=== PATIENT | female | born 1980 | race Caucasian/White ===

== ENCOUNTER → 2019-12-04 09:44 | Outpatient (CLI) | payer MEDICAID, SELFPAY ==
--- NOTE | 2019-12-04 09:50 | VDUE_ITS ---
Reason For Study: ESRD Right Arm Left Arm Cephalic V is dilated and noncompressible at Cephalic V is dilated and noncompressible at the antecubital space with no flow. the antecubital space with no flow. Right Cephalic Vein at the shoulder Left Cephalic Vein at the shoulder measures .07 x .07 cm. measures .08 x .08 cm. Right Cephalic Vein mid bicep measures .11 Left Cephalic Vein at mid bicep measures .2 x .13 cm. x .2 cm. Right Cephalic Vein above antecub Left Cephalic Vein above antecub measures .13 measures .11 x 11 cm. x .19 cm. Right Basilic Vein mid bicep measures .09 Left Cephalic Vein below antecub measures .13 x .12 cm. x .14 cm. Right Basilic Vein above antecub measures .1 Left Cephalic Vein in the forearm x .12 cm. measures .09 x .09 cm. Right Basilic Vein below antecub measures .08 Left Cephalic Vein at the wrist measures .1 x .09 cm. x .11 cm. Right Basilic Vein in the forearm Left basilic vein is compressible. measures .06 x .07 cm. Basilic vein at bicep measures .32 x .36 cm. Basilic V is dilated and noncompressible in Basilic vein above antecub measures .1 x .1 the upper arm with no flow. cm. Basilic at the wrist is too small to assess. Basilic vein below antecub measures .08 x .08 cm. Brachial artery .45 x .44 cm. Basilic vein in the forearm measures .09 Brachial arttery 55.5 cm/s. x .08 cm. Radial artery .18 x .21 cm. Basilic vein at the wrist measures .07 x .08 Radial artery 90.8 cm/s. cm. Brachial artery .35 x .42 cm. Brachial arttery 90.8 cm/s. Radial artery .12 x .13 cm. Radial artery 72.5 cm/s. Prelim called to Dr. Wise's office. Interpretation Summary Superficial thrombophlebitis right cephalic vein at the antecubital space. Diminutive right upper arm cephalic vein Superficial thrombophlebitis right upper arm basilic vein Normal diameter and flow right brachial artery Small right radial artery Superficial thrombophlebitis left cephalic vein at the antecubital space with diminutive cephalic vein of the upper arm and forearm. Diminutive left forearm basilic vein and small in the upper arm Adequate diameter and flow left brachial artery Small left radial artery Ordering Physician: Sahara Farrell Performed By: Guille Gordon RVT ?
== END ==
PROVIDERS: PCP Family Medicine; Referring Provider Student in an Organized Health Care Education/Training Program; Visit Provider Student in an Organized Health Care Education/Training Program
DX: N18.6 End stage renal disease (principal)
CPT/HCPCS: 93970

== ENCOUNTER 2020-01-11 09:23 | Emergency (ER) | payer MEDICAID, SELFPAY ==
[2020-01-11 09:25] VITALS: BP 142/79; PULSE 82; RESP 18; TEMP 37.1; O2SAT 98; BMI 24.1
[2020-01-11 09:32] VITALS: BP 150/77; PULSE 85; PULSE 86; RESP 18; TEMP 37.1; O2SAT 96; O2SAT 98
--- NOTE | 2020-01-11 09:33 | ED.VISSUMM ---
- ER Visit Summary Date of Service: 01/11/20 Chief Complaint: Seizure History of Present Illness: The patient is a 39 F who presents after having a seizure. She states that she was having her regular dialysis session today when she had a seizure. She remembers having headache and then staff asking her questions. She has had a history of this in the past. Her seizures happen either during or after dialysis. She is on Keppra and has been medication compliant. She states that she recently was intubated and found to have posterior reversible encephalopathy syndrome after 1 of her seizure episodes. Currently she states she is having a mild headache but denies any other symptoms. Physical Examination: Vital signs reviewed. HEENT exam unremarkable. Heart is regular rate and rhythm without murmurs. Lungs are clear to auscultation. There is a temporary Vas-Cath in the right upper chest. Abdomen is soft and nontender. Extremities reveal no edema. She does have a left arm fistula which is currently maturing. Incisions are clean dry and intact. Skin exam normal. Neurologic exam normal. Test Results: Hemoglobin is 8.5 which is baseline. Creatinine 3.95 secondary to her end-stage renal disease Emergency Department Course and Treatment: She was given Tylenol for her headache. Upon reevaluation she is feeling symptomatically improved. Her laboratory studies are unremarkable or at baseline. I do not feel she requires any further work-up. She will continue her Keppra at home. She will call her doctor for follow-up Treatment Plan: [] Disposition: Discharge Impression: Seizure This note was generated with [employer] dictation software. It may contain incorrect words, spelling, and punctuation that were not noted in review of the chart prior to signing ED Disposition - Plan for ED Patient: Disposition: Home or Assisted Living Instructions: ED Seizure Recurrent Adult Referrals: Jairon Wise [Primary Care Provider] -
[2020-01-11 09:53] LABS: Absolute Lymphocyte Count 1.35 X10^3/uL (0.83-4.51); Absolute Neutrophil Count 3.9 X10^3/uL (2.0-7.7); Basophil# 0.05 X10^3/uL; Basophil% 0.9 % (0-1); Eosinophil# 0.12 X10^3/uL; Hematocrit 27.3 % (37-47); Hemoglobin 8.5 g/dL (12.0-15.0); Lymphocyte # 1.35 X10^3/ul (4.0); Mean Corp Hgb Conc 31.1 g/dL (32-36); Mean Corpuscular Hgb 29.3 pg (27.0-32.0); Mean Corpuscular Volume 94.1 fL (81-99); Mean Platelet Vol. 10.2 fl (6.2-12.0); Monocyte# 0.39 X10^3/uL; Monocyte% 6.6 % (0-10); NRBC Flagged by Analyzer 0.3 % (0-5); Neutrophil # 3.94 X10^3/uL (2.7-7.7); Neutrophil % 67.2 % (47-70); Platelet Count 234 K/mm3 (150-450); RBC Distribution Width SD 53.9 fl (35.1-43.9); White Blood Count 5.9 K/mm3 (4.4-11.0)
[2020-01-11] MEDS: Acetaminophen 500 MG Tablet 1000 MG PO (09:55)
[2020-01-11 10:05] LABS: Anion Gap 6 (5-15); BUN 16 mg/dL (7-18); BUN/Creat Ratio 4.1 RATIO (10-20); Calcium,Total 9.2 mg/dL (8.5-10.1); Chloride 103 mmol/L (98-107); Creatinine, Serum 3.95 mg/dL (0.55-1.02); EST Glomerular Filtration Rate 13 mL/min (>60); Est Glom Filt Rate - Afr Amer 16 mL/min (>60); Estimated Creatinine Clearance 16.18 ml/min; Glucose 74 mg/dL (74-106); Potassium 4.4 mmol/L (3.5-5.1); Sodium Level 141 mmol/L (136-145)
[2020-01-11 10:46] VITALS: BP 145/80; BP 146/78; PULSE 89; PULSE 90; RESP 18; TEMP 37.2; O2SAT 98
== END 2020-01-11 10:50 | disposition home or self-care (01) ==
LOC: ED 10:23
PROVIDERS: Emergency Provider Emergency Medicine; PCP Family Medicine
DX: G40.909 Epilepsy, unspecified, not intractable, without status epilepticus (principal); N18.6 End stage renal disease; Z99.2 Dependence on renal dialysis; Z79.899 Other long term (current) drug therapy
CPT/HCPCS: 80048; 85025; 99285

== ENCOUNTER 2020-01-17 07:51 | Day surgery (SDC) | payer MEDICAID, SELFPAY ==
--- NOTE | 2020-01-16 15:41 | PCM.HP.BLA ---
History and Physical Date of Admission: 01/17/20 HPI: The patient is a 39 year old female presenting for pre-operative visit. She is scheduled for?hysteroscopy D&C w/ Mirena IUD insertion, for?hysteroscopy D&C w/ Jordyn ablation and Mirena insertion?. ??Procedure discussed along with risks, benefits and complications. ?Other alternatives discussed for management. Consent form signed??Yes.? PAST MEDICAL HISTORY PAST MEDICAL HISTORY Diagnosis Date ? TIMOTHY (acute kidney injury) (HCC) ? ? Anemia, unspecified ? ? ESRD (end stage renal disease) (HCC) ? ? Hypertension ? ? Leiomyoma of uterus, unspecified ? ? Lumbago 2003 ? 2/2 trauma s/p L3-4 microdiscectomy in January 2006 ? Methicillin susceptible Staphylococcus aureus in conditions classified elsewhere and of unspecified site ? ? completed treatment with po antibiotics and bactroban to the nose (no MRSA abscesses since then) ? Ostium secundum type atrial septal defect ? ? per pt ? PRES (posterior reversible encephalopathy syndrome) ? ? Retention of urine, unspecified ? ? Urinary tract infection, site not specified ? ? ? PAST SURGICAL HISTORY PAST SURGICAL HISTORY Procedure Laterality Date ? ANESTH, SECTION ? 2001 ? LYSIS ADNEXAL ADHESIONS ? 2002 ? ? CURRENT MEDICATIONS Current Outpatient Medications Medication Sig Dispense Refill ? losartan (COZAAR) 25 mg tablet Take 25 mg by mouth once daily. ? ? ? amLODIPine (NORVASC) 10 mg tablet Take 10 mg by mouth once daily. ? ? ? labetalol (TRANDATE) 300 mg tablet Take 2 tablets by mouth twice daily. 120 tablet 0 ? levETIRAcetam (KEPPRA) 500 mg/5 mL (5 mL) CUP 10 mL by ORAL/FEEDING TUBE route once daily. (Patient taking differently: by ORAL/FEEDING TUBE route once daily. ) 300 mL 0 ? levETIRAcetam (KEPPRA) 500 mg/5 mL (5 mL) CUP 5 mL by ORAL/FEEDING TUBE route every Tuesday, Tuesday, and Tuesday. 60 mL 0 ? pantoprazole (PROTONIX) 40 mg/20 mL oral liquid 20 mL by ORAL/FEEDING TUBE route DAILY (6 AM). ? ? ? heparin 1,000 unit/mL soln 3.2 mL by INTRALUMINAL route as needed (fill volume of dialysis catheter post treatment). ? ? ? atorvastatin (LIPITOR) 10 mg tablet Take 10 mg by mouth daily at bedtime. ? ? ? cyanocobalamin (VITAMIN B-12) 500 mcg tab tab(s) Take 2 tablets by mouth once daily. ? ? ? megestrol (MEGACE) 40 mg tablet Take 40 mg by mouth twice daily. ? ? ? polyethylene glycol 3350 (MIRALAX, GLYCOLAX) 17 gram packet Take 17 g by mouth once daily as needed (constipation). ? ? ? amLODIPine (NORVASC) 10 mg tablet Take 1 tablet by mouth once daily. 30 tablet 0 ? lacosamide (VIMPAT) 200 mg 1 tablet by ORAL/FEEDING TUBE route twice daily for 30 days. (Patient not taking: Reported on 12/05/2019) 60 tablet 0 ? hydrALAZINE (APRESOLINE) 25 mg tablet Take 2 tablets by mouth every 8 hours. (Patient taking differently: Take 100 mg by mouth three times daily. ) 180 tablet 0 ? Albuterol Sulfate 0.63 mg/3 mL nebulizer solution Use 1 Ampule via nebulizer every 2 hours as needed (decreased breath sounds). ? ? ? oxyCODONE-acetaminophen (PERCOCET) 5-325 mg tablet Take 1 tablet by mouth every 4 hours as needed for Pain. ? ? ? No current facility-administered medications for this visit.? ? ALLERGIES:?Bioxin [Clarithromycin]; Cipro [Ciprofloxacin]; Keflex [Cephalexin]; Penicillins ? PERSONAL HISTORY:? SOCIAL HISTORY Social History ? Tobacco Use ? Smoking status: Former Smoker ? ? Packs/day: 1.00 ? ? Years: 3.00 ? ? Pack years: 3.00 ? ? Types: Cigarettes ? ? Last attempt to quit: 01/03/2016 ? ? Years since quittin.0 ? Smokeless tobacco: Never Used Substance Use Topics ? Alcohol use: Yes ? ? Comment: Rarely ? Drug use: No ? FAMILY HISTORY:? FAMILY HISTORY FAMILY HISTORY Problem Relation Age of Onset ? other (ALS) Father ?dx 11/2007 ? other (uterine fibroid) Mother ? ? other (hysterectomy) Mother ? ? other (HTN) Mother ? ? other (ovarian cancer) Maternal Grandmother ? ? REVIEW OF SYMPTOMS: GENERAL: denies fevers or chills ENDOCRINOLOGY: has not been on steroids Cardiology : denies palpitations or chest pain Respiratory: denies SOB or cough Hematology: denies history of prolonged bleeding or easy bruising or VTE Allergy: Denies history of personal or family history of allergy to anesthesia ? ? PHYSICAL EXAMINATION: ? VITALS:?Blood pressure 110/68, weight 130 lb 14.4 oz (59.4 kg), last menstrual period 08/24/2019. ? GENERAL:??The patient is well nourished, well hydrated in no acute distress. ?, The patient is oriented to time, place, and person. NECK:?Supple. No lynphadenopathy, normal thyroid, no thyromegaly. LUNGS:?Clear to auscultation bilaterally. no wheezes, rhonchi or rales HEART:?Regular rate and rhythm, Normal heart sounds and No murmurs or gallops GENITALIA:?Normal external genitalia, Urethral meatus normal, Bladder nontender, normal vagina and normal vaginal tone, normal cervix, normal uterus, size and consistency, normal adnexa without masses or tenderness and perineum WNL WET PREP:?Not indicated ? IMPRESSION:?Menorrhagia, chronic blood loss anemia superimposed on anemia of chronic disease due to renal failure ? PLAN:???The risks/benefits/alternatives and personal involved for the planned?PAP/hysteroscopy D&C w/ Jordyn ablation and Mirena insertion?were reviewed with the patient. Her questions were answered to her satisfaction and she desires to proceed. ?Consent was signed. ?I reviewed with her postop instructions and expectations. ? ? I have reviewed and updated past medical and surgical history, medications and allergies? Essential Procedure Criteria Procedure Essential: Yes Criteria Note: severe anemia requiring ongoing blood transfusions Risk to Patient if Procedure Delayed: Presence of severe symptoms causing an inability to perform ADL's
[2020-01-17] VITALS (9 sets, daily range): BP systolic 134–155; BP diastolic 80–94; PULSE 58–76; RESP 15–16; TEMP 36.5–37.4; O2SAT 87–100; BMI 22.9
[2020-01-17 08:38] LABS: Hematocrit 32.2 % (37-47); Hemoglobin 9.5 g/dL (12.0-15.0); Mean Corp Hgb Conc 29.5 g/dL (32-36); Mean Corpuscular Hgb 29.4 pg (27.0-32.0); Mean Corpuscular Volume 99.7 fL (81-99); Mean Platelet Vol. 10.5 fl (6.2-12.0); Platelet Count 194 K/mm3 (150-450); RBC Distribution Width CV 15.3 % (11.6-14.6); RBC Distribution Width SD 56.3 fl (35.1-43.9); Red Blood Count 3.23 M/mm3 (4.2-5.4); White Blood Count 6.7 K/mm3 (4.4-11.0)
[2020-01-17 08:39] LABS: Internal QC Validated? YES +Cl - CLEAR BKGD; Pregnancy, Serum, hCG Quali. NEGATIVE Negative
[2020-01-17] MEDS: Acetaminophen 500 MG Tablet 1000 MG PO (08:43)
[2020-01-17] MEDS: 0.9% Normal Saline 1,000 ML 30 ML IV (08:44)
--- NOTE | 2020-01-17 09:30 | EMB_PTH ---
PATIENT: BABAR ACUÑA [place] [facility] [place][id number] AGE/SX: 39/F ROOM: RE01/17/[address]: Dr. Belinda Mcmullen MD : 1980 BED: DIS: 01/17/2020 SPEC #: [id number] RECD: 01/17/20 12:01 STATUS: KP TOY #: [id number] AMEENA: 01/17/20 09:[address]: Belinda Mcmullen DEPT: SURGICAL PATHOLOGY RECD BY: Bree Peoples ENTERED: 01/21/20 08:34 SP TYPE: ENDOM BX/C JAMAAL DR: Dr. Jairon Wise DO Tissues: Endometrium, NOS Procedures: Surgery Specimen Level IV HEADER OPERATION: Hysteroscopy, D & C Jordyn/Mirena IUD insertion PRE-OP DIAGNOSIS: Abnormal uterine bleeding; chronic blood loss anemia TISSUE SUBMITTED: Endometrial curettings MICROSCOPIC DIAGNOSIS Endometrial curettings: Weakly proliferative endometrium. Fragments of benign ectocervical epithelium. YASMANY:sierra 01/21/20 MICROSCOPIC DESCRIPTION Slides are reviewed. GROSS DESCRIPTION Received in fixative is one container labeled with the patient's name and designated endometrial curettings. The specimen consists of multiple fragments of hemorrhagic soft tissue that in aggregate measure 2.5 x 2 x 0.2 cm. The specimen is totally submitted in one cassette. / YASMANY:sierra 01/18/20 TC:5 CPT: 10375
--- NOTE | 2020-01-17 09:43 | PCM.DC.D&C ---
Discharge Diet: No Restrictions Discharge Activity: Return to Normal Activity, May Shower, May Not Shower, May Take a Tub Bath - in 2 weeks. May shower in (days): 1 May resume sexual activity in: 2 weeks, - Call your doctor if your incision/area has: Continuous Slow Oozing, Sudden Increased Bleeding, Foul Smelling Discharge Call your doctor if you observe: Fever of 101 or Higher, Inability to have a bowel movement, Using more than one pad per hour - for 2 hrs in a row Allergies/Adverse Reactions: Allergies ciprofloxacin [From Cipro] Allergy (Verified 01/17/20 08:04) Rash clarithromycin [From Biaxin] Allergy (Verified 01/17/20 08:04) Rash Penicillins Allergy (Verified 01/17/20 08:04) Hives cephalexin [From Keflex] Adverse Reaction (Verified 01/17/20 08:04) Diarrhea Medications to take at Discharge Amlodipine [Norvasc] 5 mg PO DAILY 01/16/20 Atorvastatin Calcium [Lipitor] 10 mg PO QHS 01/16/20 Cyanocobalamin (Vitamin B-12) [Vitamin B-12] 500 mcg PO DAILY 01/16/20 Labetalol HCl 300 mg PO BID 01/16/20 Levetiracetam [Keppra] 1,000 mg PO DAILY 01/16/20 Levetiracetam [Keppra] 500 mg PO MOWEFR 01/16/20 Pantoprazole Sodium [Protonix] 40 mg PO DAILY 01/16/20 Orders to be completed after discharge: Type & Screen Time Frame: 01/17/20, Facility: [facility], Location: Laboratory Primary Care Physician: Jairon Wise DO [Primary Care Provider] - Test Results: Test results from this visit will be discussed in further detail at your follow-up appointment, if applicable. Please Follow Up With: Belinda Mcmullen MD - [phone] When: virtual visit in 4-8 weeks or as needed
--- NOTE | 2020-01-17 10:14 | PCM.OPRPT ---
Report of Operation Date of Procedure: 01/17/20 Pre-Operative Diagnosis: menorrhagia, Chronic blood loss anemia Post-Operative Diagnosis: same Surgery/Procedure Performed:: hysteroscopy D&C with Jordyn ablation, Mirena IUD insertion and Pap smear Description of Surgical Findings:: normal cervix, vagina and endometrial cavity personal vehicle advisor: None Type of Anesthesia:: MAC/Supplemental/Local Anesthesiologist: Karthik Sunshine Special Medications: none Specimen's removed: endometrial curettings Drains: none Estimated Blood Loss (mL): 20 Fluids Replaced: 150 cc normal saline Description of Procedure: The patient was taken to the OR where she was placed in a dorsal lithotomy position. A speculum was placed in the vagina and the Pap smear was collected in the usual fashion. The patient was then prepped and draped. The weighted speculum was placed in the vagina and the anterior lip of the cervix was grasped with a single-tooth tenaculum. A paracervical block was administered with 1% lidocaine with 1-100,000 epinephrine solution. The cervix was dilated serially with Hegar dilators. The 5mm hysteroscope was placed into the uterine cavity and the above findings were noted. Bilateral tubal ostia were identified. The uterus sounded to 8cm and the cervical length was 4 cm. The endometrial cavity length was 4cm. The hysteroscope was removed. A gentle sharp curettage was done of the uterine cavity. The specimen was handed off and sent to pathology. The Jordyn device was set to 4cm. The instrument was then seated into the endometrial cavity and the indicator was in the green. The cervical seal balloon was inflated and the uterine integrity test was passed. The ablation procedure was initiated and completed without interruption. During the ablation procedure gentle traction was held on the tenaculum and the Jordyn device was held up against the uterine fundus. When the ablation procedure was completed the Jordyn was removed. The Mirena IUD was then inserted in the usual sterile fashion and the strings cut to 2 cm. The tenaculum was removed and the tenaculum site was noted to be hemostatic. All sponge and needle counts were correct. A vaginal sweep was performed by me. The patient was awakened and taken to the recovery room in stable condition. Hysteroscopic ins: 100cc normal saline Hysteroscopic outs:60cc Findings: Endometrial cavity: Normal, no fibroids or polyps noted Cervix: Normal Vagina: Normal Grafts/Implants Used: Mirena IUD LOt [id number], exp. 02/03/2022 - Complications none - Admit VTE Documentation VTE Present on Admission: No VTE Mechan Device Prophylaxis: SCD's VTE Pharm Prophylaxis ordered?: No Reason prophylaxis not ordered:: Procedure Not Indicated
[2020-01-17] MEDS: HYDROcodone Bitartrate/Apap 5/325 Tablet PO (11:32)
[2020-01-19 12:04] LABS: HPV APTIMA, High Risk Negative (Negative)
== END 2020-01-17 11:46 | disposition home or self-care (01) ==
LOC: SDC 07:52 → AC 07:52
PROVIDERS: PCP Family Medicine; Referring Provider Obstetrics & Gynecology; Visit Provider Obstetrics & Gynecology
PROC: 0U5B8ZZ Destruction of Endometrium, Via Natural or Artificial Opening Endoscopic (ICD-10-PCS; CPT 58558; principal; 2020-01-17 09:15)
DX: N92.0 Excessive and frequent menstruation with regular cycle (principal); D50.0 Iron deficiency anemia secondary to blood loss (chronic); D25.9 Leiomyoma of uterus, unspecified; Z11.59 Encounter for screening for other viral diseases; I12.0 Hypertensive chronic kidney disease with stage 5 chronic kidney disease or end stage renal disease; N18.6 End stage renal disease; Z99.2 Dependence on renal dialysis; Q21.1 Atrial septal defect; G40.909 Epilepsy, unspecified, not intractable, without status epilepticus; E78.00 Pure hypercholesterolemia, unspecified; I67.83 Posterior reversible encephalopathy syndrome; Z87.440 Personal history of urinary (tract) infections; Z79.899 Other long term (current) drug therapy; Z87.891 Personal history of nicotine dependence
CPT/HCPCS: 00940; 58300; 58563; 36415; 84703; 85027; 86850; 86900; 86901; 87624; 87635; 88175; 88305; G2023; J7030; J7120; G0145; J2405; U0002

== ENCOUNTER 2020-02-29 06:58 | Emergency (ER) | payer MEDICAID, SELFPAY ==
[2020-01-17 08:10] VITALS: BMI 22.9
[2020-02-29 06:59] VITALS: BP 148/90; PULSE 83; RESP 17; TEMP 36.4; O2SAT 93; BMI 19.8
--- NOTE | 2020-02-29 07:04 | ED.RN ---
NO OLD EKGS
[2020-02-29 07:08] VITALS: BMI 19.8
--- NOTE | 2020-02-29 07:13 | RAD_ITS ---
STUDY: X-RAY CHEST REASON FOR EXAM: Female, 39 years old. Dizziness, chest pain -- slurred speech today TECHNIQUE: Frontal view COMPARISON: None. FINDINGS: The lungs are expanded. Mild right basilar interstitial prominence. Normal size heart. Normal mediastinum and daphney. Normal visualized pulmonary arteries. Normal visualized aortic arch and descending thoracic aorta. Normal visualized thoracic spine. Normal visualized ribs, clavicles, and shoulders. There is no demonstrated abnormality of the visualized soft tissue structures of the upper abdomen. RAD/Chest 1 View (Portable) IMPRESSION: Mild right basilar interstitial prominence. Electronically Signed: Juan Guerrero DO at 8:20 EDT Tel [phone], Service support ,
--- NOTE | 2020-02-29 07:13 | CT_ITS ---
STUDY: CT BRAIN WITHOUT CONTRAST REASON FOR EXAM: Female, 39 years old. DIZZINESS, slurred speech, on dialysis RADIATION DOSAGE (If Supplied By Facility): CTDIvol = ( 44.99 ) mGy, DLP = ( 745.49 ) mGycm TECHNIQUE: Transaxial CT imaging of the brain was performed without administration of intravenous contrast material. Individualized dose optimization techniques were used for this CT. COMPARISON: No relevant priors. FINDINGS: Normal soft tissue structures. Normal calvarium. Normal size ventricles and extra-axial spaces for the patient''s age. Normal white matter tracts of the cerebral hemispheres. Normal basal ganglia and thalami. Normal brainstem. Normal cerebellum. There is no intracranial hemorrhage. There are no findings of an acute ischemic infarction. There is mucosal retention cyst in the left maxillary sinus. CT/Brain/Head without Contrast IMPRESSION: Negative unenhanced CT scan of the brain. Electronically Signed: Peter Morales, at 8:02 EDT Tel , Service support ,
--- NOTE | 2020-02-29 07:14 | EKG12_ITS ---
Test Reason : DIZZY Blood Pressure : / mmHG Vent. Rate : 083 BPM Atrial Rate : 083 BPM P-R Int : 212 ms QRS Dur : 084 ms QT Int : 426 ms P-R-T Axes : 061 -04 046 degrees QTc Int : 500 ms Sinus rhythm with 1st degree A-V block Prolonged QT Abnormal ECG Confirmed by RICO RODRIGUEZ, JEROME ([id number]), legal editor JENNIFER KELLEY ([id number]) on 03/04/2020 11:09:57 AM Referred By: MARIANA Confirmed By:JEROME GÓMEZ MD
[2020-02-29 07:29] LABS: Absolute Lymphocyte Count 1.76 X10^3/uL (0.83-4.51); Absolute Neutrophil Count 3.9 X10^3/uL (2.0-7.7); Basophil# 0.06 X10^3/uL; Eosinophils% 3.2 % (0-5); Hematocrit 29.3 % (37-47); Hemoglobin 8.8 g/dL (12.0-15.0); Lymphocyte # 1.76 X10^3/ul (4.0); Lymphocyte % 27.9 % (19-41); Mean Corpuscular Hgb 28.6 pg (27.0-32.0); Mean Corpuscular Volume 95.1 fL (81-99); Mean Platelet Vol. 11.5 fl (6.2-12.0); Monocyte% 6.3 % (0-10); NRBC Flagged by Analyzer 0 % (0-5); Neutrophil # 3.87 X10^3/uL (2.7-7.7); Neutrophil % 61.3 % (47-70); POSITIVE COUNT YES; Platelet Count 132 K/mm3 (150-450); RBC Distribution Width CV 17.3 % (11.6-14.6); RBC Distribution Width SD 57.5 fl (35.1-43.9); Red Blood Count 3.08 M/mm3 (4.2-5.4); White Blood Count 6.3 K/mm3 (4.4-11.0)
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
[2020-02-29 07:38] LABS: Differential Indicated SCAN CRITERIA MET
[2020-02-29 07:41] LABS: International Normalized Ratio 1.1; Partial Thromboplast Time 27.8 Seconds (24.1-36.2); Prothrombin Time (Protime)PT. 13.6 SECONDS (11.7-14.9)
[2020-02-29 07:45] LABS: Anion Gap 9 (5-15); BUN 30 mg/dL (7-18); BUN/Creat Ratio 4.7 RATIO (10-20); Calcium,Total 9.2 mg/dL (8.5-10.1); Chloride 109 mmol/L (98-107); Creatinine, Serum 6.33 mg/dL (0.55-1.02); EST Glomerular Filtration Rate 8 mL/min (>60); Est Glom Filt Rate - Afr Amer 9 mL/min (>60); Estimated Creatinine Clearance 11.26 ml/min; Glucose 81 mg/dL (74-106); Potassium 4.4 mmol/L (3.5-5.1); Sodium Level 142 mmol/L (136-145)
[2020-02-29 08:04] LABS: Platelet Estimate SLT DEC (ADEQ)
[2020-02-29 08:11] VITALS: BP 135/77; BP 150/89; BP 152/82; PULSE 81; PULSE 82; PULSE 85; RESP 16; O2SAT 96
--- NOTE | 2020-02-29 08:34 | CT_ITS ---
STUDY: CT CHEST WITHOUT CONTRAST REASON FOR EXAM: Female, 39 years old. MILD RIGHT BASILAR INTERSTITIAL PROMINENCE RADIATION DOSAGE (If Supplied By Facility): CTDIvol = ( 6.94 ) mGy, DLP = ( 263.42 ) mGycm TECHNIQUE: Transaxial imaging was performed without the administration of intravenous contrast material. Individualized dose optimization techniques were used for this CT. COMPARISON: Chest x-ray earlier today FINDINGS: Diffuse groundglass opacities throughout the lungs suggestive of pulmonary edema. Moderate bilateral pleural effusions larger on the right than the left. Normal heart and pericardium. Precarinal lymphadenopathy measuring 1.8 x 2.2 cm which is likely reactive. Normal hilar regions. Normal unenhanced pulmonary arteries. Normal aorta arch and descending thoracic aorta. Normal osseous structures. There is no demonstrated abnormality of the visualized upper abdomen. CT/Chest without Contrast IMPRESSION: Suspect volume overload with pulmonary edema and moderate bilateral pleural effusions. Electronically Signed: Lavell Hector MD at 9:50 EDT Tel , Service support ,
[2020-02-29 09:14] VITALS: BP 157/88; PULSE 86; RESP 22; O2SAT 96
[2020-02-29 10:31] VITALS: BP 158/96; PULSE 88; RESP 19; O2SAT 93
[2020-02-29 11:06] VITALS: BP 158/88; PULSE 88; RESP 21; O2SAT 90
== END 2020-02-29 11:20 | disposition home or self-care (01) ==
PROVIDERS: Emergency Provider Emergency Medicine; PCP Family Medicine
DX: N18.6 End stage renal disease (principal); E87.70 Fluid overload, unspecified; G40.909 Epilepsy, unspecified, not intractable, without status epilepticus; Z99.2 Dependence on renal dialysis; Z79.899 Other long term (current) drug therapy; Z87.891 Personal history of nicotine dependence
CPT/HCPCS: 70450; 71045; 71250; 80048; 84484; 85025; 85610; 85730; 93005; 99285; A4216

== ENCOUNTER 2020-04-07 09:26 | Emergency (ER) | payer MEDICAID, SELFPAY ==
[2020-04-07 09:27] VITALS: BP 177/87; PULSE 81; RESP 20; TEMP 36.5; O2SAT 97; BMI 22.1
--- NOTE | 2020-04-07 09:40 | ED.VIS.GEN ---
History of Present Illness Chief Complaint: Seizure Informant: Patient Narrative: Patient is a 39-year-old female with a past medical history of Goodpasture syndrome who presents to the emergency department for apt-fsyjbth-nspt activity. She states that during dialysis she gets a sensation of headache, shakiness where she feels like she is going to have a seizure. Typically this will last for 1 hour prior to the seizure starting. He has had this happen many times since September when she started her dialysis. She has been on it Tuesday, Tuesday, Tuesday. She is currently on Keppra and has been compliant with her medications. She denies having any seizure-like activity today. Last time she received Ativan and Benadryl and this resolved her symptoms prior to having a seizure start. She denies any recent illnesses including any cough, cold, congestion. No fevers or chills. She currently rates her headache as a 7 out of 10. This is similar to her previous headaches. Did not come on acutely. She went 2 hours out of the 3-1/2-hour dialysis session. She has been otherwise compliant with every other session. She denies any chest pain, shortness of breath. No abdominal pain. She does feel nauseous but no episodes of vomiting. Past Medical History - Allergies and Home Meds Allergies/Adverse Reactions: Allergies ciprofloxacin [From Cipro] Allergy (Verified 02/29/20 07:05) Rash clarithromycin [From Biaxin] Allergy (Verified 02/29/20 07:05) Rash Penicillins Allergy (Verified 02/29/20 07:05) Hives cephalexin [From Keflex] Adverse Reaction (Verified 02/29/20 07:05) Diarrhea Primary Care Physician: Jairon Wise DO [Primary Care Provider] - 2 Days Past Medical History: - - Goodpasture syndrome, ESRD, hypertension Smoking Status: Former smoker Review of Systems All systems negative except as indicated General: Denies: Chills, Fever, Sweats Eyes: Denies: Visual changes - bilaterally, Diplopia ENT: Denies: Rhinorrhea, Sore throat Cardiovascular: Denies: Chest pain, Palpitations Respiratory: Denies: Dyspnea, Cough, Dyspnea on exertion Gastrointestinal: Reports: Nausea. Denies: Abdominal pain, Vomiting, Diarrhea Musculoskeletal: Denies: Back pain, Extremity Pain Skin: Denies: Rash, Wounds Neurological: Reports: Headache, Weakness - Generalized. Denies: Numbness Physical Exam Vital Signs/Narrative: Vital Signs Temp Pulse Resp BP Pulse Ox 04/07/20 09:27 97.7 F L 81 20 H 177/87 H 97 Inital Vital Signs reviewed: Yes General: Well nourished, No Acute Distress Head: Normocephalic, Atraumatic Eyes: Perrl, EOMI ENT: Moist mucous membranes Neck: Supple, Nontender Cardiovascular: Regular rate, Regular rhythm Respiratory: No distress, CTA bilaterally Abdomen: Soft, Nontender, Nondistended Extremities: Nontender, No edema Skin: Normal color, No rash Neurological: Alert, Oriented x3, Cranial nerves II-XII grossly intact, Normal Strength, Normal Sensation Psychological: Normal affect, Normal Mood Diagnostic/Tx/Re-eval - Medical Decision Making Patient presents to the emerge department from dialysis for feeling like she could potentially have a seizure. She has had this happen many times before in the past. She typically has an hour of this sensation prior to seizing. She states that she is supposed to go 6 months without a seizure for possible kidney transplant. Lab work did not reveal a significant acute abnormality. She does have anemia but this is at her baseline. Potassium is very mildly low. After treatment patient feeling much better. She no longer feels like she could potentially have a seizure. She is still having a mild headache. She does feel this is manageable and does feel comfortable going home at this time. She states that her dialysis told her not to come back until her next appointment on Tuesday. She is to follow-up with her PCP and keep her scheduled dialysis appointments. Warning signs and symptoms for which to return to the emerge department reviewed with her. She understands and is agreeable with this plan. Will discharge home in stable condition. ED Disposition - Plan for ED Patient: Disposition: Home or Assisted Living Diagnosis: Aura, Headache Instructions: Understanding Headache Pain, ED Seizure Recurrent Adult Referrals: Jairon Wise DO [Primary Care Provider] - 2 Days
[2020-04-07] MEDS: DiphenhydrAMINE 50 MG/ML Syringe 25 MG IV (10:06)
[2020-04-07] MEDS: LORazepam 2 MG/ML Syringe 1 MG IV (10:06)
[2020-04-07] MEDS: Acetaminophen 325 MG Tablet 650 MG PO (10:12)
[2020-04-07 10:38] LABS: ALB/GLOB Ratio 0.9 RATIO (0.9-2.4); AST(SGOT) 27 U/L (15-37); Alanine Aminotransfer ALT/SGPT 15 U/L (13-56); Albumin, Serum 2.8 g/dL (3.2-5.0); Alkaline Phosphatase 52 U/L (45-117); Anion Gap 7 (5-15); BUN 19 mg/dL (7-18); BUN/Creat Ratio 4.7 RATIO (10-20); Calcium,Total 8.6 mg/dL (8.5-10.1); Chloride 101 mmol/L (98-107); Creatinine, Serum 4.02 mg/dL (0.55-1.02); EST Glomerular Filtration Rate 13 mL/min (>60); Est Glom Filt Rate - Afr Amer 16 mL/min (>60); Globulin 3.2 g/dL (2.2-4.2); Glucose 75 mg/dL (74-106); Magnesium 2.1 mg/dL (1.6-2.6); Potassium 3.3 mmol/L (3.5-5.1); Sodium Level 137 mmol/L (136-145)
--- NOTE | 2020-04-07 10:54 | ED.RN ---
called lab to have pt blood drawn.
[2020-04-07 11:07] LABS: Absolute Lymphocyte Count 1.74 X10^3/uL (0.83-4.51); Absolute Neutrophil Count 3.6 X10^3/uL (2.0-7.7); Basophil# 0.06 X10^3/uL; Eosinophils% 3.3 % (0-5); Hemoglobin 8.8 g/dL (12.0-15.0); Lymphocyte # 1.74 X10^3/ul (4.0); Mean Corp Hgb Conc 32.6 g/dL (32-36); Mean Corpuscular Hgb 30.1 pg (27.0-32.0); Mean Corpuscular Volume 92.5 fL (81-99); Mean Platelet Vol. 8.9 fl (6.2-12.0); Monocyte# 0.44 X10^3/uL; Monocyte% 7.3 % (0-10); NRBC Flagged by Analyzer 0 % (0-5); Neutrophil # 3.55 X10^3/uL (2.7-7.7); Neutrophil % 59.1 % (47-70); Platelet Count 212 K/mm3 (150-450); RBC Distribution Width CV 16.5 % (11.6-14.6); RBC Distribution Width SD 55.6 fl (35.1-43.9); Red Blood Count 2.92 M/mm3 (4.2-5.4)
[2020-04-07 12:04] VITALS: BP 199/100; PULSE 75; RESP 12; O2SAT 92
== END 2020-04-07 12:06 | disposition home or self-care (01) ==
PROVIDERS: Emergency Provider Emergency Medicine; PCP Family Medicine
DX: R51 Headache (principal); R11.0 Nausea; R53.1 Weakness; D64.9 Anemia, unspecified; I12.0 Hypertensive chronic kidney disease with stage 5 chronic kidney disease or end stage renal disease; N18.6 End stage renal disease; Z99.2 Dependence on renal dialysis; M31.0 Hypersensitivity angiitis; Z79.82 Long term (current) use of aspirin; Z79.899 Other long term (current) drug therapy; Z87.891 Personal history of nicotine dependence
CPT/HCPCS: 36415; 80053; 83735; 85025; 96374; 96375; 99284; J7030; A4216

== ENCOUNTER 2020-05-05 11:09 | Inpatient (IN) | payer MEDICAID, SELFPAY ==
[2020-05-05] VITALS (17 sets, daily range): BP systolic 157–195; BP diastolic 87–111; PULSE 63–93; RESP 14–22; TEMP 36.1–37.1; O2SAT 94–99; BMI 20.7; BMI 19.5; BMI 19.7
--- NOTE | 2020-05-05 11:17 | EKG12_ITS ---
Test Reason : CP Blood Pressure : / mmHG Vent. Rate : 083 BPM Atrial Rate : 083 BPM P-R Int : 170 ms QRS Dur : 084 ms QT Int : 434 ms P-R-T Axes : 041 005 057 degrees QTc Int : 509 ms Normal sinus rhythm Prolonged QT Abnormal ECG Confirmed by RICO RODRIGUEZ, JEROME ([id number]), associate entertainment editor JENNIFER KELLEY ([id number]) on 05/08/2020 11:18:29 AM Referred By: DALIA Confirmed By:JEROME GÓMEZ MD
--- NOTE | 2020-05-05 11:18 | ED.VISSUMM ---
- ER Visit Summary Date of Service: 05/05/20 Chief Complaint: Chest pain History of Present Illness: The patient is a 39 F presenting with chest pressure. It started while she was at dialysis approximately 1 hour ago. She complains of midsternal chest pressure. She has associated shortness of breath. She denies nausea or vomiting. She has a migraine headache as well. She states she typically gets migraine headaches when she has dialysis. This is not unusual for her. She denies fever. She completed dialysis prior to arrival. Physical Examination: Vitals are stable. Patient is afebrile. Alert no acute distress. HEENT exam is unremarkable. Neck is supple. Lungs are clear and equal bilaterally. Heart is regular rate and rhythm. Abdomen is soft nontender nondistended. Extremities are unremarkable. Skin is warm and dry. No focal neurologic deficit. Remainder of exam is unremarkable. Emergency Department Course and Treatment: EKG is sinus rhythm rate of 83 with no acute ischemic changes. Patient was given aspirin, morphine, Zofran. EKG is sinus rate of 83 with no acute ischemic changes. CBC shows hemoglobin 6.4. BUN 28, creatinine 2.95. Troponin is negative. Chest x-ray shows no acute process. Stool is guaiac positive. She was typed and crossed for packed red blood cells. Discussed with the hospitalist for admission. Disposition: Admission Impression: Chest pain, anemia This note was generated with [employer] dictation software. It may contain incorrect words, spelling, and punctuation that were not noted in review of the chart prior to signing ED Disposition - Plan for ED Patient: Disposition: Acute Care [facility]
[2020-05-05] MEDS: Ondansetron 4 MG/2 ML Vial IV (11:25)
[2020-05-05] MEDS: Morphine 4 MG/ML Syringe IV (11:25)
[2020-05-05] MEDS: Aspirin 81 MG TAB.CHEW 324 MG PO (11:25)
[2020-05-05 11:39] LABS: Absolute Lymphocyte Count 1.62 X10^3/uL (0.83-4.51); Absolute Neutrophil Count 3.4 X10^3/uL (2.0-7.7); Basophil# 0.04 X10^3/uL; Basophil% 0.7 % (0-1); Eosinophil# 0.22 X10^3/uL; Eosinophils% 3.9 % (0-5); Hematocrit 19.8 % (37-47); Hemoglobin 6.4 g/dL (12.0-15.0); Lymphocyte # 1.62 X10^3/ul (4.0); Lymphocyte % 29.1 % (19-41); Mean Corp Hgb Conc 32.3 g/dL (32-36); Mean Corpuscular Hgb 31.1 pg (27.0-32.0); Mean Corpuscular Volume 96.1 fL (81-99); Mean Platelet Vol. 10.2 fl (6.2-12.0); Monocyte# 0.25 X10^3/uL; Monocyte% 4.5 % (0-10); NRBC Flagged by Analyzer 0 % (0-5); Neutrophil # 3.42 X10^3/uL (2.7-7.7); Neutrophil % 61.4 % (47-70); Platelet Count 196 K/mm3 (150-450); RBC Distribution Width CV 14.3 % (11.6-14.6); RBC Distribution Width SD 50.4 fl (35.1-43.9); Red Blood Count 2.06 M/mm3 (4.2-5.4); White Blood Count 5.6 K/mm3 (4.4-11.0)
--- NOTE | 2020-05-05 11:40 | RAD_ITS ---
STUDY: X-RAY CHEST REASON FOR EXAM: Female, 39 years old. sternal chest pressure during dialysis about an hour ago TECHNIQUE: Single AP portable view of the chest. COMPARISON: 02/29/2020 FINDINGS: The lungs are clear and expanded. There is no demonstrated pleural abnormality. Normal size heart. Normal mediastinum and daphney. Normal visualized pulmonary arteries. Normal visualized aortic arch and descending thoracic aorta. Normal visualized thoracic spine. Normal visualized ribs, clavicles, and shoulders. There is no demonstrated abnormality of the visualized soft tissue structures of the upper abdomen. RAD/Chest 1 View (Portable) IMPRESSION: Normal x-ray examination of the chest. Electronically Signed: Lavell Hector MD at 12:00 EDT Tel , Service support ,
[2020-05-05 11:49] LABS: Anion Gap 7 (5-15); BUN 28 mg/dL (7-18); BUN/Creat Ratio 9.5 RATIO (10-20); Calcium,Total 8.9 mg/dL (8.5-10.1); Chloride 102 mmol/L (98-107); Creatinine, Serum 2.95 mg/dL (0.55-1.02); EST Glomerular Filtration Rate 19 mL/min (>60); Est Glom Filt Rate - Afr Amer 23 mL/min (>60); Estimated Creatinine Clearance 21.67 ml/min; Glucose 69 mg/dL (74-106); Potassium 3.6 mmol/L (3.5-5.1); Sodium Level 140 mmol/L (136-145)
--- NOTE | 2020-05-05 12:13 | HP.PCM_ITS ---
Problem List (1) Severe anemia Status: Acute (2) Chest pain Status: Acute Qualifiers: Chest pain type: unspecified Qualified Code(s): R07.9 - Chest pain, unspecified (3) ESRD (end stage renal disease) on dialysis Status: Chronic (4) Goodpasture syndrome Status: Chronic (5) PFO (patent foramen ovale) Status: Chronic (6) DJD (degenerative joint disease) Status: Chronic Qualifiers: Osteoarthritis location: unspecified site Osteoarthritis type: unspecified Qualified Code(s): M19.90 - Unspecified osteoarthritis, unspecified site (7) Spinal stenosis Status: Chronic Qualifiers: Spinal region: unspecified Qualified Code(s): M48.00 - Spinal stenosis, site unspecified History of Present Illness Date of Admission: 05/05/20 Chief Complaint: Headache, chest pain, dizziness, blurred vision - on day of admission The patient is a 39 year old F with medical history of ESRD on hemodialysis in September 2019, Goodpasture's syndrome status post plasmapheresis a couple of weeks ago, on chronic steroid, hypertension who comes in with dizziness, palpitations, blurred vision, chest discomfort while on dialysis today. Patient has been feeling unwell since yesterday. She went for dialysis, was she was on dialysis and about finished, she started having severe substernal chest tightness through the blackness and seeing spots. Denied passing out. Patient denied having melena stools or diarrhea or nausea or vomiting. Recently had endometrial ablation with IUD placement. Her LMP - 3 months ago. She does not make any urine. Vitals show temperature of 98.6F, heart rate 93, blood pressure 171/87, respi ratory 22, SPO2 98% on room air. BC count of 5.6, hemoglobin 6.4, dropped from previous hemoglobin of 8.8, platelet count 196, BMP was unremarkable except for BUN of 28, creatinine 2.95. Admitting chest x-ray was unremarkable. EKG shows normal sinus rhythm with no acute ST changes. Prolonged QTC of 506. Past Medical History Past Medical History (Chronic Problems): Chronic Problems ESRD (end stage renal disease) on dialysis (Chronic) Goodpasture syndrome (Chronic) PFO (patent foramen ovale) (Chronic) DJD (degenerative joint disease) (Chronic) Spinal stenosis (Chronic) Allergies ciprofloxacin [From Cipro] Allergy (Verified 05/05/20 11:13) Rash clarithromycin [From Biaxin] Allergy (Verified 05/05/20 11:13) Rash Penicillins Allergy (Verified 05/05/20 11:13) Hives cephalexin [From Keflex] Adverse Reaction (Verified 05/05/20 11:13) Diarrhea Home Medications: Ambulatory Orders Medication Instructions Recorded Atorvastatin Calcium [Lipitor] 10 mg PO QHS 01/16/20 Labetalol HCl 600 mg PO BID 01/16/20 Pantoprazole Sodium [Protonix] 40 mg PO DAILY 01/16/20 Clonidine HCl 0.3 mg PO TID 04/07/20 Levetiracetam [Levetiracetam ER] 500 mg PO BID 04/07/20 Nifedipine [Nifedipine ER] 60 mg PO BID 04/07/20 Nitroglycerin 0.4 mg SL PRN PRN 04/07/20 hydrALAZINE [Apresoline] 100 mg PO BID 04/07/20 Albuterol Sulfate [Albuterol 2 puff IH Q4H PRN PRN 05/05/20 Sulfate HFA] Amlodipine Besylate [Norvasc] 10 mg PO DAILY 05/05/20 Aspirin E.C. [Ecotrin] 81 mg PO DAILY 05/05/20 Losartan Potassium [Cozaar] 50 mg PO BID 05/05/20 Zonisamide [Zonegran] 50 mg PO DAILY 05/05/20 Surgical History: - - s/p back surgery, s/p c/s and tubal ligation, s/p endometrial ablation with tray Psychiatric History: Anxiety [employer]OL [employer]ER History: dysfunctional uterine bld, endometriosis Lives: With Family Smoking Status: Former smoker Tobacco Use: Non-smoker Alcohol: None Drugs: None - *Family History Paternal History Items: - - of GI bleed Maternal History Items: Hypertension Review of Systems Constitutional: Reports: Malaise, Weakness, Fatigue. Denies: Anorexia, Chills, Fever, Weight Change Eyes: Reports: Vision Change. Denies: Pain, Redness HEENT: Denies: Head Aches, Sinus Congestion, Sinus Drainage Cardiovascular: Reports: Chest Pain, Chest Pressure, Chest Tightness, Light Headedness. Denies: Orthopnea, Palpitations, Paroxysmal Noc. Dyspnea Respiratory: Denies: Cough, Shortness of breath at rest, Sputum production Gastrointestinal: Denies: Abdominal Pain, Nausea, Vomiting Genitourinary: Denies: Dysuria Musculoskeletal: Denies: Joint Pain, Joint stiffness, Joint swelling, Joint Tenderness Skin: Denies: Rash, Wounds Neurological: Reports: Headaches. Denies: Focal weakness, Numbness, Tingling Psychiatric: Denies: Anxiety, Depression, Homicidal Ideations, Suicidal Ideations Hematologic/ Lymphatic: Denies: Easy Bruising, Easy Bleeding VTE Information - Inpt Only VTE Present on Admission: No VTE Pharm Prophylaxis ordered?: Yes Patient Problems: Active and Suspected Problems Severe anemia (Acute) Chest pain (Acute) - Physical Exam Vitals/I&O's: Vital Signs Temp Pulse Resp BP Pulse Ox 98.6 F 93 22 H 171/87 H 98 05/05/20 11:10 05/05/20 11:10 05/05/20 11:10 05/05/20 11:10 05/05/20 11:10 Oxygen Delivery Method Room Air Weight: 54.7 kg Body Mass Index (BMI) 20.7 Finger Stick Blood Glucose 77 General: Alert, Oriented x3, Cooperative, No apparent distress, - - Appears pale, chronically unwell HEENT: Atraumatic, PERRLA, EOMI, Normocephalic Oral: Moist Mucosa Neck: Supple Lungs: Clear to auscultation, Normal air movement Cardiovascular: Regular rate, Regular Rhythm, Normal S1, Normal S2, No murmurs Abdomen: Bowel Sounds Present, Soft, Non Tender, Non-Distended, No Hepato- splenomegaly Extremities: No edema Skin: No rashes Musculoskeletal: No Tenderness to Palpation of Joints or Extremities Lymphatic: No Cervical, Supraclavicular, or Inguinal Adenopathy Neurological: Cranial nerves II-XII grossly intact, Neuro grossly intact Psych/Mental Status: Normal Affect, Appropriate Laboratory Results 05/05/20 11:25: WBC 5.6, RBC 2.06 L, Hgb 6.4 L, Hct 19.8 L, MCV 96.1, MCH 31.1, MCHC 32.3, RDW Std Deviation 50.4 H, RDW Coeff of Aleida 14.3, Plt Count 196, MPV 10.2, Immature Gran % (Auto) 0.400, Neut % (Auto) 61.4, Lymph % (Auto) 29.1, [place] % (Auto) 4.5, Eos % (Auto) 3.9, Baso % (Auto) 0.7, Absolute Neuts (auto) 3.4, Absolute Lymphs (auto) 1.62, Nucleated RBC % 0 05/05/20 11:25: Sodium 140, Potassium 3.6, Chloride 102, Carbon Dioxide 31.0, Anion Gap 7, BUN 28 H, Creatinine 2.95 H, Estim Creat Clear Calc 21.67, Est GFR (MDRD) Af Amer 23 L, Est GFR (MDRD) Non-Af 19 L, BUN/Creatinine Ratio 9.5 L, Glucose 69 L, Calcium 8.9, Troponin I < 0.015 Assessment/Plan All Active Problems Severe anemia (Acute) Chest pain (Acute) 1. Chest pain, related to #2, resolved at admission EKG shows no acute ST-T changes We will continue to monitor 2. Severe anemia likely secondary to acute GI bleed Admitting hemoglobin is 6.4, will transfuse 2 units of packed RBCs Continue to monitor serial H&H 3. Acute GI bleed, unclear source, stable FOBT is positive, will continue on IV PPI and sucralfate General surgery 4. ESRD on hemodialysis - Nephrology consult 5. Goodpasture's syndrome, status post recent plasmapheresis, Continue on prednisone 40 mg daily 6. DVT PPx- SCDs Inpatient E&M: [id number] Init Hosp L3
[2020-05-05 13:29] LABS: Iron 117 ug/dL (50-170); Iron Binding Capacity,Total 194 ug/dL (250-450); PERCENT IRON SATURATION 60.3 % (15.0-55.0)
--- NOTE | 2020-05-05 14:14 | NT.THERAPY_ITS ---
Nutrition Therapy Report - History Nutrition Services has been consulted to:: Manage nutrient details of diet order Current diet / nutrition support order:: Cardiac/heart healthy diet - Anthropometric Measurements Height:: 5 ft 4 in Weight:: 52.1 kg Body Mass Index (BMI):: 19.7 - Relevant Labs Relevant Labs:: RBC 2.06 M/mm3 (4.2-5.4) L 05/05/20 11:25 Hgb 6.4 g/dL (12.0-15.0) L 05/05/20 11:25 Hct 19.8 % (37-47) L 05/05/20 11:25 RDW Std Deviation 50.4 fl (35.1-43.9) H 05/05/20 11:25 BUN 28 mg/dL (7-18) H 05/05/20 11:25 Creatinine 2.95 mg/dL (0.55-1.02) H 05/05/20 11:25 Est GFR (MDRD) Af Amer 23 mL/min (>60) L 05/05/20 11:25 Est GFR (MDRD) Non-Af 19 mL/min (>60) L 05/05/20 11:25 BUN/Creatinine Ratio 9.5 RATIO (10-20) L 05/05/20 11:25 Glucose 69 mg/dL (74-106) L 05/05/20 11:25 TIBC 194 ug/dL (250-450) L 05/05/20 11:25 Iron Saturation 60.3 % (15.0-55.0) H 05/05/20 11:25 - Assessment Food / Nutrition-Related History:: Pt reports UBW~140-150 lbs about 3-6 months ago; per EMR wt 140 lbs about 15-16 weeks ago; calculated~18% wt loss which is significant for malnutrition along with mild to moderate physical signs of muscle/fat wasting in the face, neck, arms & legs. Pt denies appetite/intake c hanges and typically eats~1-2 meals per day plus 1 Boost daily which was recommended by doctor due to recent wt loss--pt accepting of strawberry ensure while here. Pt borders underweight with BMI 19.6 in addition to recent significant wt loss. - Nutrition Diagnosis Problem / Etiology / Signs & Symptoms (PES):: Severe Pro/rio malnutrition of chronic disease related to increased nutrient needs, decline in appetite and unintentional wt loss as evidenced by 18% wt loss x past 3-4 months, inadequate oral intake and moderate muscle/fat depletion in face, neck, arms and legs +NFPA. Evidence of Malnutrition Exists:: Yes Severe PCM:: Chronic Illness - Nutrition Intervention Nutrition Prescription:: Estimated nutrition needs for repletion~60-65 gm protein and ~7323-7450 kcal/day. - Food / Nutrient Delivery Interventions Summary of nutrition intervention:: Will provide oral nutrition supplementation as toelrated; will start with 120 ml strawberry ensure enlive & vanilla magic cup BID with lunch and dinner as tolerated. Will increase oral nutrition supplements as pt agreeable. May need to consider TF support if PO is inadequate to meet increased nutrition needs for repletion. Nutrition support ordered as / adjusted to:: No TF/TPN at this time. Nutrition education provided?: Yes - MNT Monitoring Further MNT monitoring and evaluation required?: Yes MNT Follow-up in:: 3-5 days
[2020-05-05 15:46] LABS: AST(SGOT) 32 U/L (15-37); Alanine Aminotransfer ALT/SGPT 40 U/L (13-56); Albumin, Serum 3.3 g/dL (3.2-5.0); Alkaline Phosphatase 38 U/L (45-117); Bilirubin, Direct 0.18 mg/dL (0.00-0.30); Globulin 2.2 g/dL (2.2-4.2); Protein, Total 5.5 g/dL (6.4-8.2)
--- NOTE | 2020-05-05 16:09 | PCM.CONS.R ---
Consultation - Renal 05/05/20 PCP/ Referring MD: Requesting physician: [] Primary care physician: Dr. Jairon Wise DO Reason for Consultation:: ESRD - History of Present Illness History of Present Illness: The patient is a 39 year old F ESRD on HD MWF schedule. went to dialysis today and developed dizziness weakness and chest tightness. found to have severe anemia in ER. being transfused PRBC right now. finished most of HD treatment today. breathing is ok - Allergies Allergies: Allergies ciprofloxacin [From Cipro] Allergy (Verified 05/05/20 11:13) Rash clarithromycin [From Biaxin] Allergy (Verified 05/05/20 11:13) Rash Penicillins Allergy (Verified 05/05/20 11:13) Hives cephalexin [From Keflex] Adverse Reaction (Verified 05/05/20 11:13) Diarrhea - Current Medications Current Medications: Current Medications Acetaminophen (Tylenol) 650 mg PO Q6H PRN PRN PRN Reason: Pain Score 1-10/Temp > 100.7 F Amlodipine Besylate (Norvasc) 10 mg PO DAILY [facility] Atorvastatin Calcium (Lipitor) 10 mg PO QHS [facility] Clonidine (Catapres) 0.3 mg PO TID [facility] Hydralazine HCl (Apresoline) 100 mg PO BID [facility] Pantoprazole Sodium 40 mg/ (Sodium Chloride) 110 mls @ 330 mls/hr IV Q12 [facility] Last Admin: 05/05/20 14:51 Dose: 330 mls/hr Documented by: Labetalol HCl (Trandate) 600 mg PO BID [facility] Losartan Potassium (Cozaar) 50 mg PO BID [facility] Nifedipine (Procardia Xl) 60 mg PO BID [facility] Nitroglycerin (Nitrostat) 0.4 mg SUBLINGUAL Q5M PRN PRN Reason: CARDIAC/CHEST PAIN Non-Formulary Medication (Levetiracetam [Levetiracetam Er]) 500 mg PO BID [facility] Prednisone () 40 mg PO DAILY@0800 [facility] Sodium Chloride () 10 - 40 ml IV UD PRN PRN Reason: SALINE FLUSH Sucralfate (Carafate) 1 gm PO 1HR_ACHS [facility] Zonisamide (Zonegran) 50 mg PO DAILY [facility] - Past Medical History Past Medical History (Chronic Problems): Chronic Problems ESRD (end stage renal disease) on dialysis (Chronic) Goodpasture syndrome (Chronic) PFO (patent foramen ovale) (Chronic) DJD (degenerative joint disease) (Chronic) Spinal stenosis (Chronic) - Past Surgical History Surgical History: - - s/p back surgery, s/p c/s and tubal ligation, s/p endometrial ablation with tray - Social History Smoking Status: Former smoker Alcohol: None Drugs: None - Family History Paternal History Items: - - of GI bleed Maternal History Items: Hypertension Review of Systems Constitutional: Denies: Chills, Fever, Weight Change HEENT: Denies: Head Aches, Sinus Congestion, Sinus Drainage Cardiovascular: Denies: Chest Pain, Palpitations Respiratory: Denies: Cough, Shortness of breath at rest, Sputum production Gastrointestinal: Denies: Abdominal Pain, Nausea, Vomiting Genitourinary: Denies: Dysuria Musculoskeletal: Denies: Joint Pain, Joint Tenderness Skin: Denies: Rash, Wounds Neurological: Denies: Numbness, Tingling, Focal weakness Psychiatric: Denies: Anxiety, Depression, Homicidal Ideations, Suicidal Ideations Hematologic/ Lymphatic: Denies: Easy Bruising, Easy Bleeding Patient Problems: Active and Suspected Problems Severe anemia (Acute) Chest pain (Acute) - Physical Exam Vitals/I&O's: Vital Signs Temp Pulse Resp BP Pulse Ox 97.0 F L 68 14 177/91 H 94 05/05/20 16:04 05/05/20 16:04 05/05/20 16:04 05/05/20 16:04 05/05/20 16:04 Oxygen Delivery Method Room Air Weight: 52.1 kg Body Mass Index (BMI) 19.7 Finger Stick Blood Glucose 77 Intake and Output for Last 24 Hours 05/03/20 05/04/20 05/05/20 23:59 23:59 23:59 Intake Total 0 / 0 Balance 0 / 0 General: Alert, Oriented x3, Cooperative HEENT: Atraumatic, PERRLA, EOMI, Normocephalic Neck: Supple, No JVD, Negative Carotid Bruits Lungs: Clear to auscultation, Normal air movement Cardiovascular: Regular rate, No murmurs Abdomen: Bowel Sounds Present, Soft, Non Tender Extremities: No edema, Capillary Refill Less than 3 Seconds Skin: No rashes, No breakdown Musculoskeletal: No Tenderness to Palpation of Joints or Extremities Neurological: Cranial nerves II-XII grossly intact Psych/Mental Status: Normal Affect, Appropriate Microbiology Past 72 Hours 05/05/20 11:58 Stool Stool Occult Blood (UQETA) - Final Occult Blood Positive Laboratory Results 05/05/20 11:25: WBC 5.6, RBC 2.06 L, Hgb 6.4 L, Hct 19.8 L, MCV 96.1, MCH 31.1, MCHC 32.3, RDW Std Deviation 50.4 H, RDW Coeff of Aleida 14.3, Plt Count 196, MPV 10.2, Immature Gran % (Auto) 0.400, Neut % (Auto) 61.4, Lymph % (Auto) 29.1, [place] % (Auto) 4.5, Eos % (Auto) 3.9, Baso % (Auto) 0.7, Absolute Neuts (auto) 3.4, Absolute Lymphs (auto) 1.62, Nucleated RBC % 0 05/05/20 11:25: Sodium 140, Potassium 3.6, Chloride 102, Carbon Dioxide 31.0, Anion Gap 7, BUN 28 H, Creatinine 2.95 H, Estim Creat Clear Calc 21.67, Est GFR (MDRD) Af Amer 23 L, Est GFR (MDRD) Non-Af 19 L, BUN/Creatinine Ratio 9.5 L, Glucose 69 L, Calcium 8.9, Troponin I < 0.015 05/05/20 11:25: Iron 117, TIBC 194 L, Iron Saturation 60.3 H 05/05/20 11:25: Total Bilirubin 0.60, Direct Bilirubin 0.18, AST 32, ALT 40, Alkaline Phosphatase 38 L, Total Protein 5.5 L, Albumin 3.3, Globulin 2.2 05/05/20 12:35: Blood Type A NEGATIVE, Antibody Screen NEGATIVE, Crossmatch See Detail Current Medications Acetaminophen (Tylenol) 650 mg PO Q6H PRN PRN PRN Reason: Pain Score 1-10/Temp > 100.7 F Amlodipine Besylate (Norvasc) 10 mg PO DAILY [facility] Atorvastatin Calcium (Lipitor) 10 mg PO QHS [facility] Clonidine (Catapres) 0.3 mg PO TID [facility] Hydralazine HCl (Apresoline) 100 mg PO BID [facility] Pantoprazole Sodium 40 mg/ (Sodium Chloride) 110 mls @ 330 mls/hr IV Q12 [facility] Last Admin: 05/05/20 14:51 Dose: 330 mls/hr Documented by: Labetalol HCl (Trandate) 600 mg PO BID [facility] Losartan Potassium (Cozaar) 50 mg PO BID [facility] Nifedipine (Procardia Xl) 60 mg PO BID [facility] Nitroglycerin (Nitrostat) 0.4 mg SUBLINGUAL Q5M PRN PRN Reason: CARDIAC/CHEST PAIN Non-Formulary Medication (Levetiracetam [Levetiracetam Er]) 500 mg PO BID [facility] Prednisone () 40 mg PO DAILY@0800 [facility] Sodium Chloride () 10 - 40 ml IV UD PRN PRN Reason: SALINE FLUSH Sucralfate (Carafate) 1 gm PO 1HR_ACHS [facility] Zonisamide (Zonegran) 50 mg PO DAILY [facility] Assessment/Plan All Active Problems Severe anemia (Acute) Chest pain (Acute) ESRD, HD MWF schedile. finished most of the treatment except last 15 min anemia. apparently had similar issue 6 months ago from severe menorrhagia. does not have any bleeding right now. will call dialysis unit for records HTN. ran out of nifedipine. resume here thank you
[2020-05-05] MEDS: predniSONE 20 MG Tablet 40 MG PO (17:02)
[2020-05-05] MEDS: Sucralfate 1 GM Tablet PO ×2 (17:02→22:47)
--- NOTE | 2020-05-05 17:16 | PCM.CONS.GEN ---
Problem List (1) Severe anemia Status: Acute Reason for Consult Date of Consultation: 05/05/20 History of Present Illness: The patient is a 39 year old F who I have been asked to see by a written copy of my surgical consult recommendations will present the charting. Is a 39-year-old female. She was admitted to the [facility] earlier today and I was asked to see her late this afternoon. She is already been seen actually by nephrology. Patient has significant multiple medical comorbidities. She has been hospitalized here previously and has had apparently several hospitalizations at [facility] in [place]. She states that most recently just 3 weeks ago she was hospitalized in [facility] with Goodpasture's disease aggravating her pulmonary findings. She claims she required plasmapheresis and is being referred to hematology oncology for chemotherapy which has not yet been initiated.On dialysis today she was not on dialysis today she was not sure whether she was having seizures or lightheadedness or dizziness. She was sent to the [facility] emergency room and her hemoglobin is noted to be 6.4. Her normal is around 8.5. She has not noticed any bright red blood per rectum or melena. She claims however that in March 2020 she had a stroke. At that point she was placed on aspirin therapy by neurology. She claims that she is on chronic pantoprazole therapy. She notes that she has had a weight loss from 160 pounds 212 pounds over the last 3 months. She states that she has not been told as to a potential etiology. She complains that postprandially that she gets abdominal bloating. She states that she was tentatively to be scheduled to have a contrast upper GI study in the future. She denies any previous history of peptic ulcer disease. She states that her father just from a GI bleed. She has not previously had a colonoscopy. She has not noticed bright red blood per rectum or melena. She does have previous problems with constipation. On her presentation earlier her white count was 5.6 with hemoglobin 6.4 hematocrit 19.8 and platelet count of 196,000. BUN is 28 and creatinine is 2.95. She is on chronic hemodialysis She is receiving 2 units of blood transfusion. Because of menorrhagia and suspected and suspected significant blood loss at that time January [address] Belinda Mcmullen she underwent a uterine ablative procedure. The patient states that she has not had a menstrual period since that time. Stool was needed noted to be Hemoccult positive. Past Medical History Past Medical History (Chronic Problems): Chronic Problems ESRD (end stage renal disease) on dialysis (Chronic) Goodpasture syndrome (Chronic) PFO (patent foramen ovale) (Chronic) DJD (degenerative joint disease) (Chronic) Spinal stenosis (Chronic) Allergies ciprofloxacin [From Cipro] Allergy (Verified 05/05/20 11:13) Rash clarithromycin [From Biaxin] Allergy (Verified 05/05/20 11:13) Rash Penicillins Allergy (Verified 05/05/20 11:13) Hives cephalexin [From Keflex] Adverse Reaction (Verified 05/05/20 11:13) Diarrhea Home Medications: Ambulatory Orders Medication Instructions Recorded Atorvastatin Calcium [Lipitor] 10 mg PO QHS 01/16/20 Labetalol HCl 600 mg PO BID 01/16/20 Pantoprazole Sodium [Protonix] 40 mg PO DAILY 01/16/20 Clonidine HCl 0.3 mg PO TID 04/07/20 Levetiracetam [Levetiracetam ER] 500 mg PO TID 04/07/20 Nifedipine [Nifedipine ER] 60 mg PO BID 04/07/20 Nitroglycerin 0.4 mg SL PRN PRN 04/07/20 hydrALAZINE [Apresoline] 100 mg PO TID 04/07/20 Albuterol Sulfate [Albuterol 2 puff IH Q4H PRN PRN 05/05/20 Sulfate HFA] Amlodipine Besylate [Norvasc] 10 mg PO DAILY 05/05/20 Aspirin E.C. [Ecotrin] 81 mg PO DAILY 05/05/20 B Complex W-C No.20/Folic Acid 1 mg PO DAILY 05/05/20 [Renal Caps Softgel] Lidocaine/Prilocaine 1 ea TP 05/05/20 [Lidocaine-Prilocaine Cream] Losartan Potassium [Cozaar] 50 mg PO BID 05/05/20 Zonisamide [Zonegran] 50 mg PO DAILY 05/05/20 busPIRone [Buspar] 5 mg PO BID 05/05/20 Surgical History: - - s/p back surgery, s/p c/s and tubal ligation, s/p endometrial ablation with tray Psychiatric History: Anxiety ANALYSIS REPORTING DEVELOPER History: dysfunctional uterine bld, endometriosis Lives: With Family Smoking Status: Former smoker Tobacco Use: Non-smoker Alcohol: None Drugs: None - *Family History Paternal History Items: - - of GI bleed Maternal History Items: Hypertension Review of Systems Constitutional: Denies: Chills, Fever Eyes: Reports: Double vision HEENT: Denies: Difficulty Swallowing Cardiovascular: Denies: Chest Pain Respiratory: Reports: Hemoptysis, Shortness of Breath Gastrointestinal: Reports: Abdominal Pain, Constipation. Denies: Hematochezia, Melena Skin: Denies: Jaundice Endocrine: Reports: Change in Body Habitus Patient Problems: Active and Suspected Problems Severe anemia (Acute) Chest pain (Acute) - Physical Exam Vitals/I&O's: Vital Signs Temp Pulse Resp BP Pulse Ox 97.3 F L 70 14 185/94 H 96 05/05/20 16:19 05/05/20 16:19 05/05/20 16:19 05/05/20 16:19 05/05/20 16:19 Oxygen Delivery Method Room Air Weight: 114 lb 13.773 oz Body Mass Index (BMI) 19.7 Finger Stick Blood Glucose 77 Intake and Output for Last 24 Hours 05/03/20 05/04/20 05/05/20 23:59 23:59 23:59 Intake Total 110 / 110 Balance 110 / 110 General: Alert, Oriented x3, Cooperative, - - Very cachectic chronically ill appearing HEENT: Atraumatic, - Oral: Dry Mucosa - Suggestion of oral bleeding, - - Poor oral hygiene, Neck: Negative Carotid Bruits Lungs: Clear to auscultation, Normal air movement Cardiovascular: Regular rate, Regular Rhythm Abdomen: Bowel Sounds Present, Soft, Non Tender, Non-Distended, - Extremities: No Calf Tenderness Musculoskeletal: - - Diffuse muscle wasting noted Neurological: - - Normal cognition Psych/Mental Status: Normal Affect Microbiology Past 72 Hours 05/05/20 11:58 Stool Stool Occult Blood (QUETA) - Final Occult Blood Positive Laboratory Results 05/05/20 11:25: WBC 5.6, RBC 2.06 L, Hgb 6.4 L, Hct 19.8 L, MCV 96.1, MCH 31.1, MCHC 32.3, RDW Std Deviation 50.4 H, RDW Coeff of Aleida 14.3, Plt Count 196, MPV 10.2, Immature Gran % (Auto) 0.400, Neut % (Auto) 61.4, Lymph % (Auto) 29.1, [place] % (Auto) 4.5, Eos % (Auto) 3.9, Baso % (Auto) 0.7, Absolute Neuts (auto) 3.4, Absolute Lymphs (auto) 1.62, Nucleated RBC % 0 05/05/20 11:25: Sodium 140, Potassium 3.6, Chloride 102, Carbon Dioxide 31.0, Anion Gap 7, BUN 28 H, Creatinine 2.95 H, Estim Creat Clear Calc 21.67, Est GFR (MDRD) Af Amer 23 L, Est GFR (MDRD) Non-Af 19 L, BUN/Creatinine Ratio 9.5 L, Glucose 69 L, Calcium 8.9, Troponin I < 0.015 05/05/20 11:25: Iron 117, TIBC 194 L, Iron Saturation 60.3 H 05/05/20 11:25: Total Bilirubin 0.60, Direct Bilirubin 0.18, AST 32, ALT 40, Alkaline Phosphatase 38 L, Total Protein 5.5 L, Albumin 3.3, Globulin 2.2 05/05/20 12:35: Blood Type A NEGATIVE, Antibody Screen NEGATIVE, Crossmatch See Detail Current Medications Acetaminophen (Tylenol) 650 mg PO Q6H PRN PRN PRN Reason: Pain Score 1-10/Temp > 100.7 F Amlodipine Besylate (Norvasc) 10 mg PO DAILY [facility] Atorvastatin Calcium (Lipitor) 10 mg PO QHS [facility] Clonidine (Catapres) 0.3 mg PO TID [facility] Hydralazine HCl (Apresoline) 100 mg PO BID [facility] Pantoprazole Sodium 40 mg/ (Sodium Chloride) 110 mls @ 330 mls/hr IV Q12 [facility] Last Infusion: 05/05/20 17:11 Dose: Infused Documented by: Labetalol HCl (Trandate) 600 mg PO BID [facility] Losartan Potassium (Cozaar) 50 mg PO BID [facility] Nifedipine (Procardia Xl) 60 mg PO BID [facility] Nitroglycerin (Nitrostat) 0.4 mg SUBLINGUAL Q5M PRN PRN Reason: CARDIAC/CHEST PAIN Non-Formulary Medication (Levetiracetam [Levetiracetam Er]) 500 mg PO BID [facility] Prednisone () 40 mg PO DAILY@0800 [facility] Last Admin: 05/05/20 17:02 Dose: 40 mg Documented by: Sodium Chloride () 10 - 40 ml IV UD PRN PRN Reason: SALINE FLUSH Sucralfate (Carafate) 1 gm PO 1HR_ACHS [facility] Last Admin: 05/05/20 17:02 Dose: 1 gm Documented by: Zonisamide (Zonegran) 50 mg PO DAILY [facility] Assessment/Plan All Active Problems Severe anemia (Acute) Chest pain (Acute) 39-year-old female with evidence of significant weight loss and cachexia. She appears to be significantly chronically ill. Does not appear that she is having an acute GI blood loss. Findings would be more consistent with a chronic event. She is having postprandial abdominal pain and bloating undetermined etiology. She has had a remote upper endoscopy 10 years ago. She is never had a colonoscopy. She has had acute exacerbation of her Goodpasture disease. She is to be referred to hematology oncology for chemotherapy. Because of the lateness of the hour I am not recommending trying to mijares her through a bowel prep. I recommend to her a esophagogastroduodenoscopy with possible biopsy or control of hemorrhage. The Hemoccult positive stool may simply be coming from her oral dentition or she may have actual blood loss related to the aspirin therapy that she was initiated on in March for her stroke. She states that she had COVID-19 testing 3 weeks ago when she was at [place] and at that point it was negative. Pending the results of the upper endoscopy can then consider whether she would be a candidate to actually tolerate a bowel prep. She appears to be significantly chronically ill. It is not clear to me that she would tolerate surgical intervention if something was found endoscopically. It is also of note that a colonoscopy would not come at 0 risk. We will hold that decision for potential future colonoscopy. The patient has had an opportunity to ask and have questions answered. She is currently receiving blood transfusion. I appreciate the opportunity of assisting with her surgical care Omero Carr M.D., F.A.C.S.
[2020-05-05] MEDS: proCHLORPERazine 10 MG/2 ML Vial 5 MG IV (18:29)
[2020-05-05] MEDS: 0.9% Saline Lock 10 ML Syringe IV ×2 (18:30→18:42)
[2020-05-05] MEDS: hydrALAZINE 20 MG/ML Vial 10 MG IV (18:42)
[2020-05-05] MEDS: Losartan Potassium 50 MG Tablet PO (22:47)
[2020-05-05] MEDS: hydrALAZINE 50 MG Tablet 100 MG PO (22:47)
[2020-05-05] MEDS: cloNIDine HCl 0.2 MG Tablet 0.3 MG PO (22:47)
[2020-05-05] MEDS: levETIRAcetam 500 MG Tablet PO (22:48)
[2020-05-05] MEDS: Labetalol 200 MG Tablet 600 MG PO (22:48)
[2020-05-05] MEDS: Atorvastatin Calcium 10 MG Tablet PO (22:48)
[2020-05-05] MEDS: NIFEdipine 60 MG Tablet PO (22:48)
[2020-05-05] MEDS: Zonisamide 50 MG Capsule PO (23:50)
[2020-05-06] VITALS (19 sets, daily range): BP systolic 93–178; BP diastolic 48–92; PULSE 70–90; RESP 14–20; TEMP 36.4–37.1; O2SAT 94–99; BMI 19.7
[2020-05-06 04:20] LABS: Absolute Lymphocyte Count 0.57 X10^3/uL (0.83-4.51); Absolute Neutrophil Count 4.6 X10^3/uL (2.0-7.7); Basophil# 0.01 X10^3/uL; Basophil% 0.2 % (0-1); Hematocrit 26.2 % (37-47); Hemoglobin 8.7 g/dL (12.0-15.0); Lymphocyte # 0.57 X10^3/ul (4.0); Lymphocyte % 10.5 % (19-41); Mean Corp Hgb Conc 33.2 g/dL (32-36); Mean Corpuscular Hgb 31.1 pg (27.0-32.0); Mean Corpuscular Volume 93.6 fL (81-99); Mean Platelet Vol. 10.1 fl (6.2-12.0); Monocyte# 0.25 X10^3/uL; Monocyte% 4.6 % (0-10); NRBC Flagged by Analyzer 0 % (0-5); Neutrophil % 84.3 % (47-70); POSITIVE DIFFERENTIAL YES; Platelet Count 192 K/mm3 (150-450); RBC Distribution Width CV 15.7 % (11.6-14.6); RBC Distribution Width SD 53.8 fl (35.1-43.9); White Blood Count 5.5 K/mm3 (4.4-11.0)
[2020-05-06 04:27] LABS: Differential Indicated SCAN CRITERIA MET
[2020-05-06 04:33] LABS: Partial Thromboplast Time 26.6 Seconds (24.1-36.2)
[2020-05-06 04:40] LABS: ALB/GLOB Ratio 1.4 RATIO (0.9-2.4); AST(SGOT) 21 U/L (15-37); Alanine Aminotransfer ALT/SGPT 33 U/L (13-56); Albumin, Serum 3.2 g/dL (3.2-5.0); Alkaline Phosphatase 39 U/L (45-117); Anion Gap 9 (5-15); BUN 53 mg/dL (7-18); BUN/Creat Ratio 11.8 RATIO (10-20); Calcium,Total 8.5 mg/dL (8.5-10.1); Chloride 98 mmol/L (98-107); Creatinine, Serum 4.51 mg/dL (0.55-1.02); EST Glomerular Filtration Rate 11 mL/min (>60); Est Glom Filt Rate - Afr Amer 14 mL/min (>60); Globulin 2.3 g/dL (2.2-4.2); Glucose 108 mg/dL (74-106); International Normalized Ratio 1.1; Potassium 5.7 mmol/L (3.5-5.1); Protein, Total 5.5 g/dL (6.4-8.2); Prothrombin Time (Protime)PT. 13.5 SECONDS (11.7-14.9); Sodium Level 136 mmol/L (136-145)
[2020-05-06] MEDS: hydrALAZINE 20 MG/ML Vial 10 MG IV (04:51)
[2020-05-06] MEDS: 0.9% Saline Lock 10 ML Syringe IV ×3 (04:52→11:02)
--- NOTE | 2020-05-06 05:16 | EKG12_ITS ---
Test Reason : AM EKG Blood Pressure : / mmHG Vent. Rate : 086 BPM Atrial Rate : 086 BPM P-R Int : 178 ms QRS Dur : 084 ms QT Int : 394 ms P-R-T Axes : -08 001 056 degrees QTc Int : 471 ms Normal sinus rhythm Normal ECG When compared with ECG of 05-MAY-2020 11:13, MANUAL COMPARISON REQUIRED, DATA IS UNCONFIRMED Confirmed by ABBIE RODRIGUEZ, MAYKEL ([id number]), sound editor JENNIFER KELLEY ([id number]) on 05/08/2020 11:01:31 AM Referred By: DR CULVER Confirmed By:MAYKEL LEIVA MD
[2020-05-06 05:22] LABS: Differential Comment SCANNED
--- NOTE | 2020-05-06 05:31 | PCM.PN.BLA ---
Progress Note Patient with potassium of 5.7. Creatinine has increased from 2.95 to 4.51. Patient is sinus rhythm on the monitor. At presentation hemoglobin was 6.4 but after 2 units hemoglobin has increased to 8.7. EGD scheduled in a.m.. Patient is n.p.o. at this time. Blood glucose is 108 on BMP. Discussed with nephrology. Will give patient calcium gluconate; insulin and dextrose. Will give dextrose 25 g and then will start patient on a 10% dextrose infusion of 40 mLs per hour for total of 250 mL's. Discussed with nurse to give dextrose 25 g before insulin. Okay for patient to go to EGD. Repeat BMP at noon. STROKE Vital Signs/Narrative: Vital Signs Temp Pulse Resp BP Pulse Ox 05/06/20 04:51 72 178/92 H 05/06/20 04:42 98.7 F 72 16 178/92 H 99 05/06/20 03:00 70 05/06/20 01:48 98.8 F 78 18 169/91 H 96
[2020-05-06] MEDS: Dextrose 50%-Water 25 GM/50 ML DISP.SYRIN IV (05:43)
[2020-05-06] MEDS: Insulin Lispro 10 UNIT in Syringe 0 ML 6 UNIT IV (05:53)
[2020-05-06 06:01] LABS: Potassium 5.3 mmol/L (3.5-5.1)
[2020-05-06] MEDS: Dextrose 10%-Water 250 ML 40 ML IV (06:08)
--- NOTE | 2020-05-06 06:19 | PCM.PN.BLA ---
Progress Note Potassium is 5.3. We will proceed with esophagogastroduodenoscopy with possible biopsy or polypectomy or control of hemorrhage as indicated. STROKE Vital Signs/Narrative: Vital Signs Temp Pulse Resp BP Pulse Ox 05/06/20 04:51 72 178/92 H 05/06/20 04:42 98.7 F 72 16 178/92 H 99 05/06/20 03:00 70
[2020-05-06 06:25] LABS: Bedside Glucose 201 mg/dL (70-110)
--- NOTE | 2020-05-06 06:35 | IMM_PTH ---
PATIENT: BABAR ACUÑA LOC: [facility] U#:[id number] AGE/SX: 39/F ROOM: [facility] RE05/05/[address]: Dr. Naomie Choi MD : 1980 BED: 1 DIS: 05/08/2020 SPEC #: [id number] RECD: 05/06/20 09:25 STATUS: KP REQ #: [id number] AMEENA: 05/06/20 06:[address]: Omero Carr DEPT: IMMUNOHISTOCHEMISTRY RECD BY: Bree Peoples ENTERED: 05/06/20 09:26 SP TYPE: IMMUNO OTHR DR: MD Dr. Jairon Spaulding DO Dr. Jayaprakas Dasari, MD Tissues: B - Stomach, NOS Procedures: H Pylori (initial) PHYSICIAN & INSTITUTION [place] [id number] SPECIMEN INFORMATION: Tissue Source: B - Antrum biopsy Clinical Info: Severe anemia Specimen Number: [id number] CPT code: 37282 METHODOLOGY: Deparaffinized sections of prefer/formalin-fixed tissue or PAP/DQ stained slides are incubated with monoclonal/polyclonal antibodies/oligonucleotide probes. Localization is made via biotin free immunoperoxidase method. Appropriate controls are performed and reacted as expected. Results on target cell population are indicated in the following table: RESULTS: ANTIBODY / CLONE RESULT Block B H Pylori (polyclonal) negative These tests were developed and their performance characteristics determined by [facility]. They may not have been cleared or approved by the U.[place]. Food and Drug Administration. The FDA has determined that such clearance or approval is not necessary. INTERPRETATION: B. Antrum biopsy: Negative for Helicobacter pylori organisms. AM:sierra 05/07/20
--- NOTE | 2020-05-06 06:35 | EGD_PTH ---
PATIENT: BABAR ACUÑA LOC: [facility] U#:[id number] AGE/SX: 39/F ROOM: [facility] RE05/05/[address]: Dr. Naomie Choi MD : 1980 BED: 1 DIS: 05/08/2020 SPEC #: [id number] RECD: 05/06/20 07:29 STATUS: KP TOY #: [id number] AMEENA: 05/06/20 06:[address]: Omero Carr DEPT: SURGICAL PATHOLOGY RECD BY: Liam Courtney ENTERED: 05/06/20 09:17 SP TYPE: EGD BIOPSY OT DR: MD Dr. Jairon Spaulding DO Dr. Jayaprakas Dasari, MD Tissues: A - Duodenum, NOS B - Gastric mucous membrane C - Esophageal mucous membrane D - Esophageal mucous membrane Procedures: Surgery Specimen Level IV HEADER OPERATION: EGD ([facility]) PRE-OP DIAGNOSIS: Severe anemia TISSUE SUBMITTED: A - Duodenum biopsy, B - Antrum biopsy for histo and H. pylori, C - Distal esophagus biopsy, D - Mid esophagus biopsy MICROSCOPIC DIAGNOSIS A. Duodenum, biopsy: No pathologic change. B. Gastric antrum, biopsy: Minimal chronic inflammation. See comment. C. Distal esophagus, biopsy: Fragment of benign squamous mucosa. No evidence of inflammation. D. Mid esophagus, biopsy: Fragment of benign squamous mucosa. No evidence of inflammation. AM:sierra 05/07/20 COMMENT B. The results of immunohistochemistry for Helicobacter pylori will be reported separately ([id number]). MICROSCOPIC DESCRIPTION Slides are reviewed. GROSS DESCRIPTION A - Received in fixative is one container labeled with the patient's name and designated duodenum biopsy. The specimen consists of one irregular fragment of light hinton soft tissue that measures 0.6 x 0.3 x 0.1 cm. The specimen is totally submitted in one cassette. B - Received in fixative is one container labeled with the patient's name and designated antrum biopsy. The specimen consists of one irregular fragment of light hinton soft tissue that measures 0.6 x 0.2 x 0.1 cm. The specimen is totally submitted in one cassette. C - Received in fixative is one container labeled with the patient's name and designated distal esophagus biopsy. The specimen consists of one irregular fragment of light hinton soft tissue that measures 0.4 x 0.4 x 0.1 cm. The specimen is totally submitted in one cassette. D - Received in fixative is one container labeled with the patient's name and designated mid esophagus biopsy. The specimen consists of one irregular fragment of light hinton soft tissue that measures 0.4 x 0.3 x 0.1 cm. The specimen is totally submitted in one cassette. / SJ:rg 05/06/20 TC:3 CPT: 94123 x4
--- NOTE | 2020-05-06 06:45 | OP.EGD_ITS ---
Patient Name: Sharla Lewis Procedure Date: 05/06/2020 6:10 AM Date of : 1980 Age: 39 Procedure: Upper GI endoscopy Indications: Iron deficiency anemia secondary to chronic blood loss Providers: Omero Carr MD Medicines: See the Anesthesia note for documentation of the administered medications Complications: No immediate complications. Procedure: Pre-Anesthesia Assessment: - Prior to the procedure, a History and Physical was performed, and patient medications and allergies were reviewed. The patient's tolerance of previous anesthesia was also reviewed. The risks and benefits of the procedure and the sedation options and risks were discussed with the patient. All questions were answered, and informed consent was obtained. Prior Anticoagulants: The patient has taken aspirin, last dose was day of procedure. ASA Grade Assessment: III - A patient with severe systemic disease. After reviewing the risks and benefits, the patient was deemed in satisfactory condition to undergo the procedure. After obtaining informed consent, the endoscope was passed under direct vision. Throughout the procedure, the patient's blood pressure, pulse, and oxygen saturations were monitored continuously. The Endoscope was introduced through the mouth, and advanced to the second part of duodenum. The upper GI endoscopy was accomplished without difficulty. The patient tolerated the procedure well. Scope In: 6:29:13 AM Scope Out: 6:35:46 AM Total Procedure Duration Time 0 hours 6 minutes 33 seconds Findings: Roof of mouth erythematous 8mm lesion. A medium-sized hiatal hernia was present. The distal esophagus was normal. Biopsies were taken with a cold forceps for histology. The mid esophagus was normal. Biopsies were taken with a cold forceps for histology. Diffuse minimal inflammation characterized by erythema was found in the gastric antrum. Biopsies were taken with a cold forceps for histology. The examined duodenum was normal. Biopsies were taken with a cold forceps for histology. Impression: - Roof of mouth erythematous 8mm lesion. Appears vascular, not bleeding currently. Not biopsies - Medium-sized hiatal hernia. - Normal distal esophagus. Biopsied. - Normal mid esophagus. Biopsied. - Gastritis. Bile staining noted. Biopsied. - Normal examined duodenum. Biopsied. No findings of significant blood loss. Consider future colonoscopy Recommendation: - Discharge patient to home. - Resume previous diet. - Continue present medications. - Telephone my office for pathology results in 1 week. Procedure Code(s): --- Professional --- 79187, Esophagogastroduodenoscopy, flexible, transoral; with biopsy, single or multiple Diagnosis Code(s): --- Professional --- K44.9, Diaphragmatic hernia without obstruction or gangrene K29.70, Gastritis, unspecified, without bleeding D50.0, Iron deficiency anemia secondary to blood loss (chronic) CPT copyright 2017 [employer]. All rights reserved. The codes documented in this report are preliminary and upon turning lathe tender review may be revised to meet current compliance requirements. Omero Carr MD 05/06/2020 6:45:36 AM This report has been signed electronically. Number of Addenda: 0 Note Initiated On: 05/06/2020 6:10 AM
--- NOTE | 2020-05-06 06:45 | PCM.PN.BLA ---
Progress Note Pt had no stools last night No evidence for UGI source of blood loss Can consider cscope tomorrow or as outpt pending primary care treatment plans [place] STROKE Vital Signs/Narrative: Vital Signs Temp Pulse Resp BP Pulse Ox 05/06/20 04:51 72 178/92 H 05/06/20 04:42 98.7 F 72 16 178/92 H 99 05/06/20 03:00 70
--- NOTE | 2020-05-06 06:46 | OP.CCLET_ITS ---
05/06/2020 Jairon Wise Re : Upper GI endoscopy procedure for Sharla Lewis Dear Frandy This procedure was performed on Wednesday, May 06, 2020. My impressions and recommendations are as follows: Impressions : - Roof of mouth erythematous 8mm lesion. Appears vascular, not bleeding currently. Not biopsies - Medium-sized hiatal hernia. - Normal distal esophagus. Biopsied. - Normal mid esophagus. Biopsied. - Gastritis. Bile staining noted. Biopsied. - Normal examined duodenum. Biopsied. No findings of significant blood loss. Consider future colonoscopy Recommendations : - Discharge patient to home. - Resume previous diet. - Continue present medications. - Telephone my office for pathology results in 1 week. My findings are described in the full procedure note, which is enclosed. If I can be of further assistance, please feel free to contact me at Doctor phone number(s): Work: . Sincerely, Omero Carr MD 05/06/2020 6:45:36 AM This report has been signed electronically.
--- NOTE | 2020-05-06 10:17 | CASEMGMT ---
According to the [facility] website, the following are in-network tertiary facilities: [facility], [facility], [facility], [facility], [facility], [facility], [place], [facility], and . Luisana PRO CM
[2020-05-06] MEDS: Labetalol 200 MG Tablet 600 MG PO ×2 (10:49→22:16)
[2020-05-06] MEDS: amLODIPine 10 MG Tablet PO (10:50)
[2020-05-06] MEDS: levETIRAcetam 500 MG Tablet PO ×2 (10:50→22:15)
[2020-05-06] MEDS: predniSONE 20 MG Tablet 40 MG PO (10:50)
[2020-05-06] MEDS: hydrALAZINE 50 MG Tablet 100 MG PO ×2 (10:51→22:14)
[2020-05-06] MEDS: Losartan Potassium 50 MG Tablet PO ×2 (10:51→22:15)
[2020-05-06] MEDS: NIFEdipine 60 MG Tablet PO ×2 (10:51→22:16)
[2020-05-06] MEDS: Sucralfate 1 GM Tablet PO ×3 (10:56→22:14)
--- NOTE | 2020-05-06 11:28 | PCM.PN.HOSP ---
Patient Problems: Active and Suspected Problems Severe anemia (Acute) Chest pain (Acute) Reason for Visit: Follow-up on anemia/chest pain Subjective: Patient seen and examined. She feels improved. Transfused 2 units of pRBCs. Denies chest pain, dizziness, palpitations. She had EGD done this morning which was negative for acute GI bleed. Colonoscopy is planned for tomorrow morning. Objective: Physical exam: General: Alert, Oriented x3, Cooperative, No apparent distress, - - Appears pale, chronically unwell HEENT: Atraumatic, PERRLA, EOMI, Normocephalic Oral: Moist Mucosa Neck: Supple Lungs: Clear to auscultation, Normal air movement Cardiovascular: Regular rate, Regular Rhythm, Normal S1, Normal S2, No murmurs Abdomen: Bowel Sounds Present, Soft, Non Tender, Non-Distended, No Hepato-splenomegaly Extremities: No edema Skin: No rashes Musculoskeletal: No Tenderness to Palpation of Joints or Extremities Lymphatic: No Cervical, Supraclavicular, or Inguinal Adenopathy Neurological: Cranial nerves II-XII grossly intact, Neuro grossly intact Psych/Mental Status: Normal Affect, Appropriate Vitals/I&O's: Vital Signs Temp Pulse Resp BP Pulse Ox 98.3 F 72 16 126/81 H 94 05/06/20 10:47 05/06/20 10:51 05/06/20 10:47 05/06/20 10:47 05/06/20 10:47 Oxygen Delivery Method Room Air Weight: 52.2 kg Body Mass Index (BMI) 19.7 Finger Stick Blood Glucose 77 Intake and Output for Last 24 Hours 05/04/20 05/05/20 05/06/20 23:59 23:59 23:59 Intake Total 750 / 870 420 / 420 Output Total 0 / 0 Balance 750 / 870 420 / 420 Microbiology Past 72 Hours 05/05/20 11:58 Stool Stool Occult Blood (QUETA) - Final Occult Blood Positive Laboratory Results 05/05/20 11:25: WBC 5.6, RBC 2.06 L, Hgb 6.4 L, Hct 19.8 L, MCV 96.1, MCH 31.1, MCHC 32.3, RDW Std Deviation 50.4 H, RDW Coeff of Aleida 14.3, Plt Count 196, MPV 10.2, Immature Gran % (Auto) 0.400, Neut % (Auto) 61.4, Lymph % (Auto) 29.1, Florence % (Auto) 4.5, Eos % (Auto) 3.9, Baso % (Auto) 0.7, Absolute Neuts (auto) 3.4, Absolute Lymphs (auto) 1.62, Nucleated RBC % 0 05/05/20 11:25: Sodium 140, Potassium 3.6, Chloride 102, Carbon Dioxide 31.0, Anion Gap 7, BUN 28 H, Creatinine 2.95 H, Estim Creat Clear Calc 21.67, Est GFR (MDRD) Af Amer 23 L, Est GFR (MDRD) Non-Af 19 L, BUN/Creatinine Ratio 9.5 L, Glucose 69 L, Calcium 8.9, Troponin I < 0.015 05/05/20 11:25: Iron 117, TIBC 194 L, Iron Saturation 60.3 H 05/05/20 11:25: Total Bilirubin 0.60, Direct Bilirubin 0.18, AST 32, ALT 40, Alkaline Phosphatase 38 L, Total Protein 5.5 L, Albumin 3.3, Globulin 2.2 05/05/20 12:35: Blood Type A NEGATIVE, Antibody Screen NEGATIVE, Crossmatch See Detail 05/06/20 04:00: WBC 5.5, RBC 2.80 L, Hgb 8.7 L, Hct 26.2 L, MCV 93.6, MCH 31.1, MCHC 33.2, RDW Std Deviation 53.8 H, RDW Coeff of Aleida 15.7 H, Plt Count 192, MPV 10.1, Immature Gran % (Auto) 0.400, Neut % (Auto) 84.3 H, Lymph % (Auto) 10.5 L, Florence % (Auto) 4.6, Eos % (Auto) 0.0, Baso % (Auto) 0.2, Absolute Neuts (auto) 4.6, Absolute Lymphs (auto) 0.57 L, Nucleated RBC % 0, Differential Comment SCANNED 05/06/20 04:00: Sodium 136, Potassium 5.7 H, Chloride 98, Carbon Dioxide 29.0, Anion Gap 9, BUN 53 H, Creatinine 4.51 H, Estim Creat Clear Calc 13.50, Est GFR (MDRD) Af Amer 14 L, Est GFR (MDRD) Non-Af 11 L, BUN/Creatinine Ratio 11.8, Glucose 108 H, Calcium 8.5, Total Bilirubin 0.70, AST 21, ALT 33, Alkaline Phosphatase 39 L, Troponin I < 0.015, Total Protein 5.5 L, Albumin 3.2, Globulin 2.3, Albumin/Globulin Ratio 1.4 05/06/20 04:00: PT 13.5, INR 1.1, APTT 26.6 05/06/20 05:46: Potassium 5.3 H 05/06/20 05:56: POC Glucose 201 H Current Medications Acetaminophen (Tylenol) 650 mg PO Q6H PRN PRN PRN Reason: Pain Score 1-10/Temp > 100.7 F Amlodipine Besylate (Norvasc) 10 mg PO DAILY [facility] Last Admin: 05/06/20 10:50 Dose: 10 mg Documented by: Atorvastatin Calcium (Lipitor) 10 mg PO QHS [facility] Last Admin: 05/05/20 22:48 Dose: 10 mg Documented by: Clonidine (Catapres) 0.3 mg PO TID [facility] Last Admin: 05/06/20 03:20 Dose: Not Given Documented by: Hydralazine HCl (Apresoline) 100 mg PO BID [facility] Last Admin: 05/06/20 10:51 Dose: 100 mg Documented by: Hydralazine HCl (Apresoline Iv) 10 mg IV Q6H PRN PRN PRN Reason: systolic BP >160 Last Admin: 05/06/20 04:51 Dose: 10 mg Documented by: Pantoprazole Sodium 40 mg/ (Sodium Chloride) 110 mls @ 330 mls/hr IV Q12 [facility] Last Admin: 05/06/20 11:01 Dose: 330 mls/hr Documented by: Calcium Gluconate 1 gm/ N/A 10 mls @ 0 mls/hr IV X1 [facility] Last Admin: 05/06/20 05:59 Dose: 10 mls/hr Documented by: Labetalol HCl (Trandate) 600 mg PO BID [facility] Last Admin: 05/06/20 10:49 Dose: 600 mg Documented by: Levetiracetam (Keppra Tablet) 500 mg PO SuTuThSa@2200 [facility] Levetiracetam (Keppra Tablet) 500 mg PO SuTuThSa@1000 [facility] Last Admin: 05/06/20 10:50 Dose: 500 mg Documented by: Levetiracetam (Keppra Tablet) 500 mg PO MoWeFr@2200 [facility] Last Admin: 05/05/20 22:48 Dose: 500 mg Documented by: Levetiracetam (Keppra Tablet) 500 mg PO MoWeFr@0600 [facility] Levetiracetam (Keppra Tablet) 500 mg PO MoWeFr@1400 [facility] Losartan Potassium (Cozaar) 50 mg PO BID [facility] Last Admin: 05/06/20 10:51 Dose: 50 mg Documented by: Nifedipine (Procardia Xl) 60 mg PO BID [facility] Last Admin: 05/06/20 10:51 Dose: 60 mg Documented by: Nitroglycerin (Nitrostat) 0.4 mg SUBLINGUAL Q5M PRN PRN Reason: CARDIAC/CHEST PAIN Prednisone () 40 mg PO DAILY@0800 [facility] Last Admin: 05/06/20 10:50 Dose: 40 mg Documented by: Prochlorperazine Edisylate (Compazine Iv) 5 mg IV Q6H PRN PRN PRN Reason: NAUSEA/VOMITING Last Admin: 05/05/20 18:29 Dose: 5 mg Documented by: Sodium Chloride () 10 - 40 ml IV UD PRN PRN Reason: SALINE FLUSH Last Admin: 05/06/20 11:02 Dose: 10 ml Documented by: Sodium Chloride/Electrolytes (Nulytely) 4,000 ml PO X1 [facility] Stop: 05/06/20 13:01 Sucralfate (Carafate) 1 gm PO 1HR_ACHS [facility] Last Admin: 05/06/20 10:56 Dose: 1 gm Documented by: Zonisamide (Zonegran) 50 mg PO QHS [facility] Last Admin: 05/05/20 23:50 Dose: 50 mg Documented by: STROKE Vital Signs/Narrative: Vital Signs Temp Pulse Resp BP Pulse Ox 05/06/20 10:51 72 05/06/20 10:47 98.3 F 72 16 126/81 H 94 05/06/20 07:45 97.6 F L 83 16 115/58 L 98 Medical Necessity - Tobacco Use Smoking Status: Former smoker Tobacco Use: Non-smoker Assessment/Plan All Active Problems Severe anemia (Acute) Chest pain (Acute) 1. Chest pain, related to #2, resolved EKG shows no acute ST-T changes We will continue to monitor 2. Severe anemia, unclear etiology, likely in the setting of low reserves from recent hemoptysis/endometrial bleeding EGD this morning was negative for acute source of bleeding Hemoglobin is improved, now 8.7 from 6.4 Status post 2 units of packed RBCs Colonoscopy planned in a.m. 3. Acute GI bleed, unclear source, stable FOBT is positive; EGD is negative, colonoscopy planned in a.m. Will continue on IV PPI and sucralfate General surgery 4. Hyperkalemia, status post treatment calcium gluconate and D50 and insulin drip Repeat Potassium is 4.6 from 5.3. 5. ESRD on hemodialysis - -- Nephrology consult 5. Goodpasture's syndrome, status post recent plasmapheresis, Status post recent recurrent hemoptysis and bronchoscopy 2 months ago Continue on prednisone 40 mg daily, [facility] 6. DVT PPx- SCDs Inpatient E&M: 31573 Subs Hosp L2
--- NOTE | 2020-05-06 13:06 | CASEMGMT ---
MORTEZA SANTANA assessment: Face to Face with patient for initial transition planning/care coordination assessment. MORTEZA SANTANA introduced self and role at [facility], pt voices understanding and consents to assessment at this time. Pt is sitting up in bed in no distress at this time. Pt is A/Ox4 at this time and answers all questions appropriately at this time. Care providers, pharmacy, and demographics verified/updated at this time. Presentation: Sternal chest pressure during dialysis starting about an hour and half ago. Pt states hx of seizures and states sometimes the chest pressure is a warning of upcoming seizure Admitting dx: Chest pain, anemia PCP: Frandy Specialists: Yousuf nephrosalba; Neurocare; [facility] hematology Preferred Pharmacy: [facility] Insurance: [employer] Prescription Benefit: [employer] Living Will/HPOA: Pt states does not have LW/HPOA but would like to complete at this time. Geoff SW aware, voices understanding. LNOK: Myriam Arias, mother Living Arrangements: Pt states lives with mother on main level of 2 story duplex with 4 steps into home and states no concerns at home at this time. Pt states is independent with ADL's. Transportation: Pt states mother drives and states no transportation concerns at this time. DME/HHC: Pt states has a cane and walker but does not use. Pt states no need for any further DME at this time. Pt states is current with [facility] and per [facility], they need a new order for SN, PT d/t being close to her recert date. New order for SN/PT placed at this time. H&P, facesheet and order faxed to [facility] at this time. Pt states has been to SNF's in [place] and [place] in the past. Pt states no concerns with going home at time of discharge. Pt is currently unemployed but states is trying to get on disability d/t Goodpastures syndrome and HD. Pt states does not smoke cigarettes or drink ETOH. Pt states no further concerns/needs at this time. CM to follow for any further discharge planning/needs. Advised pt to ask for CM if any further questions/concerns/needs arise, voices understanding. Pt Goal: Home Plan: [place] MORTEZA SANTANA
[2020-05-06 13:45] LABS: Anion Gap 9 (5-15); BUN 57 mg/dL (7-18); BUN/Creat Ratio 10.9 RATIO (10-20); Calcium,Total 8.8 mg/dL (8.5-10.1); Chloride 99 mmol/L (98-107); Creatinine, Serum 5.22 mg/dL (0.55-1.02); EST Glomerular Filtration Rate 10 mL/min (>60); Est Glom Filt Rate - Afr Amer 12 mL/min (>60); Estimated Creatinine Clearance 11.69 ml/min; Glucose 109 mg/dL (74-106); Potassium 4.6 mmol/L (3.5-5.1); Sodium Level 136 mmol/L (136-145)
--- NOTE | 2020-05-06 13:46 | PN.RENAL_ITS ---
Patient Problems: Active and Suspected Problems Severe anemia (Acute) Chest pain (Acute) Subjective: no new complaints - Physical Exam Vitals/I&O's: Vital Signs Temp Pulse Resp BP Pulse Ox 98.3 F 72 16 126/81 H 94 05/06/20 10:47 05/06/20 10:51 05/06/20 10:47 05/06/20 10:47 05/06/20 10:47 Oxygen Delivery Method Room Air Weight: 52.2 kg Body Mass Index (BMI) 19.7 Finger Stick Blood Glucose 77 Intake and Output for Last 24 Hours 05/04/20 05/05/20 05/06/20 23:59 23:59 23:59 Intake Total 750 / 870 770 / 770 Output Total 0 / 0 Balance 750 / 870 770 / 770 General: Alert, Oriented x3, Cooperative HEENT: Atraumatic, PERRLA, EOMI, Normocephalic Neck: Supple, No JVD, Negative Carotid Bruits Lungs: Clear to auscultation, Normal air movement Cardiovascular: Regular rate, No murmurs Abdomen: Bowel Sounds Present, Soft, Non Tender Extremities: No edema, Capillary Refill Less than 3 Seconds Skin: No rashes, No breakdown Musculoskeletal: No Tenderness to Palpation of Joints or Extremities Neurological: Cranial nerves II-XII grossly intact Psych/Mental Status: Normal Affect, Appropriate Microbiology Past 72 Hours 05/05/20 11:58 Stool Stool Occult Blood (QUETA) - Final Occult Blood Positive Laboratory Results 05/05/20 11:25: Total Bilirubin 0.60, Direct Bilirubin 0.18, AST 32, ALT 40, Alkaline Phosphatase 38 L, Total Protein 5.5 L, Albumin 3.3, Globulin 2.2 05/05/20 12:35: Blood Type A NEGATIVE, Antibody Screen NEGATIVE, Crossmatch See Detail 05/06/20 04:00: WBC 5.5, RBC 2.80 L, Hgb 8.7 L, Hct 26.2 L, MCV 93.6, MCH 31.1, MCHC 33.2, RDW Std Deviation 53.8 H, RDW Coeff of Aleida 15.7 H, Plt Count 192, MPV 10.1, Immature Gran % (Auto) 0.400, Neut % (Auto) 84.3 H, Lymph % (Auto) 10.5 L, Clark % (Auto) 4.6, Eos % (Auto) 0.0, Baso % (Auto) 0.2, Absolute Neuts (auto) 4.6, Absolute Lymphs (auto) 0.57 L, Nucleated RBC % 0, Differential Comment SCANNED 05/06/20 04:00: Sodium 136, Potassium 5.7 H, Chloride 98, Carbon Dioxide 29.0, Anion Gap 9, BUN 53 H, Creatinine 4.51 H, Estim Creat Clear Calc 13.50, Est GFR (MDRD) Af Amer 14 L, Est GFR (MDRD) Non-Af 11 L, BUN/Creatinine Ratio 11.8, Glucose 108 H, Calcium 8.5, Total Bilirubin 0.70, AST 21, ALT 33, Alkaline Phosphatase 39 L, Troponin I < 0.015, Total Protein 5.5 L, Albumin 3.2, Globulin 2.3, Albumin/Globulin Ratio 1.4 05/06/20 04:00: PT 13.5, INR 1.1, APTT 26.6 05/06/20 05:46: Potassium 5.3 H 05/06/20 05:56: POC Glucose 201 H 05/06/20 13:01: Sodium 136, Potassium 4.6, Chloride 99, Carbon Dioxide 28.0, Anion Gap 9, BUN 57 H, Creatinine 5.22 H, Estim Creat Clear Calc 11.69, Est GFR (MDRD) Af Amer 12 L, Est GFR (MDRD) Non-Af 10 L, BUN/Creatinine Ratio 10.9, Glucose 109 H, Calcium 8.8 Current Medications Acetaminophen (Tylenol) 650 mg PO Q6H PRN PRN PRN Reason: Pain Score 1-10/Temp > 100.7 F Amlodipine Besylate (Norvasc) 10 mg PO DAILY [facility] Last Admin: 05/06/20 10:50 Dose: 10 mg Documented by: Atorvastatin Calcium (Lipitor) 10 mg PO QHS [facility] Last Admin: 05/05/20 22:48 Dose: 10 mg Documented by: Clonidine (Catapres) 0.3 mg PO TID [facility] Last Admin: 05/06/20 03:20 Dose: Not Given Documented by: Hydralazine HCl (Apresoline) 100 mg PO BID [facility] Last Admin: 05/06/20 10:51 Dose: 100 mg Documented by: Hydralazine HCl (Apresoline Iv) 10 mg IV Q6H PRN PRN PRN Reason: systolic BP >160 Last Admin: 05/06/20 04:51 Dose: 10 mg Documented by: Pantoprazole Sodium 40 mg/ (Sodium Chloride) 110 mls @ 330 mls/hr IV Q12 [facility] Last Infusion: 05/06/20 11:50 Dose: Infused Documented by: Calcium Gluconate 1 gm/ N/A 10 mls @ 0 mls/hr IV X1 [facility] Last Admin: 05/06/20 05:59 Dose: 10 mls/hr Documented by: Labetalol HCl (Trandate) 600 mg PO BID [facility] Last Admin: 05/06/20 10:49 Dose: 600 mg Documented by: Levetiracetam (Keppra Tablet) 500 mg PO SuTuThSa@2200 [facility] Levetiracetam (Keppra Tablet) 500 mg PO SuTuThSa@1000 [facility] Last Admin: 05/06/20 10:50 Dose: 500 mg Documented by: Levetiracetam (Keppra Tablet) 500 mg PO MoWeFr@2200 [facility] Last Admin: 05/05/20 22:48 Dose: 500 mg Documented by: Levetiracetam (Keppra Tablet) 500 mg PO MoWeFr@0600 [facility] Levetiracetam (Keppra Tablet) 500 mg PO MoWeFr@1400 [facility] Losartan Potassium (Cozaar) 50 mg PO BID [facility] Last Admin: 05/06/20 10:51 Dose: 50 mg Documented by: Nifedipine (Procardia Xl) 60 mg PO BID [facility] Last Admin: 05/06/20 10:51 Dose: 60 mg Documented by: Nitroglycerin (Nitrostat) 0.4 mg SUBLINGUAL Q5M PRN PRN Reason: CARDIAC/CHEST PAIN Prednisone () 40 mg PO DAILY@0800 [facility] Last Admin: 05/06/20 10:50 Dose: 40 mg Documented by: Prochlorperazine Edisylate (Compazine Iv) 5 mg IV Q6H PRN PRN PRN Reason: NAUSEA/VOMITING Last Admin: 05/05/20 18:29 Dose: 5 mg Documented by: Sodium Chloride () 10 - 40 ml IV UD PRN PRN Reason: SALINE FLUSH Last Admin: 05/06/20 11:02 Dose: 10 ml Documented by: Sucralfate (Carafate) 1 gm PO 1HR_ACHS [facility] Last Admin: 05/06/20 10:56 Dose: 1 gm Documented by: Zonisamide (Zonegran) 50 mg PO QHS [facility] Last Admin: 05/05/20 23:50 Dose: 50 mg Documented by: Medical Necessity - Tobacco Use Smoking Status: Former smoker Tobacco Use: Non-smoker Assessment/Plan All Active Problems Severe anemia (Acute) Chest pain (Acute) ESRD, HD MWF schedile. finished most of the treatment except last 15 min. hd tomorrow. anemia. Spoke to her primary counter intelligence. She was diagnosed with Goodpasture's last year and has been on dialysis for about 6 months or so. Has been having multiple issues such as hypertension, seizures, hemoptysis, nosebleeds. Didn't require blood transfusions in the past due to hemoptysis. Apparently had a bronchoscopy which did not show any active inflammation. However due to sym ptoms she was started on prednisone with plans to get outpatient rituximab. She has not received the rituximab yet. yoselyn Choi
[2020-05-06] MEDS: Electrolyte Solution/Peg's 4000 ML PO (14:08)
[2020-05-06] MEDS: cloNIDine HCl 0.2 MG Tablet 0.3 MG PO ×2 (14:09→22:14)
[2020-05-06 16:40] LABS: Internal QC Validated? YES +Cl - CLEAR BKGD; Pregnancy, Serum, hCG Quali. NEGATIVE Negative
[2020-05-06] MEDS: LORazepam 1 MG Tablet PO (20:00)
[2020-05-06] MEDS: Atorvastatin Calcium 10 MG Tablet PO (22:15)
[2020-05-06] MEDS: Zonisamide 50 MG Capsule PO (22:17)
[2020-05-07] VITALS (18 sets, daily range): BP systolic 122–178; BP diastolic 61–92; PULSE 68–88; RESP 16–20; TEMP 36.1–37.2; O2SAT 94–99; BMI 21.7
[2020-05-07 04:38] LABS: Absolute Lymphocyte Count 1.95 X10^3/uL (0.83-4.51); Absolute Neutrophil Count 3.7 X10^3/uL (2.0-7.7); Basophil# 0.01 X10^3/uL; Basophil% 0.2 % (0-1); Eosinophil# 0.06 X10^3/uL; Hematocrit 22.6 % (37-47); Hemoglobin 7.4 g/dL (12.0-15.0); Lymphocyte # 1.95 X10^3/ul (4.0); Lymphocyte % 31.6 % (19-41); Mean Corp Hgb Conc 32.7 g/dL (32-36); Mean Corpuscular Hgb 31.1 pg (27.0-32.0); Monocyte# 0.43 X10^3/uL; NRBC Flagged by Analyzer 0 % (0-5); Neutrophil # 3.72 X10^3/uL (2.7-7.7); Platelet Count 148 K/mm3 (150-450); RBC Distribution Width CV 15.4 % (11.6-14.6); RBC Distribution Width SD 53.3 fl (35.1-43.9); Red Blood Count 2.38 M/mm3 (4.2-5.4); White Blood Count 6.2 K/mm3 (4.4-11.0)
[2020-05-07 04:54] LABS: Anion Gap 12 (5-15); BUN 61 mg/dL (7-18); BUN/Creat Ratio 10.8 RATIO (10-20); Calcium,Total 8.7 mg/dL (8.5-10.1); Chloride 96 mmol/L (98-107); Creatinine, Serum 5.66 mg/dL (0.55-1.02); EST Glomerular Filtration Rate 9 mL/min (>60); Est Glom Filt Rate - Afr Amer 11 mL/min (>60); Estimated Creatinine Clearance 10.78 ml/min; Glucose 86 mg/dL (74-106); Potassium 4.2 mmol/L (3.5-5.1); Sodium Level 136 mmol/L (136-145)
[2020-05-07] MEDS: cloNIDine HCl 0.2 MG Tablet 0.3 MG PO ×3 (05:10→22:02)
[2020-05-07] MEDS: levETIRAcetam 500 MG Tablet PO ×3 (05:10→22:03)
--- NOTE | 2020-05-07 06:02 | NURSING ---
After nearly 2.5L of normal saline enemas, pt is passing clear/yellow liquid per rectum. Pt transported at this time to have colonoscopy.
--- NOTE | 2020-05-07 06:59 | OP.CCLET_ITS ---
05/07/2020 Jairon Wise Re : Colonoscopy procedure for Sharla Lewis Dear Frandy This procedure was performed on Thursday, May 07, 2020. My impressions and recommendations are as follows: Impressions : - Preparation of the colon was poor. - Preparation of the colon was inadequate. - Hemorrhoids found on perianal exam. - Redundant colon. - Stool in the entire examined colon. - No specimens collected. Recommendations : - Discharge patient to home. - Resume previous diet. - Continue present medications. - Repeat colonoscopy at appointment to be scheduled for screening purposes. I recommend patient contact my office once she is being adequately treated for her Goodpasture's dz and is deemed stabel to undergo an appropriate bowel prep. Unable to visualize for polyps No gross masses and no obvious site of hemorrhage - Telephone my office to schedule appointment after studies are complete. My findings are described in the full procedure note, which is enclosed. If I can be of further assistance, please feel free to contact me at Doctor phone number(s): Work: . Sincerely, Omero Carr MD 05/07/2020 6:58:50 AM This report has been signed electronically.
--- NOTE | 2020-05-07 06:59 | OP.COLON_ITS ---
Patient Name: Sharla Lewis Procedure Date: 05/07/2020 5:48 AM Date of : 1980 Age: 39 Procedure: Colonoscopy Indications: Iron deficiency anemia secondary to chronic blood loss Providers: Omero Carr MD Medicines: See the Anesthesia note for documentation of the administered medications Patient Profile: Last Colonoscopy: none. The patient's first colonoscopy is today. Complications: No immediate complications. Procedure: Pre-Anesthesia Assessment: - Prior to the procedure, a History and Physical was performed, and patient medications and allergies were reviewed. The patient's tolerance of previous anesthesia was also reviewed. The risks and benefits of the procedure and the sedation options and risks were discussed with the patient. All questions were answered, and informed consent was obtained. Prior Anticoagulants: The patient has taken no previous anticoagulant or antiplatelet agents. ASA Grade Assessment: III - A patient with severe systemic disease. After reviewing the risks and benefits, the patient was deemed in satisfactory condition to undergo the procedure. After I obtained informed consent, the scope was passed under direct vision. Throughout the procedure, the patient's blood pressure, pulse, and oxygen saturations were monitored continuously. The pediatric colonoscope was introduced through the anus and advanced to the cecum, identified by appendiceal orifice and ileocecal valve. The colonoscopy was performed with moderate difficulty due to inadequate bowel prep. The patient tolerated the procedure well. The quality of the bowel preparation was poor and inadequate. The ileocecal valve was photographed. Scope In: 6:22:50 AM Scope Withdrawal Time 0 hours 9 minutes 40 seconds Scope Out: 6:48:50 AM Total Procedure Duration Time 0 hours 26 minutes 0 seconds Findings: Hemorrhoids were found on perianal exam. The colon (entire examined portion) was moderately redundant. Advancing the scope required changing the patient to a supine position and using manual pressure. A large amount of liquid stool was found in the entire colon, precluding visualization. Impression: - Preparation of the colon was poor. - Preparation of the colon was inadequate. - Hemorrhoids found on perianal exam. - Redundant colon. - Stool in the entire examined colon. - No specimens collected. Recommendation: - Discharge patient to home. - Resume previous diet. - Continue present medications. - Repeat colonoscopy at appointment to be scheduled for screening purposes. I recommend patient contact my office once she is being adequately treated for her Goodpasture's dz and is deemed stabel to undergo an appropriate bowel prep. Unable to visualize for polyps No gross masses and no obvious site of hemorrhage - Telephone my office to schedule appointment after studies are complete. Procedure Code(s): --- Professional --- 84877, Colonoscopy, flexible; diagnostic, including collection of specimen(s) by brushing or washing, when performed (separate procedure) Diagnosis Code(s): --- Professional --- K64.9, Unspecified hemorrhoids D50.0, Iron deficiency anemia secondary to blood loss (chronic) Q43.8, Other specified congenital malformations of intestine CPT copyright 2017 [employer]. All rights reserved. The codes documented in this report are preliminary and upon clinical coder review may be revised to meet current compliance requirements. Omero Carr MD 05/07/2020 6:58:50 AM This report has been signed electronically. Number of Addenda: 0 Note Initiated On: 05/07/2020 5:48 AM
--- NOTE | 2020-05-07 06:59 | PCM.PN.BLA ---
Progress Note Very poor bowel prep. Unable to decipher any type of polyp. No gross masses. No gross evidence of colonic bleeding. No findings that would correlate with the patient's complaint of abdominal pain. Recommend ongoing medical treatment and evaluation. If she stabilizes and tolerates that medical treatment of her Goodpasture's disease then could consider re-doing a bowel prep and redoing her colonoscopy at that time. Omero Carr M.D., F.A.C.S. STROKE Vital Signs/Narrative: Vital Signs Temp Pulse Resp BP Pulse Ox 05/07/20 04:48 98.3 F 75 20 H 153/87 H 96 05/07/20 04:43 75
[2020-05-07] MEDS: Labetalol 200 MG Tablet 600 MG PO ×2 (09:15→22:03)
[2020-05-07] MEDS: Sucralfate 1 GM Tablet PO ×4 (09:16→22:01)
[2020-05-07] MEDS: NIFEdipine 60 MG Tablet PO ×2 (09:16→22:03)
[2020-05-07] MEDS: predniSONE 20 MG Tablet 40 MG PO (09:16)
[2020-05-07] MEDS: amLODIPine 10 MG Tablet PO (09:16)
[2020-05-07] MEDS: Losartan Potassium 50 MG Tablet PO ×2 (09:16→22:03)
[2020-05-07] MEDS: hydrALAZINE 50 MG Tablet 100 MG PO ×2 (09:16→22:01)
[2020-05-07] MEDS: 0.9% Saline Lock 10 ML Syringe IV ×3 (09:23→22:13)
--- NOTE | 2020-05-07 11:51 | PCM.PN.HOSP ---
Patient Problems: Active and Suspected Problems Severe anemia (Acute) Chest pain (Acute) Reason for Visit: Follow-up on anemia/chest pain Subjective: Patient seen and examined. No new complaints. Colonoscopy was a poor preparation. No obvious source of bleeding seen. Future colonoscopy planned. Denies chest pain, dizziness, palpitations. Hb appears to have dropped more than 1 g. No obvious source of bleeding. Objective: Physical exam: General: Alert, Oriented x3, Cooperative, No apparent distress, - - Appears pale, chronically unwell HEENT: Atraumatic, PERRLA, EOMI, Normocephalic Oral: Moist Mucosa Neck: Supple Lungs: Clear to auscultation, Normal air movement Cardiovascular: Regular rate, Regular Rhythm, Normal S1, Normal S2, No murmurs Abdomen: Bowel Sounds Present, Soft, Non Tender, Non-Distended, No Hepato-splenomegaly Extremities: No edema Skin: No rashes Musculoskeletal: No Tenderness to Palpation of Joints or Extremities Lymphatic: No Cervical, Supraclavicular, or Inguinal Adenopathy Neurological: Cranial nerves II-XII grossly intact, Neuro grossly intact Psych/Mental Status: Normal Affect, Appropriate Vitals/I&O's: Vital Signs Temp Pulse Resp BP Pulse Ox 98.5 F 78 18 151/78 H 96 05/07/20 09:15 05/07/20 09:16 05/07/20 09:15 05/07/20 09:16 05/07/20 09:15 Oxygen Delivery Method Room Air Weight: 57.4 kg Body Mass Index (BMI) 21.7 Finger Stick Blood Glucose 77 Intake and Output for Last 24 Hours 05/05/20 05/06/20 05/07/20 23:59 23:59 23:59 Intake Total 750 / 870 2160 / 2160 130 / 130 Output Total 0 / 0 Balance 750 / 870 2160 / 2160 130 / 130 Microbiology Past 72 Hours 05/05/20 11:58 Stool Stool Occult Blood (QUETA) - Final Occult Blood Positive Laboratory Results 05/06/20 13:01: Sodium 136, Potassium 4.6, Chloride 99, Carbon Dioxide 28.0, Anion Gap 9, BUN 57 H, Creatinine 5.22 H, Estim Creat Clear Calc 11.69, Est GFR (MDRD) Af Amer 12 L, Est GFR (MDRD) Non-Af 10 L, BUN/Creatinine Ratio 10.9, Glucose 109 H, Calcium 8.8 05/06/20 15:19: Serum , Qual NEGATIVE 05/07/20 04:30: WBC 6.2, RBC 2.38 L, Hgb 7.4 L, Hct 22.6 L, MCV 95.0, MCH 31.1, MCHC 32.7, RDW Std Deviation 53.3 H, RDW Coeff of Aleida 15.4 H, Plt Count 148 L, MPV 10.0, Immature Gran % (Auto) 0.200, Neut % (Auto) 60.0, Lymph % (Auto) 31.6, [place] % (Auto) 7.0, Eos % (Auto) 1.0, Baso % (Auto) 0.2, Absolute Neuts (auto) 3.7, Absolute Lymphs (auto) 1.95, Nucleated RBC % 0 05/07/20 04:30: Sodium 136, Potassium 4.2, Chloride 96 L, Carbon Dioxide 28.0, Anion Gap 12, BUN 61 H, Creatinine 5.66 H, Estim Creat Clear Calc 10.78, Est GFR (MDRD) Af Amer 11 L, Est GFR (MDRD) Non-Af 9 L, BUN/Creatinine Ratio 10.8, Glucose 86, Calcium 8.7 05/07/20 04:30: Retic Count Pending 05/07/20 04:30: Total Bilirubin Pending, Direct Bilirubin Pending, AST Pending, ALT Pending, Alkaline Phosphatase Pending, Lactate Dehydrogenase Pending, Total Protein Pending, Albumin Pending 05/07/20 04:30: Haptoglobin Pending 05/07/20 04:30: Direct Antiglob Test Pending Current Medications Acetaminophen (Tylenol) 650 mg PO Q6H PRN PRN PRN Reason: Pain Score 1-10/Temp > 100.7 F Amlodipine Besylate (Norvasc) 10 mg PO DAILY [facility] Last Admin: 05/07/20 09:16 Dose: 10 mg Documented by: Atorvastatin Calcium (Lipitor) 10 mg PO QHS [facility] Last Admin: 05/06/20 22:15 Dose: 10 mg Documented by: Clonidine (Catapres) 0.3 mg PO TID [facility] Last Admin: 05/07/20 05:10 Dose: 0.3 mg Documented by: Hydralazine HCl (Apresoline) 100 mg PO BID [facility] Last Admin: 05/07/20 09:16 Dose: 100 mg Documented by: Hydralazine HCl (Apresoline Iv) 10 mg IV Q6H PRN PRN PRN Reason: systolic BP >160 Last Admin: 05/06/20 04:51 Dose: 10 mg Documented by: Pantoprazole Sodium 40 mg/ (Sodium Chloride) 110 mls @ 330 mls/hr IV Q12 [facility] Last Infusion: 05/07/20 09:45 Dose: Infused Documented by: Labetalol HCl (Trandate) 600 mg PO BID [facility] Last Admin: 05/07/20 09:15 Dose: 600 mg Documented by: Levetiracetam (Keppra Tablet) 500 mg PO SuTuThSa@2200 [facility] Last Admin: 05/06/20 22:15 Dose: 500 mg Documented by: Levetiracetam (Keppra Tablet) 500 mg PO SuTuThSa@1000 [facility] Last Admin: 05/06/20 10:50 Dose: 500 mg Documented by: Levetiracetam (Keppra Tablet) 500 mg PO MoWeFr@2200 [facility] Last Admin: 05/05/20 22:48 Dose: 500 mg Documented by: Levetiracetam (Keppra Tablet) 500 mg PO MoWeFr@0600 [facility] Last Admin: 05/07/20 05:10 Dose: 500 mg Documented by: Levetiracetam (Keppra Tablet) 500 mg PO MoWeFr@1400 [facility] Losartan Potassium (Cozaar) 50 mg PO BID [facility] Last Admin: 05/07/20 09:16 Dose: 50 mg Documented by: Nifedipine (Procardia Xl) 60 mg PO BID [facility] Last Admin: 05/07/20 09:16 Dose: 60 mg Documented by: Nitroglycerin (Nitrostat) 0.4 mg SUBLINGUAL Q5M PRN PRN Reason: CARDIAC/CHEST PAIN Prednisone () 40 mg PO DAILY@0800 [facility] Last Admin: 05/07/20 09:16 Dose: 40 mg Documented by: Prochlorperazine Edisylate (Compazine Iv) 5 mg IV Q6H PRN PRN PRN Reason: NAUSEA/VOMITING Last Admin: 05/05/20 18:29 Dose: 5 mg Documented by: Sodium Chloride () 10 - 40 ml IV UD PRN PRN Reason: SALINE FLUSH Last Admin: 05/07/20 09:23 Dose: 10 ml Documented by: Sucralfate (Carafate) 1 gm PO 1HR_ACHS [facility] Last Admin: 05/07/20 09:16 Dose: 1 gm Documented by: Zonisamide (Zonegran) 50 mg PO QHS [facility] Last Admin: 05/06/20 22:17 Dose: 50 mg Documented by: STROKE Vital Signs/Narrative: Vital Signs Temp Pulse Resp BP Pulse Ox 05/07/20 09:16 78 151/78 H 05/07/20 09:15 98.5 F 78 18 151/78 H 96 Medical Necessity - Tobacco Use Smoking Status: Former smoker Tobacco Use: Non-smoker Assessment/Plan All Active Problems Severe anemia (Acute) Chest pain (Acute) 1. Chest pain, related to #2, resolved EKG shows no acute ST-T changes We will continue to monitor 2. Severe anemia, unclear etiology, likely in the setting of low reserves from recent hemoptysis/endometrial bleeding EGD this morning was negative for acute source of bleeding. Colonoscopy was a poor preparation, no obvious bleeding seen. Hemoglobin appears to have fallen more than 1 g, currently 7.4. Status post 2 units packed RBCs 2 days ago Will work patient up for hemolytic anemia with LDH, reticulocyte count, haptoglobin, direct Ana test We will repeat blood work in a.m. 3. Acute GI bleed, unclear source, stable FOBT is positive; EGD is negative, colonoscopy was a poor prep. Future colonoscopy planned Will continue on IV PPI and sucralfate General surgery 4. Hyperkalemia, resolved Status post treatment calcium gluconate and D50 and insulin drip 5. ESRD on hemodialysis - -- Nephrology consult 6. Goodpasture's syndrome, status post recent plasmapheresis, Status post recent recurrent hemoptysis and bronchoscopy 2 months ago Continue on prednisone 40 mg daily, Rituximab planned for outpatient [facility] outpatient follow-up 7. DVT PPx- SCDs Inpatient E&M: 46123 Subs Hosp L2
[2020-05-07 12:06] LABS: AST(SGOT) 13 U/L (15-37); Alanine Aminotransfer ALT/SGPT 25 U/L (13-56); Albumin, Serum 3.1 g/dL (3.2-5.0); Alkaline Phosphatase 34 U/L (45-117); Bilirubin, Direct 0.25 mg/dL (0.00-0.30); Globulin 2.1 g/dL (2.2-4.2); LDH 199 U/L (84-246); Protein, Total 5.2 g/dL (6.4-8.2)
[2020-05-07 12:30] LABS: Platelet Count 155 K/mm3 (150-450); RET-HE 35.4 pg (30-35)
[2020-05-07] MEDS: Lidocaine/Prilocaine HCl 5 GM Tube TOPICAL (13:41)
--- NOTE | 2020-05-07 14:40 | CASEMGMT ---
Social Work SW met with pt and assisted pt with completing Health Care POA and Living will. Pt named dgt Magali Tracy as HCPOA. Copy placed in pt chart and original given to pt. Pt demographic sheet lists pt mother as contact and pt requesting to remove her mother from the list and add her daughter. SW made requested changes. AL Rivero
--- NOTE | 2020-05-07 16:14 | PN.RENAL_ITS ---
Patient Problems: Active and Suspected Problems Severe anemia (Acute) Chest pain (Acute) Subjective: no new complaints - Physical Exam Vitals/I&O's: Vital Signs Temp Pulse Resp BP Pulse Ox 98.0 F 81 18 122/65 H 94 05/07/20 13:10 05/07/20 15:00 05/07/20 13:10 05/07/20 13:10 05/07/20 13:10 Oxygen Delivery Method Room Air Weight: 57.4 kg Body Mass Index (BMI) 21.7 Finger Stick Blood Glucose 77 Intake and Output for Last 24 Hours 05/05/20 05/06/20 05/07/20 23:59 23:59 23:59 Intake Total 750 / 870 2160 / 2160 490 / 490 Output Total 0 / 0 Balance 750 / 870 2160 / 2160 490 / 490 General: Alert, Oriented x3, Cooperative HEENT: Atraumatic, PERRLA, EOMI, Normocephalic Neck: Supple, No JVD, Negative Carotid Bruits Lungs: Clear to auscultation, Normal air movement Cardiovascular: Regular rate, No murmurs Abdomen: Bowel Sounds Present, Soft, Non Tender Extremities: No edema, Capillary Refill Less than 3 Seconds Skin: No rashes, No breakdown Musculoskeletal: No Tenderness to Palpation of Joints or Extremities Neurological: Cranial nerves II-XII grossly intact Psych/Mental Status: Normal Affect, Appropriate Microbiology Past 72 Hours 05/05/20 11:58 Stool Stool Occult Blood (QUETA) - Final Occult Blood Positive Laboratory Results 05/06/20 15:19: Serum , Qual NEGATIVE 05/07/20 04:30: WBC 6.2, RBC 2.38 L, Hgb 7.4 L, Hct 22.6 L, MCV 95.0, MCH 31.1, MCHC 32.7, RDW Std Deviation 53.3 H, RDW Coeff of Aleida 15.4 H, Plt Count 148 L, MPV 10.0, Immature Gran % (Auto) 0.200, Neut % (Auto) 60.0, Lymph % (Auto) 31.6, [place] % (Auto) 7.0, Eos % (Auto) 1.0, Baso % (Auto) 0.2, Absolute Neuts (auto) 3.7, Absolute Lymphs (auto) 1.95, Nucleated RBC % 0 05/07/20 04:30: Sodium 136, Potassium 4.2, Chloride 96 L, Carbon Dioxide 28.0, Anion Gap 12, BUN 61 H, Creatinine 5.66 H, Estim Creat Clear Calc 10.78, Est GFR (MDRD) Af Amer 11 L, Est GFR (MDRD) Non-Af 9 L, BUN/Creatinine Ratio 10.8, Glucose 86, Calcium 8.7 05/07/20 04:30: Retic Count 0.80, Immature Retic Fraction 2.40 L, Retic Hgb Equivalent 35.4 H 05/07/20 04:30: Total Bilirubin 0.40, Direct Bilirubin 0.25, AST 13 L, ALT 25, Alkaline Phosphatase 34 L, Lactate Dehydrogenase 199, Total Protein 5.2 L, Albumin 3.1 L, Globulin 2.1 L 05/07/20 04:30: Haptoglobin Pending 05/07/20 04:30: Direct Antiglob Test NEG w/POLYSPECIFIC Current Medications Acetaminophen (Tylenol) 650 mg PO Q6H PRN PRN PRN Reason: Pain Score 1-10/Temp > 100.7 F Amlodipine Besylate (Norvasc) 10 mg PO DAILY [facility] Last Admin: 05/07/20 09:16 Dose: 10 mg Documented by: Atorvastatin Calcium (Lipitor) 10 mg PO QHS [facility] Last Admin: 05/06/20 22:15 Dose: 10 mg Documented by: Clonidine (Catapres) 0.3 mg PO TID [facility] Last Admin: 05/07/20 05:10 Dose: 0.3 mg Documented by: Hydralazine HCl (Apresoline) 100 mg PO BID [facility] Last Admin: 05/07/20 09:16 Dose: 100 mg Documented by: Hydralazine HCl (Apresoline Iv) 10 mg IV Q6H PRN PRN PRN Reason: systolic BP >160 Last Admin: 05/06/20 04:51 Dose: 10 mg Documented by: Pantoprazole Sodium 40 mg/ (Sodium Chloride) 110 mls @ 330 mls/hr IV Q12 [facility] Last Infusion: 05/07/20 09:45 Dose: Infused Documented by: Labetalol HCl (Trandate) 600 mg PO BID [facility] Last Admin: 05/07/20 09:15 Dose: 600 mg Documented by: Levetiracetam (Keppra Tablet) 500 mg PO SuTuThSa@2200 [facility] Last Admin: 05/06/20 22:15 Dose: 500 mg Documented by: Levetiracetam (Keppra Tablet) 500 mg PO SuTuThSa@1000 [facility] Last Admin: 05/06/20 10:50 Dose: 500 mg Documented by: Levetiracetam (Keppra Tablet) 500 mg PO MoWeFr@2200 [facility] Last Admin: 05/05/20 22:48 Dose: 500 mg Documented by: Levetiracetam (Keppra Tablet) 500 mg PO MoWeFr@0600 [facility] Last Admin: 05/07/20 05:10 Dose: 500 mg Documented by: Levetiracetam (Keppra Tablet) 500 mg PO MoWeFr@1400 [facility] Losartan Potassium (Cozaar) 50 mg PO BID [facility] Last Admin: 05/07/20 09:16 Dose: 50 mg Documented by: Nifedipine (Procardia Xl) 60 mg PO BID [facility] Last Admin: 05/07/20 09:16 Dose: 60 mg Documented by: Nitroglycerin (Nitrostat) 0.4 mg SUBLINGUAL Q5M PRN PRN Reason: CARDIAC/CHEST PAIN Prednisone () 40 mg PO DAILY@0800 [facility] Last Admin: 05/07/20 09:16 Dose: 40 mg Documented by: Prochlorperazine Edisylate (Compazine Iv) 5 mg IV Q6H PRN PRN PRN Reason: NAUSEA/VOMITING Last Admin: 05/05/20 18:29 Dose: 5 mg Documented by: Sodium Chloride () 10 - 40 ml IV UD PRN PRN Reason: SALINE FLUSH Last Admin: 05/07/20 09:23 Dose: 10 ml Documented by: Sucralfate (Carafate) 1 gm PO 1HR_ACHS [facility] Last Admin: 05/07/20 13:06 Dose: 1 gm Documented by: Zonisamide (Zonegran) 50 mg PO QHS [facility] Last Admin: 05/06/20 22:17 Dose: 50 mg Documented by: Medical Necessity - Tobacco Use Smoking Status: Former smoker Tobacco Use: Non-smoker Assessment/Plan All Active Problems Severe anemia (Acute) Chest pain (Acute) ESRD, HD MWF schedile. seen on HD today anemia. Spoke to her primary bridge opener. She was diagnosed with Goodpasture's last year and has been on dialysis for about 6 months or so. Has been having m ultiple issues such as hypertension, seizures, hemoptysis, nosebleeds. Didn't require blood transfusions in the past due to hemoptysis. Apparently had a bronchoscopy which did not show any active inflammation. However due to symptoms she was started on prednisone with plans to get outpatient rituximab. She has not received the rituximab yet. Hb is lower today. ? hemolysis. yoselyn Choi
[2020-05-07] MEDS: proCHLORPERazine 10 MG/2 ML Vial 5 MG IV (17:28)
--- NOTE | 2020-05-07 18:35 | DIALYSIS ---
HD x 3.5 hours complete. Tolerated tx well. UF of 3000ml. Used left arm graft. Crimora removed post tx and pressure applied x 15 minutes. Hemostasis achieved. Fresh gauze and tape applied. Positive thrill/bruit noted. See tx sheet for more details. Report was give to MORTEZA Mary.
[2020-05-07] MEDS: Zonisamide 50 MG Capsule PO (22:01)
[2020-05-07] MEDS: Atorvastatin Calcium 10 MG Tablet PO (22:02)
[2020-05-08] VITALS (9 sets, daily range): BP systolic 118–152; BP diastolic 67–78; PULSE 68–97; RESP 16–18; TEMP 36.6–37.1; O2SAT 95–96
[2020-05-08] MEDS: LORazepam 1 MG Tablet PO (00:23)
[2020-05-08 05:51] LABS: Absolute Lymphocyte Count 2.43 X10^3/uL (0.83-4.51); Basophil# 0.01 X10^3/uL; Basophil% 0.1 % (0-1); Eosinophil# 0.11 X10^3/uL; Eosinophils% 1.6 % (0-5); Hematocrit 22.3 % (37-47); Hemoglobin 7.2 g/dL (12.0-15.0); Lymphocyte # 2.43 X10^3/ul (4.0); Lymphocyte % 34.7 % (19-41); Mean Corp Hgb Conc 32.3 g/dL (32-36); Mean Corpuscular Hgb 31.2 pg (27.0-32.0); Mean Corpuscular Volume 96.5 fL (81-99); Mean Platelet Vol. 10.2 fl (6.2-12.0); Monocyte# 0.47 X10^3/uL; Monocyte% 6.7 % (0-10); NRBC Flagged by Analyzer 0 % (0-5); Neutrophil # 3.96 X10^3/uL (2.7-7.7); Neutrophil % 56.6 % (47-70); Platelet Count 139 K/mm3 (150-450); RBC Distribution Width CV 14.6 % (11.6-14.6); RBC Distribution Width SD 51.4 fl (35.1-43.9); Red Blood Count 2.31 M/mm3 (4.2-5.4)
--- NOTE | 2020-05-08 05:56 | PCM.PN.SRG ---
Patient Problems: Active and Suspected Problems Severe anemia (Acute) Chest pain (Acute) Subjective: Patient is comfortable. No specific complaints. - Physical Exam Vitals/I&O's: Vital Signs Temp Pulse Resp BP Pulse Ox 98.2 F 80 16 118/67 96 05/08/20 02:35 05/08/20 02:59 05/08/20 02:35 05/08/20 02:35 05/08/20 02:35 Oxygen Delivery Method Room Air Weight: 126 lb 8.725 oz Body Mass Index (BMI) 21.7 Finger Stick Blood Glucose 77 Intake and Output for Last 24 Hours 05/06/20 05/07/20 05/08/20 23:59 23:59 23:59 Intake Total 2160 / 2160 960 / 960 240 / 240 Output Total 0 / 0 0 / 0 Balance 2160 / 2160 960 / 960 240 / 240 Microbiology Past 72 Hours 05/05/20 11:58 Stool Stool Occult Blood (QUETA) - Final Occult Blood Positive Laboratory Results 05/07/20 04:30: Retic Count 0.80, Immature Retic Fraction 2.40 L, Retic Hgb Equivalent 35.4 H 05/07/20 04:30: Total Bilirubin 0.40, Direct Bilirubin 0.25, AST 13 L, ALT 25, Alkaline Phosphatase 34 L, Lactate Dehydrogenase 199, Total Protein 5.2 L, Albumin 3.1 L, Globulin 2.1 L 05/07/20 04:30: Haptoglobin Pending 05/07/20 04:30: Direct Antiglob Test NEG w/POLYSPECIFIC 05/08/20 05:08: WBC 7.0, RBC 2.31 L, Hgb 7.2 L, Hct 22.3 L, MCV 96.5, MCH 31.2, MCHC 32.3, RDW Std Deviation 51.4 H, RDW Coeff of Aleida 14.6, Plt Count 139 L, MPV 10.2, Immature Gran % (Auto) 0.300, Neut % (Auto) 56.6, Lymph % (Auto) 34.7, [place] % (Auto) 6.7, Eos % (Auto) 1.6, Baso % (Auto) 0.1, Absolute Neuts (auto) 4.0, Absolute Lymphs (auto) 2.43, Nucleated RBC % 0 05/08/20 05:08: Sodium Pending, Potassium Pending, Chloride Pending, Carbon Dioxide Pending, Anion Gap Pending, BUN Pending, Creatinine Pending, Est GFR (MDRD) Af Amer Pending, Est GFR (MDRD) Non-Af Pending, BUN/Creatinine Ratio Pending, Glucose Pending, Calcium Pending, Total Bilirubin Pending, AST Pending, ALT Pending, Alkaline Phosphatase Pending, Total Protein Pending, Albumin Pending Current Medications Acetaminophen (Tylenol) 650 mg PO Q6H PRN PRN PRN Reason: Pain Score 1-10/Temp > 100.7 F Amlodipine Besylate (Norvasc) 10 mg PO DAILY [facility] Last Admin: 05/07/20 09:16 Dose: 10 mg Documented by: Atorvastatin Calcium (Lipitor) 10 mg PO QHS [facility] Last Admin: 05/07/20 22:02 Dose: 10 mg Documented by: Clonidine (Catapres) 0.3 mg PO TID [facility] Last Admin: 05/07/20 22:02 Dose: 0.3 mg Documented by: Hydralazine HCl (Apresoline) 100 mg PO BID [facility] Last Admin: 05/07/20 22:01 Dose: 100 mg Documented by: Hydralazine HCl (Apresoline Iv) 10 mg IV Q6H PRN PRN PRN Reason: systolic BP >160 Last Admin: 05/06/20 04:51 Dose: 10 mg Documented by: Pantoprazole Sodium 40 mg/ (Sodium Chloride) 110 mls @ 330 mls/hr IV Q12 [facility] Last Infusion: 05/07/20 22:33 Dose: Infused Documented by: Labetalol HCl (Trandate) 600 mg PO BID [facility] Last Admin: 05/07/20 22:03 Dose: 600 mg Documented by: Levetiracetam (Keppra Tablet) 500 mg PO SuTuThSa@2200 [facility] Last Admin: 05/06/20 22:15 Dose: 500 mg Documented by: Levetiracetam (Keppra Tablet) 500 mg PO SuTuThSa@1000 [facility] Last Admin: 05/06/20 10:50 Dose: 500 mg Documented by: Levetiracetam (Keppra Tablet) 500 mg PO MoWeFr@2200 [facility] Last Admin: 05/07/20 22:03 Dose: 500 mg Documented by: Levetiracetam (Keppra Tablet) 500 mg PO MoWeFr@0600 [facility] Last Admin: 05/07/20 05:10 Dose: 500 mg Documented by: Levetiracetam (Keppra Tablet) 500 mg PO MoWeFr@1400 [facility] Last Admin: 05/07/20 18:13 Dose: 500 mg Documented by: Losartan Potassium (Cozaar) 50 mg PO BID [facility] Last Admin: 05/07/20 22:03 Dose: 50 mg Documented by: Nifedipine (Procardia Xl) 60 mg PO BID [facility] Last Admin: 05/07/20 22:03 Dose: 60 mg Documented by: Nitroglycerin (Nitrostat) 0.4 mg SUBLINGUAL Q5M PRN PRN Reason: CARDIAC/CHEST PAIN Prednisone () 40 mg PO DAILY@0800 [facility] Last Admin: 05/07/20 09:16 Dose: 40 mg Documented by: Prochlorperazine Edisylate (Compazine Iv) 5 mg IV Q6H PRN PRN PRN Reason: NAUSEA/VOMITING Last Admin: 05/07/20 17:28 Dose: 5 mg Documented by: Sodium Chloride () 10 - 40 ml IV UD PRN PRN Reason: SALINE FLUSH Last Admin: 05/07/20 22:13 Dose: 10 ml Documented by: Sucralfate (Carafate) 1 gm PO 1HR_ACHS [facility] Last Admin: 05/07/20 22:01 Dose: 1 gm Documented by: Zonisamide (Zonegran) 50 mg PO QHS [facility] Last Admin: 05/07/20 22:01 Dose: 50 mg Documented by: Medical Necessity - Tobacco Use Smoking Status: Former smoker Tobacco Use: Non-smoker Assessment/Plan All Active Problems Severe anemia (Acute) Chest pain (Acute) The patient is aware that the bowel prep for yesterday's colonoscopy was in adequate and poor and unable to detect polyps. I pursued the exam to try to make sure there was not a significant malignancy or obvious location of blood clot which there was not. My recommendation at this time would be to continue to pursue her other health issues. She has been vigorously and instructed that if her Goodpasture's disease comes under control and she is stable and enjoying a good quality of life that within the next 3 to 6 months she should recontact me so that we can pursue a repeat colonoscopy at that time. I would need to put her through a double bowel prep to assure cleansing. I am not seeing obvious significant sources of GI blood loss at this time and will hold off on that preparation until she is otherwise stabilized. I appreciate the opportunity of assisting with her surgical care. I will sign off. Omero Carr M.D., F.A.C.S.
[2020-05-08] MEDS: Sucralfate 1 GM Tablet PO ×2 (06:07→11:59)
[2020-05-08] MEDS: cloNIDine HCl 0.2 MG Tablet 0.3 MG PO ×2 (06:07→14:19)
[2020-05-08 06:22] LABS: ALB/GLOB Ratio 1.3 RATIO (0.9-2.4); AST(SGOT) 16 U/L (15-37); Alanine Aminotransfer ALT/SGPT 26 U/L (13-56); Albumin, Serum 2.9 g/dL (3.2-5.0); Alkaline Phosphatase 37 U/L (45-117); Anion Gap 6 (5-15); BUN 33 mg/dL (7-18); BUN/Creat Ratio 9.2 RATIO (10-20); Calcium,Total 7.8 mg/dL (8.5-10.1); Chloride 100 mmol/L (98-107); Creatinine, Serum 3.58 mg/dL (0.55-1.02); EST Glomerular Filtration Rate 15 mL/min (>60); Est Glom Filt Rate - Afr Amer 18 mL/min (>60); Estimated Creatinine Clearance 17.86 ml/min; Globulin 2.2 g/dL (2.2-4.2); Glucose 93 mg/dL (74-106); Potassium 3.8 mmol/L (3.5-5.1); Protein, Total 5.1 g/dL (6.4-8.2); Sodium Level 137 mmol/L (136-145)
[2020-05-08 09:05] LABS: Ferritin 302 ng/mL (8-252)
[2020-05-08 09:18] LABS: Haptoglobin 28 mg/dL (42-296)
[2020-05-08] MEDS: hydrALAZINE 50 MG Tablet 100 MG PO (09:21)
[2020-05-08] MEDS: predniSONE 20 MG Tablet 40 MG PO (09:21)
[2020-05-08] MEDS: 0.9% Saline Lock 10 ML Syringe IV (09:21)
[2020-05-08] MEDS: Labetalol 200 MG Tablet 600 MG PO (09:22)
[2020-05-08] MEDS: amLODIPine 10 MG Tablet PO (09:22)
[2020-05-08] MEDS: Losartan Potassium 50 MG Tablet PO (09:22)
[2020-05-08] MEDS: NIFEdipine 60 MG Tablet PO (09:22)
[2020-05-08] MEDS: Folic Acid/Vitamin B Comp W-C 1 Capsule 1 CAP PO (09:59)
[2020-05-08] MEDS: busPIRone 5 MG Tablet PO (09:59)
[2020-05-08] MEDS: levETIRAcetam 500 MG Tablet PO (09:59)
--- NOTE | 2020-05-08 11:50 | DCINST_ITS ---
- Discharge Diagnoses Current Active Problems: Current Active and Chronic Problems Severe anemia (Acute) Chest pain (Acute) ESRD (end stage renal disease) on dialysis (Chronic) Goodpasture syndrome (Chronic) PFO (patent foramen ovale) (Chronic) DJD (degenerative joint disease) (Chronic) Spinal stenosis (Chronic) Reason(s) for Visit for Discharge Instructions: Chest pain You will use the following diet at home:: Renal (restricted protein/sodium) Your food should be the consistency of: Regular Your liquids should be the consistency of: Regular/Thin Discharge Activity: Return to Normal Activity Additional Instructions: Follow-up with Dr. Carr in 2 weeks. Continue with dialysis as scheduled. Continue to monitor for black stools or blood in your stools. Allergies/Adverse Reactions: Allergies ciprofloxacin [From Cipro] Allergy (Verified 05/05/20 11:13) Rash clarithromycin [From Biaxin] Allergy (Verified 05/05/20 11:13) Rash Penicillins Allergy (Verified 05/05/20 11:13) Hives cephalexin [From Keflex] Adverse Reaction (Verified 05/05/20 11:13) Diarrhea Medications to take at Discharge Atorvastatin Calcium [Lipitor] 10 mg PO QHS 01/16/20 Labetalol HCl 600 mg PO BID 01/16/20 Pantoprazole Sodium [Protonix] 40 mg PO DAILY 01/16/20 Clonidine HCl 0.3 mg PO TID 04/07/20 Levetiracetam [Levetiracetam ER] 500 mg PO TID 04/07/20 Nifedipine [Nifedipine ER] 60 mg PO BID 04/07/20 Nitroglycerin 0.4 mg SL PRN PRN 04/07/20 hydrALAZINE [Apresoline] 100 mg PO TID 04/07/20 Albuterol Sulfate [Albuterol Sulfate HFA] 2 puff IH Q4H PRN PRN 05/05/20 Amlodipine Besylate [Norvasc] 10 mg PO DAILY 05/05/20 Aspirin E.C. [Ecotrin] 81 mg PO DAILY 05/05/20 B Complex W-C No.20/Folic Acid [Renal Caps Softgel] 1 mg PO DAILY 05/05/20 Lidocaine/Prilocaine [Lidocaine-Prilocaine Cream] 1 ea TP 05/05/20 Losartan Potassium [Cozaar] 50 mg PO BID 05/05/20 Zonisamide [Zonegran] 50 mg PO DAILY 05/05/20 busPIRone [Buspar] 5 mg PO BID 05/05/20 Acetaminophen [Tylenol Tablet] 650 mg PO Q6H PRN PRN tab 05/08/20 predniSONE tablet 40 mg PO DAILY@0800 30 Days #60 tab 05/08/20 The following prescriptions were given: predniSONE tablet 40 mg PO DAILY@0800 30 Days #60 tab Transmission Status: Received by [facility]/pharmacy #[id number] Primary Care Physician: Jairon Wise DO [Primary Care Provider] - Please follow up with your Primary Care Physician in: within 1-2 weeks Test Results: Test results from this visit will be discussed in further detail at your follow- up appointment, if applicable. When: Dr. To, nephrology as scheduled Proposed Discharge Date: 05/08/20
--- NOTE | 2020-05-08 11:52 | PCM.DC.SUM ---
Discharge Date and Diagnosis Date of Admission: 05/05/20 Date of Discharge: 05/08/20 - Primary Discharge Diagnosis Acute Problems: Active Problems Severe symptomatic anemia Chest pain Acute GI bleed, unclear etiology Hypokalemia - Secondary Discharge Diagnosis Chronic Problems: Chronic Problems ESRD (end stage renal disease) on dialysis (Chronic) Goodpasture syndrome (Chronic) PFO (patent foramen ovale) (Chronic) DJD (degenerative joint disease) (Chronic) Spinal stenosis (Chronic) Hospital Course and Treatment Imaging Results: Clinical Impression(s) from Imaging Studies Chest X-Ray 05/05/20 11:40 IMPRESSION: Normal x-ray examination of the chest. Electronically Signed: Lavell Hector MD at 12:00 EDT Tel , Service support , Nephrology General surgery Operations: None Procedures: Colonoscopy, EGD Summary of Care Provided: 39 year old F with past medical history of ESRD on hemodialysis in September 2019, Goodpasture's syndrome status post plasmapheresis a couple of weeks ago, on chronic steroid, hypertension who comes in with dizziness, palpitations, blurred vision, chest discomfort while on dialysis today. Patient has been feeling unwell since the day before admission. She went for dialysis, and whilst she was on dialysis and about 15 mins finished, she started having severe substernal chest tightness through the blackness and seeing spots. She denied passing out, denied having melena stools or diarrhea or nausea or vomiting. Recently had endometrial ablation with IUD placement. Her LMP - 3 months ago. She does not make any urine. Her vitals were stable. Her admitting Hb was 6.4, dropped from previous hemoglobin of 8.8, platelet count 196. Admitting chest x-ray was unremarkable. EKG shows normal sinus rhythm with no acute ST changes. She was transfused 2 units of pRBCs. Stool for occult blood was positive. She was started on IV PPI BID. General surgery was consulted. Patient had an EGD done on 05/06/20 that showed 8mm erythematous lesion on roof of mouth, not bleeding, medium hiatal hernia, gastritis. No findings of significant blood loss. Colonoscopy on 05/07/20 was a poor. Patient hemoglobin at discharge was 7.2. Work-up for possible hemolytic anemia was negative with negative LFTs. LDH normal. Haptoglobin though was low. Discussed with nephrology who discussed with the patient's primary nephrology Dr. To, patient will possibly be transfused in the outpatient if needed with repeat blood work. Patient will follow-up with general surgery in the future for repeat colonoscopy. Patient was seen by PT and OT. She is homebound and qualifies for home health. Discussed with lead cashier and social work. Subjective: On the day of discharge, patient was seen and examined She denied any new complains. No acute events overnight. Objective: Physical exam: General: Alert, Oriented x3, Cooperative, No apparent distress, - - Appears pale, chronically unwell HEENT: Atraumatic, PERRLA, EOMI, Normocephalic Oral: Moist Mucosa Neck: Supple Lungs: Clear to auscultation, Normal air movement Cardiovascular: Regular rate, Regular Rhythm, Normal S1, Normal S2, No murmurs Abdomen: Bowel Sounds Present, Soft, Non Tender, Non-Distended, No Hepato-splenomegaly Extremities: No edema Skin: No rashes Musculoskeletal: No Tenderness to Palpation of Joints or Extremities Lymphatic: No Cervical, Supraclavicular, or Inguinal Adenopathy Neurological: Cranial nerves II-XII grossly intact, Neuro grossly intact Psych/Mental Status: Normal Affect, Appropriate - Physical Exam Vitals/I&O's: Vital Signs Temp Pulse Resp BP Pulse Ox 97.9 F 78 16 152/78 H 96 05/08/20 09:20 05/08/20 09:21 05/08/20 09:20 05/08/20 09:21 05/08/20 09:20 Oxygen Delivery Method Room Air Weight: 56.3 kg Body Mass Index (BMI) 21.7 Finger Stick Blood Glucose 77 Intake and Output for Last 24 Hours 05/06/20 05/07/20 05/08/20 23:59 23:59 23:59 Intake Total 2160 / 2160 960 / 960 350 / 350 Output Total 0 / 0 0 / 0 Balance 2160 / 2160 960 / 960 350 / 350 Microbiology Past 72 Hours 05/05/20 11:58 Stool Stool Occult Blood (QUETA) - Final Occult Blood Positive Laboratory Results 05/07/20 04:30: Retic Count 0.80, Immature Retic Fraction 2.40 L, Retic Hgb Equivalent 35.4 H 05/07/20 04:30: Total Bilirubin 0.40, Direct Bilirubin 0.25, AST 13 L, ALT 25, Alkaline Phosphatase 34 L, Lactate Dehydrogenase 199, Total Protein 5.2 L, Albumin 3.1 L, Globulin 2.1 L 05/07/20 04:30: Haptoglobin 28 L 05/07/20 04:30: Direct Antiglob Test NEG w/POLYSPECIFIC 05/08/20 05:08: WBC 7.0, RBC 2.31 L, Hgb 7.2 L, Hct 22.3 L, MCV 96.5, MCH 31.2, MCHC 32.3, RDW Std Deviation 51.4 H, RDW Coeff of Aleida 14.6, Plt Count 139 L, MPV 10.2, Immature Gran % (Auto) 0.300, Neut % (Auto) 56.6, Lymph % (Auto) 34.7, [place] % (Auto) 6.7, Eos % (Auto) 1.6, Baso % (Auto) 0.1, Absolute Neuts (auto) 4.0, Absolute Lymphs (auto) 2.43, Nucleated RBC % 0 05/08/20 05:08: Sodium 137, Potassium 3.8, Chloride 100, Carbon Dioxide 31.0, Anion Gap 6, BUN 33 H, Creatinine 3.58 H, Estim Creat Clear Calc 17.86, Est GFR (MDRD) Af Amer 18 L, Est GFR (MDRD) Non-Af 15 L, BUN/Creatinine Ratio 9.2 L, Glucose 93, Calcium 7.8 L, Total Bilirubin 0.40, AST 16, ALT 26, Alkaline Phosphatase 37 L, Total Protein 5.1 L, Albumin 2.9 L, Globulin 2.2, Albumin/Globulin Ratio 1.3 05/08/20 05:08: Ferritin 302 H Current Medications Acetaminophen (Tylenol) 650 mg PO Q6H PRN PRN PRN Reason: Pain Score 1-10/Temp > 100.7 F Amlodipine Besylate (Norvasc) 10 mg PO DAILY [facility] Last Admin: 05/08/20 09:22 Dose: 10 mg Documented by: Atorvastatin Calcium (Lipitor) 10 mg PO QHS [facility] Last Admin: 05/07/20 22:02 Dose: 10 mg Documented by: Buspirone HCl (Buspar) 5 mg PO BID [facility] Last Admin: 05/08/20 09:59 Dose: 5 mg Documented by: Clonidine (Catapres) 0.3 mg PO TID [facility] Last Admin: 05/08/20 06:07 Dose: 0.3 mg Documented by: Hydralazine HCl (Apresoline) 100 mg PO BID [facility] Last Admin: 05/08/20 09:21 Dose: 100 mg Documented by: Hydralazine HCl (Apresoline Iv) 10 mg IV Q6H PRN PRN PRN Reason: systolic BP >160 Last Admin: 05/06/20 04:51 Dose: 10 mg Documented by: Pantoprazole Sodium 40 mg/ (Sodium Chloride) 110 mls @ 330 mls/hr IV Q12 [facility] Last Infusion: 05/08/20 09:45 Dose: Infused Documented by: Labetalol HCl (Trandate) 600 mg PO BID [facility] Last Admin: 05/08/20 09:22 Dose: 600 mg Documented by: Levetiracetam (Keppra Tablet) 500 mg PO SuTuThSa@2200 [facility] Last Admin: 05/06/20 22:15 Dose: 500 mg Documented by: Levetiracetam (Keppra Tablet) 500 mg PO SuTuThSa@1000 [facility] Last Admin: 05/08/20 09:59 Dose: 500 mg Documented by: Levetiracetam (Keppra Tablet) 500 mg PO MoWeFr@2200 [facility] Last Admin: 05/07/20 22:03 Dose: 500 mg Documented by: Levetiracetam (Keppra Tablet) 500 mg PO MoWeFr@0600 [facility] Last Admin: 05/07/20 05:10 Dose: 500 mg Documented by: Levetiracetam (Keppra Tablet) 500 mg PO MoWeFr@1400 [facility] Last Admin: 05/07/20 18:13 Dose: 500 mg Documented by: Losartan Potassium (Cozaar) 50 mg PO BID [facility] Last Admin: 05/08/20 09:22 Dose: 50 mg Documented by: Multivit/Ca Carb/B Cmplx/FA/Prenat (Nephrocaps, Renaphro) 1 capsule PO DAILY [facility] Last Admin: 05/08/20 09:59 Dose: 1 capsule Documented by: Nifedipine (Procardia Xl) 60 mg PO BID [facility] Last Admin: 05/08/20 09:22 Dose: 60 mg Documented by: Nitroglycerin (Nitrostat) 0.4 mg SUBLINGUAL Q5M PRN PRN Reason: CARDIAC/CHEST PAIN Prednisone () 40 mg PO DAILY@0800 [facility] Last Admin: 05/08/20 09:21 Dose: 40 mg Documented by: Prochlorperazine Edisylate (Compazine Iv) 5 mg IV Q6H PRN PRN PRN Reason: NAUSEA/VOMITING Last Admin: 05/07/20 17:28 Dose: 5 mg Documented by: Sodium Chloride () 10 - 40 ml IV UD PRN PRN Reason: SALINE FLUSH Last Admin: 05/08/20 09:21 Dose: 10 ml Documented by: Sucralfate (Carafate) 1 gm PO 1HR_ACHS [facility] Last Admin: 05/08/20 06:07 Dose: 1 gm Documented by: Zonisamide (Zonegran) 50 mg PO QHS [facility] Last Admin: 05/07/20 22:01 Dose: 50 mg Documented by: Discharge Diet: Low fat/ Low Cholesterol, 2000 mg Sodium Diet, Renal Diet Discharge Activity: Return to Normal Activity Home Medications: Medications to take at Discharge Atorvastatin Calcium [Lipitor] 10 mg PO QHS 01/16/20 Labetalol HCl 600 mg PO BID 01/16/20 Pantoprazole Sodium [Protonix] 40 mg PO DAILY 01/16/20 Clonidine HCl 0.3 mg PO TID 04/07/20 Levetiracetam [Levetiracetam ER] 500 mg PO TID 04/07/20 Nifedipine [Nifedipine ER] 60 mg PO BID 04/07/20 Nitroglycerin 0.4 mg SL PRN PRN 04/07/20 hydrALAZINE [Apresoline] 100 mg PO TID 04/07/20 Albuterol Sulfate [Albuterol Sulfate HFA] 2 puff IH Q4H PRN PRN 05/05/20 Amlodipine Besylate [Norvasc] 10 mg PO DAILY 05/05/20 Aspirin E.C. [Ecotrin] 81 mg PO DAILY 05/05/20 B Complex W-C No.20/Folic Acid [Renal Caps Softgel] 1 mg PO DAILY 05/05/20 Lidocaine/Prilocaine [Lidocaine-Prilocaine Cream] 1 ea TP 05/05/20 Losartan Potassium [Cozaar] 50 mg PO BID 05/05/20 Zonisamide [Zonegran] 50 mg PO DAILY 05/05/20 busPIRone [Buspar] 5 mg PO BID 05/05/20 Acetaminophen [Tylenol Tablet] 650 mg PO Q6H PRN PRN tab 05/08/20 predniSONE tablet 40 mg PO DAILY@0800 30 Days #60 tab 05/08/20 Following Prescriptions Were Given to Patient: predniSONE tablet 40 mg PO DAILY@0800 30 Days #60 tab Transmission Status: Received by [facility]/pharmacy #[id number] Primary Care Physician: Jairon Wise DO [Primary Care Provider] - Please follow up with your Primary Care Physician in: within 1-2 weeks When: Dr. To, nephrology as scheduled Disposition: Home Minutes spent on discharge:: 40 Patient Condition:: Stable Medical Necessity - Tobacco Use Smoking Status: Former smoker Tobacco Use: Non-smoker Meaningful Use Info Meaningful Use Diagnoses (Choose all that apply): None applicable Inpatient E&M: 69445 Disch Hosp
--- NOTE | 2020-05-08 13:24 | PCM.PN.REN ---
Patient Problems: Active and Suspected Problems Severe anemia (Acute) Chest pain (Acute) Subjective: no new complaints - Physical Exam Vitals/I&O's: Vital Signs Temp Pulse Resp BP Pulse Ox 97.9 F 78 16 152/78 H 96 05/08/20 09:20 05/08/20 09:21 05/08/20 09:20 05/08/20 09:21 05/08/20 09:20 Oxygen Delivery Method Room Air Weight: 56.3 kg Body Mass Index (BMI) 21.7 Finger Stick Blood Glucose 77 Intake and Output for Last 24 Hours 05/06/20 05/07/20 05/08/20 23:59 23:59 23:59 Intake Total 2160 / 2160 960 / 960 590 / 590 Output Total 0 / 0 0 / 0 Balance 2160 / 2160 960 / 960 590 / 590 General: Alert, Oriented x3, Cooperative HEENT: Atraumatic, PERRLA, EOMI, Normocephalic Neck: Supple, No JVD, Negative Carotid Bruits Lungs: Clear to auscultation, Normal air movement Cardiovascular: Regular rate, No murmurs Abdomen: Bowel Sounds Present, Soft, Non Tender Extremities: No edema, Capillary Refill Less than 3 Seconds Skin: No rashes, No breakdown Musculoskeletal: No Tenderness to Palpation of Joints or Extremities Neurological: Cranial nerves II-XII grossly intact Psych/Mental Status: Normal Affect, Appropriate Microbiology Past 72 Hours 05/05/20 11:58 Stool Stool Occult Blood (QUETA) - Final Occult Blood Positive Laboratory Results 05/07/20 04:30: Haptoglobin 28 L 05/08/20 05:08: WBC 7.0, RBC 2.31 L, Hgb 7.2 L, Hct 22.3 L, MCV 96.5, MCH 31.2, MCHC 32.3, RDW Std Deviation 51.4 H, RDW Coeff of Aleida 14.6, Plt Count 139 L, MPV 10.2, Immature Gran % (Auto) 0.300, Neut % (Auto) 56.6, Lymph % (Auto) 34.7, [place] % (Auto) 6.7, Eos % (Auto) 1.6, Baso % (Auto) 0.1, Absolute Neuts (auto) 4.0, Absolute Lymphs (auto) 2.43, Nucleated RBC % 0 05/08/20 05:08: Sodium 137, Potassium 3.8, Chloride 100, Carbon Dioxide 31.0, Anion Gap 6, BUN 33 H, Creatinine 3.58 H, Estim Creat Clear Calc 17.86, Est GFR (MDRD) Af Amer 18 L, Est GFR (MDRD) Non-Af 15 L, BUN/Creatinine Ratio 9.2 L, Glucose 93, Calcium 7.8 L, Total Bilirubin 0.40, AST 16, ALT 26, Alkaline Phosphatase 37 L, Total Protein 5.1 L, Albumin 2.9 L, Globulin 2.2, Albumin/Globulin Ratio 1.3 05/08/20 05:08: Ferritin 302 H Current Medications Acetaminophen (Tylenol) 650 mg PO Q6H PRN PRN PRN Reason: Pain Score 1-10/Temp > 100.7 F Amlodipine Besylate (Norvasc) 10 mg PO DAILY [facility] Last Admin: 05/08/20 09:22 Dose: 10 mg Documented by: Atorvastatin Calcium (Lipitor) 10 mg PO QHS [facility] Last Admin: 05/07/20 22:02 Dose: 10 mg Documented by: Buspirone HCl (Buspar) 5 mg PO BID [facility] Last Admin: 05/08/20 09:59 Dose: 5 mg Documented by: Clonidine (Catapres) 0.3 mg PO TID [facility] Last Admin: 05/08/20 06:07 Dose: 0.3 mg Documented by: Hydralazine HCl (Apresoline) 100 mg PO BID [facility] Last Admin: 05/08/20 09:21 Dose: 100 mg Documented by: Hydralazine HCl (Apresoline Iv) 10 mg IV Q6H PRN PRN PRN Reason: systolic BP >160 Last Admin: 05/06/20 04:51 Dose: 10 mg Documented by: Pantoprazole Sodium 40 mg/ (Sodium Chloride) 110 mls @ 330 mls/hr IV Q12 [facility] Last Infusion: 05/08/20 09:45 Dose: Infused Documented by: Labetalol HCl (Trandate) 600 mg PO BID [facility] Last Admin: 05/08/20 09:22 Dose: 600 mg Documented by: Levetiracetam (Keppra Tablet) 500 mg PO SuTuThSa@2200 [facility] Last Admin: 05/06/20 22:15 Dose: 500 mg Documented by: Levetiracetam (Keppra Tablet) 500 mg PO SuTuThSa@1000 [facility] Last Admin: 05/08/20 09:59 Dose: 500 mg Documented by: Levetiracetam (Keppra Tablet) 500 mg PO MoWeFr@2200 [facility] Last Admin: 05/07/20 22:03 Dose: 500 mg Documented by: Levetiracetam (Keppra Tablet) 500 mg PO MoWeFr@0600 [facility] Last Admin: 05/07/20 05:10 Dose: 500 mg Documented by: Levetiracetam (Keppra Tablet) 500 mg PO MoWeFr@1400 [facility] Last Admin: 05/07/20 18:13 Dose: 500 mg Documented by: Losartan Potassium (Cozaar) 50 mg PO BID [facility] Last Admin: 05/08/20 09:22 Dose: 50 mg Documented by: Multivit/Ca Carb/B Cmplx/FA/Prenat (Nephrocaps, Renaphro) 1 capsule PO DAILY [facility] Last Admin: 05/08/20 09:59 Dose: 1 capsule Documented by: Nifedipine (Procardia Xl) 60 mg PO BID [facility] Last Admin: 05/08/20 09:22 Dose: 60 mg Documented by: Nitroglycerin (Nitrostat) 0.4 mg SUBLINGUAL Q5M PRN PRN Reason: CARDIAC/CHEST PAIN Prednisone () 40 mg PO DAILY@0800 [facility] Last Admin: 05/08/20 09:21 Dose: 40 mg Documented by: Prochlorperazine Edisylate (Compazine Iv) 5 mg IV Q6H PRN PRN PRN Reason: NAUSEA/VOMITING Last Admin: 05/07/20 17:28 Dose: 5 mg Documented by: Sodium Chloride () 10 - 40 ml IV UD PRN PRN Reason: SALINE FLUSH Last Admin: 05/08/20 09:21 Dose: 10 ml Documented by: Sucralfate (Carafate) 1 gm PO 1HR_ACHS [facility] Last Admin: 05/08/20 11:59 Dose: 1 gm Documented by: Zonisamide (Zonegran) 50 mg PO QHS [facility] Last Admin: 05/07/20 22:01 Dose: 50 mg Documented by: Medical Necessity - Tobacco Use Smoking Status: Former smoker Tobacco Use: Non-smoker Assessment/Plan All Active Problems Severe anemia (Acute) Chest pain (Acute) ESRD, HD MWF schedule. anemia. Hb is more or less same. no obvious blood loss. ferritin 302 consistent with ESRD status. hapto levels noted. yoselyn Choi. Hematology does not feel this is hemolysis. I did call Dr To her primary featheredger and reducer machine. she may need more PRBC if Hb drops again. this can be arranged as outpatient in infusion centre she was also supposed to see hematology for rituximab, advised her to keep follow up with them as scheduled yoselyn To from my end no further work up needed.
--- NOTE | 2020-05-08 13:44 | PHA.DC.MR ---
Pharmacy Service has performed discharge medication reconciliation for this patient. The patient's discharge medication list was reviewed for discrepancies and discrepancies were resolved. Home Medications Atorvastatin Calcium [Lipitor] 10 mg PO QHS 01/16/20 Labetalol HCl 600 mg PO BID 01/16/20 Pantoprazole Sodium [Protonix] 40 mg PO DAILY 01/16/20 Clonidine HCl 0.3 mg PO TID 04/07/20 Levetiracetam [Levetiracetam ER] 500 mg PO TID 04/07/20 Nifedipine [Nifedipine ER] 60 mg PO BID 04/07/20 Nitroglycerin 0.4 mg SL PRN PRN 04/07/20 hydrALAZINE [Apresoline] 100 mg PO TID 04/07/20 Albuterol Sulfate [Albuterol Sulfate HFA] 2 puff IH Q4H PRN PRN 05/05/20 Amlodipine Besylate [Norvasc] 10 mg PO DAILY 05/05/20 Aspirin E.C. [Ecotrin] 81 mg PO DAILY 05/05/20 B Complex W-C No.20/Folic Acid [Renal Caps Softgel] 1 mg PO DAILY 05/05/20 Lidocaine/Prilocaine [Lidocaine-Prilocaine Cream] 1 ea TP 05/05/20 Losartan Potassium [Cozaar] 50 mg PO BID 05/05/20 Zonisamide [Zonegran] 50 mg PO DAILY 05/05/20 busPIRone [Buspar] 5 mg PO BID 05/05/20 Acetaminophen [Tylenol Tablet] 650 mg PO Q6H PRN PRN tab 05/08/20 predniSONE tablet 40 mg PO DAILY@0800 30 Days #60 tab 05/08/20
--- NOTE | 2020-05-09 12:36 | CASEMGMT ---
D/C summ w/ [facility]2F faxed at this time. Luisana PRO CM
--- NOTE | 2020-05-09 16:46 | CASEMGMT ---
MORTEZA CM Discharge Follow-up Phone Call: PANKAJRadha: 14 Strata: 4 Call Date: 05/09/2020 Discharge Date: 05/08/2020 Time of Call: 1645 Admitting Diagnosis: Anemia, CP, GI bleed Attempted call to phone number listed for pt. Voicemail received and nondescript message left requesting a return call. Germain Marion RN CM
== END 2020-05-08 15:34 | disposition home or self-care (01) | DRG 663 ==
LOC: ED 12:04 → PCU 12:35
PROVIDERS: Anesthesiology; Hospitalist; Surgery; Admitting Provider Internal Medicine; Emergency Provider Emergency Medicine; PCP Family Medicine; Visit Provider Internal Medicine
PROC: 0DJ08ZZ Inspection of Upper Intestinal Tract, Via Natural or Artificial Opening Endoscopic (ICD-10-PCS; CPT 43235; principal; 2020-05-06 06:25)
PROC: 0DJD8ZZ Inspection of Lower Intestinal Tract, Via Natural or Artificial Opening Endoscopic (ICD-10-PCS; CPT 45378; principal; 2020-05-07 06:25)
DX: D64.9 Anemia, unspecified (principal); K44.9 Diaphragmatic hernia without obstruction or gangrene; K64.9 Unspecified hemorrhoids; K29.70 Gastritis, unspecified, without bleeding; Q43.8 Other specified congenital malformations of intestine; G43.909 Migraine, unspecified, not intractable, without status migrainosus; Q21.1 Atrial septal defect; I12.0 Hypertensive chronic kidney disease with stage 5 chronic kidney disease or end stage renal disease; N18.6 End stage renal disease; M31.0 Hypersensitivity angiitis; M19.90 Unspecified osteoarthritis, unspecified site; M48.00 Spinal stenosis, site unspecified; F41.9 Anxiety disorder, unspecified; E43 Unspecified severe protein-calorie malnutrition; E87.5 Hyperkalemia; G40.909 Epilepsy, unspecified, not intractable, without status epilepticus; Z99.2 Dependence on renal dialysis; Z79.52 Long term (current) use of systemic steroids; Z79.899 Other long term (current) drug therapy; Z79.82 Long term (current) use of aspirin; Z87.891 Personal history of nicotine dependence; Z68.1 Body mass index [BMI] 19.9 or less, adult; Z86.73 Personal history of transient ischemic attack (TIA), and cerebral infarction without residual deficits; Z68.21 Body mass index [BMI] 21.0-21.9, adult; Z97.5 Presence of (intrauterine) contraceptive device
CPT/HCPCS: 36415; 71045; 80048; 80053; 80076; 82274; 82728; 82962; 83010; 83540; 83550; 83615; 84132; 84484; 84703; 85025; 85045; 85610; 85730; 86850; 86880; 86900; 86901; 86920; 86922; 88305; 88342; 90937; 93005; 97802; 99285; J7030; J7040; P9016; A4216; G0257; J0610; J2405

== ENCOUNTER 2020-05-17 09:49 | Emergency (ER) | payer MEDICAID, SELFPAY ==
[2020-05-07 02:25] VITALS: BMI 21.7
[2020-05-17 09:51] VITALS: BP 138/83; PULSE 83; RESP 16; TEMP 36.2; O2SAT 98; BMI 20.5
--- NOTE | 2020-05-17 10:35 | ED.DCSUM_ITS ---
History of Present Illness Chief Complaint: Other, Pain/Inj Informant: Patient Onset: Today Maximum Severity: Mild Narrative: Left dialysis fistula discomfort. The patient has history of Goodpasture's disease she has left dialysis fistula placed by physicians in [facility] in February she was dialyzed yesterday with no complications or trouble other than to report she had additional bleeding. 3-1/2-hour session. She is scheduled to go back to dialysis today to have additional dialysis as she did not apparently hit her dry weight. She has had no fever no cough no numbness weakness paresthesias no shortness of breath no coronavirus exposures she feels some mild discomfort around her dialysis fistula Past Medical History - Allergies and Home Meds Allergies/Adverse Reactions: Allergies ciprofloxacin [From Cipro] Allergy (Verified 05/17/20 09:50) Rash clarithromycin [From Biaxin] Allergy (Verified 05/17/20 09:50) Rash Penicillins Allergy (Verified 05/17/20 09:50) Hives cephalexin [From Keflex] Adverse Reaction (Verified 05/17/20 09:50) Diarrhea Primary Care Physician: Jairon Wise DO [Primary Care Provider] - Past Medical History: - - Clues as above Surgical History: - - s/p back surgery, s/p c/s and tubal ligation, s/p endometrial ablation with tray Smoking Status: Former smoker - Family History Paternal Family History: Reports: - - of GI bleed Maternal Family History: Reports: Hypertension Review of Systems General: Denies: Chills, Fever, Sweats Eyes: Denies: Visual changes - bilaterally, Diplopia ENT: Denies: Rhinorrhea, Sore throat Cardiovascular: Denies: Chest pain, Palpitations Respiratory: Denies: Dyspnea, Cough, Dyspnea on exertion Gastrointestinal: Denies: Abdominal pain, Nausea, Vomiting, Diarrhea, Melena, Hematochezia Genitourinary: Denies: Dysuria, Hematuria, Frequency Musculoskeletal: Reports: Extremity Pain. Denies: Back pain Skin: Denies: Rash, Wounds Neurological: Denies: Headache, Weakness, Numbness Physical Exam Vital Signs/Narrative: Vital Signs Temp Pulse Resp BP Pulse Ox 05/17/20 09:51 97.2 F L 83 16 138/83 H 98 General: Well nourished, Well developed, No Acute Distress Head: Normocephalic, Atraumatic Eyes: Perrl, EOMI ENT: Moist mucous membranes, No rhinorrhea Neck: Supple, Nontender Cardiovascular: Regular rate, Regular rhythm, No murmurs Respiratory: No distress, CTA bilaterally, Chest nontender Abdomen: Soft, Nontender, Nondistended, Normal bowel sounds Back: Nontender, Normal Inspection Extremities: Nontender, No edema, - - Patient's dialysis fistula left is intact it has a strong thrill she has a strong radial pulse, her fingers all of them thumb are well-perfused good cap refill less than 2 seconds hand function wrist function elbow function normal there is no warmth swelling or signs of trauma or infection or dysfunction of the device or her extremity neurovascular is intact. She is dialyzed on a Tuesday schedule, she noticed the discomfort today when she woke, she does recall that there was some bleeding after the dialysis catheter was removed yesterday. Skin: Normal color, No rash Neurological: Alert, Oriented x3, Cranial nerves II-XII grossly intact, Normal Strength, Normal Sensation Psychological: Normal affect, Normal Mood Diagnostic/Tx/Re-eval - Medical Decision Making I had a long conversation with her explained to her at this time the best course of action is to 1 make sure she gets her second dialysis session as a scheduled for today and while she is at the dialysis unit she can have the staff there evaluate her dialysis fistula and if there is any acute issues they will discuss it with the bleach supervisor and proceed with the appropriate management as is very little that can be done to the emergency department today given the above She understands and agrees this plan Home stable Final impression pain around left forearm dialysis fistula ED Disposition - Plan for ED Patient: Diagnosis: ESRD (end stage renal disease) on dialysis Instructions: ED END STAGE RENAL DISEASE Referrals: Jairon Wise DO [Primary Care Provider] - Additional Instructions: Please go and have your dialysis session this morning as scheduled and discuss any other issues related to the dialysis fistula with staff
== END 2020-05-17 10:57 | disposition home or self-care (01) ==
PROVIDERS: Emergency Provider Emergency Medicine; PCP Family Medicine
DX: T82.848A Pain due to vascular prosthetic devices, implants and grafts, initial encounter (principal); N18.6 End stage renal disease; Z99.2 Dependence on renal dialysis; M31.0 Hypersensitivity angiitis; Z79.82 Long term (current) use of aspirin; Z79.899 Other long term (current) drug therapy; Z87.891 Personal history of nicotine dependence
CPT/HCPCS: 99282

== ENCOUNTER 2020-05-25 17:49 | Emergency (ER) | payer MEDICAID, SELFPAY ==
[2020-05-25 17:50] VITALS: BP 156/94; PULSE 93; RESP 16; TEMP 36.3; O2SAT 99; BMI 18.8
--- NOTE | 2020-05-25 18:09 | ED.DCSUM_ITS ---
- ER Visit Summary Date of Service: 05/25/20 Chief Complaint: Bruising at right femoral central line site History of Present Illness: The patient is a 39 F no history of stroke, hypertension, end-stage renal disease dialysis and Goodpasture's syndrome. Patient states she was at [facility] ER last week. She was given TPA for possible stroke but they eventually determined it was a complex migraine. They could get not get IV access so they did put a right femoral central line in her. She had that taken out when she was discharged. She has bruising about the site. She denies any fever or chills. No redness. No pus. Physical Examination: Middle-aged female no acute distress vital signs stable afebrile. H EENT exam unremarkable. Lungs clear to auscultation. Heart regular rhythm no murmur. Abdomen soft nontender. Extremities moves all 4. Neurovascular intact. Equal symmetrical cosmetic counselor strength. Dorsi plantarflexion intact. Strong dorsalis pedis pulse on top of her right foot. Full range of motion to her right lower extremity. Her right groin area there is a prior central line. There is bruising this site and a very small hematoma but no active bleeding. No signs of infection. No cellulitis. No abscess. No pus. Nontender. This appears to be normal bruising and a central line site. Test Results: None Emergency Department Course and Treatment: Bruising and small hematoma in a jerri or central line. It does not look infected at all. There is no signs of clot. The right foot is neurovascular intact and there is no edema or calf pain. Patient be discharged to home. Treatment Plan: Ice and warm compresses to site. Watch for any signs of infection. Follow-up if not improving. Disposition: Discharge Impression: Right groin hematoma and bruising status post recent right femoral central line This note was generated with [employer] dictation software. It may contain incorrect words, spelling, and punctuation that were not noted in review of the chart prior to signing ED Disposition - Plan for ED Patient: Referrals: Jairon Wise DO [Primary Care Provider] -
--- NOTE | 2020-05-25 18:12 | ED.DEP ---
ED Disposition - Plan for ED Patient: Disposition: Home or Assisted Living Referrals: Jairon Wise DO [Primary Care Provider] - 10-14 Days if not better Additional Instructions: The right groin area where he had to central line has normal bruising. This should improve with time. Ice and heat to the area. Motrin for pain. Follow-up if not improving. This may take weeks to resolve. Any signs of infection such as fever, chills, redness or streaks return or follow-up.
== END 2020-05-25 18:22 | disposition home or self-care (01) ==
LOC: ED 18:17
PROVIDERS: Emergency Provider Emergency Medicine; PCP Family Medicine
DX: S30.1XXA Contusion of abdominal wall, initial encounter (principal); Z95.828 Presence of other vascular implants and grafts; I12.0 Hypertensive chronic kidney disease with stage 5 chronic kidney disease or end stage renal disease; N18.6 End stage renal disease; Z99.2 Dependence on renal dialysis; M31.0 Hypersensitivity angiitis; G40.909 Epilepsy, unspecified, not intractable, without status epilepticus; Z86.73 Personal history of transient ischemic attack (TIA), and cerebral infarction without residual deficits; Z79.82 Long term (current) use of aspirin; Z79.899 Other long term (current) drug therapy
CPT/HCPCS: 99283

== ENCOUNTER 2020-08-25 10:36 | Inpatient (IN) | payer MEDICAID, SELFPAY ==
[2020-08-25] VITALS (28 sets, daily range): BP systolic 138–212; BP diastolic 78–112; PULSE 72–100; RESP 12–26; TEMP 36.3–36.7; O2SAT 95–99; BMI 22.0; BMI 21.2
--- NOTE | 2020-08-25 10:54 | CT_ITS ---
STUDY: CT BRAIN WITHOUT CONTRAST REASON FOR EXAM: Female, 39 years old. MIGRAINE W/ DIALYSIS -- HX-STROKE/SEIZURES RADIATION DOSAGE (If Supplied By Facility): CTDIvol = ( 44.99 ) mGy, DLP = ( 745.49 ) mGycm TECHNIQUE: Transaxial CT imaging of the brain was performed without administration of intravenous contrast material. Individualized dose optimization techniques were used for this CT. COMPARISON: Comparison is made with prior study dated 02/29/2020. FINDINGS: Normal soft tissue structures. Normal calvarium. Normal size ventricles and extra-axial spaces for the patient''s age. Normal white matter tracts of the cerebral hemispheres. Normal basal ganglia and thalami. Normal brainstem. Normal cerebellum. There is no intracranial hemorrhage. There are no findings of an acute ischemic infarction. Stable retention cyst or mucosal polyp in the left maxillary sinus. CT/Brain/Head without Contrast IMPRESSION: Normal unenhanced CT scan of the brain. Electronically Signed: Aquiles Pagan, at 12:07 EST , Service support ,
--- NOTE | 2020-08-25 10:55 | ED.VIS.HA ---
History of Present Illness Chief Complaint: Headache Informant: Patient Onset: Today Context: Activity - awoke w/ sx, mild at first Timing: Continuous Quality: Similar Prior Headaches - but worse Location: bifrontal, retroorbital Current Severity: Severe Maximum Severity: Severe Worsened by: light Relieved by: nothing. Took tylenol this AM, IV benadryl given at dialysis. Associated Symptoms: Nausea, Photophobia. Negative for: Fever, Vomiting, Sore Throat, Sinus Pressure, Numbness, Preceding Aura, Visual Changes, Blurred Vision, Visual Loss Injury: - - no injury Narrative: Patient has a history of migraines and felt 1 this morning as she woke up. [place] similar to prior. She went to dialysis as scheduled this morning, her blood pressure was in the 130s when she started. During dialysis her headache gradually worsened. She almost completely finished dialysis, she states that there was only a few minutes left, but her blood pressure was in the high 180s and her headache was worse so they stopped it and she presents to the emergency department. Bleeding was easily controlled after standard dressing of her left upper extremity fistula. She is on no anticoagulants other than the heparin she received during dialysis. Denies any recent illnesses, no obvious triggers for the headache. She has tolerated triptans in the past and now does not have them only because of insurance coverage reasons. She is on medications to try to help prevent migraines since she gets them fairly frequently. She denies any focal neurologic symptoms. She did not lose consciousness today. Prior similar symptoms: Yes Recent Illness/Hospitalization: No - Past Medical History (1) Severe anemia Status: Suspected (2) DJD (degenerative joint disease) Status: Chronic (3) ESRD (end stage renal disease) on dialysis Status: Chronic (4) Goodpasture syndrome Status: Chronic (5) PFO (patent foramen ovale) Status: Chronic (6) Spinal stenosis Status: Chronic Past Medical History - Allergies and Home Meds Allergies/Adverse Reactions: Allergies ciprofloxacin [From Cipro] Allergy (Verified 08/25/20 10:42) Rash clarithromycin [From Biaxin] Allergy (Verified 08/25/20 10:42) Rash Penicillins Allergy (Verified 08/25/20 10:42) Hives cephalexin [From Keflex] Adverse Reaction (Verified 08/25/20 10:42) Diarrhea Primary Care Physician: Jairon Wise DO [Primary Care Provider] - Surgical History: - - s/p back surgery, s/p c/s and tubal ligation, s/p endometrial ablation with tray Smoking Status: Former smoker Drugs: None - Family History Paternal Family History: Reports: - - of GI bleed Maternal Family History: Reports: Hypertension Review of Systems General: Denies: Chills, Fever, Sweats Eyes: Reports: - - photophobia. Denies: Visual changes - bilaterally, Diplopia ENT: Denies: Bilateral ear pain, Rhinorrhea, Sore throat Cardiovascular: Denies: Chest pain, Palpitations Respiratory: Denies: Dyspnea, Cough, Dyspnea on exertion Gastrointestinal: Reports: Nausea. Denies: Abdominal pain, Vomiting, Diarrhea, Melena, Hematochezia Genitourinary: Denies: Dysuria, Hematuria, Frequency Musculoskeletal: Denies: Myalgias, Back pain, Extremity Pain Skin: Denies: Rash, Wounds Neurological: Reports: Headache. Denies: Weakness, Numbness Physical Exam Vital Signs/Narrative: Vital Signs Temp Pulse Resp BP Pulse Ox 08/25/20 10:38 97.9 F 72 20 H 207/99 H 95 Inital Vital Signs reviewed: Yes General: Well nourished, Well developed, - - Well-appearing, no distress, conversive in full sentences, with lights in the room on Head: NC, AT Eyes: Perrl, EOMI ENT: Moist mucous membranes, No rhinorrhea Neck: Supple, No Lymphadenopathy, Nontender, No Meningismus Cardiovascular: Regular rate, Regular rhythm, No murmurs, - - Strong thrill left upper extremity AV fistula, dressing intact with no evidence of recent or active bleeding. Distal radial 2+/4 pulse intact.. Negative for: Tachycardia Respiratory: No distress, CTA bilaterally, Chest nontender Abdomen: Soft, Nontender, Nondistended, Normal bowel sounds Back: Nontender, Normal Inspection. Negative for: CVA tenderness Extremities: Nontender, No edema Skin: Normal color, No rash, No Trauma Neuro: Alert, Oriented x3, Cranial nerves II-XII grossly intact, Normal Strength, Normal Sensation Psychological: Normal affect, Normal Mood Diagnostic/Tx/Re-eval Impressions Brain CT 08/25/20 10:54 IMPRESSION: Normal unenhanced CT scan of the brain. Electronically Signed: Aquiles Pagan, at 12:07 EST , Service support , 08/25/20 10:54 Brain/Head without Contrast [CT] Stat Laboratory Results 08/25/20 08/25/20 12:13 12:13 WBC 9.3 RBC 3.77 L Hgb 11.7 L Hct 37.3 MCV 98.9 MCH 31.0 MCHC 31.4 L RDW Std Deviation 49.5 H RDW Coeff of Aleida 13.7 Plt Count 214 MPV 9.0 Immature Gran % (Auto) 0.400 Neut % (Auto) 71.0 H Lymph % (Auto) 12.2 L [place] % (Auto) 9.9 Eos % (Auto) 5.6 H Baso % (Auto) 0.9 Absolute Neuts (auto) 6.6 Absolute Lymphs (auto) 1.13 Nucleated RBC % 0 Sodium 136 Potassium 4.4 Chloride 99 Carbon Dioxide 29.0 Anion Gap 8 BUN 23 H Creatinine 4.50 H Estim Creat Clear Calc 14.21 Est GFR (MDRD) Af Amer 14 L Est GFR (MDRD) Non-Af 11 L BUN/Creatinine Ratio 5.1 L Glucose 82 Calcium 9.2 - Medical Decision Making Patient was giving migraine medication in addition to antihypertensives in aliquots, both hydralazine and labetalol. Shortly after the second dose of labetalol before it had a chance to possibly take effect, the patient had a brief possible seizure, she was amnestic to an event that lasted less than 1 minute, she flopped her arms around, and immediately upon finishing, asked the nurse what happened. Since there was no postictal period, it is questionable whether this was a true seizure or not, however the patient had warned me this has happened in the past when her blood pressure is very elevated. She still has a headache, she had already had a head CT and I do not think she needs another one since she is neurologically intact and has had this happen before. After several doses of antihypertensives including a second dose of labetalol, her blood pressure still over 200. Therefore blood work was sent and shows chronic renal failure but nothing else, she is placed on Cardene drip, will be placed on seizure precautions and admitted to the ICU (step-down after discussing w/ hospitalist). Critical care time (excluding procedures): 30-74 minutes - 35 minutes, including patient care to bedside, discussion with consultants and patient, arrange admission ED Disposition - Plan for ED Patient: Disposition: Acute [facility] Diagnosis: Hypertensive emergency, Seizure, ESRD (end stage renal disease) on dialysis Referrals: Jairon Wise DO [Primary Care Provider] -
[2020-08-25] MEDS: hydrALAZINE 20 MG/ML Vial IV (11:18)
[2020-08-25] MEDS: Metoclopramide 10 MG/2 ML Vial IV (11:18)
[2020-08-25] MEDS: Labetalol (Prefilled) 20 MG/4 ML 10 MG IV (12:29)
--- NOTE | 2020-08-25 12:30 | ED.RN ---
THIS RN AT BEDSIDE AFTER MEDICATING PATIENT PER ORDERS, FULL BODY SEIZURE NOTED THAT LASTED APPROXIMATELY 15 SECONDS, PATIENT ABLE TO ANSWER QUESTIONS IMMEDIATELY AFTER EPISODE. DR. SALEEM CALLED TO BEDSIDE AND MADE AWARE. ADDITIONAL ORDERS OBTAINED.
[2020-08-25] MEDS: Labetalol 100 MG/20 ML Vial 10 MG IV (12:37)
[2020-08-25 12:50] LABS: Absolute Lymphocyte Count 1.13 X10^3/uL (0.83-4.51); Absolute Neutrophil Count 6.6 X10^3/uL (2.0-7.7); Basophil# 0.08 X10^3/uL; Basophil% 0.9 % (0-1); Eosinophil# 0.52 X10^3/uL; Eosinophils% 5.6 % (0-5); Hematocrit 37.3 % (37-47); Hemoglobin 11.7 g/dL (12.0-15.0); Lymphocyte # 1.13 X10^3/ul (4.0); Lymphocyte % 12.2 % (19-41); Mean Corp Hgb Conc 31.4 g/dL (32-36); Mean Corpuscular Volume 98.9 fL (81-99); Monocyte# 0.92 X10^3/uL; Monocyte% 9.9 % (0-10); NRBC Flagged by Analyzer 0 % (0-5); Neutrophil # 6.57 X10^3/uL (2.7-7.7); Platelet Count 214 K/mm3 (150-450); RBC Distribution Width CV 13.7 % (11.6-14.6); RBC Distribution Width SD 49.5 fl (35.1-43.9); Red Blood Count 3.77 M/mm3 (4.2-5.4); White Blood Count 9.3 K/mm3 (4.4-11.0)
[2020-08-25 13:12] LABS: Anion Gap 8 (5-15); BUN 23 mg/dL (7-18); BUN/Creat Ratio 5.1 RATIO (10-20); Calcium,Total 9.2 mg/dL (8.5-10.1); Chloride 99 mmol/L (98-107); EST Glomerular Filtration Rate 11 mL/min (>60); Est Glom Filt Rate - Afr Amer 14 mL/min (>60); Estimated Creatinine Clearance 14.21 ml/min; Glucose 82 mg/dL (74-106); Potassium 4.4 mmol/L (3.5-5.1); Sodium Level 136 mmol/L (136-145)
--- NOTE | 2020-08-25 13:18 | ED.RN ---
PT RINGS OUT REQUESTING MEDICATION FOR HEADACHE, DR. SALEEM MADE AWARE.
--- NOTE | 2020-08-25 14:13 | HP.PCM_ITS ---
Problem List (1) Migraine Status: Acute Qualifiers: Migraine type: without aura Status migrainosus presence: without status migrainosus Intractability: intractable Qualified Code(s): G43.019 - Migraine without aura, intractable, without status migrainosus (2) Severe anemia Status: Suspected (3) ESRD (end stage renal disease) on dialysis Status: Chronic (4) Goodpasture syndrome Status: Chronic (5) PFO (patent foramen ovale) Status: Chronic (6) DJD (degenerative joint disease) Status: Chronic Qualifiers: Osteoarthritis location: unspecified site Osteoarthritis type: unspecified Qualified Code(s): M19.90 - Unspecified osteoarthritis, unspecified site (7) Spinal stenosis Status: Chronic Qualifiers: Spinal region: unspecified Qualified Code(s): M48.00 - Spinal stenosis, site unspecified (8) Hypertensive emergency Status: Acute (9) Seizure Status: Acute History of Present Illness Date of Admission: 08/25/20 Chief Complaint: hypertension. headache The patient is a 39 year old F with a frontal headache. Patient states that she typically gets headaches with dialysis but this was before dialysis. Was on dialysis and almost completed but blood pressure was noted to be very high and so was stopped prematurely patient was sent to the emergency room. In the emergency room, blood pressure has been well in the 200s. She received hydralazine, labetalol x2 and metoclopramide. Blood pressure still remained high and so patient was started on a nicardipine drip. Patient has had issues with blood pressure before. While she was here patient started having a shaking spell but afterwards, patient came to immediately. Patient does have a history of seizure disorder and is on medications for it. [] Past Medical History Past Medical History (Chronic Problems): Chronic Problems ESRD (end stage renal disease) on dialysis (Chronic) Goodpasture syndrome (Chronic) PFO (patent foramen ovale) (Chronic) DJD (degenerative joint disease) (Chronic) Spinal stenosis (Chronic) Allergies ciprofloxacin [From Cipro] Allergy (Verified 08/25/20 10:42) Rash clarithromycin [From Biaxin] Allergy (Verified 08/25/20 10:42) Rash Penicillins Allergy (Verified 08/25/20 10:42) Hives cephalexin [From Keflex] Adverse Reaction (Verified 08/25/20 10:42) Diarrhea Home Medications: Ambulatory Orders Medication Instructions Recorded Acetaminophen [Tylenol] 650 mg PO Q6H PRN PRN 08/25/20 Aspirin E.C. [Ecotrin] 81 mg PO DAILY@0800 08/25/20 Atorvastatin Calcium [Lipitor] 10 mg PO QHS 08/25/20 B Complex W-C No.20/Folic Acid 1 mg PO DAILY 08/25/20 [Renal Caps Softgel] Buspirone HCl 5 mg PO BID 08/25/20 Calcium Acetate [Phoslo Gel Cap] 667 mg PO TIDCM 08/25/20 Clonidine HCl [Catapres] 0.3 mg PO TID 08/25/20 Hydralazine HCl 100 mg PO TID 08/25/20 Ipratropium/Albuterol Sulfate 3 ml INHALATION Q4H PRN 08/25/20 [Duoneb] Labetalol [Trandate] 600 mg PO BID 08/25/20 Levetiracetam [Keppra] 500 mg PO MOWEFR 08/25/20 Levonorgesterol [Mirena] 1 ea IU X1 08/25/20 Losartan Potassium [Cozaar] 100 mg PO DAILY 08/25/20 Nifedipine [Procardia Xl] 60 mg PO BID 08/25/20 Nitroglycerin [Nitrostat] 0.4 mg SL Q5M PRN 08/25/20 Ondansetron [Zofran Odt] 4 mg PO Q8H PRN PRN 08/25/20 Pantoprazole Sodium [Protonix] 40 mg PO DAILY 08/25/20 Senna [Senokot] 1 tab PO BID 08/25/20 Zonisamide [Zonegran] 2 cap PO DAILY 08/25/20 Zonisamide [Zonegran] 2 mg PO BID 08/25/20 Surgical History: - - s/p back surgery, s/p c/s and tubal ligation, s/p endometrial ablation with tray Psychiatric History: Anxiety [employer] History: dysfunctional uterine bld, endometriosis Smoking Status: Former smoker Drugs: None - *Family History Paternal History Items: - - of GI bleed Maternal History Items: Hypertension Review of Systems Constitutional: Denies: Chills, Fever, Weight Change Eyes: Reports: - - Seeing spots in her visual field HEENT: Reports: Head Aches. Denies: Sinus Congestion, Sinus Drainage Cardiovascular: Denies: Chest Pain, Palpitations Respiratory: Denies: Cough, Shortness of breath at rest, Sputum production Gastrointestinal: Denies: Abdominal Pain, Nausea, Vomiting Comment: All review of systems were negative except as mentioned above in the history of present illness and the other review of systems. VTE Information - Inpt Only VTE Present on Admission: No VTE Mechan Device Prophylaxis: None VTE Pharm Prophylaxis ordered?: Yes Patient Problems: Active and Suspected Problems Severe anemia (Suspected) Hypertensive emergency (Acute) Seizure (Acute) - Physical Exam Vitals/I&O's: Vital Signs Temp Pulse Resp BP Pulse Ox 36.6 C 91 24 H 211/112 H 96 08/25/20 10:38 08/25/20 13:41 08/25/20 13:41 08/25/20 13:41 08/25/20 13:41 Oxygen Delivery Method Room Air Weight: 58.2 kg Body Mass Index (BMI) 22.0 Finger Stick Blood Glucose 77 General: Alert, - - Uncomfortable. Afebrile. HEENT: Atraumatic, PERRLA, EOMI, Normocephalic Oral: Moist Mucosa, No Gingival or Mucosal Lesions/ Ulcerations Neck: No Nodes, Thyroid Normal Size and Texture Lungs: Clear to auscultation, Normal air movement, No rhonchi, No wheeze, No rales Cardiovascular: Regular rate, Regular Rhythm, Normal S1, Normal S2, No murmurs Abdomen: Bowel Sounds Present, Soft, Non Tender, Non-Distended, No Hepato- splenomegaly Extremities: No edema, No Calf Tenderness Skin: No rashes, No breakdown Musculoskeletal: No Tenderness to Palpation of Joints or Extremities, No Muscle Wasting Neurological: Cranial nerves II-XII grossly intact, Motor Exam 5/5 strength throughout Psych/Mental Status: Appropriate, Flat Affect Laboratory Results 08/25/20 12:13: WBC 9.3, RBC 3.77 L, Hgb 11.7 L, Hct 37.3, MCV 98.9, MCH 31.0, MCHC 31.4 L, RDW Std Deviation 49.5 H, RDW Coeff of Aleida 13.7, Plt Count 214, MPV 9.0, Immature Gran % (Auto) 0.400, Neut % (Auto) 71.0 H, Lymph % (Auto) 12.2 L, [place] % (Auto) 9.9, Eos % (Auto) 5.6 H, Baso % (Auto) 0.9, Absolute Neuts (auto) 6.6, Absolute Lymphs (auto) 1.13, Nucleated RBC % 0 08/25/20 12:13: Sodium 136, Potassium 4.4, Chloride 99, Carbon Dioxide 29.0, Anion Gap 8, BUN 23 H, Creatinine 4.50 H, Estim Creat Clear Calc 14.21, Est GFR (MDRD) Af Amer 14 L, Est GFR (MDRD) Non-Af 11 L, BUN/Creatinine Ratio 5.1 L, Glucose 82, Calcium 9.2 Clinical Impression(s) from Imaging Studies Brain CT 08/25/20 10:54 IMPRESSION: Normal unenhanced CT scan of the brain. Electronically Signed: Aquiles Pagan, at 12:07 EST , Service support , Current Medications Nicardipine HCl 25 mg/ Sodium (Chloride) 250 mls @ 50 mls/hr CONT INF .Q5H [facility]; Protocol Last Admin: 08/25/20 13:41 Dose: 5 mg/hr, 50 mls/hr Documented by: Assessment/Plan All Active Problems Hypertensive emergency (Acute) Seizure (Acute) Migraine (Acute) 1. Hypertensive emergency * Patient with symptoms of visual field flashes as well as a headache. Was intractable due to hydralazine and labetalol. * Patient will be started on a nicardipine drip due to refractory nature of her blood pressure. Patient states that she has been compliant with her medic ations though has not taken his afternoon because she is here. * Continue with home medications and hopefully as her blood pressure improves with resumption of those that we can get her off the nicardipine drip. * Patient required being in the ICU because the nicardipine drip and critical care medicine will be on consultation. 2. Headache * Unclear if this is due to hypertensive emergency or migraine or combination of the 2 * Patient did receive metoclopramide without any relief. * No narcotics narcotics not indicated in headaches and migraines. * We will give the patient a dose of dexamethasone 10 mg as well as as needed Phenergan and Benadryl. * No triptan medications given the hypertensive emergency. 3. Seizure * Patient has known history of seizure disorder and is on levetiracetam as well as zonisamide * Event today, though I did not see it, was described to me as the patient had a shaking spell for less than a minute and then came to immediately * Favoring this would either be a vasovagal episode or a pseudoseizure * Continue with her antiepileptics * Consider neurology consultation if patient does have recurrent episodes of these 4. End-stage renal disease * On dialysis every Tuesday. Dialysis was cut short the patient had nearly completed at. Patient receives dialysis every Tuesday. Patient states that she has been compliant with dialysis. * If patient does require further hospitalization extending beyond the , consult nephrology to perform dialysis on the which would be her neck scheduled day. 5. VTE prophylaxis with heparin. Inpatient E&M: 97237 Init Hosp L3
[2020-08-25] MEDS: Labetalol 200 MG Tablet 600 MG PO (16:00)
[2020-08-25] MEDS: Losartan Potassium 100 MG Tablet PO (16:04)
[2020-08-25] MEDS: hydrALAZINE 50 MG Tablet 100 MG PO ×2 (16:05→21:54)
[2020-08-25] MEDS: proMETHazine 25 MG/ML Syringe 12.5 MG IV (16:14)
[2020-08-25] MEDS: dexAMETHasone 10 MG/ML Vial IV (16:23)
--- NOTE | 2020-08-25 16:29 | PCM.CON.CC ---
Problem List (1) ESRD (end stage renal disease) on dialysis Status: Chronic (2) Goodpasture syndrome Status: Chronic (3) PFO (patent foramen ovale) Status: Chronic (4) Spinal stenosis Status: Chronic Qualifiers: Spinal region: unspecified Qualified Code(s): M48.00 - Spinal stenosis, site unspecified (5) Hypertensive emergency Status: Acute (6) Seizure Status: Acute (7) Migraine Status: Acute Qualifiers: Migraine type: without aura Status migrainosus presence: without status migrainosus Intractability: intractable Qualified Code(s): G43.019 - Migraine without aura, intractable, without status migrainosus Reason for Consult Date of Consultation: 08/25/20 Reason for Consultation: Hypertensive urgency History of Present Illness: The patient is a 39 year old F with past medical history listed below, who presented to [facility] on 08/25/2020 secondary to a headache. Patient had woken up this morning feeling a headache. This had felt similar to her previous migraines, but she went to dialysis per her routine. Patient reportedly had systolic blood pressures in the 130s at initiation of dialysis, but headache and blood pressures continually worsened. When patient was almost finished with her dialysis, patient's blood pressure was noted to be in the systolics of 180s, so patient was transported to the emergency department for further evaluation. Patient did have some bleeding from her fistula and is not on any anticoagulation agents outside of the heparin used for dialysis. Patient has tolerated triptans in the past for her headache, but does not take this secondary to insurance issues. Patient did not have any focal neurologic deficits and did not report any trauma or syncope. In the ER, patient was conversive without any significant distress. Patient was noted to have a blood pressure of 207/99 and had an active thrill at her fistula. Physical exam was relatively unremarkable otherwise. CT scan of the head was unremarkable. Laboratory work-up showed a slightly decreased hemoglobin 11.7 and a creatinine of 4.5 with a bicarbonate of 29. Patient was given hydralazine and labetalol multiple times. Patient reportedly had a brief seizure for less than 1 minute that resolved spontaneously. Patient was placed on a Cardene drip and admitted to the intensive care unit for further evaluation. On my evaluation the intensive care unit, patient reported that her headache was still present, but improving. Patient's blood pressure was down to 160s systolic. Patient denied any focal neurologic deficit. Patient is on multiple antihypertensives and states that she did not take her afternoon medications. Patient reported that she had taken her morning medications. Patient does state that she tends to take Keppra following her hemodialysis as this can lead to seizures without an additional dose. Patient denied any head trauma. Review of systems otherwise negative from a constitutional, HEENT, respiratory, cardiovascular, GI, genitourinary, musculoskeletal, skin, neurologic, psychiatric and hematologic system unless stated above. Past Medical History Past Medical History (Chronic Problems): Chronic Problems ESRD (end stage renal disease) on dialysis (Chronic) Goodpasture syndrome (Chronic) PFO (patent foramen ovale) (Chronic) DJD (degenerative joint disease) (Chronic) Spinal stenosis (Chronic) Allergies ciprofloxacin [From Cipro] Allergy (Verified 08/25/20 10:42) Rash clarithromycin [From Biaxin] Allergy (Verified 08/25/20 10:42) Rash Penicillins Allergy (Verified 08/25/20 10:42) Hives cephalexin [From Keflex] Adverse Reaction (Verified 08/25/20 10:42) Diarrhea Home Medications: Ambulatory Orders Medication Instructions Recorded Acetaminophen [Tylenol Extra 1,000 mg PO DAILY PRN PRN 08/25/20 Strength] Aspirin E.C. [Ecotrin] 81 mg PO DAILY@1700 08/25/20 Atorvastatin Calcium [Lipitor] 10 mg PO QHS 08/25/20 B Complex W-C No.20/Folic Acid 1 mg PO DAILY 08/25/20 [Renal Caps Softgel] Calcium Acetate [Phoslo Gel Cap] 667 mg PO TIDCM 08/25/20 Clonidine HCl [Catapres] 0.3 mg PO TID 08/25/20 Hydralazine HCl 100 mg PO TID 08/25/20 Isosorbide Mononitrate [Isosorbide 30 mg PO DAILY 08/25/20 Mononitrate ER] Labetalol [Trandate] 600 mg PO BID 08/25/20 Levetiracetam [Keppra] 500 mg PO MOWEFR 08/25/20 Levetiracetam [Keppra] 500 mg PO SUTUTHSA 08/25/20 Levonorgesterol [Mirena] 1 ea IU X1 08/25/20 Losartan Potassium [Cozaar] 50 mg PO BID 08/25/20 Nifedipine [Procardia Xl] 60 mg PO BID 08/25/20 Pantoprazole Sodium [Protonix] 40 mg PO DAILY 08/25/20 Senna [Senokot] 1 tab PO DAILY 08/25/20 Zonisamide [Zonegran] 50 mg PO BID 08/25/20 Surgical History: - - s/p back surgery, s/p c/s and tubal ligation, s/p endometrial ablation with tray Psychiatric History: Anxiety [employer] ASSOCIATE History: dysfunctional uterine bld, endometriosis Smoking Status: Former smoker Drugs: None - *Family History Paternal History Items: - - of GI bleed Maternal History Items: Hypertension Patient Problems: Active and Suspected Problems Severe anemia (Suspected) Hypertensive emergency (Acute) Seizure (Acute) Migraine (Acute) Objective: Imaging was personally reviewed. Agree with formal interpretation. Patient does not have a previous echocardiogram available for review. No pulmonary function tests are available. - Physical Exam Vitals/I&O's: Vital Signs Temp Pulse Resp BP Pulse Ox 36.3 C L 82 20 H 171/90 H 95 08/25/20 14:26 08/25/20 15:30 08/25/20 15:30 08/25/20 15:30 08/25/20 15:30 Oxygen Delivery Method Room Air Weight: 56.155 kg Body Mass Index (BMI) 21.2 Finger Stick Blood Glucose 77 General: Alert, Oriented x3, Cooperative, No apparent distress, - - Appears older than stated age. Speaking in full sentences. HEENT: Atraumatic, PERRLA, EOMI, Normocephalic, - - No scleral icterus or injection noted Oral: Moist Mucosa, No Gingival or Mucosal Lesions/ Ulcerations Neck: Supple, No JVD, No Nodes, Trachea Midline Lungs: Clear to auscultation, Normal air movement, No rhonchi, No wheeze, No rales Cardiovascular: Regular rate, Regular Rhythm, Normal S1, Normal S2, No murmurs, No rub noted, No Gallop Abdomen: Bowel Sounds Present, Soft, Non Tender, Non-Distended Extremities: No clubbing, No cyanosis, Edema - Trace lower extremity Skin: No rashes, No breakdown Musculoskeletal: No Tenderness to Palpation of Joints or Extremities, - - Palpable thrill over fistula Lymphatic: No Cervical, Supraclavicular, or Inguinal Adenopathy Neurological: Cranial nerves II-XII grossly intact, Neuro grossly intact, Motor Exam 5/5 strength throughout Psych/Mental Status: Alert and oriented to time, place, person, mood and affect Laboratory Results 08/25/20 12:13: WBC 9.3, RBC 3.77 L, Hgb 11.7 L, Hct 37.3, MCV 98.9, MCH 31.0, MCHC 31.4 L, RDW Std Deviation 49.5 H, RDW Coeff of Aleida 13.7, Plt Count 214, MPV 9.0, Immature Gran % (Auto) 0.400, Neut % (Auto) 71.0 H, Lymph % (Auto) 12.2 L, [place] % (Auto) 9.9, Eos % (Auto) 5.6 H, Baso % (Auto) 0.9, Absolute Neuts (auto) 6.6, Absolute Lymphs (auto) 1.13, Nucleated RBC % 0 08/25/20 12:13: Sodium 136, Potassium 4.4, Chloride 99, Carbon Dioxide 29.0, Anion Gap 8, BUN 23 H, Creatinine 4.50 H, Estim Creat Clear Calc 14.21, Est GFR (MDRD) Af Amer 14 L, Est GFR (MDRD) Non-Af 11 L, BUN/Creatinine Ratio 5.1 L, Glucose 82, Calcium 9.2 Current Medications Acetaminophen (Acetaminophen 325 Mg Tablet) 650 mg PO Q6H PRN PRN PRN Reason: Pain Score 1-10/Temp > 100.7 F Albuterol/Ipratropium (Ipratropium/Albuterol Sulfate 3 Ml Ampul.Neb) 3 ml INHALATION Q4H PRN PRN Reason: COUGH/WHEEZE Aspirin (Aspirin E.C. 81 Mg Tablet) 81 mg PO DAILY@0800 [facility] Atorvastatin Calcium (Atorvastatin Calcium 10 Mg Tablet) 10 mg PO QHS [facility] Buspirone HCl (Buspirone 5 Mg Tablet) 5 mg PO BID [facility] Calcium Acetate (Calcium Acetate 667 Mg Capsule) 667 mg PO TIDCM ADA Clonidine (Clonidine Hcl 0.1 Mg Tablet) 0.3 mg PO TID [facility] Diphenhydramine HCl (Diphenhydramine 50 Mg/Ml Syringe) 25 mg IV Q4H PRN PRN PRN Reason: MIGRAINE SYMPTOMS Heparin Sodium (Porcine) (Heparin Injection (Vial) 5,000 Unit/Ml Vial) 5,000 unit SC Q12 [facility] Hydralazine HCl (Hydralazine 50 Mg Tablet) 100 mg PO TID [facility] Last Admin: 08/25/20 16:05 Dose: 100 mg Documented by: Nicardipine HCl 25 mg/ Sodium (Chloride) 250 mls @ 50 mls/hr CONT INF .Q5H [facility]; Protocol Last Admin: 08/25/20 13:41 Dose: 5 mg/hr, 50 mls/hr Documented by: Labetalol HCl (Labetalol 200 Mg Tablet) [facility] Last Admin: 08/25/20 16:00 Dose: 600 mg Documented by: Levetiracetam (Levetiracetam 500 Mg Tablet) 500 mg PO BID [facility] Levetiracetam (Levetiracetam 500 Mg Tablet) 500 mg PO DAILY PRN PRN PRN Reason: EXTRA DOSE ON DIALYSIS DAYS Losartan Potassium (Losartan Potassium 100 Mg Tablet) 100 mg PO DAILY [facility] Last Admin: 08/25/20 16:04 Dose: 100 mg Documented by: Nifedipine (Nifedipine 60 Mg Tablet) 60 mg PO BID [facility] Nitroglycerin (Nitroglycerin (Inpatient Use) 0.4 Mg Tab.Subl) 0.4 mg SUBLINGUAL Q5M PRN PRN Reason: CHEST PAIN Ondansetron HCl (Ondansetron Odt 4 Mg Tablet) 4 mg PO Q8H PRN PRN PRN Reason: NAUSEA/VOMITING Ondansetron HCl (Ondansetron 4 Mg/2 Ml Vial) 4 mg IV Q8H PRN PRN PRN Reason: NAUSEA/VOMITING Pantoprazole Sodium (Pantoprazole Sodium 40 Mg Tablet) 40 mg PO DAILY [facility] Promethazine HCl (Promethazine 25 Mg/Ml Syringe) 12.5 mg IV Q4H PRN PRN PRN Reason: MIGRAINE SYMPTOMS Last Admin: 08/25/20 16:14 Dose: 12.5 mg Documented by: Senna (Senna Tablet) 1 tablet PO BID [facility] Sodium Chloride (0.9% Saline Lock 10 Ml Syringe) 10 - 40 ml IV UD PRN PRN Reason: SALINE FLUSH Zonisamide (Zonisamide 50 Mg Capsule) 50 mg PO BID [facility] Clinical Impression(s) from Imaging Studies Brain CT 08/25/20 10:54 IMPRESSION: Normal unenhanced CT scan of the brain. Electronically Signed: Aquiles Pagan, at 12:07 EST , Service support , Assessment/Plan Active and Suspected Problems Severe anemia (Suspected) Hypertensive emergency (Acute) Seizure (Acute) Migraine (Acute) RECOMMENDATIONS: 1. Reinitiate baseline medications 2. Give additional dose of Keppra 3. Wean nicardipine as tolerated 4. Seizure precautions IMPRESSIONS: 1. Hypertensive emergency with seizure Unclear etiology. Patient is on multiple baseline medications secondary to hypertension. Unclear if patient has elevated blood pressure secondary to lack of compliance with baseline medications, removal with hemodialysis or progression of underlying disease. Patient does have Goodpasture syndrome with significant refractory hypertension. Patient currently on nicardipine. Will initiate baseline medications and monitor. If unable to decrease nicardipine by tomorrow, anticipate titration of baseline medications. Systolic blood pressure goal should be 160 versus 180 2. Epilepsy/seizure/headache Unclear if headache constitutes a prodromal symptom for seizure versus secondary to hypertension. Patient does have a history of seizure disorder and Keppra may be decreased with hemodialysis. Patient will be dosed an additional dose of Keppra. Likely not necessary to get neurology evaluation at this time unless patient has repeat seizures. 3. End-stage renal disease/Goodpasture syndrome/refractory hypertension/debility Complicates care, management, recovery and prognosis. Inpatient E&M: 32188 Init Hosp L3
[2020-08-25] MEDS: Calcium Acetate 667 MG Capsule PO (16:51)
[2020-08-25] MEDS: cloNIDine HCl 0.1 MG Tablet 0.3 MG PO (21:54)
[2020-08-25] MEDS: Heparin Injection (Vial) 5,000 UNIT/ML VIAL 5000 UNIT SC (21:54)
[2020-08-25] MEDS: Senna Tablet 1 TABLET PO (21:54)
[2020-08-25] MEDS: Atorvastatin Calcium 10 MG Tablet PO (21:58)
[2020-08-25] MEDS: levETIRAcetam 500 MG Tablet PO (21:59)
[2020-08-25] MEDS: Zonisamide 50 MG Capsule PO (22:00)
[2020-08-25] MEDS: Acetaminophen 325 MG Tablet 650 MG PO (23:18)
[2020-08-26] VITALS (48 sets, daily range): BP systolic 135–197; BP diastolic 64–106; PULSE 75–122; RESP 12–22; TEMP 35.9–36.8; O2SAT 95–99
[2020-08-26 04:11] LABS: Absolute Lymphocyte Count 1.04 X10^3/uL (0.83-4.51); Basophil# 0.06 X10^3/uL; Basophil% 0.9 % (0-1); Hematocrit 36.9 % (37-47); Hemoglobin 11.8 g/dL (12.0-15.0); Lymphocyte # 1.04 X10^3/ul (4.0); Lymphocyte % 15.4 % (19-41); Mean Corpuscular Hgb 31.9 pg (27.0-32.0); Mean Corpuscular Volume 99.7 fL (81-99); Mean Platelet Vol. 8.9 fl (6.2-12.0); Monocyte# 0.63 X10^3/uL; Monocyte% 9.3 % (0-10); NRBC Flagged by Analyzer 0 % (0-5); Platelet Count 233 K/mm3 (150-450); RBC Distribution Width CV 13.4 % (11.6-14.6); RBC Distribution Width SD 48.7 fl (35.1-43.9); White Blood Count 6.8 K/mm3 (4.4-11.0)
[2020-08-26 04:20] LABS: Anion Gap 9 (5-15); BUN 47 mg/dL (7-18); BUN/Creat Ratio 6.8 RATIO (10-20); Calcium,Total 9.3 mg/dL (8.5-10.1); Chloride 100 mmol/L (98-107); Creatinine, Serum 6.93 mg/dL (0.55-1.02); EST Glomerular Filtration Rate 7 mL/min (>60); Est Glom Filt Rate - Afr Amer 8 mL/min (>60); Estimated Creatinine Clearance 9.23 ml/min; Glucose 88 mg/dL (74-106); Potassium 5.2 mmol/L (3.5-5.1); Sodium Level 136 mmol/L (136-145)
[2020-08-26] MEDS: levETIRAcetam 500 MG Tablet PO ×2 (05:33→20:57)
[2020-08-26] MEDS: cloNIDine HCl 0.1 MG Tablet 0.3 MG PO ×3 (05:33→20:58)
[2020-08-26] MEDS: hydrALAZINE 50 MG Tablet 100 MG PO ×3 (05:33→20:58)
[2020-08-26] MEDS: Labetalol 200 MG Tablet 600 MG PO ×2 (08:11→17:04)
[2020-08-26] MEDS: Calcium Acetate 667 MG Capsule PO ×3 (08:11→17:04)
[2020-08-26] MEDS: Aspirin E.C. 81 MG Tablet PO (08:11)
[2020-08-26] MEDS: Losartan Potassium 100 MG Tablet PO (08:12)
[2020-08-26] MEDS: busPIRone 5 MG Tablet PO (08:13)
[2020-08-26] MEDS: Heparin Injection (Vial) 5,000 UNIT/ML VIAL 5000 UNIT SC ×2 (08:13→20:58)
[2020-08-26] MEDS: Senna Tablet 1 TABLET PO ×2 (08:14→20:58)
[2020-08-26] MEDS: Pantoprazole Sodium 40 MG Tablet PO (08:16)
[2020-08-26] MEDS: Zonisamide 50 MG Capsule PO ×2 (08:17→20:57)
--- NOTE | 2020-08-26 08:39 | CASEMGMT ---
LW/Medical POA forms both scanned in to summary tab of e-chart, Magali Tracy is listed as medical POA. PATSY Shay
--- NOTE | 2020-08-26 08:56 | PCM.PN.INT ---
Subjective: Patient did well overnight. Headache has completely resolved. No seizure activity has been reported. Patient was off of Cardene for some. Overnight, but this had to be reinitiated this morning secondary to elevated blood pressures. Patient did receive morning meds, but has no complaints at this time. General: Alert, Oriented x3, Cooperative, No apparent distress, - - Speaking in full sentences HEENT: Atraumatic, PERRLA, EOMI, Normocephalic, - - No scleral icterus or injection noted Oral: Moist Mucosa, No Gingival or Mucosal Lesions/ Ulcerations Neck: Supple, No JVD, No Nodes, Trachea Midline Lungs: Clear to auscultation, Normal air movement, No rhonchi, No wheeze, No rales Cardiovascular: Regular rate, Regular Rhythm, Normal S1, Normal S2, No murmurs, No rub noted, No Gallop Abdomen: Bowel Sounds Present, Soft, Non Tender, Non-Distended Extremities: No clubbing, No cyanosis, No edema, - - Palpable thrill with fistula Skin: No rashes, No breakdown Musculoskeletal: No Tenderness to Palpation of Joints or Extremities Lymphatic: No Cervical, Supraclavicular, or Inguinal Adenopathy Neurological: Cranial nerves II-XII grossly intact, Neuro grossly intact, Motor Exam 5/5 strength throughout Psych/Mental Status: Alert and oriented to time, place, person, mood and affect Vital Signs Temp Pulse Resp BP Pulse Ox 36.8 C 80 22 H 152/86 H 98 08/26/20 04:00 08/26/20 07:00 08/26/20 07:00 08/26/20 07:00 08/26/20 07:00 Oxygen Delivery Method Room Air Weight: 58.5 kg Body Mass Index (BMI) 21.2 Finger Stick Blood Glucose 77 Intake and Output for Last 24 Hours 08/24/20 08/25/20 08/26/20 23:59 23:59 23:59 Intake Total 775.41 / 781.66 301.25 / 301.25 Output Total 0 / 0 0 / 0 Balance 775.41 / 781.66 301.25 / 301.25 Labs (Last 48 Hours) 08/25/20 08/25/20 08/25/20 12:13 12:13 17:05 WBC 9.3 RBC 3.77 L Hgb 11.7 L Hct 37.3 MCV 98.9 MCH 31.0 MCHC 31.4 L RDW Std Deviation 49.5 H RDW Coeff of Aleida 13.7 Plt Count 214 MPV 9.0 Immature Gran % (Auto) 0.400 Neut % (Auto) 71.0 H Lymph % (Auto) 12.2 L [place] % (Auto) 9.9 Eos % (Auto) 5.6 H Baso % (Auto) 0.9 Absolute Neuts (auto) 6.6 Absolute Lymphs (auto) 1.13 Nucleated RBC % 0 Sodium 136 Potassium 4.4 Chloride 99 Carbon Dioxide 29.0 Anion Gap 8 BUN 23 H Creatinine 4.50 H Estim Creat Clear Calc 14.21 Est GFR (MDRD) Af Amer 14 L Est GFR (MDRD) Non-Af 11 L BUN/Creatinine Ratio 5.1 L Glucose 82 Calcium 9.2 Troponin I < 0.015 08/25/20 08/25/20 08/26/20 20:50 23:10 04:00 WBC 6.8 RBC 3.70 L Hgb 11.8 L Hct 36.9 L MCV 99.7 H MCH 31.9 MCHC 32.0 RDW Std Deviation 48.7 H RDW Coeff of Aleida 13.4 Plt Count 233 MPV 8.9 Immature Gran % (Auto) 0.400 Neut % (Auto) 74.0 H Lymph % (Auto) 15.4 L [place] % (Auto) 9.3 Eos % (Auto) 0.0 Baso % (Auto) 0.9 Absolute Neuts (auto) 5.0 Absolute Lymphs (auto) 1.04 Nucleated RBC % 0 Sodium Potassium Chloride Carbon Dioxide Anion Gap BUN Creatinine Estim Creat Clear Calc Est GFR (MDRD) Af Amer Est GFR (MDRD) Non-Af BUN/Creatinine Ratio Glucose Calcium Troponin I < 0.015 < 0.015 08/26/20 04:00 WBC RBC Hgb Hct MCV MCH MCHC RDW Std Deviation RDW Coeff of Aleida Plt Count MPV Immature Gran % (Auto) Neut % (Auto) Lymph % (Auto) [place] % (Auto) Eos % (Auto) Baso % (Auto) Absolute Neuts (auto) Absolute Lymphs (auto) Nucleated RBC % Sodium 136 Potassium 5.2 H Chloride 100 Carbon Dioxide 27.0 Anion Gap 9 BUN 47 H Creatinine 6.93 H Estim Creat Clear Calc 9.23 Est GFR (MDRD) Af Amer 8 L Est GFR (MDRD) Non-Af 7 L BUN/Creatinine Ratio 6.8 L Glucose 88 Calcium 9.3 Troponin I Clinical Impression(s) from Imaging Studies Brain CT 08/25/20 10:54 IMPRESSION: Normal unenhanced CT scan of the brain. Electronically Signed: Aquiles Pagan, at 12:07 EST , Service support , Medical Necessity - Tobacco Use Smoking Status: Former smoker Assessment/Plan All Active Problems Hypertensive emergency (Acute) Seizure (Acute) Migraine (Acute) RECOMMENDATIONS: 1. Await response to baseline antihypertensive medications 2. Continue Keppra at previous dosing 3. Potential increase in Procardia if remains hypertensive versus obtaining renal consult 4. Seizure precautions IMPRESSIONS: 1. Hypertensive emergency with seizure Unclear etiology. Patient is on multiple baseline medications secondary to hypertension. Unclear if patient has elevated blood pressure secondary to lack of compliance with baseline medications, removal with hemodialysis or progression of underlying disease. Patient does have Goodpasture syndrome with significant refractory hypertension. Patient appeared to be improving overnight. Unclear if increased blood pressure this morning is secondary to metabolism of drugs. Await morning dose and see if nicardipine can be discontinued. If patient continues to require nicardipine, could obtain a nephrology consult versus increasing Procardia. Headache has resolved. Blood pressure goal should be lowered to 160 mmHg systolic. 2. Epilepsy/seizure/headache Unclear if headache constitutes a prodromal symptom for seizure versus secondary to hypertension. Patient does have a history of seizure disorder and Keppra may be decreased with hemodialysis. Patient will be dosed an additional dose of Keppra. Likely not necessary to get neurology evaluation at this time unless patient has repeat seizures. 3. End-stage renal disease/Goodpasture syndrome/refractory hypertension/debility Complicates care, management, recovery and prognosis. Inpatient E&M: 13826 [facility] L3
--- NOTE | 2020-08-26 10:32 | CASEMGMT ---
RN CM CELL [employer]SEMBLY PINNER CM to room to meet with patient for initial transition planning/care coordination assessment. RN MAX introduced self and role at [facility]. Pt voices understanding and consents to assessment at this time. Pt resting in bed in no distress at this time. Pt is A/O at this time and answers all questions appropriately. Care providers, pharmacy, and demographics verified/updated at this time. PCP: Dr Wise Specialists: Goes to [facility]. Chair time: 0645. Dr Fowler--Back Sewer, Dr Dee--Neurologist @ [facility] Preferred Pharmacy: [facility] Insurance: [employer] Prescription Benefit: Yes Living Will/HPOA: Has LW and Healthcare POBarbie, who is her daughter, Magali. LNOK: Daughter, Magali. Mom Living Arrangements: Lives w/her mom in one-story home w/4 steps to enter. Transportation: Pt does not drive d/t hx: seizures. Mom provides transportation. DME: Denies using any DME and denies needs. HHC/SNF: Hx: [facility] in [place]. Hx: [facility] after stroke in . Pt wishes to return home and states has no concerns with going home at time of discharge. CM to follow for any discharge planning/needs. Pt voices no concerns/needs at this time. Advised pt to ask for CM if any questions/concerns/needs arise. Voices understanding. PLAN: Home w/family support and discharge plans in place. [place] RN, CM
--- NOTE | 2020-08-26 10:51 | PCM.CONS.R ---
Consultation - Renal 08/26/20 PCP/ Referring MD: Requesting physician: [] Primary care physician: Dr. Jairon Wise DO Reason for Consultation:: esrd - History of Present Illness History of Present Illness: The patient is a 39 year old F with a past medical history as below who presented with a chief complaint of migraine headache. This seemed similar with previous migraine headaches episodes so she went to her dialysis treatment yesterday as usual. Her systolic blood pressure was 130s at the beginning of dialysis but at the end of dialysis she was in the 180s so she went to the emergency room. She also had some bleeding from her fistula. The patient could not afford triptan's which controlled her migraines in the past. Denies any focal neurologic deficits currently and she has no headache currently. Denies shortness of breath headache chest pain she abdominal pain nausea vomiting diarrhea fever chills. She is completely anuric. She was diagnosed with Goodpasture's disease in September and she had treatment with Cytoxan prednisone and plasmapheresis. She is currently on a Cardene drip with a blood pressure systolic in the 160s. He has no other complaints currently. - Allergies Allergies: Allergies ciprofloxacin [From Cipro] Allergy (Verified 08/25/20 10:42) Rash clarithromycin [From Biaxin] Allergy (Verified 08/25/20 10:42) Rash Penicillins Allergy (Verified 08/25/20 10:42) Hives cephalexin [From Keflex] Adverse Reaction (Verified 08/25/20 10:42) Diarrhea - Current Medications Current Medications: Current Medications Acetaminophen (Acetaminophen 325 Mg Tablet) 650 mg PO Q6H PRN PRN PRN Reason: Pain Score 1-10/Temp > 100.7 F Last Admin: 08/25/20 23:18 Dose: 650 mg Documented by: Albuterol/Ipratropium (Ipratropium/Albuterol Sulfate 3 Ml Ampul.Neb) 3 ml INHALATION Q4H PRN PRN Reason: COUGH/WHEEZE Aspirin (Aspirin E.C. 81 Mg Tablet) 81 mg PO DAILY@0800 [facility] Last Admin: 08/26/20 08:11 Dose: 81 mg Documented by: Atorvastatin Calcium (Atorvastatin Calcium 10 Mg Tablet) 10 mg PO QHS [facility] Last Admin: 08/25/20 21:58 Dose: 10 mg Documented by: Buspirone HCl (Buspirone 5 Mg Tablet) 5 mg PO BID [facility] Last Admin: 08/26/20 08:13 Dose: 5 mg Documented by: Calcium Acetate (Calcium Acetate 667 Mg Capsule) 667 mg PO TIDCM [facility] Last Admin: 08/26/20 08:11 Dose: 667 mg Documented by: Clonidine (Clonidine Hcl 0.1 Mg Tablet) 0.3 mg PO TID [facility] Last Admin: 08/26/20 05:33 Dose: 0.3 mg Documented by: Diphenhydramine HCl (Diphenhydramine 50 Mg/Ml Syringe) 25 mg IV Q4H PRN PRN PRN Reason: MIGRAINE SYMPTOMS Heparin Sodium (Porcine) (Heparin Injection (Vial) 5,000 Unit/Ml Vial) 5,000 unit SC Q12 [facility] Last Admin: 08/26/20 08:13 Dose: 5,000 unit Documented by: Hydralazine HCl (Hydralazine 50 Mg Tablet) 100 mg PO TID [facility] Last Admin: 08/26/20 05:33 Dose: 100 mg Documented by: Nicardipine HCl 25 mg/ Sodium (Chloride) 250 mls @ 50 mls/hr CONT INF .Q5H [facility]; Protocol Last Titration: 08/26/20 10:00 Dose: 2.5 mg/hr, 25 mls/hr Documented by: Labetalol HCl (Labetalol 200 Mg Tablet) 600 mg PO BIDCM [facility] Last Admin: 08/26/20 08:11 Dose: 600 mg Documented by: Levetiracetam (Levetiracetam 500 Mg Tablet) 500 mg PO DAILY PRN PRN PRN Reason: EXTRA DOSE ON DIALYSIS DAYS Levetiracetam (Levetiracetam 500 Mg Tablet) 500 mg PO BID@0500,2200 [facility] Last Admin: 08/26/20 05:33 Dose: 500 mg Documented by: Losartan Potassium (Losartan Potassium 100 Mg Tablet) 100 mg PO DAILY [facility] Last Admin: 08/26/20 08:12 Dose: 100 mg Documented by: Nifedipine (Nifedipine 60 Mg Tablet) 60 mg PO BID [facility] Nitroglycerin (Nitroglycerin (Inpatient Use) 0.4 Mg Tab.Subl) 0.4 mg SUBLINGUAL Q5M PRN PRN Reason: CHEST PAIN Nutritional Formula (Lactose Free) (Ensure Enlive 120 Ml Liquid) 120 ml PO TID [facility] Last Admin: 08/26/20 05:26 Dose: Not Given Documented by: Ondansetron HCl (Ondansetron Odt 4 Mg Tablet) 4 mg PO Q8H PRN PRN PRN Reason: NAUSEA/VOMITING Ondansetron HCl (Ondansetron 4 Mg/2 Ml Vial) 4 mg IV Q8H PRN PRN PRN Reason: NAUSEA/VOMITING Pantoprazole Sodium (Pantoprazole Sodium 40 Mg Tablet) 40 mg PO DAILY [facility] Last Admin: 08/26/20 08:16 Dose: 40 mg Documented by: Promethazine HCl (Promethazine 25 Mg/Ml Syringe) 12.5 mg IV Q4H PRN PRN PRN Reason: MIGRAINE SYMPTOMS Last Admin: 08/25/20 16:14 Dose: 12.5 mg Documented by: Senna (Senna Tablet) 1 tablet PO BID [facility] Last Admin: 08/26/20 08:14 Dose: 1 tablet Documented by: Sodium Chloride (0.9% Saline Lock 10 Ml Syringe) 10 - 40 ml IV UD PRN PRN Reason: SALINE FLUSH Zonisamide (Zonisamide 50 Mg Capsule) 50 mg PO BID [facility] Last Admin: 08/26/20 08:17 Dose: 50 mg Documented by: - Past Medical History Past Medical History (Chronic Problems): Chronic Problems ESRD (end stage renal disease) on dialysis (Chronic) Goodpasture syndrome (Chronic) PFO (patent foramen ovale) (Chronic) DJD (degenerative joint disease) (Chronic) Spinal stenosis (Chronic) - Past Surgical History Surgical History: - - s/p back surgery, s/p c/s and tubal ligation, s/p endometrial ablation with tray - Social History Smoking Status: Former smoker Drugs: None - Family History Paternal History Items: - - of GI bleed Maternal History Items: Hypertension Review of Systems Eyes: Reports: - - Review of systems negative unless noted in the HPI Patient Problems: Active and Suspected Problems Severe anemia (Suspected) Hypertensive emergency (Acute) Seizure (Acute) Migraine (Acute) - Physical Exam Vitals/I&O's: Vital Signs Temp Pulse Resp BP Pulse Ox 98.1 F 80 16 188/106 H 98 08/26/20 08:00 08/26/20 10:00 08/26/20 10:00 08/26/20 10:00 08/26/20 10:00 Oxygen Delivery Method Room Air Weight: 58.5 kg Body Mass Index (BMI) 21.2 Finger Stick Blood Glucose 77 Intake and Output for Last 24 Hours 08/24/20 08/25/20 08/26/20 23:59 23:59 23:59 Intake Total 775.41 / 781.66 301.25 / 301.25 Output Total 0 / 0 0 / 0 Balance 775.41 / 781.66 301.25 / 301.25 General: Alert, Oriented x3, Cooperative HEENT: Atraumatic, Normocephalic Oral: Moist Mucosa Neck: Supple, Trachea Midline Lungs: Clear to auscultation Cardiovascular: Regular rate, Regular Rhythm, Normal S1, Normal S2 Abdomen: Bowel Sounds Present, Soft Extremities: No clubbing, No edema Skin: No rashes Neurological: Cranial nerves II-XII grossly intact Laboratory Results 08/25/20 12:13: WBC 9.3, RBC 3.77 L, Hgb 11.7 L, Hct 37.3, MCV 98.9, MCH 31.0, MCHC 31.4 L, RDW Std Deviation 49.5 H, RDW Coeff of Aleida 13.7, Plt Count 214, MPV 9.0, Immature Gran % (Auto) 0.400, Neut % (Auto) 71.0 H, Lymph % (Auto) 12.2 L, [place] % (Auto) 9.9, Eos % (Auto) 5.6 H, Baso % (Auto) 0.9, Absolute Neuts (auto) 6.6, Absolute Lymphs (auto) 1.13, Nucleated RBC % 0 08/25/20 12:13: Sodium 136, Potassium 4.4, Chloride 99, Carbon Dioxide 29.0, Anion Gap 8, BUN 23 H, Creatinine 4.50 H, Estim Creat Clear Calc 14.21, Est GFR (MDRD) Af Amer 14 L, Est GFR (MDRD) Non-Af 11 L, BUN/Creatinine Ratio 5.1 L, Glucose 82, Calcium 9.2 08/25/20 17:05: Troponin I < 0.015 08/25/20 20:50: Troponin I < 0.015 08/25/20 23:10: Troponin I < 0.015 08/26/20 04:00: WBC 6.8, RBC 3.70 L, Hgb 11.8 L, Hct 36.9 L, MCV 99.7 H, MCH 31.9, MCHC 32.0, RDW Std Deviation 48.7 H, RDW Coeff of Aleida 13.4, Plt Count 233, MPV 8.9, Immature Gran % (Auto) 0.400, Neut % (Auto) 74.0 H, Lymph % (Auto) 15.4 L, [place] % (Auto) 9.3, Eos % (Auto) 0.0, Baso % (Auto) 0.9, Absolute Neuts (auto) 5.0, Absolute Lymphs (auto) 1.04, Nucleated RBC % 0 08/26/20 04:00: Sodium 136, Potassium 5.2 H, Chloride 100, Carbon Dioxide 27.0, Anion Gap 9, BUN 47 H, Creatinine 6.93 H, Estim Creat Clear Calc 9.23, Est GFR (MDRD) Af Amer 8 L, Est GFR (MDRD) Non-Af 7 L, BUN/Creatinine Ratio 6.8 L, Glucose 88, Calcium 9.3 Current Medications Acetaminophen (Acetaminophen 325 Mg Tablet) 650 mg PO Q6H PRN PRN PRN Reason: Pain Score 1-10/Temp > 100.7 F Last Admin: 08/25/20 23:18 Dose: 650 mg Documented by: Albuterol/Ipratropium (Ipratropium/Albuterol Sulfate 3 Ml Ampul.Neb) 3 ml INHALATION Q4H PRN PRN Reason: COUGH/WHEEZE Aspirin (Aspirin E.C. 81 Mg Tablet) 81 mg PO DAILY@0800 [facility] Last Admin: 08/26/20 08:11 Dose: 81 mg Documented by: Atorvastatin Calcium (Atorvastatin Calcium 10 Mg Tablet) 10 mg PO QHS [facility] Last Admin: 08/25/20 21:58 Dose: 10 mg Documented by: Buspirone HCl (Buspirone 5 Mg Tablet) 5 mg PO BID [facility] Last Admin: 08/26/20 08:13 Dose: 5 mg Documented by: Calcium Acetate (Calcium Acetate 667 Mg Capsule) 667 mg PO TIDCM [facility] Last Admin: 08/26/20 08:11 Dose: 667 mg Documented by: Clonidine (Clonidine Hcl 0.1 Mg Tablet) 0.3 mg PO TID [facility] Last Admin: 08/26/20 05:33 Dose: 0.3 mg Documented by: Diphenhydramine HCl (Diphenhydramine 50 Mg/Ml Syringe) 25 mg IV Q4H PRN PRN PRN Reason: MIGRAINE SYMPTOMS Heparin Sodium (Porcine) (Heparin Injection (Vial) 5,000 Unit/Ml Vial) 5,000 unit SC Q12 [facility] Last Admin: 08/26/20 08:13 Dose: 5,000 unit Documented by: Hydralazine HCl (Hydralazine 50 Mg Tablet) 100 mg PO TID [facility] Last Admin: 08/26/20 05:33 Dose: 100 mg Documented by: Nicardipine HCl 25 mg/ Sodium (Chloride) 250 mls @ 50 mls/hr CONT INF .Q5H [facility]; Protocol Last Titration: 08/26/20 10:00 Dose: 2.5 mg/hr, 25 mls/hr Documented by: Labetalol HCl (Labetalol 200 Mg Tablet) 600 mg PO BIDCM [facility] Last Admin: 08/26/20 08:11 Dose: 600 mg Documented by: Levetiracetam (Levetiracetam 500 Mg Tablet) 500 mg PO DAILY PRN PRN PRN Reason: EXTRA DOSE ON DIALYSIS DAYS Levetiracetam (Levetiracetam 500 Mg Tablet) 500 mg PO BID@0500,2200 [facility] Last Admin: 08/26/20 05:33 Dose: 500 mg Documented by: Losartan Potassium (Losartan Potassium 100 Mg Tablet) 100 mg PO DAILY [facility] Last Admin: 08/26/20 08:12 Dose: 100 mg Documented by: Nifedipine (Nifedipine 60 Mg Tablet) 60 mg PO BID [facility] Nitroglycerin (Nitroglycerin (Inpatient Use) 0.4 Mg Tab.Subl) 0.4 mg SUBLINGUAL Q5M PRN PRN Reason: CHEST PAIN Nutritional Formula (Lactose Free) (Ensure Enlive 120 Ml Liquid) 120 ml PO TID [facility] Last Admin: 08/26/20 05:26 Dose: Not Given Documented by: Ondansetron HCl (Ondansetron Odt 4 Mg Tablet) 4 mg PO Q8H PRN PRN PRN Reason: NAUSEA/VOMITING Ondansetron HCl (Ondansetron 4 Mg/2 Ml Vial) 4 mg IV Q8H PRN PRN PRN Reason: NAUSEA/VOMITING Pantoprazole Sodium (Pantoprazole Sodium 40 Mg Tablet) 40 mg PO DAILY [facility] Last Admin: 08/26/20 08:16 Dose: 40 mg Documented by: Promethazine HCl (Promethazine 25 Mg/Ml Syringe) 12.5 mg IV Q4H PRN PRN PRN Reason: MIGRAINE SYMPTOMS Last Admin: 08/25/20 16:14 Dose: 12.5 mg Documented by: Senna (Senna Tablet) 1 tablet PO BID [facility] Last Admin: 08/26/20 08:14 Dose: 1 tablet Documented by: Sodium Chloride (0.9% Saline Lock 10 Ml Syringe) 10 - 40 ml IV UD PRN PRN Reason: SALINE FLUSH Zonisamide (Zonisamide 50 Mg Capsule) 50 mg PO BID [facility] Last Admin: 08/26/20 08:17 Dose: 50 mg Documented by: Assessment/Plan All Active Problems Hypertensive emergency (Acute) Seizure (Acute) Migraine (Acute) ESRD continue Tuesday dialysis for dialysis tomorrow. UF as tolerated. Anemia monitor CHRIS if lower hemoglobin CKD?MBD continue binders monitor calcium and phosphorus Hypertension would start alpha kp in addition to her current meds if still uncontrolled Migraine headache/other medical issues as per primary team. The above assessment and plan was discussed at length with the patient who voiced understanding and agrees to proceed with the plan as aligned above. She was given the opportunity to ask questions stated that those were answered to her satisfaction. Very much for allowing me to participate in the care of this patient. Please do not hesitate to call if you have any questions or concerns.
[2020-08-26] MEDS: Doxazosin 1 MG Tablet 2 MG PO ×2 (12:19→20:58)
--- NOTE | 2020-08-26 17:32 | PCM.PROGNOTE ---
Patient Problems: Active and Suspected Problems Severe anemia (Suspected) Hypertensive emergency (Acute) Seizure (Acute) Migraine (Acute) Subjective: Patient was seen and examined today in ICU, her blood pressure today is trended downward, I talked briefly with critical care about her medical care this morning. - Physical Exam Vitals/I&O's: Vital Signs Temp Pulse Resp BP Pulse Ox 96.7 F L 75 18 135/77 H 96 08/26/20 12:00 08/26/20 16:31 08/26/20 15:00 08/26/20 15:00 08/26/20 15:00 Oxygen Delivery Method Room Air Weight: 58.5 kg Body Mass Index (BMI) 21.2 Finger Stick Blood Glucose 77 Intake and Output for Last 24 Hours 08/24/20 08/25/20 08/26/20 23:59 23:59 23:59 Intake Total 775.41 / 781.66 759.59 / 759.59 Output Total 0 / 0 0 / 0 Balance 775.41 / 781.66 759.59 / 759.59 General: Alert, Oriented x3, Cooperative, No apparent distress, Well developed, Well nourished HEENT: Atraumatic, PERRLA, EOMI, Normocephalic Oral: Moist Mucosa Neck: Supple, No JVD, Negative Carotid Bruits, Trachea Midline, Thyroid Normal Size and Texture Lungs: Clear to auscultation, Normal air movement, No rhonchi, No wheeze, No rales Cardiovascular: Regular rate, Regular Rhythm, Normal S1, Normal S2, No murmurs Abdomen: Bowel Sounds Present, Soft, Non Tender, Non-Distended Extremities: No clubbing, No cyanosis, No edema, Capillary Refill Less than 3 Seconds Skin: No rashes, No breakdown Musculoskeletal: No Tenderness to Palpation of Joints or Extremities Neurological: Cranial nerves II-XII grossly intact, Neuro grossly intact, Sensory exam intact to light touch and pain, Coordination normal Psych/Mental Status: Normal Affect, Appropriate, Alert and oriented to time, place, person, mood and affect Laboratory Results 08/25/20 17:05: Troponin I < 0.015 08/25/20 20:50: Troponin I < 0.015 08/25/20 23:10: Troponin I < 0.015 08/26/20 04:00: WBC 6.8, RBC 3.70 L, Hgb 11.8 L, Hct 36.9 L, MCV 99.7 H, MCH 31.9, MCHC 32.0, RDW Std Deviation 48.7 H, RDW Coeff of Aleida 13.4, Plt Count 233, MPV 8.9, Immature Gran % (Auto) 0.400, Neut % (Auto) 74.0 H, Lymph % (Auto) 15.4 L, [place] % (Auto) 9.3, Eos % (Auto) 0.0, Baso % (Auto) 0.9, Absolute Neuts (auto) 5.0, Absolute Lymphs (auto) 1.04, Nucleated RBC % 0 08/26/20 04:00: Sodium 136, Potassium 5.2 H, Chloride 100, Carbon Dioxide 27.0, Anion Gap 9, BUN 47 H, Creatinine 6.93 H, Estim Creat Clear Calc 9.23, Est GFR (MDRD) Af Amer 8 L, Est GFR (MDRD) Non-Af 7 L, BUN/Creatinine Ratio 6.8 L, Glucose 88, Calcium 9.3 Current Medications Acetaminophen (Acetaminophen 325 Mg Tablet) 650 mg PO Q6H PRN PRN PRN Reason: Pain Score 1-10/Temp > 100.7 F Last Admin: 08/25/20 23:18 Dose: 650 mg Documented by: Albuterol/Ipratropium (Ipratropium/Albuterol Sulfate 3 Ml Ampul.Neb) 3 ml INHALATION Q4H PRN PRN Reason: COUGH/WHEEZE Aspirin (Aspirin E.C. 81 Mg Tablet) 81 mg PO DAILY@0800 [facility] Last Admin: 08/26/20 08:11 Dose: 81 mg Documented by: Atorvastatin Calcium (Atorvastatin Calcium 10 Mg Tablet) 10 mg PO QHS [facility] Last Admin: 08/25/20 21:58 Dose: 10 mg Documented by: Buspirone HCl (Buspirone 5 Mg Tablet) 5 mg PO BID [facility] Last Admin: 08/26/20 08:13 Dose: 5 mg Documented by: Calcium Acetate (Calcium Acetate 667 Mg Capsule) 667 mg PO TIDCM [facility] Last Admin: 08/26/20 12:20 Dose: 667 mg Documented by: Clonidine (Clonidine Hcl 0.1 Mg Tablet) 0.3 mg PO TID [facility] Last Admin: 08/26/20 12:19 Dose: 0.3 mg Documented by: Diphenhydramine HCl (Diphenhydramine 50 Mg/Ml Syringe) 25 mg IV Q4H PRN PRN PRN Reason: MIGRAINE SYMPTOMS Doxazosin Mesylate (Doxazosin 1 Mg Tablet) 2 mg PO BID [facility] Last Admin: 08/26/20 12:19 Dose: 2 mg Documented by: Heparin Sodium (Porcine) (Heparin Injection (Vial) 5,000 Unit/Ml Vial) 5,000 unit SC Q12 [facility] Last Admin: 08/26/20 08:13 Dose: 5,000 unit Documented by: Hydralazine HCl (Hydralazine 50 Mg Tablet) 100 mg PO TID [facility] Last Admin: 08/26/20 12:20 Dose: 100 mg Documented by: Nicardipine HCl 25 mg/ Sodium (Chloride) 250 mls @ 50 mls/hr CONT INF .Q5H [facility]; Protocol Last Titration: 08/26/20 15:00 Dose: 2.5 mg/hr, 25 mls/hr Documented by: Labetalol HCl ([facility] 200 Mg Tablet) [facility] Admin: 08/26/20 08:11 Dose: 600 mg Documented by: Levetiracetam (Levetiracetam 500 Mg Tablet) 500 mg PO DAILY PRN PRN PRN Reason: EXTRA DOSE ON DIALYSIS DAYS Levetiracetam (Levetiracetam 500 Mg Tablet) 500 mg PO BID@0500,2200 [facility] Last Admin: 08/26/20 05:33 Dose: 500 mg Documented by: Losartan Potassium (Losartan Potassium 100 Mg Tablet) 100 mg PO DAILY [facility] Last Admin: 08/26/20 08:12 Dose: 100 mg Documented by: Nifedipine (Nifedipine 60 Mg Tablet) 60 mg PO BID [facility] Nitroglycerin (Nitroglycerin (Inpatient Use) 0.4 Mg Tab.Subl) 0.4 mg SUBLINGUAL Q5M PRN PRN Reason: CHEST PAIN Nutritional Formula (Lactose Free) (Ensure Enlive 120 Ml Liquid) 120 ml PO TID [facility] Last Admin: 08/26/20 12:21 Dose: 120 ml Documented by: Ondansetron HCl (Ondansetron Odt 4 Mg Tablet) 4 mg PO Q8H PRN PRN PRN Reason: NAUSEA/VOMITING Ondansetron HCl (Ondansetron 4 Mg/2 Ml Vial) 4 mg IV Q8H PRN PRN PRN Reason: NAUSEA/VOMITING Pantoprazole Sodium (Pantoprazole Sodium 40 Mg Tablet) 40 mg PO DAILY [facility] Last Admin: 08/26/20 08:16 Dose: 40 mg Documented by: Promethazine HCl (Promethazine 25 Mg/Ml Syringe) 12.5 mg IV Q4H PRN PRN PRN Reason: MIGRAINE SYMPTOMS Last Admin: 08/25/20 16:14 Dose: 12.5 mg Documented by: Senna (Senna Tablet) 1 tablet PO BID [facility] Last Admin: 08/26/20 08:14 Dose: 1 tablet Documented by: Sodium Chloride (0.9% Saline Lock 10 Ml Syringe) 10 - 40 ml IV UD PRN PRN Reason: SALINE FLUSH Zonisamide (Zonisamide 50 Mg Capsule) 50 mg PO BID [facility] Last Admin: 08/26/20 08:17 Dose: 50 mg Documented by: Medical Necessity - Tobacco Use Smoking Status: Former smoker Assessment/Plan All Active Problems Hypertensive emergency (Acute) Seizure (Acute) Migraine (Acute) #1 hypertensive emergency-patient continues on a Cardene drip at this time, adjustments on her blood pressure medications will be made by nephrology and possibly critical care. #2 end-stage renal disease requiring dialysis-patient will be dialyzed tomorrow #3 seizure disorder-patient told me today that she does not feel she had a seizure yesterday, she is chronically on Keppra #4 Goodpasture syndrome Inpatient E&M: [id number] [facility] Hosp L2
[2020-08-26] MEDS: NIFEdipine 60 MG Tablet PO (19:03)
--- NOTE | 2020-08-26 19:41 | NURSING ---
cardene gtt was off at start of this shift.
[2020-08-26] MEDS: Atorvastatin Calcium 10 MG Tablet PO (20:57)
[2020-08-27] VITALS (16 sets, daily range): BP systolic 128–169; BP diastolic 73–98; PULSE 65–80; RESP 11–21; TEMP 36.3–36.5; O2SAT 96–99
[2020-08-27 07:16] LABS: Albumin, Serum 3.5 g/dL (3.2-5.0); BUN 79 mg/dL (7-18); BUN/Creat Ratio 8.2 RATIO (10-20); Calcium,Total 8.9 mg/dL (8.5-10.1); Chloride 103 mmol/L (98-107); Creatinine, Serum 9.66 mg/dL (0.55-1.02); EST Glomerular Filtration Rate 5 mL/min (>60); Est Glom Filt Rate - Afr Amer 6 mL/min (>60); Estimated Creatinine Clearance 6.62 ml/min; Glucose 76 mg/dL (74-106); Phosphorus 8.5 mg/dL (2.5-4.9); Potassium 6.5 mmol/L (3.5-5.1); Sodium Level 138 mmol/L (136-145)
[2020-08-27] MEDS: hydrALAZINE 50 MG Tablet 100 MG PO ×2 (07:36→12:28)
[2020-08-27] MEDS: cloNIDine HCl 0.1 MG Tablet 0.3 MG PO (07:36)
[2020-08-27] MEDS: levETIRAcetam 500 MG Tablet PO (07:36)
[2020-08-27] MEDS: Calcium Acetate 667 MG Capsule PO ×2 (07:53→12:25)
[2020-08-27] MEDS: Aspirin E.C. 81 MG Tablet PO (07:53)
[2020-08-27] MEDS: Labetalol 200 MG Tablet 600 MG PO (07:54)
[2020-08-27] MEDS: Doxazosin 1 MG Tablet 2 MG PO (07:55)
[2020-08-27] MEDS: Acetaminophen 325 MG Tablet 650 MG PO (08:04)
[2020-08-27] MEDS: 0.9% Saline Lock 10 ML Syringe IV (08:09)
--- NOTE | 2020-08-27 08:25 | PN_ITS ---
Subjective: Patient did well overnight. No neurologic symptoms or headache have been reported by the patient. Patient did have some elevated blood pressures into the 180s, but Cardene did not have to be reinitiated. Patient is due for hemodialysis today per routine. No seizure activity has been reported. General: Alert, Oriented x3, Cooperative, No apparent distress, Well developed, Well nourished, - - Speaking in full sentences. HEENT: Atraumatic, PERRLA, EOMI, Normocephalic, - - No scleral icterus or injection noted Oral: Moist Mucosa, No Gingival or Mucosal Lesions/ Ulcerations Neck: Supple, No JVD, No Nodes, Trachea Midline Lungs: Clear to auscultation, Normal air movement, No rhonchi, No wheeze, No rales Cardiovascular: Regular rate, Regular Rhythm, Normal S1, Normal S2, No murmurs, No rub noted, No Gallop Abdomen: Bowel Sounds Present, Soft, Non Tender, Non-Distended Extremities: No clubbing, No cyanosis, No edema Skin: No rashes, No breakdown Musculoskeletal: No Tenderness to Palpation of Joints or Extremities Lymphatic: No Cervical, Supraclavicular, or Inguinal Adenopathy Neurological: Cranial nerves II-XII grossly intact, Neuro grossly intact, Motor Exam 5/5 strength throughout Psych/Mental Status: Alert and oriented to time, place, person, mood and affect Vital Signs Temp Pulse Resp BP Pulse Ox 36.4 C L 80 13 154/83 H 97 08/27/20 04:00 08/27/20 07:36 08/27/20 07:00 08/27/20 07:00 08/27/20 07:00 Oxygen Delivery Method Room Air Weight: 58.513 kg Body Mass Index (BMI) 21.2 Finger Stick Blood Glucose 77 Intake and Output for Last 24 Hours 08/25/20 08/26/20 08/27/20 23:59 23:59 23:59 Intake Total 775.41 / 781.66 979.59 / 979.59 190 / 190 Output Total 0 / 0 0 / 0 0 / 0 Balance 775.41 / 781.66 979.59 / 979.59 190 / 190 Labs (Last 48 Hours) 08/25/20 08/25/20 08/25/20 12:13 12:13 17:05 WBC 9.3 RBC 3.77 L Hgb 11.7 L Hct 37.3 MCV 98.9 MCH 31.0 MCHC 31.4 L RDW Std Deviation 49.5 H RDW Coeff of Aleida 13.7 Plt Count 214 MPV 9.0 Immature Gran % (Auto) 0.400 Neut % (Auto) 71.0 H Lymph % (Auto) 12.2 L [place] % (Auto) 9.9 Eos % (Auto) 5.6 H Baso % (Auto) 0.9 Absolute Neuts (auto) 6.6 Absolute Lymphs (auto) 1.13 Nucleated RBC % 0 Sodium 136 Potassium 4.4 Chloride 99 Carbon Dioxide 29.0 Anion Gap 8 BUN 23 H Creatinine 4.50 H Estim Creat Clear Calc 14.21 Est GFR (MDRD) Af Amer 14 L Est GFR (MDRD) Non-Af 11 L BUN/Creatinine Ratio 5.1 L Glucose 82 Calcium 9.2 Phosphorus Troponin I < 0.015 Albumin 08/25/20 08/25/20 08/26/20 20:50 23:10 04:00 WBC 6.8 RBC 3.70 L Hgb 11.8 L Hct 36.9 L MCV 99.7 H MCH 31.9 MCHC 32.0 RDW Std Deviation 48.7 H RDW Coeff of Aleida 13.4 Plt Count 233 MPV 8.9 Immature Gran % (Auto) 0.400 Neut % (Auto) 74.0 H Lymph % (Auto) 15.4 L [place] % (Auto) 9.3 Eos % (Auto) 0.0 Baso % (Auto) 0.9 Absolute Neuts (auto) 5.0 Absolute Lymphs (auto) 1.04 Nucleated RBC % 0 Sodium Potassium Chloride Carbon Dioxide Anion Gap BUN Creatinine Estim Creat Clear Calc Est GFR (MDRD) Af Amer Est GFR (MDRD) Non-Af BUN/Creatinine Ratio Glucose Calcium Phosphorus Troponin I < 0.015 < 0.015 Albumin 08/26/20 08/27/20 04:00 04:45 WBC RBC Hgb Hct MCV MCH MCHC RDW Std Deviation RDW Coeff of Aleida Plt Count MPV Immature Gran % (Auto) Neut % (Auto) Lymph % (Auto) [place] % (Auto) Eos % (Auto) Baso % (Auto) Absolute Neuts (auto) Absolute Lymphs (auto) Nucleated RBC % Sodium 136 138 Potassium 5.2 H 6.5 H* Chloride 100 103 Carbon Dioxide 27.0 24.0 Anion Gap 9 BUN 47 H 79 H Creatinine 6.93 H 9.66 H* Estim Creat Clear Calc 9.23 6.62 Est GFR (MDRD) Af Amer 8 L 6 L Est GFR (MDRD) Non-Af 7 L 5 L BUN/Creatinine Ratio 6.8 L 8.2 L Glucose 88 76 Calcium 9.3 8.9 Phosphorus 8.5 H Troponin I Albumin 3.5 Medical Necessity - Tobacco Use Smoking Status: Former smoker Assessment/Plan All Active Problems Hypertensive emergency (Acute) Seizure (Acute) Migraine (Acute) RECOMMENDATIONS: 1. Await response to hemodialysis 2. Continue Keppra at previous dosing. Additional Keppra following hemodialysis 3. Possible discharge if tolerates hemodialysis well 4. Seizure precautions IMPRESSIONS: 1. Hypertensive emergency with seizure Unclear etiology. Patient is on multiple baseline medications secondary to hypertension. Unclear if patient has elevated blood pressure secondary to lack of compliance with baseline medications, removal with hemodialysis or progression of underlying disease. Patient does have Goodpasture syndrome with significant refractory hypertension. Patient appears to have responded to additional medications. If patient is able to tolerate hemodialysis today, likely okay to discharge from a critical care perspective. 2. Epilepsy/seizure/headache Unclear if headache constitutes a prodromal symptom for seizure versus secondary to hypertension. Patient does have a history of seizure disorder and Keppra may be decreased with hemodialysis. Patient will be dosed an additional dose of Keppra following dialysis per routine. Likely not necessary to get neurology evaluation at this time unless patient has repeat seizures. 3. End-stage renal disease/Goodpasture syndrome/refractory hypertension/debility Complicates care, management, recovery and prognosis. Inpatient E&M: 72100 Subs Hosp L2
--- NOTE | 2020-08-27 10:23 | DCINST_ITS ---
- Discharge Diagnoses Current Active Problems: Current Active and Chronic Problems ESRD (end stage renal disease) on dialysis (Chronic) Goodpasture syndrome (Chronic) PFO (patent foramen ovale) (Chronic) DJD (degenerative joint disease) (Chronic) Spinal stenosis (Chronic) Hypertensive emergency (Acute) Seizure (Acute) Migraine (Acute) You will use the following diet at home:: Regular Your food should be the consistency of: Regular Your liquids should be the consistency of: Regular/Thin Discharge Activity: Return to Normal Activity Weight Bearing Status: Full weight bearing Additional Instructions: IF YOUR BLOOD PRESSURE IS LOW ON YOUR NEW MEDICATION WHICH HAS BEEN ADDED (DOXAZOSIN), STOP THIS MEDICINE AND CONTACT YOUR HVAC RESIDENTIAL SERVICE TECHNICIAN. Allergies/Adverse Reactions: Allergies ciprofloxacin [From Cipro] Allergy (Verified 08/25/20 10:42) Rash clarithromycin [From Biaxin] Allergy (Verified 08/25/20 10:42) Rash Penicillins Allergy (Verified 08/25/20 10:42) Hives cephalexin [From Keflex] Adverse Reaction (Verified 08/25/20 10:42) Diarrhea Medications to take at Discharge Acetaminophen [Tylenol Extra Strength] 1,000 mg PO DAILY PRN PRN 08/25/20 Aspirin E.C. [Ecotrin] 81 mg PO DAILY@1700 08/25/20 Atorvastatin Calcium [Lipitor] 10 mg PO QHS 08/25/20 B Complex W-C No.20/Folic Acid [Renal Caps Softgel] 1 mg PO DAILY 08/25/20 Calcium Acetate [Phoslo Gel Cap] 667 mg PO TIDCM 08/25/20 Clonidine HCl [Catapres] 0.3 mg PO TID 08/25/20 Hydralazine HCl 100 mg PO TID 08/25/20 Isosorbide Mononitrate [Isosorbide Mononitrate ER] 30 mg PO DAILY 08/25/20 Labetalol [Trandate (Beta Veronica)] 600 mg PO BID 08/25/20 Levetiracetam [Keppra] 500 mg PO MOWEFR 08/25/20 Levetiracetam [Keppra] 500 mg PO SUTUTHSA 08/25/20 Levonorgesterol [Mirena] 1 ea IU X1 08/25/20 Losartan Potassium [Cozaar] 50 mg PO BID 08/25/20 Nifedipine [Procardia Xl] 60 mg PO BID 08/25/20 Pantoprazole Sodium [Protonix] 40 mg PO DAILY 08/25/20 Senna [Senokot] 1 tab PO DAILY 08/25/20 Zonisamide [Zonegran] 50 mg PO BID 08/25/20 Doxazosin Mesylate [Cardura] 1 mg PO BID #60 tab 08/27/20 The following prescriptions were given: Doxazosin Mesylate [Cardura] 1 mg PO BID #60 tab Transmission Status: Pending to [facility]/pharmacy #[id number] Primary Care Physician: Jairon Wise DO [Primary Care Provider] - Test Results: Test results from this visit will be discussed in further detail at your follow- up appointment, if applicable. Please Follow Up With: YOUR HVAC RESIDENTIAL SERVICE TECHNICIAN When: SCHEDULED
[2020-08-27] MEDS: Losartan Potassium 100 MG Tablet PO (12:25)
[2020-08-27] MEDS: NIFEdipine 60 MG Tablet PO (12:26)
[2020-08-27] MEDS: Pantoprazole Sodium 40 MG Tablet PO (12:26)
[2020-08-27] MEDS: Senna Tablet 1 TABLET PO (12:26)
[2020-08-27] MEDS: Zonisamide 50 MG Capsule PO (12:27)
--- NOTE | 2020-08-27 13:10 | CASEMGMT ---
MORTEZA SANTANA NOTE: 1000: Call placed to [facility] and spoke w/Isabella. She was made pt is discharging today and that she is getting dialysis today @ [facility] prior to d/c. 1312: Call received from Klarissa Ly CM. She was notified pt has been discharged home. Raine MARIEN MORTEZA SANTANA
--- NOTE | 2020-08-30 18:51 | DS.PCM_ITS ---
Discharge Date and Diagnosis - Problem List Patient Problems: Active and Suspected Problems Severe anemia (Suspected) Hypertensive emergency (Acute) Seizure (Acute) Migraine (Acute) Date of Admission: 08/25/20 Date of Discharge: 08/27/20 - Primary Discharge Diagnosis Acute Problems: Active Problems Hypertensive emergency (Acute) End-stage renal disease requiring dialysis Seizure disorder Goodpasture syndrome Acute migraine Suspected Problems: Suspected Problems Severe anemia (Suspected) - Secondary Discharge Diagnosis Chronic Problems: Chronic Problems ESRD (end stage renal disease) on dialysis (Chronic) Goodpasture syndrome (Chronic) PFO (patent foramen ovale) (Chronic) DJD (degenerative joint disease) (Chronic) Spinal stenosis (Chronic) Hospital Course and Treatment Operations: None Procedures: Dialysis Summary of Care Provided: The patient is a 39 year old F who was seen in the emergency room at [facility] with chief complaint of headache, she has a history of migraines. Evaluation in the emergency room revealed a normal unenhanced CT of the brain, labs were remarkable for hemoglobin of 11.7, creatinine of 4.5, BUN of 23. Blood pressure was noted to be 207/99, she was given blood pressure medications in the emergency room, and she was admitted to the ICU for hypertensive emergency. She was seen in consultation by critical care and nephrology, her blood pressure medications were readjusted and she underwent dialysis. Patient's blood pressure came under control with medication adjustment, it was nephrology's opinion that the headache was secondary to her acute migraine. On 08/27/2020, patient was seen and examined: On examination she appeared in good health and spirits, she does not appear to be in any distress. Vital signs as documented. Skin warm and dry and without overt rashes. Neck without JVD, thyroid appears normal, trachea is midline, neck is supple. Lungs clear, normal air movement was noted. Heart exam notable for regular rhythm, normal sounds and absence of murmurs, rubs or gallops. Abdomen unremarkable and without evidence of organomegaly, masses, or abdominal aortic enlargement, bowel sounds are present in all 4 quadrants, no abdominal tenderness was noted. Extremities nonedematous, no cyanosis was noted, no clubbing was noted. Neuro: Cranial nerves II through XII are grossly intact, no focal motor deficits were noted, sensation to light touch and pinprick is intact, motor exam 5/5 throughout. Psych: Patient is alert and oriented x3, she does not appear anxious or depressed, she does not appear agitated. On 08/27/2020, patient was seen and examined and felt to be in stable condition for discharge home. Patient Problems: Active and Suspected Problems Severe anemia (Suspected) Hypertensive emergency (Acute) Seizure (Acute) Migraine (Acute) - Physical Exam Vitals/I&O's: Vital Signs Temp Pulse Resp BP Pulse Ox 97.6 F L 73 17 169/98 H 97 08/27/20 12:15 08/27/20 12:28 08/27/20 12:15 08/27/20 12:28 08/27/20 12:15 Oxygen Delivery Method Room Air Weight: 58.513 kg Body Mass Index (BMI) 21.2 Finger Stick Blood Glucose 77 Discharge Activity: Return to Normal Activity Weight Bearing Status: Full weight bearing Home Medications: Medications to take at Discharge Acetaminophen [Tylenol Extra Strength] 1,000 mg PO DAILY PRN PRN 08/25/20 Aspirin E.C. [Ecotrin] 81 mg PO DAILY@1700 08/25/20 Atorvastatin Calcium [Lipitor] 10 mg PO QHS 08/25/20 B Complex W-C No.20/Folic Acid [Renal Caps Softgel] 1 mg PO DAILY 08/25/20 Calcium Acetate [Phoslo Gel Cap] 667 mg PO TIDCM 08/25/20 Clonidine HCl [Catapres] 0.3 mg PO TID 08/25/20 Hydralazine HCl 100 mg PO TID 08/25/20 Isosorbide Mononitrate [Isosorbide Mononitrate ER] 30 mg PO DAILY 08/25/20 Labetalol [Trandate (Beta Veronica)] 600 mg PO BID 08/25/20 Levetiracetam [Keppra] 500 mg PO MOWEFR 08/25/20 Levetiracetam [Keppra] 500 mg PO SUTUTHSA 08/25/20 Levonorgesterol [Mirena] 1 ea IU X1 08/25/20 Losartan Potassium [Cozaar] 50 mg PO BID 08/25/20 Nifedipine [Procardia Xl] 60 mg PO BID 08/25/20 Pantoprazole Sodium [Protonix] 40 mg PO DAILY 08/25/20 Senna [Senokot] 1 tab PO DAILY 08/25/20 Zonisamide [Zonegran] 50 mg PO BID 08/25/20 Doxazosin Mesylate [Cardura] 1 mg PO BID #60 tab 08/27/20 Following Prescriptions Were Given to Patient: Doxazosin Mesylate [Cardura] 1 mg PO BID #60 tab Transmission Status: Received by [facility]/pharmacy #[id number] Primary Care Physician: Jairon Wise DO [Primary Care Provider] - Please Follow Up With: YOUR ELECTRONIC SECURITY TECHNICIAN When: SCHEDULED Disposition: Home Minutes spent on discharge:: 32 Patient Condition:: Stable Medical Necessity - Tobacco Use Smoking Status: Former smoker Meaningful Use Info Meaningful Use Diagnoses (Choose all that apply): None applicable Inpatient E&M: [id number] [facility] Hosp
== END 2020-08-27 12:55 | disposition home or self-care (01) | DRG 199 ==
LOC: ED 13:21 → ICU 08-26 07:15
PROVIDERS: Internal Medicine Critical Care Medicine; Emergency Provider Emergency Medicine; PCP Family Medicine; Visit Provider Internal Medicine
DX: I16.1 Hypertensive emergency (principal); N18.6 End stage renal disease; I12.0 Hypertensive chronic kidney disease with stage 5 chronic kidney disease or end stage renal disease; D64.9 Anemia, unspecified; M31.0 Hypersensitivity angiitis; M48.00 Spinal stenosis, site unspecified; F41.9 Anxiety disorder, unspecified; Q21.1 Atrial septal defect; G40.909 Epilepsy, unspecified, not intractable, without status epilepticus; M19.90 Unspecified osteoarthritis, unspecified site; G43.019 Migraine without aura, intractable, without status migrainosus; Z87.891 Personal history of nicotine dependence; Z99.2 Dependence on renal dialysis; Z79.82 Long term (current) use of aspirin; Z79.899 Other long term (current) drug therapy
CPT/HCPCS: 70450; 80048; 80069; 84484; 85025; 90937; 97802; 97803; 99285; J7050; A4216; G0257

== ENCOUNTER 2021-01-30 11:40 | Inpatient (IN) | payer MEDICAID, SELFPAY ==
[2020-08-25 15:09] VITALS: BMI 21.2
[2021-01-30] VITALS (18 sets, daily range): BP systolic 163–224; BP diastolic 84–114; PULSE 71–132; RESP 13–19; TEMP 36.6–37.2; O2SAT 93–98; BMI 20.8; BMI 20.9
--- NOTE | 2021-01-30 11:55 | EDS_ITS ---
HPI History of Present Illness Chief Complaint: Hypertension Informant: patient Onset/Context/Timing Onset: Today Context: - (During dialysis) Timing: Continuous Quality: Up to 239 systolic Quality - All: other (seeing spots) Location: Both eyes Current Severity: Mild Maximum Severity: Mild Worsened by: When blood pressure elevated nothing else Relieved by: Nothing today Narrative Narrative: Patient has a history of hypertension and is on 5 different medications for it, all of which she has been compliant with and took her morning doses today. She presents at around noon after her dialysis session today, which she completed. She was in the 140s at the beginning of dialysis and by the end she was at 239. She was seeing some spots on both eyes, no vision loss or other changes, and no other symptoms. Denies headache, nausea, vomiting, peripheral neurologic symptoms. Patient states when her blood pressures been up she has had spots like this before. She states her blood pressures usually all over the place, sometimes it is fairly good in the 120s, other times it is close to 200 like this. In the past with severe elevations, she has had a seizure before; her doctor sent her to the ER today to help get her pressure down so that she doesn't have that happen. [facility] Medical History Goodpasture syndrome Hypertension Kidney disease Renal dialysis device, implant, or graft complication Home Medications B complex with C 20-folic acid 1 mg PO DAILY 08/25/20 [History Last Taken 08/24/20] Zonisamide [Zonegran] 50 mg PO BID 08/25/20 [History Last Taken 08/24/20] acetaminophen 1,000 mg PO DAILY PRN PRN 08/25/20 [History Last Taken 08/25/20] aspirin 81 mg PO DAILY@1700 08/25/20 [History Last Taken 08/24/20] atorvastatin 10 mg PO QHS 08/25/20 [History Last Taken 08/24/20] calcium acetate(phosphat bind) 667 mg PO TIDCM 08/25/20 [History Last Taken 08/25/20] clonidine HCl 0.3 mg PO TID 08/25/20 [History Last Taken 08/25/20] hydralazine 100 mg PO TID 08/25/20 [History Last Taken 08/25/20] isosorbide mononitrate 30 mg PO DAILY 08/25/20 [History Last Taken 08/24/20] labetalol 600 mg PO BID 08/25/20 [History Last Taken 08/25/20] levetiracetam 500 mg PO MOWEFR 08/25/20 [History Last Taken 08/25/20] levetiracetam 500 mg PO SUTUTHSA 08/25/20 [History Last Taken 08/25/20] levonorgestrel 1 ea IU X1 08/25/20 [History Last Taken 08/25/20] losartan 50 mg PO BID 08/25/20 [History Last Taken 08/24/20] nifedipine 60 mg PO BID 08/25/20 [History Last Taken 08/25/20] pantoprazole 40 mg PO DAILY 08/25/20 [History Last Taken 08/24/20] sennosides 1 tab PO DAILY 08/25/20 [History Last Taken 08/24/20] doxazosin 1 mg PO BID #60 tab 08/27/20 [Rx Last Taken Unknown] Allergy/AdvReac Type Severity Reaction Status Date / Time ciprofloxacin [From Cipro] Allergy Rash Verified 01/30/21 11:40 clarithromycin [From Biaxin] Allergy Rash Verified 01/30/21 11:40 Penicillins Allergy Hives Verified 01/30/21 11:40 cephalexin [From Keflex] AdvReac Diarrhea Verified 01/30/21 11:40 Social History Smoking Status: Former smoker ROS ROS ED Constitutional Constitutional ED: Denies chills or fever(s) Eyes Eyes: Reports as per HPI and spots in vision; Denies diplopia ENT ENT ED: Denies rhinorrhea or sore throat Cardiovascular Cardiovascular: Denies chest pain or palpitations Respiratory/Chest Respiratory/Chest: Denies cough or dyspnea Gastrointestinal Gastrointestinal: Denies abdominal pain, diarrhea, nausea or vomiting Genitourinary Genitourinary ED: Denies dysuria or hematuria Musculoskeletal Musculoskeletal: Denies back pain or neck pain Integumentary Denies abscess or rash Neurologic Neurologic: Denies headache(s), paresthesias or weakness Psychiatric Psychiatric: Denies anxiety or suicidal thoughts EXAM Physical Exam Const Vital Signs: 01/30/21 11:41 01/30/21 11:50 01/30/21 12:34 Temperature 98.2 F Temperature Source Temporal Pulse Rate 86 Respiratory Rate 15 Respiratory Effort Normal Non-Labored Respiratory Pattern Normal Blood Pressure 202/114 H 195/84 H Blood Pressure Mean 143 121 Pulse Ox 97 Oxygen Delivery Method Room Air 01/30/21 13:08 01/30/21 14:30 01/30/21 16:00 Temperature Temperature Source Pulse Rate 71 74 Respiratory Rate 18 18 Respiratory Effort Respiratory Pattern Blood Pressure 207/89 H 217/91 H 224/96 H Blood Pressure Mean 128 133 138 Pulse Ox 98 96 Oxygen Delivery Method Room Air Room Air 01/30/21 16:27 01/30/21 16:34 01/30/21 16:47 Temperature 98 F Temperature Source Temporal Pulse Rate 84 85 129 H Respiratory Rate 18 18 Respiratory Effort Respiratory Pattern Blood Pressure 224/96 H 163/84 H 188/84 H Blood Pressure Mean 138 110 118 Pulse Ox 95 96 Oxygen Delivery Method Room Air Room Air Positive well nourished and well developed General Appearance ED: well developed and NAD HEENT Reports moist mucous membranes normocephalic and atraumatic Eyes PERRL and EOMs intact bilaterally Neck full ROM and supple Resp normal respiratory effort and clear to auscultation bilaterally Cardio regular rate, regular rhythm and no murmurs GI non-tender and non-distended Auscultation: normoactive bowel sounds Palpation: soft Back/Spine no CVA tenderness General Back: other FROM Extremity normal to inspection General Extremety ED: Negative for edema, pulses abnormal or tenderness General Extremity: Negative for edema or pulses abnormal Neuro oriented x3, CN's II-XII intact bilaterally and no sensory deficits noted Sensorium / Orientation: awake and alert Motor Exam: strength 5/5 throughout Skin no rashes or lesions noted and no wounds MDM MDM MDM Narrative Medical decision making narrative: Patient is on labetalol, hydralazine, clonidine, losartan, nifedipine for blood pressure. Her BP here is 202/114 and her HR is 80's. She was given a dose of IV hydralazine 20 mg. Her blood pressure actually was higher on reevaluation so she was then given clonidine. Her pressure never came down and was even higher at 217/91, and she developed a headache so she was sent for CT of the head and started on a Cardizem drip after an initial bolus, after which her blood pressure is between 160-190 systolic. He adache treated w/ reglan; CT shows no hemorrhage/acute finding. Plan will be admission since I am unable to get her pressure down. Lab Data Attestation: I reviewed the patient's lab results. Labs: Laboratory Results - last 24 hr 01/30/21 01/30/21 12:40 12:40 WBC 2.9 L RBC 2.69 L Hgb 9.1 L Hct 28.2 L MCV 104.8 H MCH 33.8 H MCHC 32.3 RDW Std Deviation 51.2 H RDW Coeff of Aleida 13.4 Plt Count 157 MPV 9.1 Immature Gran % (Auto) 0.700 Neut % (Auto) 54.9 Lymph % (Auto) 21.7 [place] % (Auto) 16.9 H Eos % (Auto) 4.8 Baso % (Auto) 1.0 Absolute Neuts (auto) 1.6 L Absolute Lymphs (auto) 0.63 L Nucleated RBC % 0 Sodium 138 Potassium 3.8 Chloride 98 Carbon Dioxide 34.0 H Anion Gap 6 BUN 6 L Creatinine 2.24 H Estim Creat Clear Calc 28.25 Est GFR (MDRD) Af Amer 31 L Est GFR (MDRD) Non-Af 25 L BUN/Creatinine Ratio 2.7 L Glucose 88 Calcium 8.6 Radiography Diagnostic Testing: Radiology Impression Brain CT 01/30/21 16:01 IMPRESSION: Mild periventricular white matter ischemic changes. No acute bleed. If concern for acute infarct MRI recommended Electronically Signed: Brian Ohara MD at 16:27 EDT , Service support , Discharge Plan Dx/Rx/DC Orders Clinical Impression: Hypertensive urgency, ESRD (end stage renal disease) on dialysis Disposition Disposition: Acute Care Hospital [facility]
[2021-01-30 12:48] LABS: Absolute Lymphocyte Count 0.63 X10^3/uL (0.83-4.51); Absolute Neutrophil Count 1.6 X10^3/uL (2.0-7.7); Basophil# 0.03 X10^3/uL; Eosinophil# 0.14 X10^3/uL; Eosinophils% 4.8 % (0-5); Hematocrit 28.2 % (37-47); Hemoglobin 9.1 g/dL (12.0-15.0); Lymphocyte # 0.63 X10^3/ul (0.83-4.51); Lymphocyte % 21.7 % (19-41); Mean Corp Hgb Conc 32.3 g/dL (32-36); Mean Corpuscular Hgb 33.8 pg (27.0-32.0); Mean Corpuscular Volume 104.8 fL (81-99); Mean Platelet Vol. 9.1 fl (6.2-12.0); Monocyte# 0.49 X10^3/uL; Monocyte% 16.9 % (0-10); NRBC Flagged by Analyzer 0 % (0-5); Neutrophil # 1.59 X10^3/uL (2.7-7.7); Neutrophil % 54.9 % (47-70); Platelet Count 157 K/mm3 (150-450); RBC Distribution Width CV 13.4 % (11.6-14.6); RBC Distribution Width SD 51.2 fl (35.1-43.9); Red Blood Count 2.69 M/mm3 (4.2-5.4); White Blood Count 2.9 K/mm3 (4.4-11.0)
[2021-01-30] MEDS: hydrALAZINE 20 MG/ML Vial IV (12:54)
[2021-01-30 13:01] LABS: Anion Gap 6 (5-15); BUN 6 mg/dL (7-18); BUN/Creat Ratio 2.7 RATIO (10-20); Calcium,Total 8.6 mg/dL (8.5-10.1); Chloride 98 mmol/L (98-107); Creatinine, Serum 2.24 mg/dL (0.55-1.02); EST Glomerular Filtration Rate 25 mL/min (>60); Est Glom Filt Rate - Afr Amer 31 mL/min (>60); Estimated Creatinine Clearance 28.25 ml/min; Glucose 88 mg/dL (74-106); Potassium 3.8 mmol/L (3.5-5.1); Sodium Level 138 mmol/L (136-145)
--- NOTE | 2021-01-30 16:01 | CT_ITS ---
STUDY: CT BRAIN WITHOUT CONTRAST REASON FOR EXAM: Female, 40 years old. headache, high BP RADIATION DOSAGE (If Supplied By Facility): CTDIvol = ( 44.99 ) mGy, DLP = ( 745.49 ) mGycm TECHNIQUE: Transaxial CT imaging of the brain was performed without administration of intravenous contrast material. Individualized dose optimization techniques were used for this CT. COMPARISON: 08/25/2020 FINDINGS: Normal soft tissue structures. Normal calvarium. Normal size ventricles and extra-axial spaces for the patient''s age. Mild periventricular white matter ischemic change.. Normal basal ganglia and thalami. Normal brainstem. Normal cerebellum. There is no intracranial hemorrhage. There are no findings of an acute ischemic infarction. Large mucous retention cyst in left maxillary sinus CT/Brain/Head without Contrast IMPRESSION: Mild periventricular white matter ischemic changes. No acute bleed. If concern for acute infarct MRI recommended Electronically Signed: Brian Ohara MD at 16:27 EDT , Service support ,
[2021-01-30] MEDS: Metoclopramide 10 MG/2 ML Vial 5 MG IV (16:24)
[2021-01-30] MEDS: dilTIAZem 25 MG/5 ML Vial 20 MG IV BOLUS (16:25)
--- NOTE | 2021-01-30 16:51 | NURSING ---
HOSPITALIST FOR DR SALEEM
--- NOTE | 2021-01-30 16:57 | NURSING ---
PCU OBS [facility] HYPERTENSIVE URGENCY
--- NOTE | 2021-01-30 17:09 | HP.PCM.HOS_ITS ---
Documented by User: Velasquez SHORT 01/30/21 17:39 HPI - General General Date of Admission: 01/30/21 HPI Narrative Patient is a 40-year-old female presents to the ED at [facility] on 01/30/2021 with a chief complaint of elevated blood pressure. Patient states that she was at her dialysis appointment, and the care team there noticed that her blood pressure was elevated. Dialysis was completed and varnish finisher told patient to report to the ED for management. Patient denies any symptoms initially while at the dialysis center, however while in the ED started to see floaters and developed a slight headache. 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 Patient reports a complicated history with managing her blood pressure and says that it intermittently is controlled however it is not uncommon for patient systolic blood pressure to be in the 200s. Review of systems was negative for chest pain, palpitations, hemoptysis, sputum production, fever, chills, N/V/D. Past medical history significant for Goodpasture's syndrome, hypertension, kidney disease and renal dialysis. Vital signs are significant for tachycardia at a rate greater than 120 and blood pressures while in the ED have ranged from 220/110 to now currently 188/84. CBC is unremarkable. BMP demonstrates an elevated creatinine at 2.24. Brain CT was obtained to assess for possible intracranial hemorrhage, no evidence of an acute bleed seen on CT. Mild periventricular white matter ischemic changes also seen on CT. Patient was given an infusion of diltiazem in the ED, however blood pressure has still been fluctuating and is not controlled. Patient will be admitted to PCU for management of high blood pressure. [facility] Medical History (Updated 01/30/21 @ 17:29 by Velasquez SHORT) Fistula Former smoker Goodpasture syndrome Hypertension Kidney disease Renal dialysis device, implant, or graft complication Home Medications B complex with C 20-folic acid 1 mg PO DAILY 08/25/20 [History Last Taken 01/30/21] Zonisamide [Zonegran] 50 mg PO DAILY 08/25/20 [History Last Taken 01/30/21] acetaminophen 1,000 mg PO DAILY PRN PRN 08/25/20 [History Last Taken 08/25/20] aspirin 81 mg PO DAILY@1700 08/25/20 [History Last Taken 01/30/21] atorvastatin 10 mg PO QHS 08/25/20 [History Last Taken 01/29/21] calcium acetate(phosphat bind) 667 mg PO TIDCM 08/25/20 [History Last Taken 01/29/21] hydralazine 100 mg PO TID 08/25/20 [History Last Taken 01/30/21] isosorbide mononitrate 30 mg PO DAILY 08/25/20 [History Last Taken 01/30/21] labetalol 600 mg PO BID 08/25/20 [History Last Taken 01/30/21] levetiracetam 500 mg PO MOWEFR 08/25/20 [History Last Taken 01/30/21] levetiracetam 500 mg PO SUTUTHSA 08/25/20 [History Last Taken 01/29/21] levonorgestrel 1 ea IU X1 08/25/20 [History Last Taken 08/25/20] losartan 100 mg PO DAILY 08/25/20 [History Last Taken 01/30/21] nifedipine 60 mg PO BID 08/25/20 [History Last Taken 01/29/21] pantoprazole 40 mg PO DAILY 08/25/20 [History Last Taken 01/30/21] sennosides 1 tab PO DAILY 08/25/20 [History Last Taken 01/30/21] clonidine HCl 0.2 mg PO TID 01/30/21 [History Last Taken 01/30/21] doxazosin 1 mg PO BID 01/30/21 [History Last Taken 01/30/21] Allergy/AdvReac Type Severity Reaction Status Date / Time ciprofloxacin [From Cipro] Allergy Rash Verified 01/30/21 11:40 clarithromycin [From Biaxin] Allergy Rash Verified 01/30/21 11:40 Penicillins Allergy Hives Verified 01/30/21 11:40 cephalexin [From Keflex] AdvReac Diarrhea Verified 01/30/21 11:40 Social History Smoking Status: Former smoker ROS Constitutional Constitutional: Denies anorexia, change in weight, chills, fatigue, fever(s), malaise, night sweats, weakness or other Eyes Eyes: Reports other Details: Endorses seeing floaters. ENT HEENT: Denies abnormal hearing, dysphagia, ear pain, epistaxis, headache(s), hearing loss, nasal congestion, nasal discharge, post nasal drip, sinus pressure, sore throat or other Cardiovascular Cardiovascular: Denies chest pain, claudication, dyspnea on exertion, edema, lightheadedness, orthopnea, palpitations, paroxysmal nocturnal dyspnea, rapid heart rate, syncope or other Respiratory/Chest Respiratory/Chest: Denies cough, dyspnea, excessive phlegm production, hemoptysis, productive cough, shortness of breath at rest, shortness of breath with exertion, wheezing or other Gastrointestinal Gastrointestinal: Denies abdominal pain, coffee ground emesis, constipation, diarrhea, dyspepsia, hematemesis, hematochezia, loose stools, melena, nausea, vomiting or other Genitourinary Genitourinary: Denies burning urination, difficulty urinating, dysuria, hematuria, nocturia, urinary frequency, urinary hesitancy, urinary incontinence, urinary urgency or other Musculoskeletal Musculoskeletal: Denies arthralgias, back pain, joint pain, joint stiffness, joint swelling, myalgias, neck pain or other Neurologic Neurologic: Denies abnormal gait, abnormal speech, confusion, disequilibrium, dizziness, focal weakness, headache(s), numbness, paresthesias, seizure-like activity, seizures, syncope, tingling, tremor(s) or other Psychiatric Psychiatric: Denies anxiety, depression, homicidal ideation, suicidal ideation or other Endocrine Endocrinology: Denies change in body appearance, cold intolerance, excessive sweating, heat intolerance, polydipsia, polyuria or other Hematologic/Lymphatic Hematologic/Lymphatic: Denies anemia, easy bleeding, easy bruising, lymphadenopathy or other Allergic/Immunologic Allergic/Immunologic: Denies rhinitis, hives, eczemia, asthma or other Vital Signs Vital Signs Vital Signs: 01/30/21 11:41 01/30/21 11:50 01/30/21 12:34 Temperature 98.2 F Temperature Source Temporal Pulse Rate 86 Respiratory Rate 15 Respiratory Effort Normal Non-Labored Respiratory Pattern Normal Blood Pressure 202/114 H 195/84 H Blood Pressure Mean 143 121 Pulse Ox 97 Oxygen Delivery Method Room Air 01/30/21 13:08 01/30/21 14:30 01/30/21 16:00 Temperature Temperature Source Pulse Rate 71 74 Respiratory Rate 18 18 Respiratory Effort Respiratory Pattern Blood Pressure 207/89 H 217/91 H 224/96 H Blood Pressure Mean 128 133 138 Pulse Ox 98 96 Oxygen Delivery Method Room Air Room Air 01/30/21 16:27 01/30/21 16:34 01/30/21 16:47 Temperature 98 F Temperature Source Temporal Pulse Rate 84 85 129 H Respiratory Rate 18 18 Respiratory Effort Respiratory Pattern Blood Pressure 224/96 H 163/84 H 188/84 H Blood Pressure Mean 138 110 118 Pulse Ox 95 96 Oxygen Delivery Method Room Air Room Air 01/30/21 16:54 01/30/21 16:57 Temperature 98 F Temperature Source Temporal Pulse Rate 132 H 119 H Respiratory Rate 18 18 Respiratory Effort Respiratory Pattern Blood Pressure 188/84 H 188/84 H Blood Pressure Mean 118 118 Pulse Ox 95 94 Oxygen Delivery Method Room Air Room Air Weight Weight: 121 lb 4.068 oz Body Mass Index (BMI) 20.8 Physical Exam Const alert, oriented x3 and no apparent distress General Appearance: cooperative HEENT normocephalic, head/scalp atraumatic and hearing grossly normal bilaterally Eyes PERRL, EOMs intact bilaterally and conjunctivae normal Neck no lymphadenopathy, supple and no JVD Resp normal respiratory effort, no retractions, no use of accessory muscles and clear to auscultation bilaterally Cardio regular rate, regular rhythm, no murmurs and no JVD GI normal to inspection, nondistended, normoactive bowel sounds, soft to palpation, non-tender and non-distended Extremity normal to inspection, full ROM and no clubbing, cyanosis or edema Skin no rashes or lesions noted, no wounds and skin turgor normal Neuro CN's II-XII intact bilaterally Psych affect normal Lab / Micro Data Result Diagrams: 01/30/21 12:40 01/30/21 12:40 Labs: Laboratory Results - last 24 hr 01/30/21 01/30/21 12:40 12:40 WBC 2.9 L RBC 2.69 L Hgb 9.1 L Hct 28.2 L MCV 104.8 H MCH 33.8 H MCHC 32.3 RDW Std Deviation 51.2 H RDW Coeff of Aleida 13.4 Plt Count 157 MPV 9.1 Immature Gran % (Auto) 0.700 Neut % (Auto) 54.9 Lymph % (Auto) 21.7 [place] % (Auto) 16.9 H Eos % (Auto) 4.8 Baso % (Auto) 1.0 Absolute Neuts (auto) 1.6 L Absolute Lymphs (auto) 0.63 L Nucleated RBC % 0 Sodium 138 Potassium 3.8 Chloride 98 Carbon Dioxide 34.0 H Anion Gap 6 BUN 6 L Creatinine 2.24 H Estim Creat Clear Calc 28.25 Est GFR (MDRD) Af Amer 31 L Est GFR (MDRD) Non-Af 25 L BUN/Creatinine Ratio 2.7 L Glucose 88 Calcium 8.[address] 01/30/21 16:01 IMPRESSION: Mild periventricular white matter ischemic changes. No acute bleed. If concern for acute infarct MRI recommended Electronically Signed: Brian Ohara MD at 16:27 EDT , Service support , Assessment & Plan Assessment/Plan (1) Goodpasture syndrome: (2) ESRD (end stage renal disease) on dialysis: (3) Hypertensive emergency: (4) Hypertensive urgency: (5) Migraine: QUALIFIERS: Intractability: intractable Migraine type: without aura Status migrainosus presence: without status migrainosus Qualified Code(s): G43.019 - Migraine without aura, intractable, without status migrainosus (6) Seizure: (7) GERD (gastroesophageal reflux disease): (8) Hyperlipidemia: PLAN: Patient is a 40-year-old female who presents to the ED at [facility] on 01/30/2021 with a chief complaint of elevated blood pressure after receiving dialysis treatment. Patient will be admitted for management of elevated blood pressure which is currently not controlled. Vital signs in the ED are significant for sustained tachycardia at a rate of greater than 120 and elevated blood pressure ranging from 220/110 to now currently 188/84 on diltiazem drip. 1) Hypertensive Emergency Blood pressure ranges as above. Plan; admit to PCU, maintain on current diltiazem drip. Continue losartan, hydralazine, labetalol and nifedipine. Clonidine increased to 0.3 mg p.o. 3 times daily. Doxazosin increased to 2 mg p.o. twice daily. Nephrology consult ordered. 2) HTN As above. 3) Seizure Continue levetiracetam and zonisamide. 4) Hyperlipidemia Continue statin. 5) GERD Continue Protonix. 6) ESRD Patient on hemodialysis Tuesday, Tuesday, Tuesday. 6) Goodpastures Syndrome Managed outpatient. DVT prophylaxis - Not indicated CODE STATUS: Full code Patient seen by Velasquez Childs PA-C, under the supervision of Dr. Hatfield. Documented by User: Dr. Naomie Hatfield MD 01/30/21 19:30 HPI - General General Date of Admission: 01/30/21 [facility] Medical History (Updated 01/30/21 @ 17:29 by Velasquez SHORT) Fistula Former smoker Goodpasture syndrome Hypertension Kidney disease Renal dialysis device, implant, or graft complication Home Medications B complex with C 20-folic acid 1 mg PO DAILY 08/25/20 [History Last Taken 01/30/21] Zonisamide [Zonegran] 50 mg PO DAILY 08/25/20 [History Last Taken 01/30/21] acetaminophen 1,000 mg PO DAILY PRN PRN 08/25/20 [History Last Taken 08/25/20] aspirin 81 mg PO DAILY@1700 08/25/20 [History Last Taken 01/30/21] atorvastatin 10 mg PO QHS 08/25/20 [History Last Taken 01/29/21] calcium acetate(phosphat bind) 667 mg PO TIDCM 08/25/20 [History Last Taken 01/29/21] hydralazine 100 mg PO TID 08/25/20 [History Last Taken 01/30/21] isosorbide mononitrate 30 mg PO DAILY 08/25/20 [History Last Taken 01/30/21] labetalol 600 mg PO BID 08/25/20 [History Last Taken 01/30/21] levetiracetam 500 mg PO MOWEFR 08/25/20 [History Last Taken 01/30/21] levetiracetam 500 mg PO SUTUTHSA 08/25/20 [History Last Taken 01/29/21] levonorgestrel 1 ea IU X1 08/25/20 [History Last Taken 08/25/20] losartan 100 mg PO DAILY 08/25/20 [History Last Taken 01/30/21] nifedipine 60 mg PO BID 08/25/20 [History Last Taken 01/29/21] pantoprazole 40 mg PO DAILY 08/25/20 [History Last Taken 01/30/21] sennosides 1 tab PO DAILY 08/25/20 [History Last Taken 01/30/21] clonidine HCl 0.2 mg PO TID 01/30/21 [History Last Taken 01/30/21] doxazosin 1 mg PO BID 01/30/21 [History Last Taken 01/30/21] Allergy/AdvReac Type Severity Reaction Status Date / Time ciprofloxacin [From Cipro] Allergy Rash Verified 01/30/21 11:40 clarithromycin [From Biaxin] Allergy Rash Verified 01/30/21 11:40 Penicillins Allergy Hives Verified 01/30/21 11:40 cephalexin [From Keflex] AdvReac Diarrhea Verified 01/30/21 11:40 Social History Smoking Status: Former smoker Lab / Micro Data Result Diagrams: 01/30/21 12:40 01/30/21 12:40 Addendum Addendum: This patient was seen in conjunction with HAN Moore. I have independently interviewed and examined the patient and reviewed pertinent historical, laboratory, and other data. Please refer to HAN Moore's note for his patient's presentation, findings, and recommendations. I have reviewed and his note and concur with his documentation 40-year-old female with past medical history of Goodpasture's disease, ESRD, severe hypertension who comes in for a dialysis center with uncontrolled blood pressure as well as headaches and visual disturbance. Patient was on dialysis when she was noted to have severe hypertension. She also had some headaches. She began to see some spots was in the ED. She had a similar presentation in August 2020 and was in ICU on nicardipine drip. Patient had taking all her medication except nifedipine. She was managed in the ED on Cardizem drip. At the time of being seen, she denied any headache or dizziness or palpitations or chest pain. Blood pressure was in the systolic 160s on Cardizem drip Physical Exam: Gen: Looks chronically unwell, not pale, not jaundiced CVS:HS I +II, regular, no murmurs RESP: CTA GI: BS present and normal, soft, nontender, no palpable organs EXT:No edema ASSESSMENT: 1. Acute hypertensive emergency 2. ESRD on hemodialysis 3. Goodpasture's disease 4. Seizure disorder 5. GERD 6. Hyperlipidemia Plan: We will admit to PCU on stepdown basis; may switch to regular PCU if patient's blood pressures are stable and not requiring any drips. We will hold off on continuing Cardizem drip. Will give all her regular medications early -clonidine, hydralazine, labetalol Patient had not taking nifedipine today -we will give nifedipine early also Will increase losartan 100 mg daily We will add hydralazine as needed Repeat blood work in a.m. Nephrology consult Continue on seizure precautions as well as maintenance meds CODE STATUS: Full code I discussed and explained in details the various types of CODE STATUS-full code, DNR CCA, DNR CC. Patient chose full code. Time spent discussing CODE STATUS 16 minutes Visit Charges Inpatient E&M: 58775 Init Hosp L3 Procedures Hospitalists Procedures: 80105 Advncd Care Plan 30 Min
[2021-01-30] MEDS: NIFEdipine 60 MG Tablet PO (18:38)
[2021-01-30] MEDS: Aspirin E.C. 81 MG Tablet PO (18:38)
[2021-01-30] MEDS: Losartan Potassium 100 MG Tablet PO (18:38)
[2021-01-30] MEDS: Calcium Acetate 667 MG Capsule PO (18:38)
[2021-01-30] MEDS: Labetalol 200 MG Tablet 600 MG PO ×2 (18:38→22:18)
[2021-01-30] MEDS: hydrALAZINE 50 MG Tablet 100 MG PO (22:17)
[2021-01-30] MEDS: CLONIDINE HCL 0.3 MG PO (22:17)
[2021-01-30] MEDS: Doxazosin 1 MG Tablet 2 MG PO (22:17)
[2021-01-30] MEDS: Atorvastatin Calcium 10 MG Tablet PO (22:17)
[2021-01-30] MEDS: levETIRAcetam 500 MG Tablet PO (22:18)
[2021-01-31] VITALS (16 sets, daily range): BP systolic 126–184; BP diastolic 71–96; PULSE 72–88; RESP 12–20; TEMP 36.8–37.1; O2SAT 92–98
[2021-01-31] MEDS: hydrALAZINE 50 MG Tablet 100 MG PO ×2 (06:27→14:55)
[2021-01-31] MEDS: CLONIDINE HCL 0.3 MG PO ×2 (06:27→14:55)
[2021-01-31 07:09] LABS: Absolute Lymphocyte Count 0.76 X10^3/uL (0.83-4.51); Absolute Neutrophil Count 1.6 X10^3/uL (2.0-7.7); Basophil# 0.05 X10^3/uL; Basophil% 1.6 % (0-1); Eosinophil# 0.22 X10^3/uL; Hematocrit 27.5 % (37-47); Hemoglobin 8.8 g/dL (12.0-15.0); Lymphocyte # 0.76 X10^3/ul (0.83-4.51); Lymphocyte % 24.3 % (19-41); Mean Corpuscular Volume 106.2 fL (81-99); Mean Platelet Vol. 8.9 fl (6.2-12.0); NRBC Flagged by Analyzer 0 % (0-5); Neutrophil # 1.59 X10^3/uL (2.7-7.7); Neutrophil % 50.8 % (47-70); Platelet Count 179 K/mm3 (150-450); RBC Distribution Width CV 13.4 % (11.6-14.6); RBC Distribution Width SD 52.7 fl (35.1-43.9); Red Blood Count 2.59 M/mm3 (4.2-5.4); White Blood Count 3.1 K/mm3 (4.4-11.0)
[2021-01-31 07:42] LABS: ALB/GLOB Ratio 1.2 RATIO (0.9-2.4); AST(SGOT) 22 U/L (15-37); Alanine Aminotransfer ALT/SGPT 21 U/L (13-56); Alkaline Phosphatase 61 U/L (45-117); Anion Gap 8 (5-15); BUN 20 mg/dL (7-18); BUN/Creat Ratio 4.9 RATIO (10-20); Chloride 99 mmol/L (98-107); EST Glomerular Filtration Rate 13 mL/min (>60); Est Glom Filt Rate - Afr Amer 15 mL/min (>60); Estimated Creatinine Clearance 15.44 ml/min; Globulin 2.6 g/dL (2.2-4.2); Glucose 81 mg/dL (74-106); Phosphorus 2.7 mg/dL (2.5-4.9); Potassium 3.8 mmol/L (3.5-5.1); Protein, Total 5.6 g/dL (6.4-8.2); Sodium Level 139 mmol/L (136-145)
[2021-01-31] MEDS: Calcium Acetate 667 MG Capsule PO ×3 (09:33→16:25)
[2021-01-31] MEDS: Doxazosin 1 MG Tablet 2 MG PO (09:34)
[2021-01-31] MEDS: Losartan Potassium 100 MG Tablet PO (09:36)
[2021-01-31] MEDS: levETIRAcetam 500 MG Tablet PO (09:36)
[2021-01-31] MEDS: Folic Acid/Vitamin B Comp W-C 1 Capsule 1 CAP PO (09:36)
[2021-01-31] MEDS: Isosorbide Mononitrate 30 MG Tablet PO (09:36)
[2021-01-31] MEDS: Pantoprazole Sodium 40 MG Tablet PO (09:36)
[2021-01-31] MEDS: Zonisamide 50 MG Capsule PO (09:37)
[2021-01-31] MEDS: Senna Tablet 1 TABLET PO (09:37)
--- NOTE | 2021-01-31 10:12 | CASEMGMT ---
MORTEZA SANTANA Assessment: RN CM in to pt room for initial transition planning/care coordination assessment. RN CM introduced self and role at [facility], pt voices understanding and consents to assessment. Pt sitting up in bed in no distress. Care providers, pharmacy, and demographics verified/updated. Admitting Dx: Hypertensive emergency PCP: Frandy Specialists: nigel To; radha Dee Preferred Pharmacy: [facility] Insurance: [place] Prescription Benefit: yes LW/HPOA: Pt has LW and DPOA on file. DPOA is dtr Magali Tracy. LNOK:Magali Tracy, dtr Living Arrangements: Pt lives with mother in a single story house with 4 steps to enter with a rail. Pt is I in ADL's and denies concerns at home. Transportation: Pt does not drive, her mother transports her to appts. Pt denies concerns with transportation. DME/HHC/SNF: Pt has a cane and walker at home, but does not use. Pt has had [facility] past and has stayed at [facility]. Pt states no further concerns/needs. CM to follow. Advised pt to contact CM if any further question/concerns/needs arise, voices understanding. Pt Goal: Home Plan: Home with family support
[2021-01-31] MEDS: Labetalol 200 MG Tablet 600 MG PO (11:27)
[2021-01-31] MEDS: NIFEdipine 60 MG Tablet PO (11:27)
--- NOTE | 2021-01-31 13:28 | PCM.DC ---
Discharge Instructions Diet Discharge Diet: 2000 mg Sodium Diet Activity Discharge Activity: Return to Normal Activity Weight Bearing Status: Weight bearing as tolerated Dressing / Incision Call your doctor if you observe: Fever of 101 or Higher, Shortness of breath, Dizziness and Swelling in the ankles Follow Up Care Test Results: Test results from this visit will be discussed in further detail at your follow-up appointment, if applicable. Discharge Plan Admission Admit Date/Time: 01/30/21 16:54 Primary Reason for Your Visit: hypetensive emergency Attending Provider: Jovita Torrez Primary Care Provider: Jairon Wise Consulting Providers: Frank Berg Instructions Patient Instructions: Controlling High Blood Pressure Additional Instructions / Restrictions: counseled to be compliant with BP meds. Discharge Orders/Prescriptions Prescriptions: Continued levonorgestrel 1 EACH intrauterine device 1 ea IU X1 RF: 0 sennosides 1 TABLET tablet 1 tab PO DAILY RF: 0 labetalol 200 MG tablet 600 mg PO BID RF: 0 atorvastatin 10 MG tablet 10 mg PO QHS RF: 0 levetiracetam 500 MG tablet 500 mg PO MOWEFR RF: 0 aspirin 81 MG tablet 81 mg PO DAILY@1700 RF: 0 nifedipine 60 MG tablet extended release 24hr 60 mg PO BID RF: 0 hydralazine 100 MG tablet 100 mg PO TID RF: 0 pantoprazole 40 MG tablet 40 mg PO DAILY RF: 0 B complex with C 20-folic acid 1 MG capsule 1 mg PO DAILY RF: 0 calcium acetate(phosphat bind) 667 MG capsule 667 mg PO TIDCM RF: 0 losartan 50 MG tablet 100 mg PO DAILY RF: 0 levetiracetam 500 MG tablet 500 mg PO SUTUTHSA RF: 0 isosorbide mononitrate 30 MG tablet extended release 24 hr 30 mg PO DAILY RF: 0 acetaminophen 500 MG tablet 1,000 mg PO DAILY PRN PRN (Reason: Pain 1-10 Or Fever) RF: 0 Zonisamide [Zonegran] 50 MG capsule 50 mg PO DAILY RF: 0 clonidine HCl 0.2 mg tablet 0.2 mg PO TID RF: 0 doxazosin 1 MG tablet 1 mg PO BID RF: 0 Referrals / Follow Up: Jairon Wise DO [Primary Care Provider] - In 1 Week Frank Berg MD [STAFF PHYSICIAN] - In 1 Week Disposition Disposition (needs filled in before D/C Order can be placed): Home, self care
[2021-01-31] MEDS: Aspirin E.C. 81 MG Tablet PO (16:25)
[2021-01-31] MEDS: hydrALAZINE 20 MG/ML Vial 10 MG IV (16:26)
[2021-01-31] MEDS: 0.9% Saline Lock 10 ML Syringe IV (16:26)
--- NOTE | 2021-01-31 16:32 | PCM.DC.SUM ---
Providers Date of Admission: 01/30/21 Primary Care Physician: Dr. Jairon Wise, Consultations 01/30/21 17:45 Consult: Nephrology Routine Consulting Provider: Frank Berg Reason for Consult: Hypertensive emergency in the setting of ESRD/Goodpastures syndrome. EMERGENT Consult: No MD Notified: Yes Date Notified:: 01/30/21 Time Notified: 18:00 Method of Notification: Answering Service Reason For Visit: HYPERTENSIVE EMERGENCY Diagnosis Discharge Diagnosis (1) Goodpasture syndrome: Status: Chronic Code(s): M31.0 - Hypersensitivity angiitis (2) ESRD (end stage renal disease) on dialysis: Status: Chronic Code(s): N18.6 - End stage renal disease; Z99.2 - Dependence on renal dialysis (3) Hypertensive emergency: Status: Acute Code(s): I16.1 - Hypertensive emergency (4) Hypertensive urgency: Status: Acute Code(s): I16.0 - Hypertensive urgency (5) Migraine: Status: Acute Code(s): G43.909 - Migraine, unspecified, not intractable, without status migrainosus Qualifiers: Intractability: intractable Migraine type: without aura Status migrainosus presence: without status migrainosus Qualified Code(s): G43.019 - Migraine without aura, intractable, without status migrainosus (6) Seizure: Status: Acute Code(s): R56.9 - Unspecified convulsions (7) GERD (gastroesophageal reflux disease): Status: Acute Code(s): K21.9 - Gastro-esophageal reflux disease without esophagitis (8) Hyperlipidemia: Status: Acute Code(s): E78.5 - Hyperlipidemia, unspecified Medications at Discharge Home Medications B complex with C 20-folic acid 1 mg PO DAILY 08/25/20 Zonisamide [Zonegran] 50 mg PO DAILY 08/25/20 acetaminophen 1,000 mg PO DAILY PRN PRN 08/25/20 aspirin 81 mg PO DAILY@1700 08/25/20 atorvastatin 10 mg PO QHS 08/25/20 calcium acetate(phosphat bind) 667 mg PO TIDCM 08/25/20 hydralazine 100 mg PO TID 08/25/20 isosorbide mononitrate 30 mg PO DAILY 08/25/20 labetalol 600 mg PO BID 08/25/20 levetiracetam 500 mg PO MOWEFR 08/25/20 levetiracetam 500 mg PO SUTUTHSA 08/25/20 levonorgestrel 1 ea IU X1 08/25/20 losartan 100 mg PO DAILY 08/25/20 nifedipine 60 mg PO BID 08/25/20 pantoprazole 40 mg PO DAILY 08/25/20 sennosides 1 tab PO DAILY 08/25/20 clonidine HCl 0.2 mg PO TID 01/30/21 doxazosin 1 mg PO BID 01/30/21 Hospital Course Operations None Procedures None Summary of Care Provided Minutes Spent on Discharge: 50 Hospital Course: Patient is a 40-year-old female was admitted through the ED on 01/31/2020 with complaint of elevated blood pressure. Patient had gone for dialysis session and the team at the dialysis center noted that her blood pressure was markedly elevated. She did complete her dialysis and she was told to come to the ED for management for elevated blood pressure. In the ED, she was initially asymptomatic but subsequently started having floaters and had a slight headache. Patient has Goodpasture's syndrome and says she has been compliant with her clonidine, hydralazine, labetalol, doxazosin, losartan and nifedipine. She said her blood pressure was largely controlled but she had episodes where they were poorly controlled. Review of stones otherwise negative. She was admitted and managed for hypertensive emergency with initial blood pressure of around 220/110. CT of brain was negative for any intracranial hemorrhage. She was started on Cardizem drip in the ED. She was weaned off of this and her blood pressure medications were resumed. Nephrology was consulted. Patient remained asymptomatic. Her blood pressure gradually improved until she was on 160 systolic at the time of discharge. Patient was counseled to be very compliant with her medication and to keep a blood pressure log at home to follow-up with her PCP for adjustment of blood pressure medications as needed. She is to follow-up with her primary care doctor and nephrology. Patient seen and examined prior to discharge. She had no complaints and felt well and wanted to be discharged home. Review of symptoms otherwise negative. Labs and vitals reviewed. Her medication reviewed and reconciled. O/E: Const alert, oriented x3 and no apparent distress General Appearance: cooperative HEENT normocephalic, head/scalp atraumatic and hearing grossly normal bilaterally Eyes PERRL, EOMs intact bilaterally and conjunctivae normal Neck no lymphadenopathy, supple and no JVD Resp normal respiratory effort, no retractions, no use of accessory muscles and clear to auscultation bilaterally Cardio regular rate, regular rhythm, no murmurs and no JVD GI normal to inspection, nondistended, normoactive bowel sounds, soft to palpation, non-tender and non-distended Extremity normal to inspection, full ROM and no clubbing, cyanosis or edema Skin no rashes or lesions noted, no wounds and skin turgor normal Neuro CN's II-XII intact bilaterally Psych affect normal Plan is for discharge home today. ABG / Lab / Microbiology Data Result Diagrams: 01/31/21 06:45 01/31/21 06:45 Laboratory: Laboratory Results - last 24 hr 01/31/21 01/31/21 06:45 06:45 WBC 3.1 L RBC 2.59 L Hgb 8.8 L Hct 27.5 L MCV 106.2 H MCH 34.0 H MCHC 32.0 RDW Std Deviation 52.7 H RDW Coeff of Aleida 13.4 Plt Count 179 MPV 8.9 Immature Gran % (Auto) 0.300 Neut % (Auto) 50.8 Lymph % (Auto) 24.3 [place] % (Auto) 16.0 H Eos % (Auto) 7.0 H Baso % (Auto) 1.6 H Absolute Neuts (auto) 1.6 L Absolute Lymphs (auto) 0.76 L Nucleated RBC % 0 Sodium 139 Potassium 3.8 Chloride 99 Carbon Dioxide 32.0 Anion Gap 8 BUN 20 H Creatinine 4.10 H Estim Creat Clear Calc 15.44 Est GFR (MDRD) Af Amer 15 L Est GFR (MDRD) Non-Af 13 L BUN/Creatinine Ratio 4.9 L Glucose 81 Calcium 9.0 Phosphorus 2.7 Total Bilirubin 0.60 AST 22 ALT 21 Alkaline Phosphatase 61 Total Protein 5.6 L Albumin 3.0 L Globulin 2.6 Albumin/Globulin Ratio 1.2 D/C Instructions Discharge Diet: 2000 mg Sodium Diet Discharge Activity: Return to Normal Activity Weight Bearing Status: Weight bearing as tolerated Call your doctor if you observe: Fever of 101 or Higher, Shortness of breath, Dizziness and Swelling in the ankles Meaningful Use Info Meaningful Use Diagnoses (Choose all that apply): None applicable Discharge Plan Admission Admit Date/Time: 01/30/21 16:54 Primary Reason for Your Visit: hypetensive emergency Attending Provider: Jovita Torrez Primary Care Provider: Jairon Wise Consulting Providers: Frank Berg Instructions Patient Instructions: Controlling High Blood Pressure Additional Instructions / Restrictions: counseled to be compliant with BP meds. Discharge Orders/Prescriptions Prescriptions: Continued levonorgestrel 1 EACH intrauterine device 1 ea IU X1 RF: 0 sennosides 1 TABLET tablet 1 tab PO DAILY RF: 0 labetalol 200 MG tablet 600 mg PO BID RF: 0 atorvastatin 10 MG tablet 10 mg PO QHS RF: 0 levetiracetam 500 MG tablet 500 mg PO MOWEFR RF: 0 aspirin 81 MG tablet 81 mg PO DAILY@1700 RF: 0 nifedipine 60 MG tablet extended release 24hr 60 mg PO BID RF: 0 hydralazine 100 MG tablet 100 mg PO TID RF: 0 pantoprazole 40 MG tablet 40 mg PO DAILY RF: 0 B complex with C 20-folic acid 1 MG capsule 1 mg PO DAILY RF: 0 calcium acetate(phosphat bind) 667 MG capsule 667 mg PO TIDCM RF: 0 losartan 50 MG tablet 100 mg PO DAILY RF: 0 levetiracetam 500 MG tablet 500 mg PO SUTUTHSA RF: 0 isosorbide mononitrate 30 MG tablet extended release 24 hr 30 mg PO DAILY RF: 0 acetaminophen 500 MG tablet 1,000 mg PO DAILY PRN PRN (Reason: Pain 1-10 Or Fever) RF: 0 Zonisamide [Zonegran] 50 MG capsule 50 mg PO DAILY RF: 0 clonidine HCl 0.2 mg tablet 0.2 mg PO TID RF: 0 doxazosin 1 MG tablet 1 mg PO BID RF: 0 Referrals / Follow Up: Jairon Wise DO [Primary Care Provider] - In 1 Week Frank Berg MD [STAFF PHYSICIAN] - In 1 Week Disposition Disposition (needs filled in before D/C Order can be placed): Home, self care Visit Charges Inpatient E&M: 09632 Disch Hosp
--- NOTE | 2021-02-03 15:18 | CASEMGMT ---
N CM Discharge Follow Up Phone Call: PANKAJE: Racquel Strata: 3 Call Date: 02.03.21 Discharge Date: 01.31.21 Time of Call: 1517 Duration: 2 min Admitting Dx: hypertensive emergency RN CM completed follow up phone call after recent hospitalization. Pt states she is doing good. She denies questions regarding dc instructions or medications. Pt reports that she is taking her BP meds. She states all of this is what I am used to. Pt will make follow up PCP appts.
== END 2021-01-31 18:49 | disposition home or self-care (01) | DRG 199 ==
LOC: ED 16:04 → PCU 17:05
PROVIDERS: Admitting Provider Internal Medicine; Emergency Provider Emergency Medicine; PCP Family Medicine; Visit Provider Student in an Organized Health Care Education/Training Program
DX: I16.1 Hypertensive emergency (principal); I12.0 Hypertensive chronic kidney disease with stage 5 chronic kidney disease or end stage renal disease; I16.0 Hypertensive urgency; N18.6 End stage renal disease; Z99.2 Dependence on renal dialysis; E78.5 Hyperlipidemia, unspecified; K21.9 Gastro-esophageal reflux disease without esophagitis; M31.0 Hypersensitivity angiitis; G40.909 Epilepsy, unspecified, not intractable, without status epilepticus; G43.019 Migraine without aura, intractable, without status migrainosus; Z79.82 Long term (current) use of aspirin; Z79.899 Other long term (current) drug therapy; Z87.891 Personal history of nicotine dependence
CPT/HCPCS: 36415; 70450; 80048; 80053; 84100; 85025; 97802; 99285; A4216

== ENCOUNTER → 2021-02-02 12:15 | Outpatient (CLI) | payer MEDICAID, SELFPAY ==
[2021-01-30 17:52] VITALS: BMI 20.9
[2021-02-06 13:06] LABS: Anti-Glomerular Basement Memb 3 units (0-20)
== END ==
PROVIDERS: PCP Family Medicine; Visit Provider Internal Medicine Nephrology
DX: N18.6 End stage renal disease (principal)
CPT/HCPCS: 36415; 83520

== ENCOUNTER 2021-02-06 07:17 | Observation (INO) | payer MEDICAID, SELFPAY ==
[2021-01-30 17:52] VITALS: BMI 20.9
[2021-02-06] VITALS (19 sets, daily range): BP systolic 114–196; BP diastolic 62–113; PULSE 76–97; RESP 8–20; TEMP 36.5–37.1; O2SAT 96–99; BMI 22.1; BMI 21.6
--- NOTE | 2021-02-06 07:19 | EKG12_ITS ---
Test Reason : CP Blood Pressure : / mmHG Vent. Rate : 078 BPM Atrial Rate : 078 BPM P-R Int : 176 ms QRS Dur : 100 ms QT Int : 464 ms P-R-T Axes : 014 029 054 degrees QTc Int : 528 ms Normal sinus rhythm Prolonged QT Abnormal ECG Confirmed by RICO RODRIGUEZ, JEROME ([id number]), scientific editor JENNIFER KELLEY ([id number]) on 02/09/2021 10:34:09 AM Referred By: BILL Confirmed By:JEROME GÓMEZ MD
--- NOTE | 2021-02-06 07:23 | EX.ED.DYSGE1 ---
HPI History of Present Illness Chief Complaint: Chest Pain Informant: patient Onset/Context/Timing Onset: Today Context: Sudden Onset Current Severity: Mild Maximum Severity: Moderate Narrative Narrative: The patient is a 40-year-old female with history of Goodpasture syndrome, end-stage renal disease, hypertension, and anemia who presents to the emergency department with chest pain and a syncopal episode. The patient states that she went for dialysis this morning. She gets dialysis Tuesday, Tuesday, and Tuesday. She is compliant with her dialysis. She states that there, she got lightheaded and began to have some chest pressure. She states she then passed out for short period of time. She denies any vomiting but does feel mildly nauseated. She states that she had a similar presentation about a month ago. She has had a Holter monitor for a month, but does not have the results of it. She states yesterday, she did not eat. She denies any history of coronary vascular disease. She states she is been compliant with her medications. Prior similar symptoms: Yes Recent Illness/[facility]ospital[facility]: [facility] Medical History Fistula Former smoker Goodpasture syndrome Hypertension Kidney disease Renal dialysis device, implant, or graft complication Home Medications B complex with C 20-folic acid 1 mg PO DAILY 08/25/20 [History Last Taken 01/30/21] Zonisamide [Zonegran] 50 mg PO DAILY 08/25/20 [History Last Taken 01/30/21] acetaminophen 1,000 mg PO DAILY PRN PRN 08/25/20 [History Last Taken 08/25/20] aspirin 81 mg PO DAILY@1700 08/25/20 [History Last Taken 01/30/21] atorvastatin 10 mg PO QHS 08/25/20 [History Last Taken 01/29/21] calcium acetate(phosphat bind) 667 mg PO TIDCM 08/25/20 [History Last Taken 01/29/21] hydralazine 100 mg PO TID 08/25/20 [History Last Taken 01/30/21] isosorbide mononitrate 30 mg PO DAILY 08/25/20 [History Last Taken 01/30/21] labetalol 600 mg PO BID 08/25/20 [History Last Taken 01/30/21] levetiracetam 500 mg PO MOWEFR 08/25/20 [History Last Taken 01/30/21] levetiracetam 500 mg PO SUTUTHSA 08/25/20 [History Last Taken 01/29/21] levonorgestrel 1 ea IU X1 08/25/20 [History Last Taken 08/25/20] losartan 100 mg PO DAILY 08/25/20 [History Last Taken 01/30/21] nifedipine 60 mg PO BID 08/25/20 [History Last Taken 01/29/21] pantoprazole 40 mg PO DAILY 08/25/20 [History Last Taken 01/30/21] sennosides 1 tab PO DAILY 08/25/20 [History Last Taken 01/30/21] clonidine HCl 0.2 mg PO TID 01/30/21 [History Last Taken 01/30/21] doxazosin 1 mg PO BID 01/30/21 [History Last Taken 01/30/21] Allergy/AdvReac Type Severity Reaction Status Date / Time ciprofloxacin [From Cipro] Allergy Rash Verified 02/06/21 07:21 clarithromycin [From Biaxin] Allergy Rash Verified 02/06/21 07:21 Penicillins Allergy Hives Verified 02/06/21 07:21 cephalexin [From Keflex] AdvReac Diarrhea Verified 02/06/21 07:21 Social History Smoking Status: Former smoker ROS ROS ED Constitutional Constitutional ED: Denies chills or fever(s) Eyes Eyes: Denies blurry vision or change in vision ENT ENT ED: Denies ear pain or sore throat Cardiovascular Cardiovascular: Reports chest pain Respiratory/Chest Respiratory/Chest: Denies cough, dyspnea or dyspnea on exertion Gastrointestinal Gastrointestinal: Reports nausea Genitourinary Genitourinary ED: Denies dysuria or urinary frequency Musculoskeletal Musculoskeletal: Denies arthralgias or myalgias Integumentary Denies rash Neurologic Neurologic: Denies headache(s) or paresthesias Psychiatric Psychiatric: Denies anxiety or depression Endocrine Endocrinology: Denies polydipsia or polyuria Allergic/Immunologic Allergic/Immunologic ED: Denies urticaria EXAM Physical Exam Const Vital Signs: 02/06/21 07:18 02/06/21 07:36 Temperature 97.7 F L 98.0 F Temperature Source Oral Temporal Pulse Rate 80 76 Respiratory Rate 14 8 L Blood Pressure 116/69 116/69 Blood Pressure Mean 84 84 Pulse Ox 98 98 Oxygen Delivery Method Room Air Room Air Positive well nourished and well developed General Appearance ED: well developed HEENT Reports normocephalic, head/scalp atraumatic and moist mucous membranes Eyes PERRL and EOMs intact bilaterally Neck no lymphadenopathy and supple General: Negative for tenderness Chest Wall inspection of chest normal Resp normal respiratory effort and clear to auscultation bilaterally Cardio regular rate, regular rhythm and no murmurs GI normal to inspection, nondistended, normoactive bowel sounds Palpation: Negative for tender, guarding or rebound tenderness present Back/Spine no CVA tenderness Cervical Spine: Negative for cervical spine tenderness Thoracic Spine / Upper Back: Negative for thoracic spinal tenderness Extremity normal to inspection General Extremety ED: Negative for tenderness Neuro oriented x3 and CN's II-XII intact bilaterally Neuro Narrative: No focal deficits appreciated. Sensorium / Orientation: alert Psych mental status grossly normal Skin no rashes or lesions noted, no wounds and skin turgor normal MDM MDM MDM Narrative Medical decision making narrative: The patient presents with chest pain and a syncopal episode. EKG was obtained on arrival. The patient does have peaked T waves throughout. This is different from prior EKG in 2019. I was concerned for hyperkalemia. Hyperkalemia treatment was started with albuterol and D50. Calcium was also ordered. Prior to the calcium returning from pharmacy, the patient's potassium was only 4.2. She is mildly hyperglycemic and this is replaced. She now states that she is feeling improved with no chest pain. However, given her EKG changes and syncopal episode I do feel that she would benefit from admission. Impression 1. Chest pain 2. Syncope Lab Data Attestation: I reviewed the patient's lab results. Labs: Laboratory Results - last 24 hr 02/06/21 02/06/21 02/06/21 07:29 07:30 07:30 WBC 4.0 L RBC 2.71 L Hgb 9.2 L Hct 28.3 L MCV 104.4 H MCH 33.9 H MCHC 32.5 RDW Std Deviation 52.6 H RDW Coeff of Aleida 14.0 Plt Count 277 MPV 8.7 Immature Gran % (Auto) 0.200 Neut % (Auto) 49.1 Lymph % (Auto) 32.8 [place] % (Auto) 9.2 Eos % (Auto) 5.7 H Baso % (Auto) 3.0 H Absolute Neuts (auto) 2.0 Absolute Lymphs (auto) 1.32 Nucleated RBC % 0 Sodium 134 L Potassium 4.2 Chloride 94 L Carbon Dioxide 25.0 Anion Gap 15 BUN 28 H Creatinine 6.34 H Estim Creat Clear Calc 9.98 Est GFR (MDRD) Af Amer 9 L Est GFR (MDRD) Non-Af 8 L BUN/Creatinine Ratio 4.4 L Glucose 63 L Calcium 9.2 Total Bilirubin 0.60 AST 33 ALT 22 Alkaline Phosphatase 61 Troponin I < 0.015 Total Protein 6.1 L Albumin 3.3 Globulin 2.8 Albumin/Globulin Ratio 1.2 POC Glucose 62 L Radiography Chest X-Ray - ED: 1 View, Read by ED Physician, Read by Radiologist, Unchanged, Heart, Lungs, Mediastinum and Bony Structures Rhythm Strip Rhythm Strip: Sinus Rhythm Rate: 80 Ectopy: None EKG Initial EKG: Attestation: I personally reviewed and interpreted this EKG as follows: Interpretation: Sinus Rhythm and Non-Specific ST Changes Prior: Changed Discharge Plan Triage Chief Complaint: Chest Pain ED Provider: John Amaya Dx/Rx/DC Orders Prescriptions: No Action levonorgestrel 1 EACH intrauterine device 1 ea IU X1 RF: 0 sennosides 1 TABLET tablet 1 tab PO DAILY RF: 0 labetalol 200 MG tablet 600 mg PO BID RF: 0 atorvastatin 10 MG tablet 10 mg PO QHS RF: 0 levetiracetam 500 MG tablet 500 mg PO MOWEFR RF: 0 aspirin 81 MG tablet 81 mg PO DAILY@1700 RF: 0 nifedipine 60 MG tablet extended release 24hr 60 mg PO BID RF: 0 hydralazine 100 MG tablet 100 mg PO TID RF: 0 pantoprazole 40 MG tablet 40 mg PO DAILY RF: 0 B complex with C 20-folic acid 1 MG capsule 1 mg PO DAILY RF: 0 calcium acetate(phosphat bind) 667 MG capsule 667 mg PO TIDCM RF: 0 losartan 50 MG tablet 100 mg PO DAILY RF: 0 levetiracetam 500 MG tablet 500 mg PO SUTUTHSA RF: 0 isosorbide mononitrate 30 MG tablet extended release 24 hr 30 mg PO DAILY RF: 0 acetaminophen 500 MG tablet 1,000 mg PO DAILY PRN PRN (Reason: Pain 1-10 Or Fever) RF: 0 Zonisamide [Zonegran] 50 MG capsule 50 mg PO DAILY RF: 0 clonidine HCl 0.2 mg tablet 0.2 mg PO TID RF: 0 doxazosin 1 MG tablet 1 mg PO BID RF: 0 Primary Care Provider: Jairon Wise
[2021-02-06 07:36] LABS: Bedside Glucose 62 mg/dL (70-110)
[2021-02-06 07:42] LABS: Absolute Lymphocyte Count 1.32 X10^3/uL (0.83-4.51); Basophil# 0.12 X10^3/uL; Eosinophil# 0.23 X10^3/uL; Eosinophils% 5.7 % (0-5); Hematocrit 28.3 % (37-47); Hemoglobin 9.2 g/dL (12.0-15.0); Lymphocyte # 1.32 X10^3/ul (0.83-4.51); Lymphocyte % 32.8 % (19-41); Mean Corp Hgb Conc 32.5 g/dL (32-36); Mean Corpuscular Hgb 33.9 pg (27.0-32.0); Mean Corpuscular Volume 104.4 fL (81-99); Mean Platelet Vol. 8.7 fl (6.2-12.0); Monocyte# 0.37 X10^3/uL; Monocyte% 9.2 % (0-10); NRBC Flagged by Analyzer 0 % (0-5); Neutrophil # 1.98 X10^3/uL (2.7-7.7); Neutrophil % 49.1 % (47-70); Platelet Count 277 K/mm3 (150-450); RBC Distribution Width SD 52.6 fl (35.1-43.9); Red Blood Count 2.71 M/mm3 (4.2-5.4)
[2021-02-06] MEDS: Ondansetron 4 MG/2 ML Vial IV (07:45)
--- NOTE | 2021-02-06 07:55 | RAD_ITS ---
STUDY: X-RAY CHEST REASON FOR EXAM: Female, 40 years old. Sob TECHNIQUE: Single AP portable view of the chest. COMPARISON: Comparison is made with prior study dated 05/05/2020. FINDINGS: EKG electrodes are seen. The lungs are clear and expanded. There is no demonstrated pleural abnormality. Normal size heart. Normal mediastinum and daphney. Normal visualized pulmonary arteries. Normal visualized aortic arch and descending thoracic aorta. Normal visualized thoracic spine. Normal visualized ribs, clavicles, and shoulders. There is no demonstrated abnormality of the visualized soft tissue structures of the upper abdomen. RAD/Chest 1 View (Portable) IMPRESSION: Normal x-ray examination of the chest. Electronically Signed: Aquiles Pagan MD at 8:13 EDT , Service support ,
[2021-02-06 08:00] LABS: ALB/GLOB Ratio 1.2 RATIO (0.9-2.4); AST(SGOT) 33 U/L (15-37); Alanine Aminotransfer ALT/SGPT 22 U/L (13-56); Albumin, Serum 3.3 g/dL (3.2-5.0); Alkaline Phosphatase 61 U/L (45-117); Anion Gap 15 (5-15); BUN 28 mg/dL (7-18); BUN/Creat Ratio 4.4 RATIO (10-20); Calcium,Total 9.2 mg/dL (8.5-10.1); Chloride 94 mmol/L (98-107); Creatinine, Serum 6.34 mg/dL (0.55-1.02); EST Glomerular Filtration Rate 8 mL/min (>60); Est Glom Filt Rate - Afr Amer 9 mL/min (>60); Estimated Creatinine Clearance 9.98 ml/min; Globulin 2.8 g/dL (2.2-4.2); Glucose 63 mg/dL (74-106); Potassium 4.2 mmol/L (3.5-5.1); Protein, Total 6.1 g/dL (6.4-8.2); Sodium Level 134 mmol/L (136-145)
[2021-02-06] MEDS: Dextrose 50%-Water 25 GM/50 ML DISP.SYRIN IV (08:11)
--- NOTE | 2021-02-06 08:14 | EKG12_ITS ---
Test Reason : REPEAT Blood Pressure : / mmHG Vent. Rate : 080 BPM Atrial Rate : 080 BPM P-R Int : 200 ms QRS Dur : 102 ms QT Int : 470 ms P-R-T Axes : 066 014 057 degrees QTc Int : 542 ms Normal sinus rhythm Prolonged QT Abnormal ECG Confirmed by RICO RODRIGUEZ, JEROME ([id number]), editorial director JENNIFER KELLEY ([id number]) on 02/09/2021 10:34:40 AM Referred By: BILL Confirmed By:JEROME GÓMEZ MD
--- NOTE | 2021-02-06 08:31 | HP.PCM.HOS_ITS ---
HPI - General General Date of Admission: 02/06/21 HPI Narrative BABAR ACUÑA, is a 40 F who presents chest pressure and dizziness and passed out while going for dialysis. Patient felt tired and weak yesterday. She was dizzy and lightheaded in the morning and felt chest tightness midsternal with radiation to back. Mild short of breath on exertion associated with chest tightness. When she entered in the dialysis room today, she passed out for about 10 seconds. She was held by the dialysis staff and did not had major injuries but slid down on the floor. Currently she is chest pain-free. She denies prior history of coronary artery disease, cardiac stent, stress test or heart cath. She was admitted here for 1 day on 01/30-01/31 for hypertensive urgency with floaters. At that time her blood pressure was 220/110 and work-up was negative including CT head. She is on multiple antihypertensive medications including hydralazine 100 mg 3 times daily, labetalol 600 twice daily, nifedipine 60 mg twice daily, losartan 100 mg daily, clonidine 0.2 mg 3 times daily and isosorbide mononitrate 30 mg twice daily Twelve-lead EKG in ED shows normal sinus rhythm with prolonged QTC 542 ms. EMS EKG shows sinus rhythm similar. No appreciable ST changes. Previous EKG in May 2020 shows QTC 471 ms sinus rhythm. Chest x-ray normal exam. Triage vitals shows blood pressure 116/69. [facility] Medical History Fistula Former smoker Goodpasture syndrome Hypertension Kidney disease Renal dialysis device, implant, or graft complication Home Medications B complex with C 20-folic acid 1 mg PO DAILY 08/25/20 [History Last Taken 01/30/21] Zonisamide [Zonegran] 50 mg PO DAILY 08/25/20 [History Last Taken 01/30/21] acetaminophen 1,000 mg PO DAILY PRN PRN 08/25/20 [History Last Taken 08/25/20] aspirin 81 mg PO DAILY@1700 08/25/20 [History Last Taken 01/30/21] atorvastatin 10 mg PO QHS 08/25/20 [History Last Taken 01/29/21] calcium acetate(phosphat bind) 667 mg PO TIDCM 08/25/20 [History Last Taken 01/29/21] hydralazine 100 mg PO TID 08/25/20 [History Last Taken 01/30/21] isosorbide mononitrate 30 mg PO DAILY 08/25/20 [History Last Taken 01/30/21] labetalol 600 mg PO BID 08/25/20 [History Last Taken 01/30/21] levetiracetam 500 mg PO MOWEFR 08/25/20 [History Last Taken 01/30/21] levetiracetam 500 mg PO SUTUTHSA 08/25/20 [History Last Taken 01/29/21] levonorgestrel 1 ea IU X1 08/25/20 [History Last Taken 08/25/20] losartan 100 mg PO DAILY 08/25/20 [History Last Taken 01/30/21] nifedipine 60 mg PO BID 08/25/20 [History Last Taken 01/29/21] pantoprazole 40 mg PO DAILY 08/25/20 [History Last Taken 01/30/21] sennosides 1 tab PO DAILY 08/25/20 [History Last Taken 01/30/21] clonidine HCl 0.2 mg PO TID 01/30/21 [History Last Taken 01/30/21] doxazosin 1 mg PO BID 01/30/21 [History Last Taken 01/30/21] Allergy/AdvReac Type Severity Reaction Status Date / Time ciprofloxacin [From Cipro] Allergy Rash Verified 02/06/21 07:21 clarithromycin [From Biaxin] Allergy Rash Verified 02/06/21 07:21 Penicillins Allergy Hives Verified 02/06/21 07:21 cephalexin [From Keflex] AdvReac Diarrhea Verified 02/06/21 07:21 Social History Smoking Status: Former smoker ROS ROS Narrative Constitutional: Reports fatigue and weakness HEENT: Reports systems reviewed and no addt'l complaints, except as documented Respiratory/Chest: Chest tightness and dyspnea on exertion as mentioned in HPI Gastrointestinal: Denies coffee ground emesis, hematemesis or vomiting Genitourinary: Denies burning urination. Anuria. On hemodialysis Musculoskeletal: Reports joint pain and limited range of motion Neurologic: Denies seizure-like activity skin: No ulcer. No rash Endocrinology: Reports systems reviewed and no addt'l complaints, except as documented Hematologic/Lymphatic: Reports systems reviewed and no addt'l complaints, except as documented Rest 12 ROS are negative except as mentioned in HPI Vital Signs Vital Signs Vital Signs: 02/06/21 07:18 02/06/21 07:36 Temperature 97.7 F L 98.0 F Temperature Source Oral Temporal Pulse Rate 80 76 Respiratory Rate 14 8 L Blood Pressure 116/69 116/69 Blood Pressure Mean 84 84 Pulse Ox 98 98 Oxygen Delivery Method Room Air Room Air Weight Weight: 128 lb 15.527 oz Body Mass Index (BMI) 22.1 Physical Exam Narrative General: Alert, Oriented x3, Cooperative HEENT: Atraumatic, PERRLA, EOMI, Normocephalic Oral: No Gingival or Mucosal Lesions/ Ulcerations Neck: Supple, No JVD, left carotid Bruit Lungs: Air entry diminished in bilateral lung bases. No crepitation/rhonchi Cardiovascular: Regular rate, Regular Rhythm, Normal S1, Normal S2, No murmurs Abdomen: Bowel Sounds Present, Soft, Non Tender, Non-Distended : Anuria on hemodialysis. No renal angle tenderness. No suprapubic tenderness. Extremities: No edema, Capillary Refill Less than 3 Seconds Skin: No rashes, No breakdown Musculoskeletal: No Tenderness to Palpation of Joints or Extremities Neurological: Cranial nerves II-XII grossly intact, Deep Tendon Reflexes 2+/4 and Symmetrical, Neuro grossly intact Psych/Mental Status: Normal Affect, Appropriate. Results Lab / Micro Data Result Diagrams: 02/06/21 07:30 02/06/21 07:30 Labs: Laboratory Results - last 24 hr 02/06/21 02/06/21 02/06/21 07:29 07:30 07:30 WBC 4.0 L RBC 2.71 L Hgb 9.2 L Hct 28.3 L MCV 104.4 H MCH 33.9 H MCHC 32.5 RDW Std Deviation 52.6 H RDW Coeff of Aleida 14.0 Plt Count 277 MPV 8.7 Immature Gran % (Auto) 0.200 Neut % (Auto) 49.1 Lymph % (Auto) 32.8 [place] % (Auto) 9.2 Eos % (Auto) 5.7 H Baso % (Auto) 3.0 H Absolute Neuts (auto) 2.0 Absolute Lymphs (auto) 1.32 Nucleated RBC % 0 Sodium 134 L Potassium 4.2 Chloride 94 L Carbon Dioxide 25.0 Anion Gap 15 BUN 28 H Creatinine 6.34 H Estim Creat Clear Calc 9.98 Est GFR (MDRD) Af Amer 9 L Est GFR (MDRD) Non-Af 8 L BUN/Creatinine Ratio 4.4 L Glucose 63 L Calcium 9.2 Total Bilirubin 0.60 AST 33 ALT 22 Alkaline Phosphatase 61 Troponin I < 0.015 Total Protein 6.1 L Albumin 3.3 Globulin 2.8 Albumin/Globulin Ratio 1.2 POC Glucose 62 L Rhythm Strip Rhythm Strip: Sinus Rhythm Rate: 80 Ectopy: None Radiology Impression Chest X-Ray 02/06/21 07:55 IMPRESSION: Normal x-ray examination of the chest. Electronically Signed: Aquiles Pagan MD at 8:13 EDT , Service support , Assessment & Plan Assessment/Plan (1) Atypical chest pain: (2) Syncope and collapse: (3) ESRD (end stage renal disease) on dialysis: (4) Goodpasture syndrome: (5) Seizure: (6) Migraine: QUALIFIERS: Migraine type: without aura Status migrainosus presence: without status migrainosus Intractability: intractable Qualified Code(s): G43.019 - Migraine without aura, intractable, without status migrainosus PLAN: This 40-year-old female admitted with chest tightness, near syncope and syncope 1. Atypical chest pain/tightness: Patient is being admitted in PCU on telemetry. Repeat EKG. Serial troponin enzymes. Treadmill nuclear stress test tomorrow a.m. 2. Near syncope and syncope, may be due to hypotension: Orthostatic blood vitals ordered. 2D echo is ordered. IV fluid #35 mL/h for 1 L. Carotid duplex ordered for left carotid bruit. 3. Recent admission for hypertensive urgency: Currently blood pressure is normotensive. Hold hydralazine, labetalol, clonidine, doxazosin, nifedipine. Reinstate antihypertensive medication as blood pressure improves or gets high. 4. 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 Site Director consult requested. 5. Migraine headache and seizure disorder: Patient on levetiracetam and zonisamide. VTE prophylaxis, moderate risk: Heparin 5000 subcutaneous twice daily. Discontinue if platelet count drops less than 50,000 or hemoglobin less than 8 g% CODE STATUS: During recent admission full code will continue it Charges/Coding Visit Charges OBSV E&M: 20043 Initial observation care L3
--- NOTE | 2021-02-06 10:02 | EKG12_ITS ---
Test Reason : AM EKG Blood Pressure : / mmHG Vent. Rate : 082 BPM Atrial Rate : 082 BPM P-R Int : 202 ms QRS Dur : 088 ms QT Int : 404 ms P-R-T Axes : 061 002 049 degrees QTc Int : 472 ms Normal sinus rhythm Normal ECG Confirmed by RICO RODRIGUEZ, JEROME ([id number]), desk editor JENNIFER KELLEY ([id number]) on 02/10/2021 10:29:25 AM Referred By: COLLETTE Confirmed By:JEROME GÓMEZ MD
--- NOTE | 2021-02-06 10:02 | CDU_ITS ---
Reason For Study: BRUIT Rt. Velocities/BP Lt. Velocities/BP Prox CCA 85.9/11.6 cm/sec. Prox CCA 87.5/18.2 cm/sec. Mid CCA 97.7/18.1 cm/sec. Mid CCA 106.1/22.6 cm/sec. Dist CCA 66.4/15.5 cm/sec. Dist CCA 72.1/19.3 cm/sec. Prox ICA 82.2/17.1 cm/sec. Prox ICA 75.7/16.7 cm/sec. Mid ICA 96.9/25.7 cm/sec. Mid ICA 64.6/21.6 cm/sec. Dist ICA 108.9/39.5 cm/sec. Dist ICA 105.2/28.5 cm/sec. Rt. ICA/CCA = 108.9/97.7=1.1. Lt. ICA/CCA = 105.2/106.1=1.0. Prox ECA 140.5/12.6 cm/sec. Prox ECA 110.0/24.1 cm/sec. Rt. Vert. 52.3/18.2 cm/sec. Lt. Vert. 66.6/21.5 cm/sec. Right Extracranial There is no significant atherosclerotic plaque noted in the right common carotid artery. There is heterogeneous, smooth atherosclerotic plaque noted in the right internal carotid artery. There is homogeneous, smooth atherosclerotic plaque noted in the right external carotid artery. Antegrade flow is noted in the right vertebral artery. Left Extracranial There is no significant atherosclerotic plaque noted in the left common carotid artery. There is no significant atherosclerotic plaque noted in the left internal carotid artery. There is no significant atherosclerotic plaque noted in the left external carotid artery. Antegrade flow is noted in the left vertebral artery. Procedure Carotid Duplex [id number]. This is a Carotid Duplex examination using B-mode, color flow and specral Doppler. Exam performed portable in patient room. VL/Carotid Duplex Ultrasound Interpretation Summary Heterogenous smooth plaque of the proximal right internal carotid artery with l ess than 50% stenosis Less than 50% stenosis right external carotid artery No significant plaque at the proximal left internal carotid artery with less th an 50% stenosis Less than 50% stenosis left external carotid artery Patent and antegrade vertebral arteries bilaterally Ordering Physician: Clinton Villar Referring Physician: Jairon Wise Performed By: Debbie Garcia RDCS, RVT
--- NOTE | 2021-02-06 10:02 | ECHOD_ITS ---
Reason For Study: Sncope/Near Syncope Procedure This was a 2D Doppler, Color Flow transthoracic echocardiogram. The exam was of adequate technical quality. Exam performed portable in patient room. Left Ventricle Normal LV size. Left ventricular systolic function is normal. The estimated ejection fraction is 65 %. Diastolic function is indeterminate. No regional wall motion abnormalities noted. Right Ventricle Normal RV size. Normal systolic function. Atria The left atrium is mildly enlarged. Normal right atrium. No doppler evidence for ASD. Mitral Valve There is no mitral annular calcification. Mild diffuse mitral valve thickening. Mild (1+) mitral valve insufficiency. Tricuspid Valve Normal tricuspid valve. Mild tricuspid valve insufficiency. Right ventricular systolic pressure estimated to be 43 mmHg. Aortic Valve Trisinus/trileaflet aortic valve. Normal aortic valve. Pulmonic Valve The pulmonic valve is not well visualized. Great Vessels Normal sized aortic root. Pericardium/Pleural No pericardial effusion. MMode/2D Measurements & Calculations LVIDd: 4.5 cm IVSd: 1.6 cm Ao root diam: 3.4 cm LVIDs: 2.7 cm LVPWd: 0.69 cm LA dimension: 3.9 cm FS: 39.8 % LAV(MOD-bp): 63.7 ml LA A4 area: 21.1 cm2 RA A4 area: 15.9 cm2 LAV(MOD-bp) Indexed: 39.8 ml/m2 LAV(MOD-sp2): 61.6 ml LAV(MOD-sp4): 64.1 ml Time Measurements MV dec time: 0.18 sec Doppler Measurements & Calculations MV E max marco: 112.1 cm/sec Lat Peak E' Marco: 10.3 cm/sec Med Peak E' Marco: 11.9 cm/sec MV A max marco: 146.2 cm/sec E/E' lat: 10.9 E/E' med: 9.4 MV E/A: 0.77 Ao V2 max: 174.3 cm/sec LV V1 max: 159.8 cm/sec PA V2 max: 142.5 cm/sec Ao max P.2 mmHg LV V1 max P.2 mmHg TR max marco: 296.2 cm/sec TR max P.1 mmHg ECHO/Echo Complete Interpretation Summary Left ventricular systolic function is normal. The estimated ejection fraction is 65 %. The left atrium is mildly enlarged. Mild diffuse mitral valve thickening. Mild (1+) mitral valve insufficiency. Mild tricuspid valve insufficiency. Right ventricular systolic pressure estimated to be 43 mmHg. Diastolic function is indeterminate. Ordering Physician: Clinton Villar Referring Physician: Jairon Wise Performed By: Blaine Smith RCS
[2021-02-06 10:16] LABS: Magnesium 2.5 mg/dL (1.6-2.6)
--- NOTE | 2021-02-06 10:22 | CON.PCM.RE_ITS ---
Assessment & Plan Assessment/Plan (1) Hypertension: (2) Syncope and collapse: (3) ESRD (end stage renal disease) on dialysis: PLAN: Patient is MWF HD schedule HD session today. UF as tolerated BP is well controlled. Agree with holding BP medications for now syncope work up as per the primary service D/W Dr. Jian Tovar MD HPI Consult Data Date of Consult: 02/06/21 HPI Narrative HPI Narrative: BABAR ACUÑA, is a 40 F ESRD on MWF HD schedule from GP syndrome Patient has h/o HTN on multiple BP medications Patient was brought in for passing out in HD unit before even starting HD session earlier today Patient felt tired and dizzy prior to that this morning. Patient also has chest tightness Now she is feeling better. All home BP meds are on hold for now Patient has h/o seizure and migraine headache ROS: 12 systems review is negative now [facility] Medical History Fistula Former smoker Goodpasture syndrome Hypertension Kidney disease Renal dialysis device, implant, or graft complication Home Medications B complex with C 20-folic acid 1 mg PO DAILY 08/25/20 [History Last Taken 01/30/21] Zonisamide [Zonegran] 50 mg PO DAILY 08/25/20 [History Last Taken 01/30/21] acetaminophen 1,000 mg PO DAILY PRN PRN 08/25/20 [History Last Taken 08/25/20] aspirin 81 mg PO DAILY@1700 08/25/20 [History Last Taken 01/30/21] atorvastatin 10 mg PO QHS 08/25/20 [History Last Taken 01/29/21] calcium acetate(phosphat bind) 667 mg PO TIDCM 08/25/20 [History Last Taken 01/29/21] hydralazine 100 mg PO TID 08/25/20 [History Last Taken 01/30/21] isosorbide mononitrate 30 mg PO DAILY 08/25/20 [History Last Taken 01/30/21] labetalol 600 mg PO BID 08/25/20 [History Last Taken 01/30/21] levetiracetam 500 mg PO MOWEFR 08/25/20 [History Last Taken 01/30/21] levetiracetam 500 mg PO SUTUTHSA 08/25/20 [History Last Taken 01/29/21] levonorgestrel 1 ea IU X1 08/25/20 [History Last Taken 08/25/20] losartan 100 mg PO DAILY 08/25/20 [History Last Taken 01/30/21] nifedipine 60 mg PO BID 08/25/20 [History Last Taken 01/29/21] pantoprazole 40 mg PO DAILY 08/25/20 [History Last Taken 01/30/21] sennosides 1 tab PO DAILY 08/25/20 [History Last Taken 01/30/21] clonidine HCl 0.2 mg PO TID 01/30/21 [History Last Taken 01/30/21] doxazosin 1 mg PO BID 01/30/21 [History Last Taken 01/30/21] Allergy/AdvReac Type Severity Reaction Status Date / Time ciprofloxacin [From Cipro] Allergy Rash Verified 02/06/21 07:21 clarithromycin [From Biaxin] Allergy Rash Verified 02/06/21 07:21 Penicillins Allergy Hives Verified 02/06/21 07:21 cephalexin [From Keflex] AdvReac Diarrhea Verified 02/06/21 07:21 Social History Smoking Status: Former smoker Physical Exam Const alert and oriented x3 General Appearance: cooperative HEENT normocephalic Head and Scalp: normal to inspection Nose: external nose normal Eyes PERRL and conjunctivae normal Neck no lymphadenopathy Resp normal respiratory effort and normal air movement Auscultation: clear to auscultation bilaterally Cardio regular rate, S1 normal heart sound and S2 normal heart sound Rate: regular rate Heart Sounds: S1 normal and S2 normal GI Auscultation: normoactive bowel sounds Palpation: soft no CVA tenderness Extremity General Extremity: vascular access Peripheral Pulses: Yes pulses 2+ throughout Skin no rashes or lesions noted General Skin Exam: no breakdown Neuro oriented x3 and CN's II-XII intact bilaterally Lab / Micro Data Result Diagrams: 02/06/21 07:30 02/06/21 07:30 Labs: Laboratory Results - last 24 hr 02/06/21 02/06/21 02/06/21 07:29 07:30 07:30 WBC 4.0 L RBC 2.71 L Hgb 9.2 L Hct 28.3 L MCV 104.4 H MCH 33.9 H MCHC 32.5 RDW Std Deviation 52.6 H RDW Coeff of Aleida 14.0 Plt Count 277 MPV 8.7 Immature Gran % (Auto) 0.200 Neut % (Auto) 49.1 Lymph % (Auto) 32.8 [place] % (Auto) 9.2 Eos % (Auto) 5.7 H Baso % (Auto) 3.0 H Absolute Neuts (auto) 2.0 Absolute Lymphs (auto) 1.32 Nucleated RBC % 0 Sodium 134 L Potassium 4.2 Chloride 94 L Carbon Dioxide 25.0 Anion Gap 15 BUN 28 H Creatinine 6.34 H Estim Creat Clear Calc 9.98 Est GFR (MDRD) Af Amer 9 L Est GFR (MDRD) Non-Af 8 L BUN/Creatinine Ratio 4.4 L Glucose 63 L Calcium 9.2 Magnesium Total Bilirubin 0.60 AST 33 ALT 22 Alkaline Phosphatase 61 Troponin I < 0.015 Total Protein 6.1 L Albumin 3.3 Globulin 2.8 Albumin/Globulin Ratio 1.2 POC Glucose 62 L 02/06/21 07:30 WBC RBC Hgb Hct MCV MCH MCHC RDW Std Deviation RDW Coeff of [place] Plt Count MPV Immature Gran % (Auto) Neut % (Auto) Lymph % (Auto) [place] % (Auto) Eos % (Auto) Baso % (Auto) Absolute Neuts (auto) Absolute Lymphs (auto) Nucleated RBC % Sodium Potassium Chloride Carbon Dioxide Anion Gap BUN Creatinine Estim Creat Clear Calc Est GFR (MDRD) Af Amer Est GFR (MDRD) Non-Af BUN/Creatinine Ratio Glucose Calcium Magnesium 2.5 Total Bilirubin AST ALT Alkaline Phosphatase Troponin I Total Protein Albumin Globulin Albumin/Globulin Ratio POC Glucose Rhythm Strip Rhythm Strip: Sinus Rhythm Rate: 80 Ectopy: None Radiology Impression Chest X-Ray 02/06/21 07:55 IMPRESSION: Normal x-ray examination of the chest. Electronically Signed: Aquiles Pagan MD at 8:13 EDT , Service support ,
[2021-02-06 10:55] LABS: BNP,B-Type NATRIURETIC PEPTIDE 851.1 pg/mL (0-100)
[2021-02-06] MEDS: 0.9% Normal Saline 1,000 ML 75 ML IV (11:59)
[2021-02-06] MEDS: 0.9% Saline Lock 10 ML Syringe IV (12:00)
--- NOTE | 2021-02-06 15:50 | DIALYSIS ---
Hemodialysis tx completed x 3 hours without complications. No fluid removed per order. Pt huypertensive post tx. Verbal report given to RN Shivani post tx. Next dialysis tx 02/09/21
[2021-02-06] MEDS: Losartan Potassium 50 MG Tablet PO (16:05)
[2021-02-06] MEDS: Metoprolol Tartrate 25 MG Tablet 12.5 MG PO (16:06)
[2021-02-06] MEDS: Isosorbide Mononitrate 30 MG Tablet PO (16:06)
[2021-02-06] MEDS: Heparin Injection (Vial) 5,000 UNIT/ML VIAL 5000 UNIT SC ×2 (16:06→22:29)
[2021-02-06] MEDS: Zonisamide 50 MG Capsule PO (16:07)
[2021-02-06] MEDS: Pantoprazole Sodium 40 MG Tablet PO (16:07)
[2021-02-06] MEDS: Calcium Acetate 667 MG Capsule PO (16:07)
[2021-02-06] MEDS: levETIRAcetam 500 MG Tablet PO ×2 (16:08→22:29)
[2021-02-06] MEDS: hydrALAZINE 50 MG Tablet 100 MG PO ×2 (18:19→22:27)
[2021-02-06] MEDS: hydrALAZINE 20 MG/ML Vial 10 MG IV ×2 (18:19→23:58)
[2021-02-06] MEDS: proCHLORPERazine 10 MG/2 ML Vial 5 MG IV (18:24)
[2021-02-06] MEDS: Labetalol 200 MG Tablet 600 MG PO (19:11)
[2021-02-06] MEDS: Acetaminophen 500 MG Tablet 1000 MG PO (22:27)
[2021-02-06] MEDS: NIFEdipine 60 MG Tablet PO (22:31)
[2021-02-06] MEDS: Atorvastatin Calcium 10 MG Tablet PO (22:31)
[2021-02-07] VITALS (9 sets, daily range): BP systolic 159–207; BP diastolic 90–114; PULSE 76–93; RESP 16–18; TEMP 36.6; O2SAT 93–99
[2021-02-07] MEDS: cloNIDine HCl 0.2 MG Tablet PO ×2 (01:49→13:33)
--- NOTE | 2021-02-07 05:55 | EKG12_ITS ---
Test Reason : CP ADMITT Blood Pressure : / mmHG Vent. Rate : 082 BPM Atrial Rate : 082 BPM P-R Int : 188 ms QRS Dur : 092 ms QT Int : 448 ms P-R-T Axes : 005 007 040 degrees QTc Int : 523 ms Normal sinus rhythm Prolonged QT Abnormal ECG Confirmed by RICO RODRIGUEZ, JEROME ([id number]), marketing editor JENNIFER KELLEY ([id number]) on 02/10/2021 10:30:49 AM Referred By: WOOD Confirmed By:JEROME GÓMEZ MD
[2021-02-07] MEDS: hydrALAZINE 50 MG Tablet 100 MG PO (06:07)
[2021-02-07] MEDS: Losartan Potassium 50 MG Tablet PO ×2 (06:10→13:33)
[2021-02-07] MEDS: Aspirin E.C. 81 MG Tablet PO (06:10)
--- NOTE | 2021-02-07 10:47 | STRESSREP ---
Stress Test Report Date: 02-07-2021 Procedure: Pharmacologic stress nuclear imaging study Indications: Chest pain; syncope Consent: Per the patient Procedure: The patient underwent pharmacologic (Regadenoson 0.4mg ) evaluation with a peak heart rate of 106 beats per minute (59%predicted maximal heart rate) and a peak blood pressure of 220/100 mmHg. The baseline ECG demonstrated sinus rhythm. The peak pharmacologic ECG demonstrated no obvious ECG changes. There were no cardiac dysrhythmias pretest, during pharmacologic infusion, or recovery. There was no complaint of chest discomfort during pharmacologic infusion or recovery. The examination was discontinued secondary to completion of protocol. Impression: 1. Pharmacologic (Regadenoson) evaluation 2. Peak pharmacologic ECG with no obvious ECG changes. 3. There were no cardiac dysrhythmias pretest, during pharmacologic infusion, or recovery. 4. Nuclear images pending Myocardial perfusion imaging study: Technique: The patient was injected with 11.1 millicuries of technetium 99m Cardiolite and subsequently rest SPECT Cardiolite nuclear imaging was obtained in the horizontal long, vertical long, and short axis views. The patient underwent pharmacologic (Regadenoson) evaluation with a peak heart rate of 106 beats per minute (59% percent predicted maximal heart rate) and a peak blood pressure of 220/110 mmHg. The patient was injected with 33.6 millicuries of technetium 99m Cardiolite and subsequently stress SPECT Cardiolite nuclear imaging was obtained in the horizontal long, vertical long, and short axis views. A gated Cardiolite study at peak stress was obtained. Interpretation: Rest and stress SPECT Cardiolite nuclear imaging status post realignment, normalization, and attenuation correction demonstrate relative uniform tracer uptake and myocardial perfusion appearing within normal limits. There is end systolic thickening and brightening. The gated Cardiolite study demonstrates myocardial thickening and inward wall motion. The reported LVEF is 63%. Impression: 1. Rest and stress SPECT Cardiolite nuclear imaging demonstrate relative uniform tracer uptake and myocardial perfusion appearing within normal limits. 2. The gated Cardiolite study reports an LVEF of 63%. This note was generated with [employer] software. It may contain incorrect words, spelling, and punctuation that were not noted in checking the note before signing.
--- NOTE | 2021-02-07 11:25 | PCM.DC ---
Discharge Instructions Diet Discharge Diet: Renal Diet Activity Discharge Activity: Return to Normal Activity Dressing / Incision Call your doctor if you observe: Shortness of breath, Dizziness and Chest pain Follow Up Care Test Results: Test results from this visit will be discussed in further detail at your follow-up appointment, if applicable. Discharge Plan Admission Admit Date/Time: 02/06/21 09:49 Primary Reason for Your Visit: Chest pain Attending Provider: Jhon Quiles Primary Care Provider: Jairon Wise Consulting Providers: Angelica Tovar Discharge Orders/Prescriptions Prescriptions: Continued levonorgestrel 1 EACH intrauterine device 1 ea IU X1 RF: 0 sennosides 1 TABLET tablet 1 tab PO DAILY RF: 0 labetalol 200 MG tablet 600 mg PO BID RF: 0 atorvastatin 10 MG tablet 10 mg PO QHS RF: 0 levetiracetam 500 MG tablet 500 mg PO MOWEFR RF: 0 aspirin 81 MG tablet 81 mg PO DAILY@1700 RF: 0 nifedipine 60 MG tablet extended release 24hr 60 mg PO BID RF: 0 hydralazine 100 MG tablet 100 mg PO TID RF: 0 pantoprazole 40 MG tablet 40 mg PO DAILY RF: 0 B complex with C 20-folic acid 1 MG capsule 1 mg PO DAILY RF: 0 calcium acetate(phosphat bind) 667 MG capsule 667 mg PO TIDCM RF: 0 losartan 50 MG tablet 100 mg PO DAILY RF: 0 levetiracetam 500 MG tablet 500 mg PO SUTUTHSA RF: 0 isosorbide mononitrate 30 MG tablet extended release 24 hr 30 mg PO QHS RF: 0 acetaminophen 500 MG tablet 1,000 mg PO DAILY PRN PRN (Reason: Pain 1-10 Or Fever) RF: 0 Zonisamide [Zonegran] 50 MG capsule 50 mg PO DAILY RF: 0 clonidine HCl 0.2 mg tablet 0.2 mg PO TID RF: 0 doxazosin 1 MG tablet 1 mg PO BID RF: 0 Referrals / Follow Up: Angelica Tovar MD [STAFF PHYSICIAN] - See Referral Note (As scheduled for dialysis) Jairon Wise DO [Primary Care Provider] - In 1 Week Disposition Disposition (needs filled in before D/C Order can be placed): Home, self care
[2021-02-07] MEDS: Zonisamide 50 MG Capsule PO (11:36)
[2021-02-07] MEDS: Pantoprazole Sodium 40 MG Tablet PO (11:36)
[2021-02-07] MEDS: Labetalol 200 MG Tablet 600 MG PO (11:36)
[2021-02-07] MEDS: NIFEdipine 60 MG Tablet PO (11:36)
[2021-02-07] MEDS: levETIRAcetam 500 MG Tablet PO (11:37)
[2021-02-07] MEDS: Isosorbide Mononitrate 30 MG Tablet PO (11:37)
--- NOTE | 2021-02-07 11:38 | DS.PCM_ITS ---
Documented by User: Shruti Hull NP, CARE SUPPORT REPRESENTATIVE-C 02/07/21 11:45 Providers Date of Admission: 02/06/21 Date of Discharge: 02/07/21 Primary Care Physician: Dr. Jairon Wise, Consultations 02/06/21 09:53 Consult: Nephrology Routine Consulting Provider: Angelica Tovar Reason for Consult: ESRD on HD, Good pasteur duease EMERGENT Consult: No MD Notified: Yes Date Notified:: 02/06/21 Time Notified: 09:53 Method of Notification: Verbal Reason For Visit: CHEST PAIN, SYNCOPE Diagnosis Discharge Diagnosis (1) Hypertension: Status: Chronic Code(s): I10 - Essential (primary) hypertension (2) Syncope and collapse: Status: Acute Code(s): R55 - Syncope and collapse (3) ESRD (end stage renal disease) on dialysis: Status: Chronic Code(s): N18.6 - End stage renal disease; Z99.2 - Dependence on renal dialysis Medications at Discharge Home Medications B complex with C 20-folic acid 1 mg PO DAILY 08/25/20 Zonisamide [Zonegran] 50 mg PO DAILY 08/25/20 acetaminophen 1,000 mg PO DAILY PRN PRN 08/25/20 aspirin 81 mg PO DAILY@1700 08/25/20 atorvastatin 10 mg PO QHS 08/25/20 calcium acetate(phosphat bind) 667 mg PO TIDCM 08/25/20 hydralazine 100 mg PO TID 08/25/20 isosorbide mononitrate 30 mg PO QHS 08/25/20 labetalol 600 mg PO BID 08/25/20 levetiracetam 500 mg PO MOWEFR 08/25/20 levetiracetam 500 mg PO SUTUTHSA 08/25/20 levonorgestrel 1 ea IU X1 08/25/20 losartan 100 mg PO DAILY 08/25/20 nifedipine 60 mg PO BID 08/25/20 pantoprazole 40 mg PO DAILY 08/25/20 sennosides 1 tab PO DAILY 08/25/20 clonidine HCl 0.2 mg PO TID 01/30/21 doxazosin 1 mg PO BID 01/30/21 Hospital Course Operations None Procedures 2-D Echocardiogram and Stress test Summary of Care Provided Minutes Spent on Discharge: 35 Hospital Course: Patient is a 40-year-old female admitted 02/06/2021 due to atypical chest pain and near syncope. 1. Atypical chest pain, ACS ruled out-troponin negative. EKG without ST-T changes. Patient underwent nuclear stress test which was negative for ischemia. Follow-up with PCP in 1 week. 2. Near syncope-echocardiogram demonstrated an EF of 65%, mild mitral valve insufficiency, RVSP estimated to be 43 mmHg. Carotid duplex ultrasound with less than 50% stenosis bilaterally. Orthostatic vitals negative. 3. Hypertension-recent admission for hypertensive urgency. Blood pressure elevated during admission however home medications were adjusted on admission. Continue nifedipine 60 mg twice daily, labetalol 600 mg twice daily, isosorbide 30 mg nightly, hydralazine 100 mg 3 times daily, doxazosin 1 mg twice daily, clonidine 0.2 mg 3 times daily. Continue close blood pressure monitoring at home. 4. 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 5. History of seizure disorder-on Keppra and zonisamide. Patient seen and examined prior to discharge. Physical assessment as noted below. Patient is stable for discharge with follow up recommendations as noted above. This patient was seen by RANDI Anaya under the supervision of Dr. Quiles. Physical Exam Const alert, oriented x3 and no apparent distress Orientation / Consciousness: awake, oriented to person, oriented to place and oriented to time HEENT normocephalic and moist oral mucous membranes Eyes PERRL, EOMs intact bilaterally and conjunctivae normal Neck no lymphadenopathy Resp normal respiratory effort and clear to auscultation bilaterally Cardio regular rate, regular rhythm and no murmurs Peripheral Pulses: pulses 2+ throughout GI normal to inspection, nondistended, normoactive bowel sounds, non-tender and non-distended Extremity normal to inspection Skin no rashes or lesions noted Lesions: no lesions Rashes: no rashes Trauma: no lacerations or abrasions Neuro CN's II-XII intact bilaterally, no focal motor deficits, no sensory deficits noted and deep tendon reflexes 2+ bilaterally Psych mental status grossly normal and affect normal ABG / Lab / Microbiology Data Result Diagrams: 02/06/21 07:30 02/06/21 07:30 Laboratory: Laboratory Results - last 24 hr 02/06/21 02/06/21 11:00 14:30 Troponin I < 0.015 < 0.015 Radiography Diagnostic Testing: Radiology Impression Carotid Duplex 02/06/21 10:02 Interpretation Summary Heterogenous smooth plaque of the proximal right internal carotid artery with less than 50% stenosis Less than 50% stenosis right external carotid artery No significant plaque at the proximal left internal carotid artery with less than 50% stenosis Less than 50% stenosis left external carotid artery Patent and antegrade vertebral arteries bilaterally Ordering Physician: Clinton Villar Referring Physician: Jairon Wise Performed By: Debbie Garcia, DON, RVT Echocardiogram 02/06/21 10:02 Interpretation Summary Left ventricular systolic function is normal. The estimated ejection fraction is 65 %. The left atrium is mildly enlarged. Mild diffuse mitral valve thickening. Mild (1+) mitral valve insufficiency. Mild tricuspid valve insufficiency. Right ventricular systolic pressure estimated to be 43 mmHg. Diastolic function is indeterminate. Ordering Physician: Clinton Villar Referring Physician: Jairon Wise Performed By: Blaine Smith RCS D/C Instructions Discharge Diet: Renal Diet Call your doctor if you observe: Shortness of breath, Dizziness and Chest pain Meaningful Use Info Meaningful Use Diagnoses (Choose all that apply): None applicable Discharge Plan Admission Admit Date/Time: 02/06/21 09:49 Primary Reason for Your Visit: Chest pain Attending Provider: Jhon Quiles Primary Care Provider: Jairon Wise Consulting Providers: Angelica Tovar Discharge Orders/Prescriptions Prescriptions: Continued levonorgestrel 1 EACH intrauterine device 1 ea IU X1 RF: 0 sennosides 1 TABLET tablet 1 tab PO DAILY RF: 0 labetalol 200 MG tablet 600 mg PO BID RF: 0 atorvastatin 10 MG tablet 10 mg PO QHS RF: 0 levetiracetam 500 MG tablet 500 mg PO MOWEFR RF: 0 aspirin 81 MG tablet 81 mg PO DAILY@1700 RF: 0 nifedipine 60 MG tablet extended release 24hr 60 mg PO BID RF: 0 hydralazine 100 MG tablet 100 mg PO TID RF: 0 pantoprazole 40 MG tablet 40 mg PO DAILY RF: 0 B complex with C 20-folic acid 1 MG capsule 1 mg PO DAILY RF: 0 calcium acetate(phosphat bind) 667 MG capsule 667 mg PO TIDCM RF: 0 losartan 50 MG tablet 100 mg PO DAILY RF: 0 levetiracetam 500 MG tablet 500 mg PO SUTUTHSA RF: 0 isosorbide mononitrate 30 MG tablet extended release 24 hr 30 mg PO QHS RF: 0 acetaminophen 500 MG tablet 1,000 mg PO DAILY PRN PRN (Reason: Pain 1-10 Or Fever) RF: 0 Zonisamide [Zonegran] 50 MG capsule 50 mg PO DAILY RF: 0 clonidine HCl 0.2 mg tablet 0.2 mg PO TID RF: 0 doxazosin 1 MG tablet 1 mg PO BID RF: 0 Referrals / Follow Up: Angelica Tovar MD [STAFF PHYSICIAN] - See Referral Note (As scheduled for dialysis) Jairon Wise DO [Primary Care Provider] - In 1 Week Disposition Disposition (needs filled in before D/C Order can be placed): Home, self care Documented by User: Dr. Jhon Quiles MD 02/07/21 12:21 Providers Date of Admission: 02/06/21 Reason For Visit: CHEST PAIN, SYNCOPE Medications at Discharge Home Medications B complex with C 20-folic acid 1 mg PO DAILY 08/25/20 Zonisamide [Zonegran] 50 mg PO DAILY 08/25/20 acetaminophen 1,000 mg PO DAILY PRN PRN 08/25/20 aspirin 81 mg PO DAILY@1700 08/25/20 atorvastatin 10 mg PO QHS 08/25/20 calcium acetate(phosphat bind) 667 mg PO TIDCM 08/25/20 hydralazine 100 mg PO TID 08/25/20 isosorbide mononitrate 30 mg PO QHS 08/25/20 labetalol 600 mg PO BID 08/25/20 levetiracetam 500 mg PO MOWEFR 08/25/20 levetiracetam 500 mg PO SUTUTHSA 08/25/20 levonorgestrel 1 ea IU X1 08/25/20 losartan 100 mg PO DAILY 08/25/20 nifedipine 60 mg PO BID 08/25/20 pantoprazole 40 mg PO DAILY 08/25/20 sennosides 1 tab PO DAILY 08/25/20 clonidine HCl 0.2 mg PO TID 01/30/21 doxazosin 1 mg PO BID 01/30/21 Hospital Course Operations None Summary of Care Provided Hospital Course: This patient was seen in conjunction with SIA Anaya . I have independently interviewed and examined the patient and reviewed pertinent historical, laboratory, and other data. Please refer to RANDI Anaya note for details of this patient's presentation, findings, and recommendations. I have reviewed RANDI Anaya note and concur with documented findings. In brief, patient is a 40-year-old lady with history of end-stage renal disease secondary to Goodpasture's disease on hemodialysis who presented with chest pain. Admitted to monitored bed MA was ruled out with serial cardiac enzymes subsequently underwent a nuclear stress test which was negative for stress- induced ischemia Hospital course: As documented above ABG / Lab / Microbiology Data Result Diagrams: 02/06/21 07:30 02/06/21 07:30 Discharge Plan Admission Admit Date/Time: 02/06/21 09:49 Primary Reason for Your Visit: Chest pain Attending Provider: Jhon Quiles Primary Care Provider: Jairon Wise Consulting Providers: Angelica Tovar Discharge Orders/Prescriptions Prescriptions: Continued levonorgestrel 1 EACH intrauterine device 1 ea IU X1 RF: 0 sennosides 1 TABLET tablet 1 tab PO DAILY RF: 0 labetalol 200 MG tablet 600 mg PO BID RF: 0 atorvastatin 10 MG tablet 10 mg PO QHS RF: 0 levetiracetam 500 MG tablet 500 mg PO MOWEFR RF: 0 aspirin 81 MG tablet 81 mg PO DAILY@1700 RF: 0 nifedipine 60 MG tablet extended release 24hr 60 mg PO BID RF: 0 hydralazine 100 MG tablet 100 mg PO TID RF: 0 pantoprazole 40 MG tablet 40 mg PO DAILY RF: 0 B complex with C 20-folic acid 1 MG capsule 1 mg PO DAILY RF: 0 calcium acetate(phosphat bind) 667 MG capsule 667 mg PO TIDCM RF: 0 losartan 50 MG tablet 100 mg PO DAILY RF: 0 levetiracetam 500 MG tablet 500 mg PO SUTUTHSA RF: 0 isosorbide mononitrate 30 MG tablet extended release 24 hr 30 mg PO QHS RF: 0 acetaminophen 500 MG tablet 1,000 mg PO DAILY PRN PRN (Reason: Pain 1-10 Or Fever) RF: 0 Zonisamide [Zonegran] 50 MG capsule 50 mg PO DAILY RF: 0 clonidine HCl 0.2 mg tablet 0.2 mg PO TID RF: 0 doxazosin 1 MG tablet 1 mg PO BID RF: 0 Referrals / Follow Up: Angelica Tovar MD [STAFF PHYSICIAN] - See Referral Note (As scheduled for dialysis) Jairon Wise DO [Primary Care Provider] - In 1 Week Disposition Disposition (needs filled in before D/C Order can be placed): Home, self care Charges/Coding Visit Charges OBSV E&M: 34632 Observation care discharge Hospital Course Imaging Results Imaging Results: 02/07/21 05:55 Nuclear Stress Test - Chemical [NM] Routine Consultations Consultations: Consultations 02/06/21 09:53 Consult: Nephrology Routine Consulting Provider: Angelica Tovar Reason for Consult: ESRD on HD, Good pasteur duease EMERGENT Consult: No MD Notified: Yes Date Notified:: 02/06/21 Time Notified: 09:53 Method of Notification: Verbal Operations None
[2021-02-07] MEDS: proCHLORPERazine 10 MG/2 ML Vial 5 MG IV (12:50)
[2021-02-07] MEDS: 0.9% Saline Lock 10 ML Syringe IV (12:53)
== END 2021-02-07 11:27 | disposition home or self-care (01) ==
LOC: ED 08:09 → PCU 10:37
PROVIDERS: Admitting Provider Internal Medicine; Emergency Provider Emergency Medicine; PCP Family Medicine; Visit Provider Internal Medicine
DX: I12.0 Hypertensive chronic kidney disease with stage 5 chronic kidney disease or end stage renal disease (principal); N18.6 End stage renal disease; G40.909 Epilepsy, unspecified, not intractable, without status epilepticus; G43.909 Migraine, unspecified, not intractable, without status migrainosus; M31.0 Hypersensitivity angiitis; I65.23 Occlusion and stenosis of bilateral carotid arteries; Z99.2 Dependence on renal dialysis; Z87.891 Personal history of nicotine dependence; Z79.899 Other long term (current) drug therapy; Z79.82 Long term (current) use of aspirin; Z79.3 Long term (current) use of hormonal contraceptives
CPT/HCPCS: 36415; 71045; 78452; 80053; 82962; 83735; 83880; 84484; 85025; 90937; 93005; 93017; 93306; 93880; 94640; 96361; 96372; 96374; 96375; 96376; 99218; 99285; A9500; J7030; J7040; A4216; G0257; G0378; J0610; J2405; J2785

== ENCOUNTER 2021-02-16 07:17 | Emergency (ER) | payer MEDICAID, SELFPAY ==
[2021-02-06 09:10] VITALS: BMI 21.6
[2021-02-16 07:18] VITALS: BP 117/74; PULSE 73; RESP 14; TEMP 36.5; O2SAT 97; BMI 22.3
[2021-02-16 07:35] VITALS: O2SAT 96
--- NOTE | 2021-02-16 07:35 | RAD_ITS ---
STUDY: X-RAY CHEST REASON FOR EXAM: Female, 40 years old. Chest pain TECHNIQUE: Single AP portable view of the chest. COMPARISON: Comparison is made with prior study dated 02/06/2021. FINDINGS: EKG electrodes are seen. The lungs are clear and expanded. There is no demonstrated pleural abnormality. Normal size heart. Normal mediastinum and daphney. Normal visualized pulmonary arteries. Normal visualized aortic arch and descending thoracic aorta. Normal visualized thoracic spine. Normal visualized ribs, clavicles, and shoulders. There is no demonstrated abnormality of the visualized soft tissue structures of the upper abdomen. RAD/Chest 1 View (Portable) IMPRESSION: Normal x-ray examination of the chest. Electronically Signed: Aquiles Pagan MD at 8:22 EDT , Service support ,
--- NOTE | 2021-02-16 07:35 | EKG12_ITS ---
Test Reason : CP Blood Pressure : / mmHG Vent. Rate : 070 BPM Atrial Rate : 070 BPM P-R Int : 192 ms QRS Dur : 098 ms QT Int : 466 ms P-R-T Axes : 012 003 049 degrees QTc Int : 503 ms Normal sinus rhythm Prolonged QT Abnormal ECG Confirmed by MAYKEL LEIVA MD ([id number]), cloth grader supervisor JENNIFER KELLEY ([id number]) on 02/19/2021 9:45:48 AM Referred By: TIGRE Confirmed By:MAYKEL LEIVA MD
--- NOTE | 2021-02-16 07:42 | EDS_ITS ---
HPI History of Present Illness Chief Complaint: Chest Pain Informant: patient Onset/Context/Timing Onset: Today Activity at onset: sudden Timing: Continuous Quality: Positive for Heaviness Location: Substernal Worsened By: Nothing Relieved By: NTG Associated Symptoms: Positive for Lightheadedness; Negative for Nausea, Vomiting, Diaphoresis, Dyspnea, Cough, Fever, Acid Reflux and Palpitations Narrative Narrative: Patient presents with chest pain that began this morning approximately 20 minutes prior to arrival. Patient was in her car when the pain began. Patient states she was on her way to dialysis. Patient describes her pain as a heaviness. Patient was given 1 sublingual nitroglycerin by EMS and her pain improved with this. Currently, the patient denies any chest pain. Patient admits to some lightheadedness. Patient states nothing made her pain worse. CVD Risk Factors: Positive for Hypertension and Hypercholesterolemia; Negative for Diabetes, Family History 1' </=55 and Smoking PE Risk Factors: Negative for Recent Travel/Surgery, Recent Immobilization, Prior DVT or PE and Cancer [facility] Medical History Fistula Former smoker Goodpasture syndrome Hyperlipidemia Hypertension Hypertension Kidney disease Renal dialysis device, implant, or graft complication Home Medications B complex with C 20-folic acid 1 mg PO DAILY 08/25/20 [History Last Taken 02/05/21] Zonisamide [Zonegran] 100 mg PO DAILY 08/25/20 [History Last Taken 02/05/21] acetaminophen 1,000 mg PO DAILY PRN PRN 08/25/20 [History Last Taken 08/25/20] aspirin 81 mg PO DAILY@1700 08/25/20 [History Last Taken 02/05/21] atorvastatin 10 mg PO QHS 08/25/20 [History Last Taken 02/05/21] calcium acetate(phosphat bind) 667 mg PO TIDCM 08/25/20 [History Last Taken 02/05/21] hydralazine 100 mg PO TID 08/25/20 [History Last Taken 02/06/21] isosorbide mononitrate 60 mg PO QHS 08/25/20 [History Last Taken 02/05/21] labetalol 600 mg PO BID 08/25/20 [History Last Taken 02/06/21] levetiracetam 500 mg PO BID 08/25/20 [History Last Taken 02/05/21] levetiracetam 500 mg PO MOWEFR 08/25/20 [History Last Taken 02/06/21] levonorgestrel 1 ea IU X1 08/25/20 [History Last Taken 08/25/20] losartan 100 mg PO DAILY 08/25/20 [History Last Taken 02/05/21] nifedipine 90 mg PO BID 08/25/20 [History Last Taken 02/06/21] pantoprazole 40 mg PO DAILY 08/25/20 [History Last Taken 02/05/21] sennosides 1 tab PO DAILY 08/25/20 [History Last Taken 02/05/21] clonidine HCl 0.3 mg PO TID 01/30/21 [History Last Taken 02/05/21] doxazosin 1 mg PO BID 01/30/21 [History Last Taken 02/05/21] sevelamer carbonate [Renvela] 1,600 mg PO TID 02/16/21 [History Last Taken Unknown] Allergy/AdvReac Type Severity Reaction Status Date / Time ciprofloxacin [From Cipro] Allergy Rash Verified 02/16/21 07:23 clarithromycin [From Biaxin] Allergy Rash Verified 02/16/21 07:23 Penicillins Allergy Hives Verified 02/16/21 07:23 cephalexin [From Keflex] AdvReac Diarrhea Verified 02/16/21 07:23 Social History Smoking Status: Former smoker ROS ROS ED Constitutional Constitutional ED: Denies chills or fever(s) Eyes Eyes: Denies blurry vision or change in vision ENT ENT ED: Denies rhinorrhea or sore throat Cardiovascular Cardiovascular: Reports as per HPI and chest pain; Denies palpitations Respiratory/Chest Respiratory/Chest: Denies cough or dyspnea Gastrointestinal Gastrointestinal: Reports nausea; Denies abdominal pain or vomiting Genitourinary Genitourinary ED: Denies dysuria or hematuria Musculoskeletal Musculoskeletal: Denies back pain or neck pain Integumentary Denies abscess or rash Neurologic Neurologic: Denies headache(s) or weakness Allergic/Immunologic Allergic/Immunologic ED: Denies mouth swelling or urticaria EXAM Physical Exam Const Vital Signs: 02/16/21 07:18 02/16/21 07:35 Temperature 97.7 F L Temperature Source Temporal Pulse Rate 73 Respiratory Rate 14 Respiratory Effort Normal Non-Labored Respiratory Pattern Normal Blood Pressure 117/74 Blood Pressure Mean 88 Pulse Ox 97 96 Oxygen Delivery Method Room Air Room Air Positive well nourished and well developed General Appearance ED: well developed HEENT normocephalic and atraumatic Eyes PERRL and EOMs intact bilaterally Neck supple and no JVD Chest Wall palpation of chest normal Chest: Negative for tenderness Resp normal respiratory effort and clear to auscultation bilaterally Effort and Inspection: Negative for respiratory distress Cardio regular rate and regular rhythm GI normal to inspection, nondistended, normoactive bowel sounds, soft to palpation, non-tender and non-distended Extremity normal to inspection General Extremety ED: Negative for edema or tenderness General Extremity: Negative for edema Neuro oriented x3, CN's II-XII intact bilaterally and no sensory deficits noted Sensorium / Orientation: awake and alert Motor Exam: strength 5/5 throughout Psych mental status grossly normal Heart Score History: Moderately Suspicious ECG: Normal Age: </= 45 years Risk Factors: 1 or 2 Risk Factors Troponin: </= Normal Limit Score: 2 MDM MDM MDM Narrative Medical decision making narrative: EKG was obtained. On my interpretation, it showed a normal sinus rhythm with a rate of 70. AK interval, QRS interval, and QTc intervals were all normal. Blair was normal. There are no acute ST or T wave changes. This was unchanged compared to previous EKG dated 02/06/2021. Portable 1 view chest x-ray was obtained. On my interpretation, lung schwab are clear. There is normal cardiac silhouette. Bony thorax is normal. There is no acute process noted. Radiologist also interpreted the x-ray and agrees. CBC shows a mild anemia with a hemoglobin of 8.4. This is consistent with prior results. Basic metabolic profile showed an elevated creatinine of 8.3. Patient was on her way to dialysis when her pain started. Troponin was normal. I reviewed the patient's records and she had a stress test on 02/07/2021 which was normal. Patient has a HEART score of 2. Patient was advised that this is low risk for acute cardiac event. Patient will be discharged to go to dialysis today. Patient understands and is agreeable with the plan. All questions were answered. Lab Data Attestation: I reviewed the patient's lab results. Labs: Laboratory Results - last 24 hr 02/16/21 02/16/21 07:30 07:30 WBC 5.6 RBC 2.47 L Hgb 8.4 L Hct 26.7 L MCV 108.1 H MCH 34.0 H MCHC 31.5 L RDW Std Deviation 58.7 H RDW Coeff of Aleida 14.8 H Plt Count 303 MPV 8.7 Immature Gran % (Auto) 0.400 Neut % (Auto) 54.5 Lymph % (Auto) 29.6 Crenshaw % (Auto) 8.0 Eos % (Auto) 5.5 H Baso % (Auto) 2.0 H Absolute Neuts (auto) 3.1 Absolute Lymphs (auto) 1.67 Nucleated RBC % 0 Sodium 136 Potassium 5.1 Chloride 99 Carbon Dioxide 23.0 Anion Gap 14 BUN 36 H Creatinine 8.30 H* Estim Creat Clear Calc 7.62 Est GFR (MDRD) Af Amer 7 L Est GFR (MDRD) Non-Af 6 L BUN/Creatinine Ratio 4.3 L Glucose 46 L Calcium 9.4 Troponin I < 0.015 Radiography Chest X-Ray - ED: 1 View, Read by ED Physician and Read by Radiologist Diagnostic Testing: Radiology Impression Chest X-Ray 02/16/21 07:35 IMPRESSION: Normal x-ray examination of the chest. Electronically Signed: Aquiles Pagan MD at 8:22 EDT , Service support , EKG Initial EKG: Attestation: I personally reviewed and interpreted this EKG as follows: Interpretation: Sinus Rhythm (70) and No Acute Injury Pattern Prior EKG tracings: available for review Prior: Unchanged (02/06/2021) Discharge Plan Triage Chief Complaint: Chest Pain ED Provider: Ray Del Rio Dx/Rx/DC Orders Clinical Impression: Chest pain of uncertain etiology Instructions: ED Chest Pain, Uncertain Cause Prescriptions: No Action levonorgestrel 1 EACH intrauterine device 1 ea IU X1 RF: 0 sennosides 1 TABLET tablet 1 tab PO DAILY RF: 0 labetalol 200 MG tablet 600 mg PO BID RF: 0 atorvastatin 10 MG tablet 10 mg PO QHS RF: 0 levetiracetam 500 MG tablet 500 mg PO MOWEFR RF: 0 aspirin 81 MG tablet 81 mg PO DAILY@1700 RF: 0 nifedipine 60 MG tablet extended release 24hr 90 mg PO BID RF: 0 hydralazine 100 MG tablet 100 mg PO TID RF: 0 pantoprazole 40 MG tablet 40 mg PO DAILY RF: 0 B complex with C 20-folic acid 1 MG capsule 1 mg PO DAILY RF: 0 calcium acetate(phosphat bind) 667 MG capsule 667 mg PO TIDCM RF: 0 losartan 50 MG tablet 100 mg PO DAILY RF: 0 levetiracetam 500 MG tablet 500 mg PO BID RF: 0 isosorbide mononitrate 30 MG tablet extended release 24 hr 60 mg PO QHS RF: 0 acetaminophen 500 MG tablet 1,000 mg PO DAILY PRN PRN (Reason: Pain 1-10 Or Fever) RF: 0 Zonisamide [Zonegran] 50 MG capsule 100 mg PO DAILY RF: 0 clonidine HCl 0.2 mg tablet 0.3 mg PO TID RF: 0 doxazosin 1 MG tablet 1 mg PO BID RF: 0 sevelamer carbonate [Renvela] 800 mg Tablet 1,600 mg PO TID RF: 0 Primary Care Provider: Jairon Wise Referrals: Jairon Wise DO [Primary Care Provider] - 5-7 Days Disposition Disposition: Home, self care
[2021-02-16 07:49] LABS: Absolute Lymphocyte Count 1.67 X10^3/uL (0.83-4.51); Absolute Neutrophil Count 3.1 X10^3/uL (2.0-7.7); Basophil# 0.11 X10^3/uL; Eosinophil# 0.31 X10^3/uL; Eosinophils% 5.5 % (0-5); Hematocrit 26.7 % (37-47); Hemoglobin 8.4 g/dL (12.0-15.0); Lymphocyte # 1.67 X10^3/ul (0.83-4.51); Lymphocyte % 29.6 % (19-41); Mean Corp Hgb Conc 31.5 g/dL (32-36); Mean Corpuscular Volume 108.1 fL (81-99); Mean Platelet Vol. 8.7 fl (6.2-12.0); Monocyte# 0.45 X10^3/uL; NRBC Flagged by Analyzer 0 % (0-5); Neutrophil # 3.08 X10^3/uL (2.7-7.7); Neutrophil % 54.5 % (47-70); Platelet Count 303 K/mm3 (150-450); RBC Distribution Width CV 14.8 % (11.6-14.6); RBC Distribution Width SD 58.7 fl (35.1-43.9); Red Blood Count 2.47 M/mm3 (4.2-5.4); White Blood Count 5.6 K/mm3 (4.4-11.0)
[2021-02-16 08:03] LABS: Anion Gap 14 (5-15); BUN 36 mg/dL (7-18); BUN/Creat Ratio 4.3 RATIO (10-20); Calcium,Total 9.4 mg/dL (8.5-10.1); Chloride 99 mmol/L (98-107); EST Glomerular Filtration Rate 6 mL/min (>60); Est Glom Filt Rate - Afr Amer 7 mL/min (>60); Estimated Creatinine Clearance 7.62 ml/min; Glucose 46 mg/dL (74-106); Potassium 5.1 mmol/L (3.5-5.1); Sodium Level 136 mmol/L (136-145)
[2021-02-16 08:47] VITALS: BP 147/85; PULSE 76; RESP 16; O2SAT 98
== END 2021-02-16 08:49 | disposition home or self-care (01) ==
PROVIDERS: Emergency Provider Emergency Medicine; PCP Family Medicine
DX: R07.9 Chest pain, unspecified (principal); E78.5 Hyperlipidemia, unspecified; I12.9 Hypertensive chronic kidney disease with stage 1 through stage 4 chronic kidney disease, or unspecified chronic kidney disease; Z99.2 Dependence on renal dialysis; Z79.899 Other long term (current) drug therapy; Z87.891 Personal history of nicotine dependence
CPT/HCPCS: 71045; 80048; 84484; 85025; 93005; 99285; A4216

== ENCOUNTER 2021-04-15 14:02 | Emergency (ER) | payer MEDICAID, SELFPAY ==
[2021-04-15 14:03] VITALS: BP 151/93; PULSE 84; RESP 18; TEMP 36.5; O2SAT 98; BMI 19.9
--- NOTE | 2021-04-15 14:23 | CT_ITS ---
STUDY: CT BRAIN WITHOUT CONTRAST REASON FOR EXAM: Female, 40 years old. Headache RADIATION DOSAGE (If Supplied By Facility): CTDIvol = ( 44.99 ) mGy, DLP = ( 779.24 ) mGycm TECHNIQUE: Transaxial CT imaging of the brain was performed without administration of intravenous contrast material. Individualized dose optimization techniques were used for this CT. COMPARISON: Comparison is made with prior examination dated 01/30/2021. FINDINGS: Normal soft tissue structures. Normal calvarium. Normal size ventricles and extra-axial spaces for the patient''s age. Normal white matter tracts of the cerebral hemispheres. Normal basal ganglia and thalami. Normal brainstem. Normal cerebellum. There is no intracranial hemorrhage. There are no findings of an acute ischemic infarction. Partial opacification of the left maxillary sinus. CT/Brain/Head without Contrast IMPRESSION: Normal unenhanced CT scan of the brain. Partial opacification of the left maxillary sinus. Electronically Signed: Aquiles Pagan MD at 15:35 EDT , Service support ,
--- NOTE | 2021-04-15 14:23 | EKG12_ITS ---
Test Reason : GENERAL Blood Pressure : / mmHG Vent. Rate : 076 BPM Atrial Rate : 076 BPM P-R Int : 192 ms QRS Dur : 086 ms QT Int : 444 ms P-R-T Axes : 036 -08 025 degrees QTc Int : 499 ms Normal sinus rhythm Prolonged QT Abnormal ECG Confirmed by VICTORINO RODRIGUEZ, JARED ([id number]), staff developer JENNIFER KELLEY ([id number]) on 04/17/2021 10:10:31 A M Referred By: JANEE Confirmed By:BESSIE GLEASON MD
--- NOTE | 2021-04-15 14:25 | EX.ED.DYSGE1 ---
HPI History of Present Illness Chief Complaint: General Illness Narrative Narrative: 40-year-old female with history of epilepsy, migraine, end-stage renal disease on dialysis presenting with chief complaint of elevated blood pressure with headache. She states she has a history of migraines and this feels similar. She noted that her blood pressure was elevated earlier today. He is on multiple antihypertensives prescribed to her by her network security engineer Dr. To. Patient states she called the office and she was told to monitor her blood pressure and if it gets worse to come to the ER for evaluation. Patient does state that she has some mild pain in the left ribs without any trauma. She does not describe it as pressure. She denies lightheadedness or dizziness. Patient has end-stage renal disease on dialysis Tuesday and Tuesday and did complete this today. She does not have fever, chills, cough. PFSH [facility] Medical History Fistula Former smoker Goodpasture syndrome Hyperlipidemia Hypertension Hypertension Kidney disease Renal dialysis device, implant, or graft complication Home Medications B complex with C 20-folic acid 1 mg PO DAILY 08/25/20 [History Last Taken 02/05/21] Zonisamide [Zonegran] 100 mg PO DAILY 08/25/20 [History Last Taken 02/05/21] acetaminophen 1,000 mg PO DAILY PRN PRN 08/25/20 [History Last Taken 08/25/20] aspirin 81 mg PO DAILY@1700 08/25/20 [History Last Taken 02/05/21] atorvastatin 10 mg PO QHS 08/25/20 [History Last Taken 02/05/21] hydralazine 100 mg PO TID 08/25/20 [History Last Taken 02/06/21] isosorbide mononitrate 60 mg PO QHS 08/25/20 [History Last Taken 02/05/21] labetalol 600 mg PO BID 08/25/20 [History Last Taken 02/06/21] levetiracetam 500 mg PO BID 08/25/20 [History Last Taken 02/05/21] levetiracetam 500 mg PO MOWEFR 08/25/20 [History Last Taken 02/06/21] levonorgestrel 1 ea IU X1 08/25/20 [History Last Taken 08/25/20] losartan 100 mg PO DAILY 08/25/20 [History Last Taken 02/05/21] nifedipine 90 mg PO BID 08/25/20 [History Last Taken 02/06/21] pantoprazole 40 mg PO DAILY 08/25/20 [History Last Taken 02/05/21] sennosides 1 tab PO DAILY 08/25/20 [History Last Taken 02/05/21] clonidine HCl 0.3 mg PO TID 01/30/21 [History Last Taken 02/05/21] doxazosin 1 mg PO BID 01/30/21 [History Last Taken 02/05/21] Allergy/AdvReac Type Severity Reaction Status Date / Time ciprofloxacin [From Cipro] Allergy Rash Verified 04/15/21 14:05 clarithromycin [From Biaxin] Allergy Rash Verified 04/15/21 14:05 Penicillins Allergy Hives Verified 04/15/21 14:05 cephalexin [From Keflex] AdvReac Diarrhea Verified 04/15/21 14:05 Social History Smoking Status: Former smoker ROS ROS ED Constitutional Constitutional ED: Denies chills, fever(s) or sweats Eyes Eyes: Denies blurry vision or diplopia Cardiovascular Cardiovascular: Reports chest pain; Denies palpitations or racing heartbeat Respiratory/Chest Respiratory/Chest: Denies cough or dyspnea Gastrointestinal Gastrointestinal: Denies abdominal pain, nausea or vomiting Genitourinary Genitourinary ED: Denies dysuria or hematuria Musculoskeletal Musculoskeletal: Denies arthralgias, back pain, myalgias or neck pain Integumentary Denies Abrasions or rash Neurologic Neurologic: Reports headache(s); Denies paresthesias or weakness EXAM Physical Exam Const Vital Signs: 04/15/21 14:03 04/15/21 14:41 04/15/21 15:34 Temperature 97.7 F L 97.7 F L 97.7 F L Temperature Source Temporal Temporal Temporal Pulse Rate 84 84 89 Respiratory Rate 18 18 16 Respiratory Effort Short of Breath Respiratory Pattern Normal Blood Pressure 151/93 H 151/93 H 151/89 H Blood Pressure Mean 112 112 109 Pulse Ox 98 98 96 Oxygen Delivery Method Room Air Room Air Room Air 04/15/21 17:56 04/15/21 19:08 Temperature Temperature Source Pulse Rate 117 H 83 Respiratory Rate 20 H 18 Respiratory Effort Respiratory Pattern Blood Pressure 219/107 H 176/76 H Blood Pressure Mean 144 109 Pulse Ox 97 95 Oxygen Delivery Method Room Air Positive well nourished General Appearance ED: NAD; Negative for pallor HEENT Reports moist mucous membranes Negative for trauma Eyes PERRL and EOMs intact bilaterally General Eye ED: Negative for pale conjunctiva or scleral icterus Chest Wall inspection of chest normal and palpation of chest normal Resp normal respiratory effort and clear to auscultation bilaterally Cardio regular rate and regular rhythm Neuro oriented x3, CN's II-XII intact bilaterally and no sensory deficits noted Sensorium / Orientation: alert Motor Exam: strength 5/5 throughout Psych mental status grossly normal Skin no rashes or lesions noted General Skin Exam: Negative for jaundice or pallor MDM MDM MDM Narrative Medical decision making narrative: Patient presenting with elevated blood pressure and some mild left rib pain. She does states she has a headache consistent with migraine. I did obtain lab work and her CBC is normal. Her BMP is consistent with end-stage renal disease. Troponin is negative at 16.8. EKG is sinus rhythm at [address] elevation or depression. NM interval is 192, QRS duration 86 ms, QTC 499. Chest x-ray on my interpretation shows no acute cardiopulmonary process and the radiologist does agree. CT of the brain is negative. Patient's headache resolved without treatment. She requested something for her left rib pain and was given [facility]. Her pain did improve. Patient was given her hypertensive meds which she would normally take at home and her blood pressure did come down after being elevated slightly while waiting for her medication. I do not believe there is anything acute going on. Patient will monitor her blood pressures at home. Impression: 1. Hypertension established?[id number] 2. History of chronic kidney disease 3. Headache resolved Lab Data Attestation: I reviewed the patient's lab results. Labs: Laboratory Results - last 24 hr 04/15/21 04/15/21 16:35 16:35 WBC 5.6 RBC 3.71 L Hgb 12.6 Hct 38.6 MCV 104.0 H MCH 34.0 H MCHC 32.6 RDW Std Deviation 55.8 H RDW Coeff of Aleida 14.6 Plt Count 246 MPV 9.0 Immature Gran % (Auto) 0.200 Neut % (Auto) 61.2 Lymph % (Auto) 22.3 [place] % (Auto) 12.3 H Eos % (Auto) 2.7 Baso % (Auto) 1.3 H Absolute Neuts (auto) 3.4 Absolute Lymphs (auto) 1.24 Nucleated RBC % 0 Sodium 136 Potassium 4.9 Chloride 97 L Carbon Dioxide 31.0 Anion Gap 8 BUN 8 Creatinine 2.61 H Estim Creat Clear Calc 23.32 Est GFR (MDRD) Af Amer 26 L Est GFR (MDRD) Non-Af 21 L BUN/Creatinine Ratio 3.1 L Glucose 68 L Calcium 9.1 Troponin I High Sens 16.8 Radiography Diagnostic Testing: Radiology Impression Brain CT 04/15/21 14:23 IMPRESSION: Normal unenhanced CT scan of the brain. Partial opacification of the left maxillary sinus. Electronically Signed: Aquiles Pagan MD at 15:35 EDT , Service support , Chest X-Ray 04/15/21 15:15 IMPRESSION: Normal x-ray examination of the chest. Electronically Signed: Aquiles Pagan MD at 15:37 EDT , Service support , Discharge Plan Triage Chief Complaint: General Illness Other Complaint: Hypertension ED Provider: Yefri Govea Dx/Rx/DC Orders Instructions: ED Hypertension, Established Prescriptions: No Action levonorgestrel 1 EACH intrauterine device 1 ea IU X1 RF: 0 sennosides 1 TABLET tablet 1 tab PO DAILY RF: 0 labetalol 200 MG tablet 600 mg PO BID RF: 0 atorvastatin 10 MG tablet 10 mg PO QHS RF: 0 levetiracetam 500 MG tablet 500 mg PO MOWEFR RF: 0 aspirin 81 MG tablet 81 mg PO DAILY@1700 RF: 0 nifedipine 60 MG tablet extended release 24hr 90 mg PO BID RF: 0 hydralazine 100 MG tablet 100 mg PO TID RF: 0 pantoprazole 40 MG tablet 40 mg PO DAILY RF: 0 B complex with C 20-folic acid 1 MG capsule 1 mg PO DAILY RF: 0 losartan 50 MG tablet 100 mg PO DAILY RF: 0 levetiracetam 500 MG tablet 500 mg PO BID RF: 0 isosorbide mononitrate 30 MG tablet extended release 24 hr 60 mg PO QHS RF: 0 acetaminophen 500 MG tablet 1,000 mg PO DAILY PRN PRN (Reason: Pain 1-10 Or Fever) RF: 0 Zonisamide [Zonegran] 50 MG capsule 100 mg PO DAILY RF: 0 clonidine HCl 0.2 mg tablet 0.3 mg PO TID RF: 0 doxazosin 1 MG tablet 1 mg PO BID RF: 0 Primary Care Provider: Jairon Wise Referrals: Jairon Wise DO [Primary Care Provider] - Disposition Disposition: Home, Self Care Discharge Date/Time: 04/15/21 19:38
[2021-04-15 14:41] VITALS: BP 151/93; PULSE 84; RESP 18; TEMP 36.5; O2SAT 98
[2021-04-15] MEDS: Lidocaine 5% Patch 1 PATCH TOPICAL (14:46)
[2021-04-15] MEDS: Aspirin 81 MG TAB.CHEW 324 MG PO (14:46)
--- NOTE | 2021-04-15 15:15 | RAD_ITS ---
STUDY: X-RAY CHEST REASON FOR EXAM: Female, 40 years old. Chest pain TECHNIQUE: Single AP portable view of the chest. COMPARISON: Comparison is made with prior study of 02/16/2021. FINDINGS: EKG electrodes are seen. The lungs are clear and expanded. There is no demonstrated pleural abnormality. Normal size heart. Normal mediastinum and daphney. Normal visualized pulmonary arteries. Normal visualized aortic arch and descending thoracic aorta. Normal visualized thoracic spine. Normal visualized ribs, clavicles, and shoulders. There is no demonstrated abnormality of the visualized soft tissue structures of the upper abdomen. RAD/Chest 1 View (Portable) IMPRESSION: Normal x-ray examination of the chest. Electronically Signed: Aquiles Pagan MD at 15:37 EDT , Service support ,
[2021-04-15 15:34] VITALS: BP 151/89; PULSE 89; RESP 16; TEMP 36.5; O2SAT 96
--- NOTE | 2021-04-15 15:35 | ED.RN ---
IV ATTEMPT X2. PT IS DIFFICULT STICK. DR. LEE INFORMED, WILL HOLD OFF ON IV AND IV MEDS AT THIS TIME. LAB CALLED FOR BLOOD DRAW.
--- NOTE | 2021-04-15 16:00 | ED.RN ---
LAB UNABLE TO OBTAIN BLOOD DRAW AFTER 2 STICKS, DR. LEE INFORMED. PT REPORTS HEADACHE HAS IMPROVED.
[2021-04-15 16:42] LABS: Absolute Lymphocyte Count 1.24 X10^3/uL (0.83-4.51); Absolute Neutrophil Count 3.4 X10^3/uL (2.0-7.7); Basophil# 0.07 X10^3/uL; Basophil% 1.3 % (0-1); Eosinophil# 0.15 X10^3/uL; Eosinophils% 2.7 % (0-5); Hematocrit 38.6 % (37-47); Hemoglobin 12.6 g/dL (12.0-15.0); Lymphocyte # 1.24 X10^3/ul (0.83-4.51); Lymphocyte % 22.3 % (19-41); Mean Corp Hgb Conc 32.6 g/dL (32-36); Monocyte# 0.68 X10^3/uL; Monocyte% 12.3 % (0-10); NRBC Flagged by Analyzer 0 % (0-5); Neutrophil % 61.2 % (47-70); Platelet Count 246 K/mm3 (150-450); RBC Distribution Width CV 14.6 % (11.6-14.6); RBC Distribution Width SD 55.8 fl (35.1-43.9); Red Blood Count 3.71 M/mm3 (4.2-5.4); White Blood Count 5.6 K/mm3 (4.4-11.0)
[2021-04-15 17:15] LABS: Anion Gap 8 (5-15); BUN 8 mg/dL (7-18); BUN/Creat Ratio 3.1 RATIO (10-20); Calcium,Total 9.1 mg/dL (8.5-10.1); Chloride 97 mmol/L (98-107); Creatinine, Serum 2.61 mg/dL (0.55-1.02); EST Glomerular Filtration Rate 21 mL/min (>60); Est Glom Filt Rate - Afr Amer 26 mL/min (>60); Estimated Creatinine Clearance 23.32 ml/min; Glucose 68 mg/dL (74-106); Potassium 4.9 mmol/L (3.5-5.1); Sodium Level 136 mmol/L (136-145); Troponin-I HS 16.8 pg/mL (3.0-53.7)
[2021-04-15 17:56] VITALS: BP 219/107; PULSE 117; RESP 20; O2SAT 97
[2021-04-15] MEDS: HYDROcodone Bitartrate/Apap 5/325 Tablet PO (18:12)
--- NOTE | 2021-04-15 18:19 | ED.RN ---
called to pharmacy for bp medications.
[2021-04-15] MEDS: Doxazosin 1 MG Tablet PO (18:24)
[2021-04-15] MEDS: hydrALAZINE 50 MG Tablet 100 MG PO (18:24)
[2021-04-15] MEDS: Clonidine HCl 0.1 MG, Clonidine HCl 0.2 MG 0.3 MG PO (18:24)
[2021-04-15] MEDS: Labetalol 200 MG Tablet 600 MG PO (18:24)
[2021-04-15 19:08] VITALS: BP 176/76; PULSE 83; RESP 18; O2SAT 95
== END 2021-04-15 19:38 | disposition home or self-care (01) ==
PROVIDERS: Emergency Provider Student in an Organized Health Care Education/Training Program; PCP Family Medicine
DX: I12.0 Hypertensive chronic kidney disease with stage 5 chronic kidney disease or end stage renal disease (principal); R51.9 Headache, unspecified; N18.6 End stage renal disease; E78.5 Hyperlipidemia, unspecified; M31.0 Hypersensitivity angiitis; G40.909 Epilepsy, unspecified, not intractable, without status epilepticus; Z99.2 Dependence on renal dialysis; Z79.82 Long term (current) use of aspirin; Z79.899 Other long term (current) drug therapy; Z87.891 Personal history of nicotine dependence
CPT/HCPCS: 70450; 71045; 80048; 84484; 85025; 93005; 99283; A4216

== ENCOUNTER 2021-09-18 10:38 | Emergency (ER) | payer MEDICAID, SELFPAY ==
[2021-09-18 10:39] VITALS: BP 194/115; PULSE 90; RESP 18; TEMP 37.2; O2SAT 98; BMI 18.6
--- NOTE | 2021-09-18 11:19 | EX.ED.DYSGE1 ---
HPI History of Present Illness Chief Complaint: Seizure Detail of Chief Complaint: Generalized witnessed tonic-clonic seizure during dialysis Informant: patient, EMS and other Onset/Context/Timing Onset: Today Context: Sudden Onset Timing: Intermittent Quality: Generalized tonic-clonic seizure Location: During dialysis Current Severity: Gone Maximum Severity: Severe Worsened by: Unknown Relieved by: Resolved on its own Associated Symptoms Associated Symptoms: Headache, which is common after seizure Narrative Narrative: Patient is a 40-year-old woman with history of renal failure due to Goodpasture syndrome and seizure disorder. She states she is compliant with her seizure medication. She is on 500 mg twice daily. She is scheduled to see neurologist in October. She had a seizure 1 month ago. She states it is not common to have 1 seizure per month. She does report headache. Denies visual, ocular auditory symptoms. Denies ringing or ears. Denies rhinorrhea, congestion or postnasal drainage. Denies sore throat. Denies cough or shortness of breath. She denies dyspnea on exertion compared to normal. She denies orthopnea PND. She denies chest discomfort. She denies GI symptoms. She denies myalgias or arthralgias. Prior similar symptoms: Yes Recent Illness/Hospitalization: Yes (Seizure 1 month ago) [facility] Medical History Fistula Former smoker Goodpasture syndrome Hyperlipidemia Hypertension Hypertension Kidney disease Renal dialysis device, implant, or graft complication Home Medications Zonisamide [Zonegran] 100 mg PO DAILY 08/25/20 [History Last Taken 02/05/21] acetaminophen 1,000 mg PO DAILY PRN PRN 08/25/20 [History Last Taken 08/25/20] aspirin 81 mg PO DAILY@1700 08/25/20 [History Last Taken 02/05/21] atorvastatin 10 mg PO QHS 08/25/20 [History Last Taken 02/05/21] hydralazine 100 mg PO TID 08/25/20 [History Last Taken 02/06/21] isosorbide mononitrate 60 mg PO QHS 08/25/20 [History Last Taken 02/05/21] labetalol 600 mg PO BID 08/25/20 [History Last Taken 02/06/21] levetiracetam 500 mg PO BID 08/25/20 [History Last Taken 02/05/21] levetiracetam 500 mg PO MOWEFR 08/25/20 [History Last Taken 02/06/21] levonorgestrel 1 ea IU X1 08/25/20 [History Last Taken 08/25/20] losartan 100 mg PO DAILY 08/25/20 [History Last Taken 02/05/21] nifedipine 90 mg PO BID 08/25/20 [History Last Taken 02/06/21] pantoprazole 40 mg PO DAILY 08/25/20 [History Last Taken 02/05/21] clonidine HCl 0.3 mg PO TID 01/30/21 [History Last Taken 02/05/21] doxazosin 1 mg tablet 1 mg PO DAILY 06/15/21 [History Last Taken Unknown] ondansetron HCl 4 mg tablet 4 mg PO Q8H 06/15/21 [History Last Taken Unknown] sennosides 8.6 mg-docusate sodium 50 mg capsule 1 tab-cap PO BID PRN 06/15/21 [History Last Taken Unknown] sevelamer carbonate 800 mg tablet 800 mg PO TID 06/15/21 [History Last Taken Unknown] vitamin B complex and vitamin C no.20-folic acid 1 mg capsule 1 cap PO DAILY 06/15/21 [History Last Taken Unknown] Allergy/AdvReac Type Severity Reaction Status Date / Time ciprofloxacin [From Cipro] Allergy Rash Verified 09/18/21 10:38 clarithromycin [From Biaxin] Allergy Rash Verified 09/18/21 10:38 Penicillins Allergy Hives Verified 09/18/21 10:38 cephalexin [From Keflex] AdvReac Diarrhea Verified 09/18/21 10:38 Social History (Updated 09/18/21 @ 11:[address] Simon Valderrama MD) household members: none Smoking Status: Former smoker substance use type: does not use ROS ROS ED Constitutional Constitutional ED: Denies chills, fever(s), sweats or weight loss Eyes Eyes: Denies blurry vision, change in vision or diplopia ENT ENT ED: Denies ear pain, rhinorrhea or sore throat Cardiovascular Cardiovascular: Denies chest pain, orthopnea, palpitations or paroxysmal nocturnal dyspnea Respiratory/Chest Respiratory/Chest: Reports cough and dyspnea on exertion; Denies dyspnea, orthopnea or paroxysmal nocturnal dyspnea Gastrointestinal Gastrointestinal: Denies abdominal pain, diarrhea, nausea or vomiting Musculoskeletal Musculoskeletal: Denies arthralgias, back pain, myalgias or neck pain Integumentary Denies rash Neurologic Neurologic: Reports headache(s); Denies paresthesias or weakness Psychiatric Psychiatric: Reports depression Hematologic/Lymphatic Hematologic/Lymphatic: Reports anemia; Denies easy bleeding or easy bruising Allergic/Immunologic Allergic/Immunologic ED: Denies mouth swelling or urticaria EXAM Physical Exam Const Vital Signs: 09/18/21 10:39 09/18/21 12:11 Temperature 99.0 F Temperature Source Temporal Pulse Rate 90 82 Respiratory Rate 18 14 Blood Pressure 194/115 H 193/95 H Blood Pressure Mean 141 127 Pulse Ox 98 97 Oxygen Delivery Method Room Air Room Air Positive well nourished and well developed General Appearance ED: well developed and NAD; Negative for cyanotic, diaphoretic or pallor HEENT Reports TM's clear and moist mucous membranes HEENT Narrative: Patient is an abrasion bridge of the nose due to her glasses. Ears normal. Nares patent. trauma; Negative for tenderness Tympanic Membrane ED: Yes TM's clear Eyes PERRL and EOMs intact bilaterally Eyes Narrative: There is no APD. There is no nystagmus. There is no subconjunctival hemorrhage. General Eye ED: Negative for pale conjunctiva or scleral icterus Neck no lymphadenopathy, supple and no JVD Resp normal respiratory effort and clear to auscultation bilaterally Cardio regular rate, regular rhythm, S1 normal heart sound, S2 normal heart sound and no murmurs GI normal to inspection, nondistended, normoactive bowel sounds and non-tender Palpation: soft Back/Spine no CVA tenderness Cervical Spine: Negative for cervical spine tenderness Thoracic Spine / Upper Back: Negative for thoracic spinal tenderness or paraspinal muscle tenderness Extremity normal to inspection General Extremety ED: Negative for edema or tenderness General Extremity: Negative for edema Neuro oriented x3, CN's II-XII intact bilaterally and no sensory deficits noted Sensorium / Orientation: alert Motor Exam: strength 5/5 throughout Psych mental status grossly normal Skin no rashes or lesions noted and no wounds General Skin Exam: Negative for jaundice or pallor MDM MDM MDM Narrative Medical decision making narrative: Patient was allowed to take her medicine which she normally does after dialysis. She almost completed dialysis. She was given a dose of Keppra in the emergency department. Keppra level was assessed that she has not had a level drawn for some time. Since she is a dialysis patient basic metabolic panel was obtained to assess her electrolytes and specifically sodium. She was placed on a monitor. Patient did not wait for home-going structures because her daughter was brought to [facility] unresponsive after apparent overdose. Patient was instructed to keep appointment with neurologist. Lab Data Attestation: I reviewed the patient's lab results. Labs: Laboratory Results - last 24 hr 09/18/21 11:05 Sodium 135 L Potassium 3.9 Chloride 98 Carbon Dioxide 34.0 H Anion Gap 3 L BUN 16 Creatinine 2.05 H Estim Creat Clear Calc 27.71 Est GFR (MDRD) Af Amer 34 L Est GFR (MDRD) Non-Af 28 L BUN/Creatinine Ratio 7.8 L Glucose 96 Calcium 9.3 Rhythm Strip Rhythm Strip: Sinus Rhythm Rate: 88 Ectopy: PVC(s) (Rare) Discharge Plan Triage Chief Complaint: Seizure ED Provider: Simon Valderrama Dx/Rx/DC Orders Clinical Impression: Breakthrough seizure, ESRD (end stage renal disease) on dialysis, Goodpasture syndrome Instructions: ED Seizure, Recurrent (Adult) Prescriptions: No Action doxazosin [Cardura] 1 mg tablet 1 mg PO DAILY RF: 0 Senna Plus 8.6-50 mg capsule 1 tab-cap PO BID PRN (Reason: Constipation) RF: 0 Renal Caps 1 mg capsule 1 cap PO DAILY RF: 0 sevelamer carbonate [Renvela] 800 mg tablet 800 mg PO TID RF: 0 ondansetron HCl [Zofran] 4 mg tablet 4 mg PO Q8H RF: 0 levonorgestrel 1 EACH intrauterine device 1 ea IU X1 RF: 0 labetalol 200 MG tablet 600 mg PO BID RF: 0 atorvastatin 10 MG tablet 10 mg PO QHS RF: 0 levetiracetam 500 MG tablet 500 mg PO MOWEFR RF: 0 aspirin 81 MG tablet 81 mg PO DAILY@1700 RF: 0 nifedipine 60 MG tablet extended release 24hr 90 mg PO BID RF: 0 hydralazine 100 MG tablet 100 mg PO TID RF: 0 pantoprazole 40 MG tablet 40 mg PO DAILY RF: 0 losartan 50 MG tablet 100 mg PO DAILY RF: 0 levetiracetam 500 MG tablet 500 mg PO BID RF: 0 isosorbide mononitrate 30 MG tablet extended release 24 hr 60 mg PO QHS RF: 0 acetaminophen 500 MG tablet 1,000 mg PO DAILY PRN PRN (Reason: Pain 1-10 Or Fever) RF: 0 Zonisamide [Zonegran] 50 MG capsule 100 mg PO DAILY RF: 0 clonidine HCl 0.2 mg tablet 0.3 mg PO TID RF: 0 Primary Care Provider: Jairon Wise Referrals: Jairon Wise DO [Primary Care Provider] - Activity Restrictions/Additional Instructions: Keep appointment with neurologist Disposition Disposition: Home, Self Care
[2021-09-18 11:23] LABS: Anion Gap 3 (5-15); BUN 16 mg/dL (7-18); BUN/Creat Ratio 7.8 RATIO (10-20); Calcium,Total 9.3 mg/dL (8.5-10.1); Chloride 98 mmol/L (98-107); Creatinine, Serum 2.05 mg/dL (0.55-1.02); EST Glomerular Filtration Rate 28 mL/min (>60); Est Glom Filt Rate - Afr Amer 34 mL/min (>60); Estimated Creatinine Clearance 27.71 ml/min; Glucose 96 mg/dL (74-106); Potassium 3.9 mmol/L (3.5-5.1); Sodium Level 135 mmol/L (136-145)
--- NOTE | 2021-09-18 11:35 | ED.RN ---
WITH DR. POWER APPROVAL, PT TOOK HOME SEIZURE AND BP MEDICATIONS.
[2021-09-18 12:11] VITALS: BP 193/95; PULSE 82; RESP 14; O2SAT 97
--- NOTE | 2021-09-18 12:20 | ED.RN ---
PT REMOVED SELF FROM SLIPCOVER CUTTER, AND DRESSES SELF SHE REPORTS, MY DAUGHTER OVERDOSED AND I NEED TO GET OUT OF HERE. THIS RN ASSISTED PT IN TAKING OUT IV. PRESSURE APPLIED TO SITE X 1 MINUTE. PT AMBULATES OUT OF DEPARTMENT. DR. POWER INFORMED.
== END 2021-09-18 18:52 | disposition home or self-care (01) ==
PROVIDERS: Emergency Provider Emergency Medicine; PCP Family Medicine; Visit Provider Emergency Medicine
DX: R56.9 Unspecified convulsions (principal); Z99.2 Dependence on renal dialysis; M31.0 Hypersensitivity angiitis; I12.0 Hypertensive chronic kidney disease with stage 5 chronic kidney disease or end stage renal disease; N18.6 End stage renal disease; E78.5 Hyperlipidemia, unspecified; Z87.891 Personal history of nicotine dependence; Z79.82 Long term (current) use of aspirin; Z79.899 Other long term (current) drug therapy
CPT/HCPCS: 80048; 80177; 99285; A4216

== ENCOUNTER 2021-11-27 08:06 | Emergency (ER) | payer MEDICAID, SELFPAY ==
[2021-11-27 08:07] VITALS: BP 239/105; PULSE 72; RESP 20; TEMP 36; O2SAT 98; BMI 16.8
--- NOTE | 2021-11-27 08:25 | EKG12_ITS ---
Test Reason : CP Blood Pressure : / mmHG Vent. Rate : 064 BPM Atrial Rate : 064 BPM P-R Int : 174 ms QRS Dur : 088 ms QT Int : 428 ms P-R-T Axes : 039 003 063 degrees QTc Int : 441 ms Normal sinus rhythm with sinus arrhythmia Normal ECG Confirmed by ABBIE RODRIGUEZ, MAYKEL ([id number]), dictionary editor JENNIFER KELLEY ([id number]) on 12/01/2021 11:01:12 AM Referred By: JANEE Confirmed By:MAYKEL LEIVA MD
--- NOTE | 2021-11-27 08:37 | CT_ITS ---
STUDY: CT BRAIN WITHOUT CONTRAST REASON FOR EXAM: Female, 41 years old. Headaches. RADIATION DOSAGE (If Supplied By Facility): CTDIvol = ( 44.99 ) mGy, DLP = ( 745.49 ) mGycm TECHNIQUE: Transaxial CT imaging of the brain was performed without administration of intravenous contrast material. Individualized dose optimization techniques were used for this CT. COMPARISON: Comparison is made with prior examination of 04/15/2021. FINDINGS: Normal soft tissue structures. Normal calvarium. Normal size ventricles and extra-axial spaces for the patient''s age. Normal white matter tracts of the cerebral hemispheres. Normal basal ganglia and thalami. Normal brainstem. Normal cerebellum. There is no intracranial hemorrhage. There are no findings of an acute ischemic infarction. There is opacification of the left maxillary sinus. CT/Brain/Head without Contrast IMPRESSION: Opacification of the left maxillary sinus. Electronically Signed: Aquiles Pagan MD at 9:28 EDT ,
--- NOTE | 2021-11-27 08:38 | EDS_ITS ---
HPI History of Present Illness Chief Complaint: Chest Pain Narrative Narrative: 40-year-old female with history of hypertension, end-stage renal disease on dialysis Tuesday, Tuesday, Tuesday presenting with chest pain. She states has been present since yesterday. Its retrosternal and nonradiating. She states that her blood pressure has been elevated since yesterday. She ran out of clonidine. She states that she normally takes 0.3 mg of this. She thought that her primary care physician called her in her medication and went to pick it up at the pharmacy and they state that he did not have it. She has been having elevated blood pressure, chest pain overnight. She went to dialysis and had about an hour of dialysis, but states she was underweight when she went. She does have some mild associated shortness of breath. Patient states that while she was there she was given 0.2 mg of clonidine after talking with her primary care physician. After she left she was sent here. She does complain of a headache, and states that she does not have any blurry vision or double vision but does state that she has seen floaters. Patient is not dizzy or lightheaded. The patient does states she has a history of migraines but she associates her migraines with episodes of elevated blood pressure. She does not have any photophobia or phonophobia. [facility] Medical History Fistula Former smoker Goodpasture syndrome Hyperlipidemia Hypertension Hypertension Kidney disease Renal dialysis device, implant, or graft complication Home Medications Zonisamide [Zonegran] 100 mg PO DAILY 08/25/20 [History Last Taken 02/05/21] acetaminophen 1,000 mg PO DAILY PRN PRN 08/25/20 [History Last Taken 08/25/20] aspirin 81 mg PO DAILY@1700 08/25/20 [History Last Taken 02/05/21] atorvastatin 10 mg PO QHS 08/25/20 [History Last Taken 02/05/21] hydralazine 100 mg PO TID 08/25/20 [History Last Taken 02/06/21] isosorbide mononitrate 60 mg PO QHS 08/25/20 [History Last Taken 02/05/21] labetalol 600 mg PO BID 08/25/20 [History Last Taken 02/06/21] levetiracetam 500 mg PO BID 08/25/20 [History Last Taken 02/05/21] levetiracetam 500 mg PO MOWEFR 08/25/20 [History Last Taken 02/06/21] levonorgestrel 1 ea IU X1 08/25/20 [History Last Taken 08/25/20] losartan 100 mg PO DAILY 08/25/20 [History Last Taken 02/05/21] nifedipine 90 mg PO BID 08/25/20 [History Last Taken 02/06/21] pantoprazole 40 mg PO DAILY 08/25/20 [History Last Taken 02/05/21] clonidine HCl 0.3 mg PO TID 01/30/21 [History Last Taken 02/05/21] doxazosin 1 mg tablet 1 mg PO DAILY 06/15/21 [History Last Taken Unknown] ondansetron HCl 4 mg tablet 4 mg PO Q8H 06/15/21 [History Last Taken Unknown] sennosides 8.6 mg-docusate sodium 50 mg capsule 1 tab-cap PO BID PRN 06/15/21 [History Last Taken Unknown] sevelamer carbonate 800 mg tablet 800 mg PO TID 06/15/21 [History Last Taken Unknown] vitamin B complex and vitamin C no.20-folic acid 1 mg capsule 1 cap PO DAILY 06/15/21 [History Last Taken Unknown] Allergy/AdvReac Type Severity Reaction Status Date / Time ciprofloxacin [From Cipro] Allergy Rash Verified 11/27/21 08:12 clarithromycin [From Biaxin] Allergy Rash Verified 11/27/21 08:12 Penicillins Allergy Hives Verified 11/27/21 08:12 cephalexin [From Keflex] AdvReac Diarrhea Verified 11/27/21 08:12 Social History household members: none Smoking Status: Former smoker substance use type: does not use ROS ROS ED Constitutional Constitutional ED: Denies chills or fever(s) Eyes Eyes: Reports other Details: Seeing floaters ENT ENT ED: Denies rhinorrhea or sore throat Cardiovascular Cardiovascular: Reports as per HPI Respiratory/Chest Respiratory/Chest: Reports dyspnea; Denies cough Gastrointestinal Gastrointestinal: Denies abdominal pain, nausea or vomiting Genitourinary Genitourinary ED: Denies dysuria or hematuria Musculoskeletal Musculoskeletal: Denies arthralgias, back pain or myalgias Integumentary Denies rash Neurologic Neurologic: Reports headache(s); Denies paresthesias or weakness Psychiatric Psychiatric: Denies anxiety or depression EXAM Physical Exam Const Vital Signs: 11/27/21 08:07 11/27/21 08:12 11/27/21 08:57 Temperature 96.8 F L Temperature Source Temporal Pulse Rate 72 Respiratory Rate 20 H Respiratory Effort Normal Non-Labored Blood Pressure 239/105 H Blood Pressure Mean 149 Pulse Ox 98 97 Oxygen Delivery Method Room Air Room Air 11/27/21 11:31 11/27/21 12:14 Temperature Temperature Source Pulse Rate 72 82 Respiratory Rate 19 H 16 Respiratory Effort Blood Pressure 235/192 H 178/86 H Blood Pressure Mean 206 116 Pulse Ox 100 99 Oxygen Delivery Method Room Air Room Air General Appearance ED: NAD; Negative for pallor HEENT Reports moist mucous membranes normocephalic and atraumatic Eyes PERRL and EOMs intact bilaterally Chest Wall inspection of chest normal and palpation of chest normal Resp normal respiratory effort and clear to auscultation bilaterally Cardio regular rate and regular rhythm GI normal to inspection, nondistended, normoactive bowel sounds Neuro oriented x3, CN's II-XII intact bilaterally and no sensory deficits noted Sensorium / Orientation: awake and alert Psych mental status grossly normal Skin General Skin Exam: Negative for jaundice or pallor Heart Score History: Slightly/Non-Suspicious ECG: Normal Age: </= 45 years Risk Factors: >/= 3 Risk Factors or History of CAD Troponin: </= Normal Limit Score: 2 MDM MDM MDM Narrative Medical decision making narrative: Patient presenting with elevated blood pressure. She states has been out some of her medications and specifically states her clonidine. She was given 0.2 prior to arrival and I gave her another 0.1. I obtained an EKG and on my interpretation is normal sinus rhythm with a ventricular to [address] elevation or depression. There is notably signs of LVH. CBC at baseline. Patient has baseline anemia. Creatinine is slightly elevated however the patient did not complete dialysis today. Her electrolytes are within normal limits. High-sensitivity troponin is 25 initially and at [address] is [address] of the brain was negative for intracranial findings except for the radiologist and purposes is opacification of left maxillary sinus. Patient is not having sinus symptoms. Chest x-ray on my interpretation shows no acute cardiopulmonary process and the radiologist does agree. Patient was reevaluated and still had an elevated blood pressure and was given 10 of hydralazine. She took her midday medications with this. Her last blood pressure had improved 178/86. Patient states that she seldom has a normal blood pressure. At this point I feel like she is had negative work-up and she is able to be discharged home. She will follow-up for dialysis. She states that her prescriptions have been filled and she double check with the pharmacy. I counseled her that if she gets to the pharmacy and her meds are still not there then she can call back to the emergency room and I will send a prescription. Patient discharged able condition. Impression: 1. Hypertension?established [id number] 2. Headache 3. Chest pain noncardiac Lab Data Labs: Laboratory Results - last 24 hr 11/27/21 11/27/21 11/27/21 09:15 09:15 11:03 WBC 7.6 RBC 2.86 L Hgb 9.5 L Hct 28.8 L MCV 100.7 H MCH 33.2 H MCHC 33.0 RDW Std Deviation 51.6 H RDW Coeff of Aleida 14.1 Plt Count 227 MPV 8.8 Immature Gran % (Auto) 0.700 Neut % (Auto) 78.0 H Lymph % (Auto) 12.2 L [place] % (Auto) 5.8 Eos % (Auto) 2.6 Baso % (Auto) 0.7 Absolute Neuts (auto) 5.9 Absolute Lymphs (auto) 0.93 Nucleated RBC % 0 Sodium 139 Potassium 3.7 Chloride 98 Carbon Dioxide 32.0 Anion Gap 9 BUN 56 H Creatinine 5.78 H Estim Creat Clear Calc 8.81 Est GFR (MDRD) Af Amer 10 L Est GFR (MDRD) Non-Af 9 L BUN/Creatinine Ratio 9.7 L Glucose 106 Calcium 9.5 Troponin I High Sens 25 32 Radiography Diagnostic Testing: Clinical Impression(s) from Imaging Studies Brain CT 11/27/21 08:37 IMPRESSION: Opacification of the left maxillary sinus. Electronically Signed: Aquiles Pagan MD at 9:28 EDT , Chest X-Ray 11/27/21 09:05 IMPRESSION: No acute abnormality is seen. Electronically Signed: Aquiles Pagan MD at 9:29 EDT , Discharge Plan Triage Chief Complaint: Chest Pain ED Provider: Yefri Govea Dx/Rx/DC Orders Instructions: ED Chest Pain, Noncardiac, ED High Blood Pressure Hypertension Prescriptions: No Action doxazosin [Cardura] 1 mg tablet 1 mg PO DAILY RF: 0 Senna Plus 8.6-50 mg capsule 1 tab-cap PO BID PRN (Reason: Constipation) RF: 0 Renal Caps 1 mg capsule 1 cap PO DAILY RF: 0 sevelamer carbonate [Renvela] 800 mg tablet 800 mg PO TID RF: 0 ondansetron HCl [Zofran] 4 mg tablet 4 mg PO Q8H RF: 0 levonorgestrel 1 EACH intrauterine device 1 ea IU X1 RF: 0 labetalol 200 MG tablet 600 mg PO BID RF: 0 atorvastatin 10 MG tablet 10 mg PO QHS RF: 0 levetiracetam 500 MG tablet 500 mg PO MOWEFR RF: 0 aspirin 81 MG tablet 81 mg PO DAILY@1700 RF: 0 nifedipine 60 MG tablet extended release 24hr 90 mg PO BID RF: 0 hydralazine 100 MG tablet 100 mg PO TID RF: 0 pantoprazole 40 MG tablet 40 mg PO DAILY RF: 0 losartan 50 MG tablet 100 mg PO DAILY RF: 0 levetiracetam 500 MG tablet 500 mg PO BID RF: 0 isosorbide mononitrate 30 MG tablet extended release 24 hr 60 mg PO QHS RF: 0 acetaminophen 500 MG tablet 1,000 mg PO DAILY PRN PRN (Reason: Pain 1-10 Or Fever) RF: 0 Zonisamide [Zonegran] 50 MG capsule 100 mg PO DAILY RF: 0 clonidine HCl 0.2 mg tablet 0.3 mg PO TID RF: 0 Primary Care Provider: Jairon Wise Referrals: Jairon Wise DO [Primary Care Provider] -
[2021-11-27] MEDS: cloNIDine HCl 0.1 MG Tablet PO (08:53)
[2021-11-27] MEDS: DiphenhydrAMINE 50 MG/ML Syringe 25 MG IV (08:53)
[2021-11-27] MEDS: proCHLORPERazine 10 MG/2 ML Vial IV (08:54)
[2021-11-27 08:57] VITALS: O2SAT 97
--- NOTE | 2021-11-27 09:05 | RAD_ITS ---
STUDY: X-RAY CHEST REASON FOR EXAM: Female, 41 years old. Chest pain TECHNIQUE: Single AP portable view of the chest. COMPARISON: Comparison is made with prior study dated 04/15/2021. FINDINGS: EKG electrodes are seen. The lungs are clear and expanded. There is no demonstrated pleural abnormality. Normal size heart. Normal mediastinum and daphney. Normal visualized pulmonary arteries. There is atherosclerotic tortuosity of the aortic arch and descending thoracic aorta. Normal visualized thoracic spine. Normal visualized ribs, clavicles, and shoulders. There is no demonstrated abnormality of the visualized soft tissue structures of the upper abdomen. RAD/Chest 1 View (Portable) IMPRESSION: No acute abnormality is seen. Electronically Signed: Aquiles Pagan MD at 9:29 EDT ,
[2021-11-27 09:24] LABS: Absolute Lymphocyte Count 0.93 X10^3/uL (0.83-4.51); Absolute Neutrophil Count 5.9 X10^3/uL (2.0-7.7); Basophil# 0.05 X10^3/uL; Basophil% 0.7 % (0-1); Eosinophils% 2.6 % (0-5); Hematocrit 28.8 % (37-47); Hemoglobin 9.5 g/dL (12.0-15.0); Lymphocyte # 0.93 X10^3/ul (0.83-4.51); Lymphocyte % 12.2 % (19-41); Mean Corpuscular Hgb 33.2 pg (27.0-32.0); Mean Corpuscular Volume 100.7 fL (81-99); Mean Platelet Vol. 8.8 fl (6.2-12.0); Monocyte# 0.44 X10^3/uL; Monocyte% 5.8 % (0-10); NRBC Flagged by Analyzer 0 % (0-5); Neutrophil # 5.94 X10^3/uL (2.7-7.7); Platelet Count 227 K/mm3 (150-450); RBC Distribution Width CV 14.1 % (11.6-14.6); RBC Distribution Width SD 51.6 fl (35.1-43.9); Red Blood Count 2.86 M/mm3 (4.2-5.4); White Blood Count 7.6 K/mm3 (4.4-11.0)
[2021-11-27 09:44] LABS: Anion Gap 9 (5-15); BUN 56 mg/dL (7-18); BUN/Creat Ratio 9.7 RATIO (10-20); Calcium,Total 9.5 mg/dL (8.5-10.1); Chloride 98 mmol/L (98-107); Creatinine, Serum 5.78 mg/dL (0.55-1.02); EST Glomerular Filtration Rate 9 mL/min (>60); Est Glom Filt Rate - Afr Amer 10 mL/min (>60); Estimated Creatinine Clearance 8.81 ml/min; Glucose 106 mg/dL (74-106); Potassium 3.7 mmol/L (3.5-5.1); Sodium Level 139 mmol/L (136-145); Troponin-I HS 25 pg/mL (3.0-54.0)
[2021-11-27] MEDS: Clonidine HCl 0.1 MG, Clonidine HCl 0.2 MG 0.3 MG PO (11:25)
[2021-11-27] MEDS: hydrALAZINE 20 MG/ML Vial 10 MG IV (11:26)
[2021-11-27 11:31] VITALS: BP 235/192; PULSE 72; RESP 19; O2SAT 100
[2021-11-27 11:33] LABS: Troponin-I HS 32 pg/mL (3.0-54.0)
[2021-11-27 12:14] VITALS: BP 178/86; PULSE 82; RESP 16; O2SAT 99
== END 2021-11-27 12:52 | disposition home or self-care (01) ==
PROVIDERS: Emergency Provider Student in an Organized Health Care Education/Training Program; PCP Family Medicine; Visit Provider Student in an Organized Health Care Education/Training Program
DX: R07.89 Other chest pain (principal); Z99.2 Dependence on renal dialysis; M31.0 Hypersensitivity angiitis; I12.0 Hypertensive chronic kidney disease with stage 5 chronic kidney disease or end stage renal disease; N18.6 End stage renal disease; R51.9 Headache, unspecified; E78.5 Hyperlipidemia, unspecified; Z87.891 Personal history of nicotine dependence; Z79.82 Long term (current) use of aspirin; Z79.899 Other long term (current) drug therapy; D64.9 Anemia, unspecified
CPT/HCPCS: 36415; 70450; 71045; 80048; 84484; 85025; 93005; 96374; 96375; 99285; A4216

== ENCOUNTER 2022-05-09 17:24 | Emergency (ER) | payer MEDICAID, SELFPAY ==
[2022-05-09 17:27] VITALS: BP 160/105; PULSE 83; RESP 17; TEMP 36.3; O2SAT 99; BMI 17.1
--- NOTE | 2022-05-09 17:39 | EKG12_ITS ---
Test Reason : WEAKNESS Blood Pressure : / mmHG Vent. Rate : 081 BPM Atrial Rate : 081 BPM P-R Int : 202 ms QRS Dur : 074 ms QT Int : 382 ms P-R-T Axes : 072 049 075 degrees QTc Int : 443 ms Normal sinus rhythm Possible Left atrial enlargement Septal infarct , age undetermined Abnormal ECG Confirmed by VICTORINO RODRIGUEZ, JARED ([id number]), medical transcription editor JENNIFER KELLEY ([id number]) on 05/11/2022 9:20:02 AM Referred By: Confirmed By:BESSIE GLEASON MD
--- NOTE | 2022-05-09 17:40 | EDS_ITS ---
HPI History of Present Illness Chief Complaint: Weakness Informant: patient Narrative Narrative: Patient states that she is globally weak. She states that she had dialysis on Tuesday. On Tuesday she went to the emergency room with a cardiac event. By this she means that she went to the emergency room for chest pain and had a normal EKG and troponins and was discharged home. She states that they told her that because her potassium was 3.1 she should wait till Tuesday to have dialysis. On Tuesday she called her dialysis center but they did not have the availability to dialysis dialyzer. She states that she does not eat very much and her doctor is ordering IV feedings for when she gets dialysis. She states she is so weak from all this and from swelling up that she has been passing out this weekend. She states she can only take a few steps without getting short of breath. She notes swelling of her legs and her face. [facility] Medical History Fistula Former smoker Goodpasture syndrome Hyperlipidemia Hypertension Hypertension Kidney disease Renal dialysis device, implant, or graft complication Home Medications Zonisamide [Zonegran] 100 mg PO DAILY epilepsy 08/25/20 [History Last Taken 02/05/21] acetaminophen 500 mg tablet 1,000 mg PO DAILY PRN PRN Pain 1-10 Or Fever 08/25/20 [History Last Taken 08/25/20] aspirin 81 mg tablet,delayed release 81 mg PO DAILY@1700 health maintenance 08/25/20 [History Last Taken 02/05/21] atorvastatin 10 mg tablet 10 mg PO QHS cholesterol 08/25/20 [History Last Taken 02/05/21] hydralazine 100 mg tablet 100 mg PO TID bp 08/25/20 [History Last Taken 02/06/21] isosorbide mononitrate 30 mg tablet,extended release 24 hr 60 mg PO QHS heart 08/25/20 [History Last Taken 02/05/21] labetalol 200 mg tablet 600 mg PO BID heart 08/25/20 [History Last Taken 02/06/21] levetiracetam 500 mg tablet 500 mg PO BID seizure 08/25/20 [History Last Taken 02/05/21] levetiracetam 500 mg tablet 500 mg PO MOWEFR seizure 12/21/20 [History Last Taken 02/06/21] levonorgestrel 20 mcg/24 hours (7 yrs) 52 mg intrauterine device 1 ea IU X1 ho rmone 08/25/20 [History Last Taken 08/25/20] losartan 50 mg tablet 100 mg PO DAILY bp 08/25/20 [History Last Taken 02/05/21] nifedipine 60 mg tablet,extended release 24 hr 90 mg PO BID heart 08/25/20 [History Last Taken 02/06/21] pantoprazole 40 mg tablet,delayed release 40 mg PO DAILY gerd 08/25/20 [History Last Taken 02/05/21] clonidine HCl 0.2 mg tablet 0.3 mg PO TID blood pressure 01/30/21 [History Last Taken 02/05/21] doxazosin 1 mg tablet (Cardura) 1 mg PO DAILY 06/15/21 [History Last Taken Unknown] ondansetron HCl 4 mg tablet (Zofran) 4 mg PO Q8H 06/15/21 [History Last Taken Unknown] sennosides 8.6 mg-docusate sodium 50 mg capsule (Senna Plus) 1 tab-cap PO BID PRN Constipation 06/15/21 [History Last Taken Unknown] sevelamer carbonate 800 mg tablet (Renvela) 800 mg PO TID 06/15/21 [History Last Taken Unknown] vitamin B complex and vitamin C no.20-folic acid 1 mg capsule (Renal Caps) 1 cap PO DAILY 06/15/21 [History Last Taken Unknown] Allergy/AdvReac Type Severity Reaction Status Date / Time ciprofloxacin [From Cipro] Allergy Rash Verified 05/09/22 17:25 clarithromycin [From Biaxin] Allergy Rash Verified 05/09/22 17:25 Penicillins Allergy Hives Verified 05/09/22 17:25 cephalexin [From Keflex] AdvReac Diarrhea Verified 05/09/22 17:25 Social History household members: none Smoking Status: Former smoker substance use type: does not use ROS ROS ED ROS Narrative Generalized weakness Constitutional Constitutional ED: Denies chills or weight loss Eyes Eyes: Denies change in vision or diplopia ENT ENT ED: Denies ear pain, rhinorrhea or sore throat Cardiovascular Cardiovascular: Reports other Details: Syncope ; Denies chest pain, orthopnea, palpitations or racing heartbeat Respiratory/Chest Respiratory/Chest: Denies cough, dyspnea or orthopnea Gastrointestinal Gastrointestinal: Denies abdominal pain, diarrhea, nausea or vomiting Genitourinary Genitourinary ED: Denies dysuria, hematuria or urinary frequency Musculoskeletal Musculoskeletal: Denies arthralgias or myalgias Integumentary Denies abscess or rash Neurologic Neurologic: Denies headache(s) or weakness Psychiatric Psychiatric: Denies anxiety, depression, suicidal ideation or suicidal thoughts Endocrine Endocrinology: Denies polydipsia, polyphagia or polyuria Allergic/Immunologic Allergic/Immunologic ED: Denies mouth swelling, tongue swelling or urticaria EXAM Physical Exam Const Vital Signs: 05/09/22 17:27 05/09/22 19:33 Temperature 97.4 F L Temperature Source Temporal Pulse Rate 83 84 Respiratory Rate 17 18 Blood Pressure 160/105 H 154/98 H Blood Pressure Mean 123 116 Pulse Ox 99 97 Oxygen Delivery Method Room Air Room Air Positive well nourished and well developed General Appearance ED: well developed HEENT Reports normocephalic, head/scalp atraumatic and moist mucous membranes Eyes PERRL and EOMs intact bilaterally Neck no lymphadenopathy, supple and no JVD Resp normal respiratory effort and clear to auscultation bilaterally Cardio regular rate, regular rhythm and no murmurs GI normal to inspection, nondistended, normoactive bowel sounds and non-tender Palpation: soft Back/Spine no CVA tenderness and normal ROM Extremity normal to inspection General Extremety ED: Negative for edema General Extremity: Negative for edema Neuro oriented x3 and CN's II-XII intact bilaterally Sensorium / Orientation: alert Motor Exam: strength 5/5 throughout Psych mental status grossly normal Mood & Affect: Negative for depressed or tearful Skin no rashes or lesions noted and no wounds MDM MDM MDM Narrative Medical decision making narrative: Nursing was unable to successfully place an IV. I went in to evaluate the patient and noticed that she had a very prominent external jugular vein. Skin was washed with alcohol and allowed to dry. The vein was cannulated using an 18-gauge IV. It was secured into place. Labs were obtained and were actually pretty remarkably well for her. Potassium 5.1 BUN 54 creatinine 11.9 phosphorus 4.2 magnesium 3.3 troponin of 10. Interpretation of the chest x-ray is no acute process and radiology concurs. She has had no events on the monitor. She has not had any further syncope. She had a small snack. This point patient has dialysis scheduled for just over 10 hours from now. She is interested in getting dialysis as fast as she can. I do not think that she meets emergent dialysis criteria tonight I think it would probably be faster for her to get it as an outpatient tomorrow. She is feels comfortable with this plan return if worsening or concerns Lab Data Attestation: I reviewed the patient's lab results. Labs: Laboratory Results - last 24 hr 05/09/22 05/09/22 18:45 18:45 WBC 5.0 RBC 2.80 L Hgb 9.8 L Hct 29.0 L MCV 103.6 H MCH 35.0 H MCHC 33.8 RDW Std Deviation 56.9 H RDW Coeff of Aleida 14.9 H Plt Count 140 L MPV 8.7 Immature Gran % (Auto) 0.400 Neut % (Auto) 65.5 Lymph % (Auto) 23.4 [place] % (Auto) 8.3 Eos % (Auto) 1.4 Baso % (Auto) 1.0 Absolute Neuts (auto) 3.3 Absolute Lymphs (auto) 1.16 Nucleated RBC % 0 Sodium 134 L Potassium 5.1 Chloride 92 L Carbon Dioxide 22.0 Anion Gap 20 H BUN 54 H Creatinine 11.90 H* Estim Creat Clear Calc 4.36 Est GFR (MDRD) Af Amer 5 L Est GFR (MDRD) Non-Af 4 L BUN/Creatinine Ratio 4.5 L Glucose 57 L Calcium 8.8 Phosphorus 4.2 Magnesium 3.3 H Total Bilirubin 0.40 Direct Bilirubin 0.17 AST 131 H ALT 73 H Alkaline Phosphatase 73 Troponin I High Sens 10 Total Protein 6.2 L Albumin 3.1 L Globulin 3.1 Lipase 286 Radiography Diagnostic Testing: Clinical Impression(s) from Imaging Studies Chest X-Ray 05/09/22 17:45 IMPRESSION: Normal x-ray examination of the chest. Electronically Signed: Lavell Hector MD at 17:54 EDT , EKG Initial EKG: Comments: Normal sinus rhythm with a ventricular rate of 81 bpm. Discharge Plan Triage Chief Complaint: Weakness ED Provider: Marcelino Peng Dx/Rx/DC Orders Clinical Impression: ESRD (end stage renal disease) on dialysis, Malnutrition, Syncope Instructions: ED Weakness (Uncertain Cause) Prescriptions: No Action doxazosin [Cardura] 1 mg tablet 1 mg PO DAILY Senna Plus 8.6-50 mg capsule 1 tab-cap PO BID PRN (Reason: Constipation) Renal Caps 1 mg capsule 1 cap PO DAILY sevelamer carbonate [Renvela] 800 mg tablet 800 mg PO TID Rx Instructions: must administer with a meal/food ondansetron HCl [Zofran] 4 mg tablet 4 mg PO Q8H levonorgestrel 1 EACH intrauterine device 1 ea IU X1 labetalol 200 MG tablet 600 mg PO BID atorvastatin 10 MG tablet 10 mg PO QHS levetiracetam 500 MG tablet 500 mg PO MOWEFR Rx Instructions: TID aspirin 81 MG tablet 81 mg PO DAILY@1700 nifedipine 60 MG tablet extended release 24hr 90 mg PO BID hydralazine 100 MG tablet 100 mg PO TID pantoprazole 40 MG tablet 40 mg PO DAILY losartan 50 MG tablet 100 mg PO DAILY levetiracetam 500 MG tablet 500 mg PO BID Rx Instructions: tuthusatsun isosorbide mononitrate 30 MG tablet extended release 24 hr 60 mg PO QHS acetaminophen 500 MG tablet 1,000 mg PO DAILY PRN PRN (Reason: Pain 1-10 Or Fever) Zonisamide [Zonegran] 50 MG capsule 100 mg PO DAILY clonidine HCl 0.2 mg tablet 0.3 mg PO TID Primary Care Provider: Jairon Wise Referrals: Jairon Wise DO [Primary Care Provider] - Activity Restrictions/Additional Instructions: It may be visible if you are going to be getting TPN and given that you are very hard IV start to inquire about a PICC line. Please make your dialysis start time. Disposition Disposition: Home, Self Care
--- NOTE | 2022-05-09 17:45 | RAD_ITS ---
STUDY: X-RAY CHEST REASON FOR EXAM: Female, 41 years old. cough TECHNIQUE: Single AP portable view of the chest. COMPARISON: 11/27/2021 FINDINGS: The lungs are clear and expanded. There is no demonstrated pleural abnormality. Normal size heart. Normal mediastinum and daphney. Normal visualized pulmonary arteries. Normal visualized aortic arch and descending thoracic aorta. Normal visualized thoracic spine. Normal visualized ribs, clavicles, and shoulders. There is no demonstrated abnormality of the visualized soft tissue structures of the upper abdomen. RAD/Chest 1 View (Portable) IMPRESSION: Normal x-ray examination of the chest. Electronically Signed: Lavell Hector MD at 17:54 EDT ,
[2022-05-09 18:53] LABS: Absolute Lymphocyte Count 1.16 X10^3/uL (0.83-4.51); Absolute Neutrophil Count 3.3 X10^3/uL (2.0-7.7); Basophil# 0.05 X10^3/uL; Eosinophil# 0.07 X10^3/uL; Eosinophils% 1.4 % (0-5); Hemoglobin 9.8 g/dL (12.0-15.0); Lymphocyte # 1.16 X10^3/ul (0.83-4.51); Lymphocyte % 23.4 % (19-41); Mean Corp Hgb Conc 33.8 g/dL (32-36); Mean Corpuscular Volume 103.6 fL (81-99); Mean Platelet Vol. 8.7 fl (6.2-12.0); Monocyte# 0.41 X10^3/uL; Monocyte% 8.3 % (0-10); NRBC Flagged by Analyzer 0 % (0-5); Neutrophil # 3.25 X10^3/uL (2.7-7.7); Neutrophil % 65.5 % (47-70); Platelet Count 140 K/mm3 (150-450); RBC Distribution Width CV 14.9 % (11.6-14.6); RBC Distribution Width SD 56.9 fl (35.1-43.9)
[2022-05-09 19:16] LABS: AST(SGOT) 131 U/L (15-37); Alanine Aminotransfer ALT/SGPT 73 U/L (13-56); Albumin, Serum 3.1 g/dL (3.2-5.0); Alkaline Phosphatase 73 U/L (45-117); Anion Gap 20 (5-15); BUN 54 mg/dL (7-18); BUN/Creat Ratio 4.5 RATIO (10-20); Bilirubin, Direct 0.17 mg/dL (0.00-0.30); Calcium,Total 8.8 mg/dL (8.5-10.1); Chloride 92 mmol/L (98-107); EST Glomerular Filtration Rate 4 mL/min (>60); Est Glom Filt Rate - Afr Amer 5 mL/min (>60); Estimated Creatinine Clearance 4.36 ml/min; Globulin 3.1 g/dL (2.2-4.2); Glucose 57 mg/dL (74-106); Lipase 286 U/L (73-393); Magnesium 3.3 mg/dL (1.6-2.6); Phosphorus 4.2 mg/dL (2.5-4.9); Potassium 5.1 mmol/L (3.5-5.1); Protein, Total 6.2 g/dL (6.4-8.2); Sodium Level 134 mmol/L (136-145); Troponin-I HS 10 pg/mL (3.0-54.0)
[2022-05-09 19:33] VITALS: BP 154/98; PULSE 84; RESP 18; O2SAT 97
[2022-05-09 20:42] VITALS: BP 153/94; PULSE 71
== END 2022-05-09 20:43 | disposition home or self-care (01) ==
PROVIDERS: Emergency Provider Emergency Medicine; PCP Family Medicine; Visit Provider Emergency Medicine
DX: I12.0 Hypertensive chronic kidney disease with stage 5 chronic kidney disease or end stage renal disease (principal); E46 Unspecified protein-calorie malnutrition; Z99.2 Dependence on renal dialysis; M31.0 Hypersensitivity angiitis; N18.6 End stage renal disease; Z87.891 Personal history of nicotine dependence; E78.5 Hyperlipidemia, unspecified; Z79.82 Long term (current) use of aspirin; Z79.899 Other long term (current) drug therapy; R55 Syncope and collapse; Z68.1 Body mass index [BMI] 19.9 or less, adult
CPT/HCPCS: 71045; 80048; 80076; 83690; 83735; 84100; 84484; 85025; 93005; 99284; A4216

== ENCOUNTER → 2022-05-11 | Outpatient (CLI) | payer MEDICAID, SELFPAY ==
--- NOTE | 2022-05-11 09:07 | BI_ITS ---
MAMMOGRAPHY - BILATERAL SCREENING REASON FOR EXAM: Female, 41 years old. Routine annual screening examination. PERTINENT HISTORY: Aunts with breast cancer. TECHNIQUE: Digital bilateral breast charlee (3D mammographic acquisition) in the CC and MLO projections. 2-D mediolateral oblique (MLO) and craniocaudad (CC) views of both breasts were obtained. CAD: Full Field Digital Mammography with Computer Added Detection was performed. COMPARISON: Comparison is made with prior abdomen examination dated 10/26/2019. FINDINGS: Breast Composition: The breasts are extremely dense, which lowers the sensitivity of mammography. There is a 1.5 cm x 1.5 cm spiculated nodular density in the central retroareolar region of the left breast. Correlation with ultrasound is recommended. No other significant abnormalities are identified. BI/SCRN MAMM (CAD)W/CHARLEE BILAT IMPRESSION: 1.5 cm x 1.5 cm spiculated nodule in the central retroareolar region of the left breast. Correlation with ultrasound is recommended. ASSESSMENT CATEGORY: BIRADS Category 0: Incomplete. Need additional imaging evaluation. A letter regarding these results will be sent to the patient by the facility within 30 days. Approximately 10% of breast cancers are not detected by mammography. A normal mammogram should not delay biopsy of a clinically suspicious abnormality. [id number] Electronically Signed: Aquiles Pagan MD at 8:46 EDT ,
== END | disposition home or self-care (01) ==
PROVIDERS: PCP Family Medicine; Visit Provider Family Medicine
DX: Z12.31 Encounter for screening mammogram for malignant neoplasm of breast (principal)
CPT/HCPCS: 77063; 77067

== ENCOUNTER 2022-05-12 07:12 | Emergency (ER) | payer MEDICAID, SELFPAY ==
[2022-05-12 07:13] VITALS: BP 182/104; PULSE 85; RESP 14; TEMP 36.4; O2SAT 98; BMI 17.2
--- NOTE | 2022-05-12 07:39 | EKG12_ITS ---
Test Reason : SYNCOPE Blood Pressure : / mmHG Vent. Rate : 080 BPM Atrial Rate : 080 BPM P-R Int : 182 ms QRS Dur : 086 ms QT Int : 398 ms P-R-T Axes : 058 015 051 degrees QTc Int : 459 ms Normal sinus rhythm Normal ECG Confirmed by VICTORINO RODRIGUEZ, JARED ([id number]), editor newspaper JENNIFER KELLEY ([id number]) on 05/14/2022 2:22:56 PM Referred By: Confirmed By:BESSIE GLEASON MD
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
[2022-05-12 08:00] LABS: Absolute Neutrophil Count 2.7 X10^3/uL (2.0-7.7); Basophil# 0.04 X10^3/uL; Eosinophil# 0.07 X10^3/uL; Eosinophils% 1.8 % (0-5); Hematocrit 31.8 % (37-47); Hemoglobin 10.2 g/dL (12.0-15.0); Lymphocyte % 20.1 % (19-41); Mean Corp Hgb Conc 32.1 g/dL (32-36); Mean Corpuscular Hgb 33.8 pg (27.0-32.0); Mean Corpuscular Volume 105.3 fL (81-99); Mean Platelet Vol. 9.5 fl (6.2-12.0); Monocyte# 0.36 X10^3/uL; NRBC Flagged by Analyzer 0 % (0-5); Neutrophil % 67.6 % (47-70); Platelet Count 119 K/mm3 (150-450); RBC Distribution Width CV 15.1 % (11.6-14.6); RBC Distribution Width SD 58.4 fl (35.1-43.9); Red Blood Count 3.02 M/mm3 (4.2-5.4)
--- NOTE | 2022-05-12 08:15 | RAD_ITS ---
STUDY: X-RAY CHEST REASON FOR EXAM: Female, 41 years old. weakness TECHNIQUE: Single AP portable view of the chest. COMPARISON: 05/09/2022 FINDINGS: The lungs are clear and expanded. There is no demonstrated pleural abnormality. Normal size heart. Normal mediastinum and daphney. Normal visualized pulmonary arteries. Normal visualized aortic arch and descending thoracic aorta. Normal visualized thoracic spine. Normal visualized ribs, clavicles, and shoulders. There is no demonstrated abnormality of the visualized soft tissue structures of the upper abdomen. RAD/Chest 1 View (Portable) IMPRESSION: Normal x-ray examination of the chest. Electronically Signed: Lavell Hector MD at 8:30 EDT ,
[2022-05-12 08:21] LABS: AST(SGOT) 114 U/L (15-37); Alanine Aminotransfer ALT/SGPT 77 U/L (13-56); Albumin, Serum 3.2 g/dL (3.2-5.0); Alkaline Phosphatase 79 U/L (45-117); BUN 30 mg/dL (7-18); BUN/Creat Ratio 3.5 RATIO (10-20); Bilirubin, Direct 0.18 mg/dL (0.00-0.30); Calcium,Total 9.4 mg/dL (8.5-10.1); Chloride 95 mmol/L (98-107); Creatinine, Serum 8.55 mg/dL (0.55-1.02); EST Glomerular Filtration Rate 5 mL/min (>60); Est Glom Filt Rate - Afr Amer 7 mL/min (>60); Estimated Creatinine Clearance 6.09 ml/min; Globulin 3.2 g/dL (2.2-4.2); Glucose 65 mg/dL (74-106); Lipase 258 U/L (73-393); Phosphorus 3.4 mg/dL (2.5-4.9); Potassium 4.3 mmol/L (3.5-5.1); Protein, Total 6.4 g/dL (6.4-8.2); Sodium Level 138 mmol/L (136-145); Troponin-I HS (w/2H Reflex) 10 pg/mL (3.0-54.0)
[2022-05-12 09:18] VITALS: BP 157/105; BP 162/95; BP 179/101; PULSE 102; PULSE 112; PULSE 79
[2022-05-12 10:31] VITALS: BP 156/96
[2022-05-12 10:48] VITALS: BP 167/110; PULSE 92; RESP 18; O2SAT 99
== END 2022-05-12 10:59 | disposition home or self-care (01) ==
PROVIDERS: Emergency Provider Emergency Medicine; PCP Family Medicine; Visit Provider Emergency Medicine
DX: R55 Syncope and collapse (principal); E46 Unspecified protein-calorie malnutrition; Z99.2 Dependence on renal dialysis; M31.0 Hypersensitivity angiitis; I12.0 Hypertensive chronic kidney disease with stage 5 chronic kidney disease or end stage renal disease; N18.6 End stage renal disease; G40.909 Epilepsy, unspecified, not intractable, without status epilepticus; E78.5 Hyperlipidemia, unspecified; Z87.891 Personal history of nicotine dependence; Z79.82 Long term (current) use of aspirin; Z79.899 Other long term (current) drug therapy; G43.909 Migraine, unspecified, not intractable, without status migrainosus; Z68.1 Body mass index [BMI] 19.9 or less, adult
CPT/HCPCS: 71045; 80069; 80076; 83690; 84484; 85025; 93005; 99285; A4216

== ENCOUNTER → 2022-05-19 | Outpatient (CLI) | payer MEDICAID, SELFPAY ==
--- NOTE | 2022-05-19 12:29 | US_ITS ---
STUDY: ULTRASOUND BREAST - LEFT REASON FOR EXAM: Female, 41 years old. Abnormal screening mammogram. TECHNIQUE: Axial and longitudinal images of the LEFT breast were performed with a high resolution ultrasound transducer. # OF IMAGES: 44 COMPARISON: Comparison is made with prior mammograms of 05/11/2022. FINDINGS: LEFT Breast: No localized masses seen. There is evidence of diffuse edema involving the breast as well as the overlying skin. US/Breast Limited Unilateral IMPRESSION: Diffuse edema of the left breast and overlying skin. No focal mass lesion is seen. ASSESSMENT CATEGORY: BIRADS Category 2: Benign. A letter regarding these results will be sent to the patient by the facility within 30 days. Electronically Signed: Aquiles Pagan MD at 13:27 EDT ,
== END | disposition home or self-care (01) ==
PROVIDERS: PCP Family Medicine; Referring Provider Family Medicine; Visit Provider Family Medicine
DX: R92.8 Other abnormal and inconclusive findings on diagnostic imaging of breast (principal)
CPT/HCPCS: 76642

== ENCOUNTER → 2022-05-21 | Outpatient (CLI) | payer MEDICAID, SELFPAY ==
--- NOTE | 2022-05-21 11:21 | BI_ITS ---
MAMMOGRAPHY - UNILATERAL DIAGNOSTIC: LEFT BREAST REASON FOR EXAM: Female, 41 years old. Abnormal screening mammogram. PERTINENT HISTORY: Aunts with breast cancer. TECHNIQUE: Compression spot views of the left breast were obtained. CAD: Full Field Digital Mammography with Computer Added Detection was performed. COMPARISON: Comparison is made with prior mammogram dated 05/11/2022. FINDINGS: Breast Composition: The breasts are extremely dense, which lowers the sensitivity of mammography. Persistent focal area of architectural distortion in the retroareolar region of the breast. Biopsy recommended. No other significant abnormalities are identified. BI/DIAG MAMM W/CAD, UNILAT IMPRESSION: Persistent focal area of architectural distortion in the retroareolar region of the left breast. Biopsy recommended. ASSESSMENT CATEGORY: BIRADS Category 4: Suspicious - Biopsy Should Be Considered. A letter regarding these results will be sent to the patient by the facility within 30 days. Approximately 10% of breast cancers are not detected by mammography. A normal mammogram should not delay biopsy of a clinically suspicious abnormality. Electronically Signed: Aquiles Pagan MD at 12:20 EDT ,
== END | disposition home or self-care (01) ==
LOC: OPBI 11:45
PROVIDERS: PCP Family Medicine; Visit Provider Family Medicine
DX: R92.8 Other abnormal and inconclusive findings on diagnostic imaging of breast (principal)
CPT/HCPCS: 77065

== ENCOUNTER → 2022-07-12 | Outpatient (CLI) | payer MEDICAID, SELFPAY ==
--- NOTE | 2022-07-12 12:58 | CT_ITS ---
STUDY: CT Chest W/O Contrast Injection 07/12/2022 1:36 PM REASON FOR EXAM: Female, 41 years old. HEMOPTYSIS Individualized dose optimization techniques were used for this CT. TECHNIQUE: Transaxial imaging was performed withoutIV contrast material. COMPARISON: 02.29.20 FINDINGS: Right axillary adenopathy. There is no pneumothorax. There is no demonstrated pleural abnormality. There are calcifications of the coronary arteries. Normal mediastinum. Normal hilar regions. Normal pulmonary arteries. There is atherosclerotic calcification of the aortic arch with tortuosity and elongation of the aortic arch and descending thoracic aorta. Normal osseous structures. There are no acute findings of the upper abdomen. CT/Chest without Contrast IMPRESSION: stable Right axillary adenopathy. There are no acute findings. There are calcifications of the coronary arteries. Electronically Signed: Ishmael Hutchins MD at 14:17 EST ,
== END | disposition home or self-care (01) ==
LOC: CT 12:56
PROVIDERS: PCP Family Medicine; Referring Provider Family Medicine; Visit Provider Family Medicine
DX: R04.2 Hemoptysis (principal)
CPT/HCPCS: 71250

== ENCOUNTER → 2022-07-13 | Outpatient (CLI) | payer MEDICAID, SELFPAY ==
--- NOTE | 2022-07-13 13:17 | PN_ITS ---
Progress Note Sharla presents for left stereotactic breast biopsy for abnormal density seen on screening mammograms. She was placed in the prone position on the stereotactic breast biopsy table. Spinning Frame Cleaner films were obtained in the lateral position but there was no abnormal mammographic lesion seen. Stereotactic images were obtained and there was no abnormal mammographic lesion seen. Spinning Frame Cleaner films were then obtained in the CC position and stereotactic images were obtained. There was no abnormal mammographic lesion seen. Patient was therefore discharged from the radiology suite. 6 months follow up left breast mammograms were recommended. Patient acknowledges above.
== END | disposition home or self-care (01) ==
PROVIDERS: PCP Family Medicine; Visit Provider Surgery
DX: R92.8 Other abnormal and inconclusive findings on diagnostic imaging of breast (principal)
CPT/HCPCS: 19081

== ENCOUNTER → 2022-07-15 | Outpatient (CLI) | payer MEDICAID, SELFPAY ==
--- NOTE | 2022-07-15 07:30 | US_ITS ---
STUDY: ABDOMINAL ULTRASOUND - ELASTOGRAPHY REASON FOR VISIT: Female, 41 years old. Hypersensitivity angitis. TECHNIQUE: Liver stiffness measurements were obtained on a Tinypass RS 85 ultrasound machine using a CA 1-7 probe following the SRU guidelines. 3 measurements were obtained using a 2-D-SWE method. The IQR/M was 8% suggesting a quality data set. TECHNICAL QUALITY: Adequate. COMPARISON: Comparison is made with prior study done earlier today. FINDINGS: Liver: There is no demonstrated mass lesion. Median liver stiffness measured 7.5 kPa. US/Elastography Parenchyma/Organ IMPRESSION: Liver stiffness measures 7.5 kPa compatible with F2-F3 (Mild to moderate liver fibrosis) Metavir score. Electronically Signed: Aquiles Pagan MD at 9:10 EST ,
--- NOTE | 2022-07-15 07:34 | US_ITS ---
STUDY: ABDOMINAL ULTRASOUND - RIGHT UPPER QUADRANT REASON FOR VISIT: Female, 41 years old hypersensitivity angitis TECHNIQUE: Ultrasound evaluation of the right upper quadrant was performed with real-time and static loyd-scale imaging. TECHNICAL QUALITY: Adequate. COMPARISON: None. FINDINGS: Liver: The liver measures 14.2 cm. There is normal echogenicity of the liver. The bile ducts are within normal limits. There is hepatic color flow. The direction of portal flow is hepatopetal. There is no demonstrated mass lesion. Gallbladder: Normal distended gallbladder. The gallbladder wall measures 2.4 mm. There is a negative sonographic Chawla''s sign. There is no pericholecystic fluid. There are no gallstones. Common Bile Duct (C.B.D.): The common bile duct measures 2.9 mm. Pancreas: Normal size of the head, body and tail of the pancreas. There is normal echogenicity of the pancreas. There is no demonstrated pancreatic mass or cyst. Right Kidney: Normal size of the right kidney. The right kidney measures 8.1 cm x 5.1 cm x 4 cm. Normal renal cortex. The right cortex measures 1.0 cm. Multiple tiny renal cysts are seen. The largest measures 1.1 cm x 0.65 x 0.9 cm. There is no right hydronephrosis. US/Abdomen Limited IMPRESSION: Small right renal cysts. Electronically Signed: Aquiles Pagan MD at 9:08 EST ,
== END | disposition home or self-care (01) ==
LOC: US 07:29
PROVIDERS: PCP Family Medicine; Visit Provider Internal Medicine Gastroenterology
DX: M31.0 Hypersensitivity angiitis (principal)
CPT/HCPCS: 76705; 76981

== ENCOUNTER 2022-08-17 11:46 | Day surgery (SDC) | payer MEDICAID, SELFPAY ==
[2022-08-17 12:25] VITALS: PULSE 66; RESP 18; TEMP 36.6; O2SAT 96; BMI 16.7
--- NOTE | 2022-08-17 12:30 | HP.PCM_ITS ---
History and Physical Date of Admission: 08/17/22 SHARLA ACUÑA, is a 41 F who presents to the office today for Initial consult. Sharla established with this clinic 06.23.[address] [facility] ED presentation 05.12.22 for near syncopal episode during dialysis with progressive weakness and unintentional weight loss for the last year r/t decreased appetite and recent ED presentation for blood in stool which resolved by second presentation. Bowels previously moved weekly, but now once a month with mucus and intermittent blood. Oncologist Dr. To is arranging protein and fat infusions for her during dialysis. She was given soapsuds enema in ED with positive results and discharged home. PMH Goodpasture syndrome, ESRD with hemodialysis, seizures, migraines, HTN and malnutrition. Denies history of eating disorder. CT abd/pel 04.13.22 Eric very large colonic stool burden; ?mild rectal wall thickening; diffuse haziness of abdominal mesentery; bilateral atrophy of kidneys. Weight ? Height 5?4? 09.05.21 160lbs? BMI 27.5 06.23.22 93lbs? BMI 16 ROS Const Constitutional: No malaise, night sweats, sleep problems, abnormal sleep pattern or change in appetite ENT ENT: No difficulty swallowing, hoarseness or sore throat Cardio Cardiology: No chest pain at rest Gastro GI: No abdominal pain, belching, bloating, change in bowel habits, change in stool character, coffee ground emesis, cramping, diarrhea, heartburn, difficulty swallowing, feeling full early, excessive flatus, incontinent of stools, Vomiting blood/hematemesis, Blood in stool, loose stools, Black,tarry stools, nausea/dyspepsia, pain with swallowing, vomiting or other Musc Musculoskeletal: No joint pain Skin Skin: No yellowing of the eye or itchy eyes Neuro Neurology: No behavioral changes Psych Psychiatric: No abnormal sleep pattern, No anxiety, No behavioral changes, No change in appetite and No depression Aller/Imm Allergy/Immunologic: No itchy eyes Faraz/Lymp Hematologic/Lymphatic: No easy bleeding or easy bruising Exam Const General: cooperative and comfortable Nutritional Appearance: average body habitus and well nourished [facility] [place] Head: normal to inspection Ears: hearing grossly normal bilaterally Nose: external nose normal Face and sinus: normal facial exam Mouth: oral mucosae normal Throat: posterior oropharynx normal Eyes General: appearance normal, both eyes and all related structures Neck Neck: normal visual inspection Chest Chest palpation & inspection: normal inspection of the chest and normal palpation of entire chest wall Resp Effort & Inspection: normal respiratory effort Auscultation: Bilateral: Clear to Auscultation Cardio Palpation: normal PMI Rate: regular rate Rhythm: regular rhythm GI Inspection: normal to inspection Auscultation: normal bowel sounds Percussion: normal to percussion Palpation: no hepatosplenomegaly Skin General: no rashes or lesions noted Neuro General: patient alert Extrem General: normal to inspection Psych Affect: normal affect Quality Reporting Tobacco Screening ([facility] 138) Smoking Status: Former smoker Assessment and Plan Assessment and Plan (1) Weight loss: ?Status:?Chronic ?Plan: Typically the medicines used to treat for Goodpasture's more than the actual disease that affects the GI tract.? The mucosal ulcers such as steroid, aspirin.? It is a small vessel vasculitis in the GI tract is very fast that it should not cause.? Specific abnormalities such as ulcerations in the small intestine, colon or stomach.? However she is at risk for protein calorie malnutrition, exocrine pancreatic insufficiency due to lack of eating and other autoimmune diseases such as celiac disease, Behcet's syndrome and inflammatory bowel disease.? We will check p-ANCA, PRISCILA work-up, protein electrophoresis, ESR, CRP.? We will get an EGD, colonoscopy and capsule endoscopy to evaluate entire GI tract.? I will not put on any medicines for her weight loss at this time as she is being maintained with the use of protein and fat administration with hemodialysis. (2) Goodpasture syndrome: ?Status:?Chronic ?Plan: She is on rituximab it is recommended that hematology oncology and nephrology. ? ? ? Orders: Orders ANCA Today M31.0 - Hypersensitivity angiitis ? Vitamin D,25 Hydroxy Today M31.0 - Hypersensitivity angiitis ? Vitamin B12 Today M31.0 - Hypersensitivity angiitis ? CRP Today M31.0 - Hypersensitivity angiitis ? Free T3 Today M31.0 - Hypersensitivity angiitis ? LDH Today M31.0 - Hypersensitivity angiitis ? T4 Free Direct Today M31.0 - Hypersensitivity angiitis ? Thyroid Stim Hormone (TSH) Today M31.0 - Hypersensitivity angiitis ? Prothrombin Time w/INR Today M31.0 - Hypersensitivity angiitis ? Erythrocyte Sed Rate Today M31.0 - Hypersensitivity angiitis ? Vitamin D 1,25-Dihydroxy Today M31.0 - Hypersensitivity angiitis ? Hepatitis Panel Acute Today M31.0 - Hypersensitivity angiitis ? Anti-Parietal Cell AB, QN Today M31.0 - Hypersensitivity angiitis ? Celiac Disease Profile Today M31.0 - Hypersensitivity angiitis ? Immunoglobulin A Today M31.0 - Hypersensitivity angiitis ? Immunoglobulin E Today M31.0 - Hypersensitivity angiitis ? YOMI + Protein Elect, Serum Today M31.0 - Hypersensitivity angiitis ? Immunoglobulin G Today M31.0 - Hypersensitivity angiitis ? Immunoglobulin M Today M31.0 - Hypersensitivity angiitis ? Elastography Parenchyma/Organ Today M31.0 - Hypersensitivity angiitis ? I have examined the patient and the H&P has been reviewed. There are no clinical changes since date of exam.
[2022-08-17] MEDS: 0.9% Normal Saline 1,000 ML 15 ML IV (12:37)
--- NOTE | 2022-08-17 12:45 | COLBX_PTH ---
PATIENT: BABAR ACUÑA LOC: EN U#:[id number] AGE/SX: 41/F ROOM: RE08/17/[address]: Dr. Johnson Piña DO : 1980 BED: DIS: 08/17/2022 SPEC #: [id number] RECD: 08/17/22 15:44 STATUS: KP TOY #: [id number] AMEENA: 08/17/22 12:[address]: Johnson Piña DEPT: SURGICAL PATHOLOGY RECD BY: Ana Bolivar ENTERED: 08/18/22 10:12 SP TYPE: COLON BX OTHR DR: Dr. Jairon Wise DO Tissues: A - Duodenum, NOS B - Gastric mucous membrane C - Gastric mucous membrane D - Esophagus, NOS Procedures: Special Stain Group II Surgery Specimen Level IV Alcian Blue/PAS (control) HEADER OPERATION: [place] [place], biopsy PRE-OP DIAGNOSIS: Anemia, diarrhea TISSUE SUBMITTED: A ? Duodenum biopsy, B ? Gastric body biopsy, C ? Gastric cardia biopsy, D ? Distal esophagus biopsy MICROSCOPIC DIAGNOSIS A. Duodenum, biopsy: No pathologic change. B. Gastric body, biopsy: Chronic gastritis. Focal hyperplastic change. See comment. C. Gastric cardia, biopsy: Chronic gastritis. D. Distal esophagus, biopsy: Gastroesophageal junctional mucosa with mild chronic inflammation. Focal changes of reflux. 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 No evidence of dysplasia. See comment. AM:sierra 08/19/2022 COMMENT B. The results of immunohistochemistry for Helicobacter pylori will be reported separately ([id number]). D. Immunohistochemistry ([id number]) for P53 and Ki-67 will be performed and results will be reported separately. Alcian blue/PAS stain with matched control supports the above diagnosis. MICROSCOPIC DESCRIPTION Slides are reviewed. GROSS DESCRIPTION A - Received in fixative is one container labeled with the patient's name and designated duodenum biopsy. The specimen consists of two irregular fragments of light hinton soft tissue that in aggregate measure 0.6 x 0.5 x 0.1 cm. The specimen is totally submitted in one cassette. B - Received in fixative is one container labeled with the patient's name and designated gastric body biopsy. The specimen consists of two irregular fragments of light hinton soft tissue that in aggregate measure 0.5 x 0.3 x 0.1 cm. The specimen is totally submitted in one cassette. C - Received in fixative is one container labeled with the patient's name and designated gastric cardia biopsy. The specimen consists of one irregular fragment of light hinton soft tissue that measures 0.5 x 0.5 x 0.1 cm. The specimen is totally submitted in one cassette. D - Received in fixative is one container labeled with the patient's name and designated distal esophagus biopsy. The specimen consists of two irregular fragments of light hinton soft tissue that in aggregate measure 0.6 x 0.3 x 0.1 cm. The specimen is totally submitted in one cassette. / AM:sierra 08/18/2022 TC:3 CPT: 46545 x4, 42485
--- NOTE | 2022-08-17 12:45 | IMM_PTH ---
PATIENT: BABAR ACUÑA LOC: EN U#:[id number] AGE/SX: 41/F ROOM: RE08/17/[address]: Dr. Johnson Piña DO : 1980 BED: DIS: 08/17/2022 SPEC #: [id number] RECD: 08/18/22 12:54 STATUS: KP REQ #: [id number] AMEENA: 08/17/22 12:[address]: Johnson Piña DEPT: IMMUNOHISTOCHEMISTRY RECD BY: Bree Peoples ENTERED: 08/18/22 12:55 SP TYPE: IMMUNO OTHR DR: Dr. Jairon Wise DO Tissues: B - Stomach, NOS D - Esophagus, NOS Procedures: H Pylori (initial) P53 (initial) KI-67 (add) PHYSICIAN & INSTITUTION [place] [id number] SPECIMEN INFORMATION: Tissue Source: B ? Gastric body biopsy, D ? Distal esophagus biopsy Clinical Info: Anemia, diarrhea Specimen Number: [id number] B & D CPT code: 03656 x2, 26069 METHODOLOGY: Deparaffinized sections of prefer/formalin-fixed tissue or PAP/DQ stained slides are incubated with monoclonal/polyclonal antibodies/oligonucleotide probes. Localization is made via biotin free immunoperoxidase method. Appropriate controls are performed and reacted as expected. Results on target cell population are indicated in the following table: RESULTS: ANTIBODY / CLONE RESULT Block B H Pylori (polyclonal) negative Block D P53 (DO-7) negative Ki-67 (30-9) positive, low These tests were developed and their performance characteristics determined by [facility]. They may not have been cleared or approved by the U.[place]. Food and Drug Administration. The FDA has determined that such clearance or approval is not necessary. The above immunohistochemical/dualISH markers are ordered and reviewed by the Pathologist. INTERPRETATION: B. Gastric body, biopsy: Negative for Helicobacter pylori organisms. D. Distal esophagus, biopsy: No evidence of dysplasia. AM:sierra 08/20/2022
[2022-08-17 13:30] VITALS: BP 117/72; BP 122/73; BP 140/84; PULSE 64; PULSE 65; RESP 16; TEMP 36.5; O2SAT 92; O2SAT 96
[2022-08-17 13:35] VITALS: BP 132/78; BP 140/84; PULSE 62; RESP 16; O2SAT 93
--- NOTE | 2022-08-17 13:36 | OP.COLON_ITS ---
Patient Name: Sharla Lewis Procedure Date: 08/17/2022 1:10 PM Date of : 1980 Age: 41 Procedure: Colonoscopy Indications: Abdominal mass/lump in the right lower quadrant, Abdominal pain in the left upper quadrant, Weight loss Providers: Johnson Piña DO Referring MD: Jairon Wise Medicines: Monitored Anesthesia Care Patient Profile: This is a 41 year old female. Refer to note in patient chart for documentation of history and physical. Patient has symptoms of chronic nausea. Last Colonoscopy: date unknown. Unable to locate last colonoscopy report. Complications: No immediate complications. Procedure: Pre-Anesthesia Assessment: - Prior to the procedure, a History and Physical was performed, and patient medications and allergies were reviewed. The risks and benefits of the procedure and the sedation options and risks were discussed with the patient. All questions were answered and informed consent was obtained. Patient identification and proposed procedure were verified by the physician. Mental Status Examination: normal. Prophylactic Antibiotics: The patient does not require prophylactic antibiotics. Prior Anticoagulants: The patient has taken no previous anticoagulant or antiplatelet agents. ASA Grade Assessment: II - A patient with mild systemic disease. After reviewing the risks and benefits, the patient was deemed in satisfactory condition to undergo the procedure. The anesthesia plan was to use moderate sedation / analgesia (conscious sedation). Immediately prior to administration of medications, the patient was re-assessed for adequacy to receive sedatives. The heart rate, respiratory rate, oxygen saturations, blood pressure, adequacy of pulmonary ventilation, and response to care were monitored throughout the procedure. The physical status of the patient was re-assessed after the procedure. After I obtained informed consent, the scope was passed under direct vision. Throughout the procedure, the patient's blood pressure, pulse, and oxygen saturations were monitored continuously. The Colonoscope was introduced through the anus and advanced to the ascending colon. The colonoscopy was performed without difficulty. The patient tolerated the procedure well. The quality of the bowel preparation was unsatisfactory. Scope In: 1:12:15 PM Scope Out: 1:18:28 PM Total Procedure Duration Time 0 hours 6 minutes 13 seconds Findings: The perianal and digital rectal examinations were normal. Copious quantities of solid stool was found in the rectum, in the recto-sigmoid colon, in the sigmoid colon, in the descending colon, in the transverse colon, at the hepatic flexure, in the ascending colon and in the cecum. Impression: - Preparation of the colon was unsatisfactory. - Stool in the rectum, in the recto-sigmoid colon, in the sigmoid colon, in the descending colon, in the transverse colon, at the hepatic flexure, in the ascending colon and in the cecum. - No specimens collected. Recommendation: - Discharge patient to home. - Resume previous diet. - Continue present medications. - Repeat colonoscopy in 6 months because the bowel preparation was poor. Procedure Code(s): --- Professional --- 54611, 53, Colonoscopy, flexible; diagnostic, including collection of specimen(s) by brushing or washing, when performed (separate procedure) CPT copyright 2017 [employer]. All rights reserved. The codes documented in this report are preliminary and upon dry ice maker review may be revised to meet current compliance requirements. Johnson Piña DO 08/17/2022 1:36:39 PM This report has been signed electronically. Number of Addenda: 0 Note Initiated On: 08/17/2022 1:10 PM
--- NOTE | 2022-08-17 13:37 | OP.CCLET_ITS ---
08/17/2022 Jairon Wise Re : Colonoscopy procedure for Sharla Lewis Dear Frandy This procedure was performed on Wednesday, August 17, 2022. My impressions and recommendations are as follows: Impressions : - Preparation of the colon was unsatisfactory. - Stool in the rectum, in the recto-sigmoid colon, in the sigmoid colon, in the descending colon, in the transverse colon, at the hepatic flexure, in the ascending colon and in the cecum. - No specimens collected. Recommendations : - Discharge patient to home. - Resume previous diet. - Continue present medications. - Repeat colonoscopy in 6 months because the bowel preparation was poor. My findings are described in the full procedure note, which is enclosed. If I can be of further assistance, please feel free to contact me at . Sincerely, Johnson Friend, 08/17/2022 1:36:39 PM This report has been signed electronically.
[2022-08-17 13:40] VITALS: BP 131/84; BP 140/84; PULSE 62; RESP 15; O2SAT 98
[2022-08-17 13:45] VITALS: BP 136/76; BP 140/84; PULSE 64; RESP 16; TEMP 36.4; O2SAT 93
--- NOTE | 2022-08-17 13:55 | OP.EGD_ITS ---
Patient Name: Sharla Lewis Procedure Date: 08/17/2022 12:48 PM Date of : 1980 Age: 41 Procedure: Upper GI endoscopy Indications: Epigastric abdominal pain, Heartburn Providers: Johnson Piña DO Referring MD: Jairon Wise Medicines: Monitored Anesthesia Care Patient Profile: This is a 41 year old female. Refer to note in patient chart for documentation of history and physical. Patient has symptoms of chronic nausea. Complications: No immediate complications. Procedure: Pre-Anesthesia Assessment: - Prior to the procedure, a History and Physical was performed, and patient medications and allergies were reviewed. The risks and benefits of the procedure and the sedation options and risks were discussed with the patient. All questions were answered and informed consent was obtained. Patient identification and proposed procedure were verified by the physician. Mental Status Examination: normal. Prophylactic Antibiotics: The patient does not require prophylactic antibiotics. Prior Anticoagulants: The patient has taken no previous anticoagulant or antiplatelet agents. ASA Grade Assessment: II - A patient with mild systemic disease. After reviewing the risks and benefits, the patient was deemed in satisfactory condition to undergo the procedure. The anesthesia plan was to use moderate sedation / analgesia (conscious sedation). Immediately prior to administration of medications, the patient was re-assessed for adequacy to receive sedatives. The heart rate, respiratory rate, oxygen saturations, blood pressure, adequacy of pulmonary ventilation, and response to care were monitored throughout the procedure. The physical status of the patient was re-assessed after the procedure. After obtaining informed consent, the endoscope was passed under direct vision. Throughout the procedure, the patient's blood pressure, pulse, and oxygen saturations were monitored continuously. The Colonoscope was introduced through the mouth, and advanced to the second part of duodenum. The upper GI endoscopy was accomplished without difficulty. The patient tolerated the procedure well. Scope In: 1:00:40 PM Scope Out: 1:09:49 PM Total Procedure Duration Time 0 hours 9 minutes 9 seconds Findings: LA Grade A (one or more mucosal breaks less than 5 mm, not extending between tops of 2 mucosal folds) esophagitis with no bleeding was found 35 to 37 cm from the incisors. Biopsies were taken with a cold forceps for histology. Verification of patient identification for the specimen was done. Estimated blood loss was minimal. A small hiatal hernia was present. A few localized, 5 mm non-bleeding erosions were found in the cardia, in the gastric body and in the gastric antrum. There were no stigmata of recent bleeding. Biopsies were taken with a cold forceps for histology. Verification of patient identification for the specimen was done. Estimated blood loss was minimal. Diffuse moderately congested mucosa without active bleeding and with no stigmata of bleeding was found in the first portion of the duodenum, in the second portion of the duodenum and in the third portion of the duodenum. Biopsies were taken with a cold forceps for histology. Verification of patient identification for the specimen was done. Estimated blood loss was minimal. A video capsule was endoscopically placed into the small bowel. Mild inflammation characterized by congestion (edema) was found in the duodenal bulb. Using the endoscope, the video capsule enteroscope was advanced into the third portion of the duodenum. The video capsule was positioned 60 cm from the incisors. Impression: - LA Grade A reflux esophagitis. Biopsied. - Small hiatal hernia. - Non-bleeding erosive gastropathy. Biopsied. - Congested duodenal mucosa. Biopsied. Recommendation: - Written discharge instructions were provided to the patient. - Written discharge instructions were provided to the patient. - The signs and symptoms of potential delayed complications were discussed with the patient. - Patient has a contact number available for emergencies. - Return to normal activities tomorrow. - Resume previous diet. - Continue present medications. - Await pathology results. - Repeat upper endoscopy in 1 year for surveillance based on pathology results. Procedure Code(s): --- Professional --- 89232, Esophagogastroduodenoscopy, flexible, transoral; with biopsy, single or multiple CPT copyright 2017 [employer]. All rights reserved. The codes documented in this report are preliminary and upon tube tester review may be revised to meet current compliance requirements. Johnson Piña DO 08/17/2022 1:55:29 PM This report has been signed electronically. Number of Addenda: 0 Note Initiated On: 08/17/2022 12:48 PM
--- NOTE | 2022-08-17 13:56 | OP.CCLET_ITS ---
08/17/2022 Jairon Wise Re : Upper GI endoscopy procedure for Sharla Lewis Dear Frandy This procedure was performed on Wednesday, August 17, 2022. My impressions and recommendations are as follows: Impressions : - LA Grade A reflux esophagitis. Biopsied. - Small hiatal hernia. - Non-bleeding erosive gastropathy. Biopsied. - Congested duodenal mucosa. Biopsied. Recommendations : - Written discharge instructions were provided to the patient. - Written discharge instructions were provided to the patient. - The signs and symptoms of potential delayed complications were discussed with the patient. - Patient has a contact number available for emergencies. - Return to normal activities tomorrow. - Resume previous diet. - Continue present medications. - Await pathology results. - Repeat upper endoscopy in 1 year for surveillance based on pathology results. My findings are described in the full procedure note, which is enclosed. If I can be of further assistance, please feel free to contact me at . Sincerely, Johnson Piña, 08/17/2022 1:55:29 PM This report has been signed electronically.
[2022-08-17 14:10] VITALS: BP 140/84
== END 2022-08-17 14:12 | disposition home or self-care (01) ==
LOC: EN 11:47 → AC 11:49
PROVIDERS: PCP Family Medicine; Referring Provider Family Medicine; Visit Provider Internal Medicine Gastroenterology
PROC: 0DJD8ZZ Inspection of Lower Intestinal Tract, Via Natural or Artificial Opening Endoscopic (ICD-10-PCS; CPT 45378; principal; 2022-08-17 12:40)
DX: K29.50 Unspecified chronic gastritis without bleeding (principal); N18.6 End stage renal disease; I12.0 Hypertensive chronic kidney disease with stage 5 chronic kidney disease or end stage renal disease; R56.9 Unspecified convulsions; K21.00 Gastro-esophageal reflux disease with esophagitis, without bleeding; K22.70 Barrett's esophagus without dysplasia; K44.9 Diaphragmatic hernia without obstruction or gangrene; K31.89 Other diseases of stomach and duodenum; E78.00 Pure hypercholesterolemia, unspecified; Z87.891 Personal history of nicotine dependence; Z86.73 Personal history of transient ischemic attack (TIA), and cerebral infarction without residual deficits; Z79.899 Other long term (current) drug therapy
CPT/HCPCS: 43239; 45378; 88305; 88313; 88341; 88342; J7030; J2405

== ENCOUNTER → 2022-08-24 | Outpatient (CLI) | payer MEDICAID, SELFPAY ==
--- NOTE | 2022-08-24 08:59 | RAD_ITS ---
STUDY: X-RAY - ABDOMEN/PELVIS REASON FOR EXAM: Female, 41 years old. Pill Cam Retention -- Pill cam never left small bowel during recording. TECHNIQUE: Single AP view of the abdomen / pelvis on 2 images. COMPARISON: None. FINDINGS: Normal visualized lung bases. There is an unremarkable bowel gas pattern. There is no demonstrated free abdominal air. The visualized liver, spleen and kidneys are grossly normal in size and morphology. Pill cam projected over left sacroiliac joint. Presumed tubal ligation clips in the pelvis. IUD present. Phleboliths. Normal visualized osseous structures. RAD/Abdomen Single View IMPRESSION: Pill Cam projected over the left sacroiliac joint as described. No acute abnormality identified. Electronically Signed: Cecil Soto, at 10:38 EST ,
== END | disposition home or self-care (01) ==
LOC: RAD 08:58
PROVIDERS: PCP Family Medicine; Visit Provider Internal Medicine Gastroenterology
DX: D64.9 Anemia, unspecified (principal); I87.8 Other specified disorders of veins
CPT/HCPCS: 74018

== ENCOUNTER → 2022-09-07 | Outpatient (CLI) | payer MEDICAID, SELFPAY ==
[2022-09-07 10:13] LABS: Erythrocyte Sedimentation Rate 21 mm/hr (0-30)
[2022-09-07 10:21] LABS: International Normalized Ratio 0.9; Prothrombin Time (Protime)PT. 11.9 SECONDS (11.7-14.9)
[2022-09-07 10:46] LABS: Vitamin B12 361 pg/mL (211-911); Vitamin D,25 Hydroxy 13.2 ng/mL
[2022-09-07 10:58] LABS: Free T3 1.6 pg/mL (2.18-3.98); LDH 212 U/L (84-246); T4 Free Direct 0.77 ng/dL (0.76-1.46); Thyroid Stim Hormone (TSH) 1.91 uIU/mL (0.358-3.74)
[2022-09-08 15:08] LABS: Endomysial Antibody IgA Negative (Negative)
[2022-09-08 19:23] LABS: Immunoglobulin A 438 mg/dL (87-352); t-Transglutaminase IgA <2 U/mL (0-3)
[2022-09-09 13:08] LABS: Anti-Centromere B Ab <0.2 AI (0.0-0.9); Anti-Chromatin <0.2 AI (0.0-0.9); Anti-Jo <0.2 AI (0.0-0.9); Anti-Scleroderma-70 AB <0.2 AI (0.0-0.9); RNP Ab <0.2 AI (0.0-0.9); SJOGREN'S Anti-SS-A test < 0.2 AI (0.0-0.9); SJOGREN'S Anti-SS-B test < 0.2 AI (0.0-0.9); Smith Ab <0.2 AI (0.0-0.9)
[2022-09-10 06:07] LABS: Albumin 4.3 g/dL (2.9-4.4); Alpha-1-Globulins 0.3 g/dL (0.0-0.4); Alpha-2-Globulins 0.8 g/dL (0.4-1.0); Cytoplasmic Ab (C-ANCA) <1:20 titer (Neg:<1:20); Gamma Globulin 0.7 g/dL (0.4-1.8); HEPATITIS B SURFACE AG Negative (Negative); Hep C Antibodies <0.1 s/co ratio (0.0-0.9); Hepatitis A IgM Antibody Negative (Negative); Hepatitis B Core AB IgM Negative (Negative); Immunoglobulin A 374 mg/dL (87-352); Immunoglobulin G 822 mg/dL (586-1602); Immunoglobulin M 37 mg/dL (26-217); PROEL- TOTAL PROTEIN 7.1 g/dL (6.0-8.5)
[2022-09-10 19:22] LABS: Anti-dsDNA Ab <1 IU/mL (0-9); Vitamin D 1,25-Dihydroxy <5.0 pg/mL (24.8-81.5)
[2022-09-10 19:23] LABS: Anti-Parietal Cell AB, QN 1.2 Units (0.0-20.0); Immunoglobulin E 4 IU/mL (6-495); Perinuclear Ab (P-ANCA) <1:20 titer (Neg:<1:20)
== END | disposition home or self-care (01) ==
PROVIDERS: PCP Family Medicine; Referring Provider Internal Medicine Gastroenterology; Visit Provider Internal Medicine Gastroenterology
DX: K52.9 Noninfective gastroenteritis and colitis, unspecified (principal); M31.0 Hypersensitivity angiitis
CPT/HCPCS: 36415; 80074; 82306; 82607; 82652; 82784; 82785; 83516; 83615; 84165; 84439; 84443; 84481; 85610; 85652; 86140; 86225; 86235; 86255; 86256; 86334

== ENCOUNTER → 2022-09-13 | Outpatient (CLI) | payer MEDICAID, SELFPAY ==
[2022-09-16 21:55] LABS: Calprotectin, Stool 44 ug/g (0-120)
== END | disposition home or self-care (01) ==
LOC: LAB 16:38 → LABSPEC 16:46
PROVIDERS: PCP Family Medicine; Referring Provider Internal Medicine Gastroenterology; Visit Provider Internal Medicine Gastroenterology
DX: K52.9 Noninfective gastroenteritis and colitis, unspecified (principal)
CPT/HCPCS: 83630; 83993

== ENCOUNTER 2022-11-03 07:01 | Emergency (ER) | payer MEDICAID, SELFPAY ==
[2022-11-03 07:02] VITALS: BP 118/89; PULSE 69; RESP 18; TEMP 35.8; O2SAT 97; BMI 17.9
--- NOTE | 2022-11-03 07:19 | EKG12_ITS ---
Test Reason : GENERAL Blood Pressure : / mmHG Vent. Rate : 067 BPM Atrial Rate : 067 BPM P-R Int : 182 ms QRS Dur : 088 ms QT Int : 428 ms P-R-T Axes : 018 016 062 degrees QTc Int : 452 ms Normal sinus rhythm Normal ECG Confirmed by VICTORINO RODRIGUEZ, JARED ([id number]), publications editor JENNIFER KELLEY ([id number]) on 11/08/2022 9:30:28 AM Referred By: KRISTAN Confirmed By:BESSIE GLEASON MD
--- NOTE | 2022-11-03 07:40 | EX.ED.DYSGE1 ---
HPI History of Present Illness Chief Complaint: General Illness Informant: patient Narrative Narrative: Patient is a 42 year old female with history of HD on MWF presenting from dialysis for left arm pain and swelling at graft site. She had full HD 2 days ago. She had increased redness and dialysis there is no thrill or bruit so she was sent to the emergency room. She states her elementary summer school teacher is Dr. To. She states her fistula/graft was placed at [facility] Dr. Mtz. Denies any fever or any other complaints. States she otherwise feels well. [facility] Medical History (Updated 11/03/22 @ 11:[address] Karo Angel, DO) Anemia Cardiology follow-up encounter Cirrhosis Dietary restriction End stage chronic kidney disease Fistula Former smoker Gastric reflux Goodpasture syndrome Heartburn High cholesterol History of echocardiogram History of edema History of heart attack (~2019) History of hiatal hernia History of stress test Hyperlipidemia Hypertension Hypertension Kidney disease Renal dialysis device, implant, or graft complication Seizures TIA (transient ischemic attack) (~2019) Wears glasses Home Medications Zonisamide [Zonegran] 100 mg PO DAILY epilepsy 08/25/20 [History Last Taken 02/05/21] acetaminophen 500 mg tablet 1,000 mg PO DAILY PRN PRN Pain 1-10 Or Fever 08/25/20 [History Last Taken 08/25/20] atorvastatin 10 mg tablet 10 mg PO QHS cholesterol 08/25/20 [History Last Taken 02/05/21] hydralazine 100 mg tablet 100 mg PO TID bp 08/25/20 [History Last Taken 08/17/22] labetalol 200 mg tablet 600 mg PO BID heart 08/25/20 [History Last Taken 02/06/21] levetiracetam 500 mg tablet 500 mg PO BID seizure 08/25/20 [History Last Taken 08/17/22] levetiracetam 500 mg tablet 500 mg PO MOWEFR seizure 08/25/20 [History Last Taken 02/06/21] levonorgestrel 21 mcg/24 hours (8 yrs) 52 mg intrauterine device 1 ea IU X1 hormone 08/25/20 [History Last Taken 08/25/20] losartan 50 mg tablet 100 mg PO DAILY bp 08/25/20 [History Last Taken 02/05/21] nifedipine 60 mg tablet,extended release 24 hr 90 mg PO BID heart 08/25/20 [History Last Taken 02/06/21] pantoprazole 40 mg tablet,delayed release 40 mg PO DAILY gerd 08/25/20 [History Last Taken 02/05/21] clonidine HCl 0.2 mg tablet 0.3 mg PO TID blood pressure 01/30/21 [History Last Taken 08/17/22] doxazosin 1 mg tablet (Cardura) 1 mg PO DAILY 06/15/21 [History Last Taken Unknown] ondansetron HCl 4 mg tablet (Zofran) 4 mg PO Q8H 06/15/21 [History Last Taken Unknown] sennosides 8.6 mg-docusate sodium 50 mg capsule (Senna Plus) 1 tab-cap PO BID PRN Constipation 06/15/21 [History Last Taken Unknown] sevelamer carbonate 800 mg tablet (Renvela) 800 mg PO TID 06/15/21 [History Last Taken Unknown] peg 3350-electrolytes 236 gram-22.74 gram-6.74 gram-5.86 gram solution (Golytely) 240 ml PO Q10M #4,000 mL 08/25/22 [Rx Last Taken Unknown] linaclotide 290 mcg capsule (Linzess) 290 mcg PO DAILY #30 caps 09/21/22 [Rx Last Taken Unknown] Allergy/AdvReac Type Severity Reaction Status Date / Time ciprofloxacin [From Cipro] Allergy Rash Verified 08/17/22 12:24 clarithromycin [From Biaxin] Allergy Rash Verified 08/17/22 12:24 Penicillins Allergy Hives Verified 08/17/22 12:24 cephalexin [From Keflex] AdvReac Diarrhea Verified 08/17/22 12:24 Surgical History (Updated 08/16/22 @ 11:26 by Pat Guadarrama) History of (~2001) History of microdiscectomy (~2003) History of tubal ligation (~2001) History of wisdom tooth extraction Social History household members: none Smoking Status: Former smoker substance use type: does not use ROS ROS ED Constitutional Constitutional ED: Denies chills or fever(s) Respiratory/Chest Respiratory/Chest: Denies cough or dyspnea Gastrointestinal Gastrointestinal: Denies nausea or vomiting Musculoskeletal Musculoskeletal: Reports other Details: left arm pain Integumentary Reports rash Neurologic Neurologic: Denies headache(s), paresthesias or weakness EXAM Physical Exam Const Vital Signs: 11/03/22 07:02 Temperature 96.5 F L Temperature Source Temporal Pulse Rate 69 Respiratory Rate 18 Blood Pressure 118/89 H Blood Pressure Mean 98 Pulse Ox 97 Oxygen Delivery Method Room Air Positive well nourished and well developed General Appearance ED: well developed and NAD HEENT Reports moist mucous membranes Eyes PERRL and EOMs intact bilaterally Neck supple and no JVD Chest Wall inspection of chest normal Resp normal respiratory effort and clear to auscultation bilaterally Cardio regular rate and regular rhythm GI non-distended Extremity Extremity Narrative: Slight soft tissue swelling of the left AC fossa and forearm over graft site. No palpable thrill and no bruit appreciated. Only a pulse heard on Doppler. 2+ bilateral radial pulses. Neuro oriented x3 Sensorium / Orientation: alert Motor Exam: Negative for general weakness Psych mental status grossly normal Skin Skin Narrative: Mild erythema and warmth over the left AC fossa. MDM MDM MDM Narrative Medical decision making narrative: Patient is evaluated for malfunctioning graft of her left forearm. She did not receive dialysis today. EKG and basic labs obtained to make sure she does not require emergent dialysis. She does not appear fluid overloaded, potassium is 4.9 and her vital signs are stable. She does not require emergent dialysis. EKG does not show any significant changes consistent with hyperkalemia. Case initially discussed with our vascular surgeon, Dr. Wright, who states that he is not able to operate/intervene on this patient as he is not set up for doing any type of clot graft removal at this time with our facility. Case discussed with the patient's elementary summer school teacher, Dr. To who recommend I speak with the patient's vascular surgeon, Dr. Her, through [facility]. I then spoke with Dr. Quigley who is on-call for Dr. Her. She states that they also do not have abilities to do this procedure as well at [facility]. I then spoke with [facility] vascular surgery, Dr. Fox, who will work on arranging outpatient intervention for the patient through [facility] over the next 24 hours. Patient be kept n.p.o. in the meantime. She is agreeable this plan of care. Lab Data Attestation: I reviewed the patient's lab results. Labs: Laboratory Results - last 24 hr 11/03/22 11/03/22 07:31 07:31 WBC 8.3 RBC 3.16 L Hgb 11.4 L Hct 35.4 L MCV 112.0 H MCH 36.1 H MCHC 32.2 RDW Std Deviation 59.9 H RDW Coeff of Aleida 14.6 Plt Count 184 MPV 9.9 Immature Gran % (Auto) 0.200 Neut % (Auto) 70.2 H Lymph % (Auto) 18.9 L [place] % (Auto) 7.1 Eos % (Auto) 2.5 Baso % (Auto) 1.1 H Absolute Neuts (auto) 5.8 Absolute Lymphs (auto) 1.57 Nucleated RBC % 0 Sodium 141 Potassium 4.5 Chloride 97 L Carbon Dioxide 29.0 BUN 61 H Creatinine 8.83 H* Estim Creat Clear Calc 6.08 Est GFR (MDRD) Af Amer 6 L Est GFR (MDRD) Non-Af 5 L BUN/Creatinine Ratio 6.9 L Glucose 76 Calcium 10.0 Phosphorus 5.3 H Albumin 3.9 Rhythm Strip Rhythm Strip: Sinus Rhythm Rate: 67 Ectopy: None EKG Initial EKG: Attestation: I personally reviewed and interpreted this EKG as follows: Interpretation: Sinus Rhythm Comments: Normal sinus rhythm at a rate of 67 bpm Normal axis Normal intervals Normal ST segments Discharge Plan Triage Chief Complaint: General Illness ED Provider: Karo Angel Dx/Rx/DC Orders Clinical Impression: AV graft malfunction, Arm pain, left Prescriptions: No Action doxazosin [Cardura] 1 mg tablet 1 mg PO DAILY Senna Plus 8.6-50 mg capsule 1 tab-cap PO BID PRN (Reason: Constipation) sevelamer carbonate [Renvela] 800 mg tablet 800 mg PO TID Rx Instructions: must administer with a meal/food ondansetron HCl [Zofran] 4 mg tablet 4 mg PO Q8H levonorgestrel 1 EACH intrauterine device 1 ea IU X1 labetalol 200 MG tablet 600 mg PO BID atorvastatin 10 MG tablet 10 mg PO QHS levetiracetam 500 MG tablet 500 mg PO MOWEFR Rx Instructions: TID nifedipine 60 MG tablet extended release 24hr 90 mg PO BID hydralazine 100 MG tablet 100 mg PO TID pantoprazole 40 MG tablet 40 mg PO DAILY losartan 50 MG tablet 100 mg PO DAILY levetiracetam 500 MG tablet 500 mg PO BID Rx Instructions: tuthusatsun acetaminophen 500 MG tablet 1,000 mg PO DAILY PRN PRN (Reason: Pain 1-10 Or Fever) Zonisamide [Zonegran] 50 MG capsule 100 mg PO DAILY clonidine HCl 0.2 mg tablet 0.3 mg PO TID peg 3350-electrolytes [Golytely] 236-22.74-6.74 -5.86 gram recon soln 240 ml PO Q10M Qty: 4000 0RF Rx Instructions: until fecal effluent is clear Linzess 290 mcg capsule 290 mcg PO DAILY Qty: 30 11RF Rx Instructions: take 30 minutes prior to first intake of the day Primary Care Provider: Jairon Wise Referrals: Jairon Wise DO [Primary Care Provider] - Activity Restrictions/Additional Instructions: Please continue to be nothing by mouth throughout the afternoon. If do not hear from the [facility] by 3 or 4 you can eat and drink until midnight. You will be contacted either today or tomorrow to schedule a procedure for your arm. You can apply ice for the pain and swelling in your arm. Disposition Disposition: Home, Self Care Discharge Date/Time: 11/03/22 11:52
[2022-11-03 08:12] LABS: Absolute Lymphocyte Count 1.57 X10^3/uL (0.83-4.51); Absolute Neutrophil Count 5.8 X10^3/uL (2.0-7.7); Basophil# 0.09 X10^3/uL; Basophil% 1.1 % (0-1); Eosinophil# 0.21 X10^3/uL; Eosinophils% 2.5 % (0-5); Hematocrit 35.4 % (37-47); Hemoglobin 11.4 g/dL (12.0-15.0); Lymphocyte # 1.57 X10^3/ul (0.83-4.51); Lymphocyte % 18.9 % (19-41); Mean Corp Hgb Conc 32.2 g/dL (32-36); Mean Corpuscular Hgb 36.1 pg (27.0-32.0); Mean Platelet Vol. 9.9 fl (6.2-12.0); Monocyte# 0.59 X10^3/uL; Monocyte% 7.1 % (0-10); NRBC Flagged by Analyzer 0 % (0-5); Neutrophil # 5.82 X10^3/uL (2.7-7.7); Neutrophil % 70.2 % (47-70); Platelet Count 184 K/mm3 (150-450); RBC Distribution Width CV 14.6 % (11.6-14.6); RBC Distribution Width SD 59.9 fl (35.1-43.9); Red Blood Count 3.16 M/mm3 (4.2-5.4); White Blood Count 8.3 K/mm3 (4.4-11.0)
[2022-11-03 08:31] LABS: Albumin, Serum 3.9 g/dL (3.2-5.0); BUN 61 mg/dL (7-18); BUN/Creat Ratio 6.9 RATIO (10-20); Chloride 97 mmol/L (98-107); Creatinine, Serum 8.83 mg/dL (0.55-1.02); EST Glomerular Filtration Rate 5 mL/min (>60); Est Glom Filt Rate - Afr Amer 6 mL/min (>60); Estimated Creatinine Clearance 6.08 ml/min; Glucose 76 mg/dL (74-106); Phosphorus 5.3 mg/dL (2.5-4.9); Potassium 4.5 mmol/L (3.5-5.1); Sodium Level 141 mmol/L (136-145)
--- NOTE | 2022-11-03 08:41 | NURSING ---
[address] LAW [phone] [id number] LEFT MESSAGE ON RN NUMBER [id number] LEFT MESSAGE ON SCHEDULING NUMBER
--- NOTE | 2022-11-03 08:58 | NURSING ---
[address] LAW NOT IN OFFICE YET. SHE WILL LET HIM KNOW WHEN HE ARRIVES [id number] DR CARRION RETURNED CALL.
--- NOTE | 2022-11-03 10:44 | NURSING ---
CALLED [facility], TALKED TO KWAME. GAVE HIM INFO AND HE IS TALKING TO DR PEÑA
--- NOTE | 2022-11-03 10:46 | NURSING ---
1011 DEENA REFUSED TO ADMIT PATIENT
== END 2022-11-03 11:52 | disposition home or self-care (01) ==
PROVIDERS: Emergency Provider Emergency Medicine; PCP Family Medicine; Visit Provider Emergency Medicine
DX: T82.848A Pain due to vascular prosthetic devices, implants and grafts, initial encounter (principal); Z99.2 Dependence on renal dialysis; I12.0 Hypertensive chronic kidney disease with stage 5 chronic kidney disease or end stage renal disease; N18.6 End stage renal disease; Z87.891 Personal history of nicotine dependence; E78.00 Pure hypercholesterolemia, unspecified; X58.XXXA Exposure to other specified factors, initial encounter
CPT/HCPCS: 36415; 80069; 85025; 93005; 99282

== ENCOUNTER 2023-04-08 08:31 | Outpatient (CLI) | payer MEDICAID, SELFPAY ==
[2023-04-08 09:18] VITALS: BP 161/86; PULSE 76; RESP 16; TEMP 36.2; O2SAT 100; BMI 18.8
[2023-04-08 10:14] VITALS: BP 177/88; PULSE 71; RESP 16; TEMP 36.6; O2SAT 99
[2023-04-08 11:14] VITALS: BP 196/102; PULSE 71; TEMP 36.9; O2SAT 98
[2023-04-08 12:14] VITALS: BP 208/101; PULSE 71; RESP 16; TEMP 36.7; O2SAT 99
[2023-04-08 13:17] VITALS: BP 189/108; PULSE 78; RESP 16; TEMP 36.6; O2SAT 98
== END 2023-04-08 08:32 | disposition home or self-care (01) ==
LOC: MEDOUTP 08:32
PROVIDERS: PCP Family Medicine; Referring Provider Internal Medicine Nephrology; Visit Provider Internal Medicine Nephrology
DX: D64.9 Anemia, unspecified (principal); N18.6 End stage renal disease
CPT/HCPCS: 36415; 36430; 86850; 86900; 86901; 86920; 86922; J7040; P9016; A4216

== ENCOUNTER 2023-06-29 07:43 | Outpatient (CLI) | payer MEDICAID, SELFPAY ==
[2023-06-29 08:12] VITALS: BP 169/100; PULSE 73; RESP 18; TEMP 36.2; O2SAT 100; BMI 19.3
[2023-06-29 08:19] VITALS: BP 169/100; PULSE 73; RESP 18; TEMP 36.2; O2SAT 100
[2023-06-29 08:34] VITALS: BP 180/101; PULSE 93; RESP 16; TEMP 36.2; O2SAT 100
[2023-06-29 09:34] VITALS: BP 164/98; PULSE 72; RESP 16; TEMP 35.9
== END 2023-06-29 07:44 | disposition home or self-care (01) ==
LOC: MEDOUTP 07:43
PROVIDERS: PCP Family Medicine; Referring Provider Internal Medicine Nephrology; Visit Provider Internal Medicine Nephrology
DX: D64.9 Anemia, unspecified (principal)
CPT/HCPCS: 36415; 86850; 86900; 86901; 86920; 86921; 86922; 36430; J7040; P9040; A4216

== ENCOUNTER 2023-07-11 09:04 | Observation (INO) | payer MEDICAID, SELFPAY ==
[2023-07-11] VITALS (12 sets, daily range): BP systolic 80–200; BP diastolic 86–104; PULSE 75–89; RESP 13–18; TEMP 36.1–37; O2SAT 98–100; BMI 18.1; BMI 17.9; BMI 17.8
--- NOTE | 2023-07-11 09:58 | EDS_ITS ---
HPI History of Present Illness Chief Complaint: Abn Labs Detail of Chief Complaint: [place] by nephrology because fistula occluded Informant: patient Onset/Context/Timing Onset: - (Unknown) Context: Sudden Onset Timing: Continuous Quality: There is no thrill or bruit noted over the left forearm fistula Location: Volar surface left proximal forearm Current Severity: Severe Maximum Severity: Severe Worsened by: Unknown Relieved by: Nothing Associated Symptoms Associated Symptoms: Decreased appetite and generalized weakness Narrative Narrative: Patient is a 42-year-old woman on hemodialysis. She had a [place] fistula constructed by a surgeon at [facility] 3 years ago. She is scheduled for dialysis Tuesday, Tuesday and Tuesday. She has not been dialyzed since last Tuesday. She was sent in by her wood science professor, Dr. To to have blood work assessed. She does not have a local vascular surgeon. [place] in the area. She denies headache, visual, ocular auditory symptoms. She denies cardiac or respiratory symptoms. GI symptoms are positive for constipation. Prior similar symptoms: No Recent Illness/Hospitalization: No PFSH PFSH Medical History Anemia Cardiology follow-up encounter Cirrhosis Dietary restriction End stage chronic kidney disease Fistula Former smoker Gastric reflux Goodpasture syndrome Heartburn High cholesterol History of echocardiogram History of edema History of heart attack (~2019) History of hiatal hernia History of stress test Hyperlipidemia Hypertension Hypertension Kidney disease Renal dialysis device, implant, or graft complication Seizures TIA (transient ischemic attack) (~2019) Wears glasses Home Medications Zonisamide [Zonegran] 100 mg PO DAILY epilepsy 08/25/20 [History Last Taken 02/05/21] acetaminophen 500 mg tablet 1,000 mg PO DAILY PRN PRN Pain 1-10 Or Fever 08/25/20 [History Last Taken 08/25/20] atorvastatin 10 mg tablet 10 mg PO QHS cholesterol 08/25/20 [History Last Taken 02/05/21] labetalol 200 mg tablet 600 mg PO BID heart 08/25/20 [History Last Taken 02/06/21] levetiracetam 500 mg tablet 500 mg PO BID seizure 08/25/20 [History Last Taken 08/17/22] levetiracetam 500 mg tablet 500 mg PO MOWEFR seizure 08/25/20 [History Last Taken 02/06/21] levonorgestrel 21 mcg/24 hours (8 yrs) 52 mg intrauterine device 1 ea IU X1 hormone 08/25/20 [History Last Taken 08/25/20] losartan 50 mg tablet 100 mg PO DAILY bp 08/25/20 [History Last Taken 02/05/21] nifedipine 60 mg tablet,extended release 24 hr 90 mg PO BID heart 08/25/20 [History Last Taken 02/06/21] pantoprazole 40 mg tablet,delayed release 40 mg PO DAILY gerd 08/25/20 [History Last Taken 02/05/21] clonidine HCl 0.2 mg tablet 0.3 mg PO TID blood pressure 01/30/21 [History Last Taken 08/17/22] doxazosin 1 mg tablet (Cardura) 1 mg PO DAILY 06/15/21 [History Last Taken Unknown] ondansetron HCl 4 mg tablet (Zofran) 4 mg PO Q8H 06/15/21 [History Last Taken Unknown] sennosides 8.6 mg-docusate sodium 50 mg capsule (Senna Plus) 1 tab-cap PO BID PRN Constipation 06/15/21 [History Last Taken Unknown] sevelamer carbonate 800 mg tablet (Renvela) 800 mg PO TID 06/15/21 [History Last Taken Unknown] peg 3350-electrolytes 236 gram-22.74 gram-6.74 gram-5.86 gram solution (Golytely) 240 ml PO Q10M #4,000 mL 08/25/22 [Rx Last Taken Unknown] lactulose 10 gram/15 mL (15 mL) oral solution 15 ml PO DAILY #1,440 mL 12/09/22 [Rx Last Taken Unknown] linaclotide 290 mcg capsule (Linzess) 290 mcg PO DAILY #60 caps 12/09/22 [Rx Last Taken Unknown] prucalopride 2 mg tablet (Motegrity) 2 mg PO DAILY #30 tabs 04/28/23 [Rx Last Taken Unknown] Allergy/AdvReac Type Severity Reaction Status Date / Time nickel Allergy Mild Hives Verified 07/11/23 09:07 ciprofloxacin [From Cipro] Allergy Rash Verified 07/11/23 09:07 clarithromycin [From Biaxin] Allergy Rash Verified 07/11/23 09:07 Penicillins Allergy Hives Verified 07/11/23 09:07 cephalexin [From Keflex] AdvReac Diarrhea Verified 07/11/23 09:07 Surgical History History of (~2001) History of microdiscectomy (~2003) History of tubal ligation (~2001) History of wisdom tooth extraction Social History household members: none Smoking Status: Former smoker substance use type: does not use ROS ROS ED Constitutional Constitutional ED: Denies chills, fever(s), subjective, sweats or weight loss Eyes Eyes: Denies blurry vision or change in vision Cardiovascular Cardiovascular: Denies chest pain, orthopnea, palpitations or paroxysmal nocturnal dyspnea Respiratory/Chest Respiratory/Chest: Denies cough, dyspnea, dyspnea on exertion, orthopnea or paroxysmal nocturnal dyspnea Gastrointestinal Gastrointestinal: Denies abdominal pain, nausea or vomiting Musculoskeletal Musculoskeletal: Denies arthralgias or myalgias Integumentary Denies rash Neurologic Neurologic: Reports weakness; Denies headache(s) or paresthesias Endocrine Endocrinology: Denies cold intolerance or heat intolerance Hematologic/Lymphatic Hematologic/Lymphatic: Reports systems reviewed and no addt'l complaints, except as documented EXAM Physical Exam Const Vital Signs: 07/11/23 09:05 07/11/23 09:53 07/11/23 12:00 Temperature 97.0 F L Temperature Source Temporal Pulse Rate 88 80 Respiratory Rate 14 13 Respiratory Pattern Normal Blood Pressure 131/97 H Blood Pressure Mean 108 Pulse Ox 100 98 Oxygen Delivery Method Room Air Room Air Positive well nourished and well developed General Appearance ED: well developed and NAD HEENT Reports moist mucous membranes HEENT Narrative: Head is atraumatic and normocephalic. Ears are normal. Nares are patent. Eyes PERRL and EOMs intact bilaterally General Eye ED: Yes pale conjunctiva; Negative for scleral icterus Neck no lymphadenopathy, supple and no JVD Chest Wall inspection of chest normal and palpation of chest normal Resp normal respiratory effort and No clear to auscultation bilaterally Resp Narrative: Bibasilar rales. Otherwise, oscillatory exam is unremarkable. Cardio regular rate, regular rhythm, S1 normal heart sound, S2 normal heart sound and no murmurs GI normal to inspection, nondistended, normoactive bowel sounds, non-tender, non- distended and no masses; Negative for hepatosplenomegaly Back/Spine Back/Spine Narrative: Inspection of the is unremarkable. Extremity normal to inspection Extremity Narrative: Distal pulses are palpable. General Extremety ED: Negative for edema or tenderness General Extremity: Negative for edema Neuro oriented x3, CN's II-XII intact bilaterally and no sensory deficits noted Sensorium / Orientation: alert Psych mental status grossly normal Skin Skin Narrative: Dry skin otherwise negative. MDM MDM MDM Narrative Medical decision making narrative: Dr. Ray Wright was contacted. Discussed placement of Vas-Cath. She could have a temporary Vas-Cath. Recommended admission and he will see patient to declog the fistula the next day or 2. Will obtain blood work to determine what her potassium is as well as BUN. We will then contact her wood science professor. We will explained risk benefits of placement of Vas-Cath.. We will have patient's sign consent form. History & Record Review Additional record(s) reviewed:: Prior ED visit and Prior labs Lab Data Attestation: I reviewed the patient's lab results. Lab results narrative: CBC is remarkable for anemia with an H&H 7.1 and 22.9 with an MCV of 101.8. BMP is remarkable for a potassium of 3.3, CO2 of 27 with an elevated anion gap. BUN is 56 with a creatinine of 1.09. Labs: Laboratory Results - last 24 hr 07/11/23 10:15 WBC 4.7 RBC 2.25 L Hgb 7.1 L Hct 22.9 L MCV 101.8 H MCH 31.6 MCHC 31.0 L RDW Std Deviation 65.4 H RDW Coeff of Aleida 17.3 H Plt Count 222 MPV 9.5 Differential Comment SCANNED Sodium 139 Potassium 3.3 L Chloride 96 L Carbon Dioxide 27.0 Anion Gap 16 H BUN 56 H Creatinine 10.90 H* Estim Creat Clear Calc 4.99 Est GFR (MDRD) Af Amer 5 L Est GFR (MDRD) Non-Af 4 L BUN/Creatinine Ratio 5.1 L Glucose 83 Calcium 10.0 Management Discussion w/another healthcare provider: Hospitalist and [employer] (Dr. Ray Wright vascular surgeon, summary of discussion and MDM/plan) Treatment and Re-Evaluation :: Dr. Berg I did call back. He says Dr. To is affiliated with their group and is based in [place]. He does come to [facility]. He will call Dr. To to determine if patient can have a Vas-Cath placed at their center versus me placing it and potentially have emergent declogging of the left forearm fistula. Procedures Other Procedures Procedure(s): Patient was consented for central line/placement of Vas-Cath right subclavian. Patient was explained risk benefits. She has had this before. She understands. Patient was prepped draped sterile manner. The area was prepped with ChloraPrep. The area was then anesthetized with 1% lidocaine total of 5 cc. Using Salinger technique subclavian vessel was cannulated and there was placement of a Vas-Cath. Discharge Plan Dx/Rx/DC Orders Clinical Impression: AV fistula occlusion, Hypertension, Constipation, COURTNEY (nonalcoholic steatoh epatitis), Goodpasture syndrome, Acute hypokalemia, End-stage renal disease on hemodialysis, Anemia due to chronic kidney disease, on chronic dialysis Disposition Disposition: [facility] Care [facility]
[2023-07-11 10:31] LABS: Hematocrit 22.9 % (37-47); Hemoglobin 7.1 g/dL (12.0-15.0); Mean Corpuscular Hgb 31.6 pg (27.0-32.0); Mean Corpuscular Volume 101.8 fL (81-99); Mean Platelet Vol. 9.5 fl (6.2-12.0); POSITIVE MORPHOLOGY YES; Platelet Count 222 K/mm3 (150-450); RBC Distribution Width CV 17.3 % (11.6-14.6); RBC Distribution Width SD 65.4 fl (35.1-43.9); Red Blood Count 2.25 M/mm3 (4.2-5.4); White Blood Count 4.7 K/mm3 (4.4-11.0)
[2023-07-11 10:32] LABS: Scan Indicated on CBC? Y/N YES- FLAGS NOTED
[2023-07-11 10:49] LABS: Anion Gap 16 (5-15); BUN 56 mg/dL (7-18); BUN/Creat Ratio 5.1 RATIO (10-20); Chloride 96 mmol/L (98-107); EST Glomerular Filtration Rate 4 mL/min (>60); Est Glom Filt Rate - Afr Amer 5 mL/min (>60); Estimated Creatinine Clearance 4.99 ml/min; Glucose 83 mg/dL (74-106); Potassium 3.3 mmol/L (3.5-5.1); Sodium Level 139 mmol/L (136-145)
[2023-07-11 11:10] LABS: Differential Comment SCANNED
--- NOTE | 2023-07-11 13:23 | HP.PCM.HOS_ITS ---
HPI - General General Date of Admission: 07/11/23 HPI Narrative BABAR ACUÑA, is a 42 F who presents to the hospital from dialysis for thrombosed left upper extremity fistula. 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 On presentation her creatinine is elevated as she has missed dialysis on Tuesday and Tuesday. Her Tuesday dialysis was missed secondary to an allergic reaction to detergent which is still evident under her right arm and today her fistula is thrombosed and cannot perform dialysis. She denies any lightheadedness or fevers. Her hemoglobin is low at 7.1 but she states that she had received a transfusion a week or 2 ago at an outside hospital when her hemoglobin was between 6 and 6.4. She has received Depo in the past though she states that not recently. [facility] Medical History (Updated 07/11/23 @ 17:02 by Tami Ulloa) Anemia Cardiology follow-up encounter Cirrhosis Dialysis patient Dietary restriction End stage chronic kidney disease Fistula Former smoker Gastric reflux Goodpasture syndrome Heartburn High cholesterol History of echocardiogram History of edema History of heart attack (~2019) History of hiatal hernia History of stress test Hyperlipidemia Hypertension Hypertension Kidney disease Myocardial infarct Renal dialysis device, implant, or graft complication Seizures TIA (transient ischemic attack) (~2019) Wears glasses Home Medications acetaminophen 500 mg tablet 1,000 mg PO DAILY PRN PRN Pain 1-10 Or Fever 08/25/20 [History Last Taken 08/25/20] atorvastatin 10 mg tablet 10 mg PO QHS cholesterol 08/25/20 [History Last Taken 07/10/23] levonorgestrel 21 mcg/24 hours (8 yrs) 52 mg intrauterine device 1 ea IU X1 horm one 08/25/20 [History Last Taken 08/25/20] losartan 50 mg tablet 100 mg PO DAILY bp 08/25/20 [History Last Taken 07/10/23] clonidine HCl 0.2 mg tablet 0.1 mg PO TID blood pressure 01/30/21 [History Last Taken 07/11/23] doxazosin 1 mg tablet (Cardura) 1 mg PO DAILY 06/15/21 [History Last Taken 07/10/23] sevelamer carbonate 800 mg tablet (Renvela) 800 mg PO TID 06/15/21 [History Last Taken 07/10/23] linaclotide 290 mcg capsule (Linzess) 290 mcg PO DAILY #60 caps 12/09/22 [Rx Last Taken 07/11/23] lactulose 10 gram/15 mL (15 mL) oral solution 15 ml PO BID 07/11/23 [History Last Taken 07/11/23] prednisone 20 mg tablet 40 mg PO DAILY 07/11/23 [History Last Taken 07/11/23] Allergy/AdvReac Type Severity Reaction Status Date / Time nickel Allergy Mild Hives Verified 07/11/23 09:07 ciprofloxacin [From Cipro] Allergy Rash Verified 07/11/23 09:07 clarithromycin [From Biaxin] Allergy Rash Verified 07/11/23 09:07 Penicillins Allergy Hives Verified 07/11/23 09:07 cephalexin [From Keflex] AdvReac Diarrhea Verified 07/11/23 09:07 Surgical History History of (~2001) History of microdiscectomy (~2003) History of tubal ligation (~2001) History of wisdom tooth extraction Social History household members: none Smoking Status: Former smoker substance use type: does not use ROS Constitutional Constitutional: Denies chills, fatigue, fever(s) or malaise Eyes Eyes: Denies blurry vision ENT HEENT: Denies headache(s) or nasal discharge Cardiovascular Cardiovascular: Denies chest pain, dyspnea on exertion or syncope Respiratory/Chest Respiratory/Chest: Denies cough, shortness of breath at rest or shortness of breath with exertion Gastrointestinal Gastrointestinal: Denies constipation, diarrhea, nausea or vomiting Genitourinary Genitourinary: Denies dysuria Integumentary Integumentary: Reports rash Neurologic Neurologic: Denies focal weakness, numbness or tremor(s) Psychiatric Psychiatric: Denies anxiety or depression Hematologic/Lymphatic Hematologic/Lymphatic: Reports anemia Vital Signs Vital Signs Vital Signs: 07/11/23 09:05 07/11/23 09:53 07/11/23 12:00 Temperature 97.0 F L Temperature Source Temporal Pulse Rate 88 80 Respiratory Rate 14 13 Respiratory Pattern Normal Blood Pressure 131/97 H Blood Pressure Mean 108 Pulse Ox 100 98 Oxygen Delivery Method Room Air Room Air Weight Weight: 105 lb 13.15 oz Body Mass Index (BMI) 18.1 Physical Exam Narrative General: Alert, Oriented x3, Cooperative, No apparent distress HEENT: Atraumatic, PERRLA, EOMI, Normocephalic Oral: Moist Mucosa Neck: Supple, No JVD Lungs: Clear to auscultation, Normal air movement, No rhonchi, No wheeze, No rales Cardiovascular: Regular rate, Regular Rhythm, Normal S1, Normal S2, No murmurs Abdomen: Soft, Non Tender, Non-Distended, No Hepato-splenomegaly Extremities: No edema, Capillary Refill Less than 3 Seconds, left upper extremity fistula without a thrill Skin: Scaly rash under her right arm near back Musculoskeletal: No Tenderness to Palpation of Joints or Extremities Neurological: Cranial nerves II-XII grossly intact, Motor Exam 5/5 strength throughout, Sensory exam intact to light touch and pain Psych/Mental Status: Normal Affect, Appropriate Results Lab / Micro Data 07/11/23 10:15 07/11/23 10:15 Labs: Laboratory Results - last 24 hr 07/11/23 10:15: WBC 4.7, RBC 2.25 L, Hgb 7.1 L, Hct 22.9 L, MCV 101.8 H, MCH 31.6, MCHC 31.0 L, RDW Std Deviation 65.4 H, RDW Coeff of Aleida 17.3 H, Plt Count 222, MPV 9.5, Differential Comment SCANNED, Sodium 139, Potassium 3.3 L, Chloride 96 L, Carbon Dioxide 27.0, Anion Gap 16 H, BUN 56 H, Creatinine 10.90 H*, Estim Creat Clear Calc 4.99, Est GFR (MDRD) Af Amer 5 L, Est GFR (MDRD) Non- Af 4 L, BUN/Creatinine Ratio 5.1 L, Glucose 83, Calcium 10.0 Assessment & Plan Assessment/Plan (1) AV fistula occlusion: PLAN: Plan 1. ESRD secondary to Goodpasture syndrome on dialysis with an occluded left upper extremity fistula ? We will consult vascular surgery ? Consult nephrology for dialysis, a right subclavian dialysis catheter was placed in the ER ? Continue with her pertinent home medications 2. HTN/HLD ? Blood pressures appear to be stable at the moment ? Can resume her home medications when verified ? Continue with her Lipitor when verified 3. GERD ? Stable ? Continue with PPI DVT: Heparin 75 minutes was spent on direct patient care, including documentation as well as chart review and collaboration with colleagues Charges/Coding Visit Charges Inpatient E&M: 04646 Init Hosp L3
--- NOTE | 2023-07-11 13:25 | RAD_ITS ---
HISTORY: Placement Vas-Cath right subclavian. TECHNIQUE: XR Chest 1 View. COMPARISON: None. FINDINGS: CARDIOMEDIASTINAL BORDERS: Cardiac silhouette within normal limits in size. Mediastinal contour unremarkable. Double-lumen right subclavian central venous catheter tip at the level of the distal superior vena cava LUNGS: Radiographically clear. PLEURA: No pleural effusion or pneumothorax seen. OSSEOUS STRUCTURES: Calcific tendinitis of the right shoulder. RAD/CXR for Line Placement IMPRESSION: Satisfactory appearance of right central venous catheter. Electronically Signed: Ladan Ruiz MD at 13:51 EST ,
[2023-07-11] MEDS: Heparin 10,000 UNITS/10 ML Vial 2500 UNITS IV ×2 (13:33→16:01)
[2023-07-11] MEDS: 0.9% Saline Lock 10 ML Syringe IV ×3 (13:34→21:19)
[2023-07-11] MEDS: cloNIDine HCl 0.2 MG Tablet PO (16:31)
--- NOTE | 2023-07-11 16:41 | ED.RN ---
per dr. hay verbal order. 2 pound sand bag applied to vas cath site on right chest. medsurge charge master analyst informed of site still bleeding and sand bag application. reports she will monitor on floor.
[2023-07-11] MEDS: PureFlow B 2K Dialysis Soln 1 BAG 6 BAG PF (17:31)
[2023-07-11] MEDS: 0.9% Normal Saline 1,000 ML IV.SOLN. 1000 ML OPERA.SITE (17:31)
[2023-07-11] MEDS: Heparin 10,000 UNITS/10 ML Vial IV (18:09)
--- NOTE | 2023-07-11 20:11 | NURSING ---
This nurse reviewed home medication list with pt and she reports she is no longer taking anything, including Keppra, for her history of seizures. She reports that this stopped about 1 year ago. Pt reports that she is currently on short term Prednisone due to her skin allergy due to using gain fabric softner on Tuesday. She reports that today 07/11/23 is day 4 of a 7 day therapy that was ordered in the ER that was ordered for her at [facility] ER where she was subsequently discharged. she reports that she was admitted today to [facility] after attempting to go to dialysis.
--- NOTE | 2023-07-11 20:20 | NURSING ---
pt reports that her bp has been high today because she has not received her home medications due to being in the ER.
[2023-07-11] MEDS: Lactulose 20 GM/30 ML UDC 10 GM PO (21:16)
[2023-07-11] MEDS: Atorvastatin Calcium 10 MG Tablet PO (21:17)
[2023-07-11] MEDS: cloNIDine HCl 0.1 MG Tablet PO (21:17)
[2023-07-12] VITALS (22 sets, daily range): BP systolic 52–221; BP diastolic 71–137; PULSE 73–114; RESP 14–18; TEMP 36.8–37.7; O2SAT 96–100; BMI 17.8; BMI 17.6
[2023-07-12] MEDS: DiphenhydrAMINE 25 MG Capsule 50 MG PO ×4 (00:05→21:53)
[2023-07-12] MEDS: cloNIDine HCl 0.1 MG Tablet PO ×3 (02:28→21:50)
[2023-07-12] MEDS: Acetaminophen 325 MG Tablet 650 MG PO ×3 (02:29→17:45)
[2023-07-12] MEDS: 0.9% Saline Lock 10 ML Syringe IV ×4 (06:04→17:34)
[2023-07-12] MEDS: hydrALAZINE 20 MG/ML Vial IV (06:04)
--- NOTE | 2023-07-12 07:11 | PCM.PN.HOSP ---
Subjective Subjective Feeling well. No events. Objective Data Objective Data Vital Signs: Vital Signs Temp Pulse Resp BP Pulse Ox O2 Del Method 36.8 C 73 16 179/114 H 100 Room Air 07/12/23 05:58 07/12/23 06:04 07/12/23 05:58 07/12/23 06:30 07/12/23 05:58 07/12/23 05:58 Oxygen Delivery Method Room Air Weight: 47.3 kg Body Mass Index (BMI) 17.8 Intake & Output: Intake and Output for Last 24 Hours 07/10/23 07/11/23 07/12/23 23:59 23:59 23:59 Intake Total 200 / 200 Output Total 550 / 550 Balance -550 / -350 200 / 200 Lab / Micro Data 07/12/23 06:40 07/12/23 06:40 Labs: Laboratory Results - last 24 hr 07/11/23 10:15: WBC 4.7, RBC 2.25 L, Hgb 7.1 L, Hct 22.9 L, MCV 101.8 H, MCH 31.6, MCHC 31.0 L, RDW Std Deviation 65.4 H, RDW Coeff of Aleida 17.3 H, Plt Count 222, MPV 9.5, Differential Comment SCANNED, Sodium 139, Potassium 3.3 L, Chloride 96 L, Carbon Dioxide 27.0, Anion Gap 16 H, BUN 56 H, Creatinine 10.90 H*, Estim Creat Clear Calc 4.99, Est GFR (MDRD) Af Amer 5 L, Est GFR (MDRD) Non-Af 4 L, BUN/Creatinine Ratio 5.1 L, Glucose 83, Calcium 10.0 Radiography Diagnostic Testing: Radiology Impression Chest X-Ray 07/11/23 13:25 IMPRESSION: Satisfactory appearance of right central venous catheter. Electronically Signed: Ladan Ruiz MD at 13:51 EST Reading Location ID and State: [facility] / [place] Tel , Service support , Physical Exam Const alert and no apparent distress HEENT head/scalp atraumatic and moist oral mucous membranes Resp normal respiratory effort, no retractions, no use of accessory muscles and clear to auscultation bilaterally Cardio regular rate, regular rhythm, S1 normal heart sound and S2 normal heart sound GI normal to inspection, nondistended, normoactive bowel sounds, soft to palpation, non-tender and non-distended Assessment & Plan Assessment/Plan (1) AV fistula occlusion: QUALIFIERS: Encounter type: initial encounter Qualified Code(s): T82.898A - Other specified complication of vascular prosthetic devices, implants and grafts, initial encounter PLAN: Consult vascular surgery. (2) Hypertensive urgency: PLAN: Peaked at 221/124 Losartan 100, clonidine 0.1 TID. Has PRN hydralazine. Monitor (3) Anemia due to chronic kidney disease, on chronic dialysis: PLAN: Anemia: Hg 6.1. Down from March where it was 11.4. Transfuse 1 unit. Monitor. Check hemoccult, B12, Folte, TSH, iron studies. PLAN: Plan Chronic stable conditions: ESRD: nephrology for HD. Temporary HD cath placed in ED. HLD: continue atorvastatin GERD: continue PPI. DVT: SQ Heparin Charges/Coding Visit Charges Inpatient E&M: 62996 Subs Hosp L2
[2023-07-12 07:35] LABS: Absolute Lymphocyte Count 0.86 X10^3/uL (0.83-4.51); Absolute Neutrophil Count 2.9 X10^3/uL (2.0-7.7); Hematocrit 19.2 % (37-47); Hemoglobin 6.1 g/dL (12.0-15.0); Lymphocyte # 0.86 X10^3/ul (0.83-4.51); Lymphocyte % 20.1 % (19-41); Mean Corp Hgb Conc 31.8 g/dL (32-36); Mean Corpuscular Hgb 32.3 pg (27.0-32.0); Mean Corpuscular Volume 101.6 fL (81-99); Mean Platelet Vol. 9.4 fl (6.2-12.0); Monocyte# 0.44 X10^3/uL; Monocyte% 10.3 % (0-10); NRBC Flagged by Analyzer 2.1 % (0-5); Neutrophil % 67.7 % (47-70); Platelet Count 142 K/mm3 (150-450); RBC Distribution Width CV 17.2 % (11.6-14.6); RBC Distribution Width SD 64.4 fl (35.1-43.9); Red Blood Count 1.89 M/mm3 (4.2-5.4); White Blood Count 4.3 K/mm3 (4.4-11.0)
[2023-07-12] MEDS: 0.9% Normal Saline 1,000 ML IV.SOLN. 1000 ML OPERA.SITE (07:55)
[2023-07-12] MEDS: PureFlow B 2K Dialysis Soln 1 BAG 6 BAG PF (07:56)
[2023-07-12 08:05] LABS: Anion Gap 10 (5-15); BUN 54 mg/dL (7-18); BUN/Creat Ratio 5.7 RATIO (10-20); Calcium,Total 10.1 mg/dL (8.5-10.1); Chloride 101 mmol/L (98-107); Creatinine, Serum 9.41 mg/dL (0.55-1.02); EST Glomerular Filtration Rate 5 mL/min (>60); Est Glom Filt Rate - Afr Amer 6 mL/min (>60); Glucose 112 mg/dL (74-106); Potassium 3.2 mmol/L (3.5-5.1); Sodium Level 139 mmol/L (136-145)
[2023-07-12] MEDS: predniSONE 20 MG Tablet 40 MG PO (10:46)
[2023-07-12] MEDS: Doxazosin 1 MG Tablet PO (10:47)
[2023-07-12] MEDS: Lactulose 20 GM/30 ML UDC 10 GM PO ×2 (10:47→21:50)
[2023-07-12] MEDS: Heparin 10,000 UNITS/10 ML Vial IV (11:11)
[2023-07-12] MEDS: Influenza Virus Vac Quad 23-24 60 MCG/0.5 ML SYRINGE IM (11:19)
[2023-07-12 12:01] LABS: Internal QC Validated? YES +Cl - CLEAR BKGD; Pregnancy, Serum, hCG Quali. NEGATIVE Negative
[2023-07-12] MEDS: SEVELAMER CARBONATE 800 MG TABLET PO ×2 (12:25→15:57)
--- NOTE | 2023-07-12 12:46 | CON.PCM.RE_ITS ---
Assessment & Plan Assessment/Plan (1) End-stage renal disease on hemodialysis: PLAN: ESRD on hemodialysis. On dialysis Tuesday, Tuesday, Tuesday schedule. She received dialysis yesterday. Repeat dialysis this morning. Feels okay. Clotted AV graft. She is scheduled for declot tomorrow by vascular surgery. If not salvageable, she might need a tunneled dialysis catheter. Anemia. She did have some blood loss. Usually runs low hemoglobin it appears. PRBC as per primary HPI Consult Data Date of Consult: 07/12/23 HPI Narrative Reason for Consultation: ESRD HPI Narrative: BABAR ACUÑA, is a 42 F who presents To the hospital with a clotted AV graft. She has a left arm AV graft for dialysis access. ESRD on hemodialysis Tuesday, Tuesday, Tuesday schedule. Last dialysis full session was on Tuesday. She will do dialysis on Tuesday, was found to have clotted access. She had a declot with her primary making department preparer in [place] on Tuesday. Came back to dialysis Tuesday and was found to have clotted access. A temporary dialysis catheter was placed by ER physician, she received a session of dialysis yesterday and today. She is scheduled for declot tomorrow by vascular surgery. S/p dialysis this morning. Denies any complaints. [facility] Medical History (Updated 07/12/23 @ 07:[address] Ray Long ) Anemia Cardiology follow-up encounter Cirrhosis Dialysis patient Dietary restriction End stage chronic kidney disease Fistula Former smoker Gastric reflux Goodpasture syndrome Heartburn High cholesterol History of echocardiogram History of edema History of heart attack (~2019) History of hiatal hernia History of stress test Hyperlipidemia Hypertension Hypertension Kidney disease Myocardial infarct Renal dialysis device, implant, or graft complication Seizures TIA (transient ischemic attack) (~2019) Wears glasses Home Medications acetaminophen 500 mg tablet 1,000 mg PO DAILY PRN PRN Pain 1-10 Or Fever 08/25/20 [History Last Taken 08/25/20] atorvastatin 10 mg tablet 10 mg PO QHS cholesterol 08/25/20 [History Last Taken 07/10/23] levonorgestrel 21 mcg/24 hours (8 yrs) 52 mg intrauterine device 1 ea IU X1 hormone 08/25/20 [History Last Taken 08/25/20] losartan 50 mg tablet 100 mg PO DAILY bp 08/25/20 [History Last Taken 07/10/23] clonidine HCl 0.2 mg tablet 0.1 mg PO TID blood pressure 01/30/21 [History Last Taken 07/11/23] doxazosin 1 mg tablet (Cardura) 1 mg PO DAILY 06/15/21 [History Last Taken 07/10/23] sevelamer carbonate 800 mg tablet (Renvela) 800 mg PO TID 06/15/21 [History Last Taken 07/10/23] linaclotide 290 mcg capsule (Linzess) 290 mcg PO DAILY #60 caps 12/09/22 [Rx Last Taken 07/11/23] lactulose 10 gram/15 mL (15 mL) oral solution 15 ml PO BID 07/11/23 [History Last Taken 07/11/23] prednisone 20 mg tablet 40 mg PO DAILY 07/11/23 [History Last Taken 07/11/23] Allergy/AdvReac Type Severity Reaction Status Date / Time nickel Allergy Mild Hives Verified 07/11/23 09:07 ciprofloxacin [From Cipro] Allergy Rash Verified 07/11/23 09:07 clarithromycin [From Biaxin] Allergy Rash Verified 07/11/23 09:07 Penicillins Allergy Hives Verified 07/11/23 09:07 cephalexin [From Keflex] AdvReac Diarrhea Verified 07/11/23 09:07 Surgical History History of (~2001) History of microdiscectomy (~2003) History of tubal ligation (~2001) History of wisdom tooth extraction Social History household members: none Smoking Status: Former smoker substance use type: does not use ROS ROS Narrative Negative except above Physical Exam Narrative Alert awake oriented x 3 no obvious distress no pallor no icterus no JVD s1s2 no murmurs lungs clear abdomen soft no organomegaly no edema no cyanosis Lab / Micro Data 07/12/23 06:40 07/12/23 06:40 Labs: Laboratory Results - last 24 hr 07/12/23 06:40: WBC 4.3 L, RBC 1.89 L, Hgb 6.1 L, Hct 19.2 L, MCV 101.6 H, MCH 32.3 H, MCHC 31.8 L, RDW Std Deviation 64.4 H, RDW Coeff of Aleida 17.2 H, Plt Count 142 L, MPV 9.4, Immature Gran % (Auto) 1.900 H, Neut % (Auto) 67.7, Lymph % (Auto) 20.1, [place] % (Auto) 10.3 H, Eos % (Auto) 0.0, Baso % (Auto) 0.0, Absolute Neuts (auto) 2.9, Absolute Lymphs (auto) 0.86, Nucleated RBC % 2.1, Sodium 139, Potassium 3.2 L, Chloride 101, Carbon Dioxide 28.0, Anion Gap 10, BUN 54 H, Creatinine 9.41 H*, Estim Creat Clear Calc 5.70, Est GFR (MDRD) Af Amer 6 L, Est GFR (MDRD) Non-Af 5 L, BUN/Creatinine Ratio 5.7 L, Glucose 112 H, Calcium 10.1 07/12/23 10:15: Serum , Qual NEGATIVE, Blood Type A NEGATIVE, Antibody Screen NEGATIVE, Crossmatch See Detail Radiology Impression Chest X-Ray 07/11/23 13:25 IMPRESSION: Satisfactory appearance of right central venous catheter. Electronically Signed: Ladan Ruiz MD at 13:51 EST ,
[2023-07-12] MEDS: hydrALAZINE 20 MG/ML Vial 10 MG IV (14:10)
--- NOTE | 2023-07-12 14:14 | NURSING ---
Dr. Long aware of pts bp earlier of 186/126, ordered prn hydralazine. Pt given Benadryl at this time as her rash on her body (that has been there since this past Tuesday) is itching again. Blood transfusion started and pt said she was itching before transfusion was started. Will continue to monitor pt.
[2023-07-12] MEDS: Losartan Potassium 100 MG Tablet PO (15:56)
--- NOTE | 2023-07-12 17:00 | EX.PCM.CON.S ---
Assessment & Plan Assessment/Plan (1) AV fistula occlusion: QUALIFIERS: Encounter type: initial encounter Qualified Code(s): T82.898A - Other specified complication of vascular prosthetic devices, implants and grafts, initial encounter PLAN: Patient is scheduled for AV graft thrombectomy in the [facility] tomorrow, scheduled around 11 AM pending timing of prior cases. All her questions and concerns were addressed, she is agreeable to proceed. HPI Consult Data Date of Consult: 07/12/23 HPI Narrative HPI Narrative: BABAR ACUÑA, is a 42 F who presented to the [facility] ER on 07/11/2023 with complaint of occluded AV graft. She was sent from nephrology/dialysis center. She reports that she had the L forearm AV graft (by ER report [place]) created at [facility] 3 to 4 years ago. She reports prior instance of graft clotting off 1 to 2 years ago which resolved after declot and had been functioning well up to this point. Per nephrology, last dialysis was last Tuesday and last Tuesday was found to have clotted access and had declot by Dr. To (her primary senior python developer) on Tuesday. On Wednesday 07/11 had presented for dialysis and was found to have clotted AV graft at which point she was sent to the ER. Temporary right subclavian dialysis catheter was placed in the ER and she had dialysis yesterday and again this morning. She reports that she has had very minimal symptoms with the AV graft clotting off. She denies any new or worsening pain, edema, numbness/tingling in her left arm/hand. She reports that the last time it clotted off 1 to 2 years ago she had a lot of associated swelling and discomfort. Today she reports feeling okay. She has been quite hypertensive though this has been improving somewhat now that her home meds were restarted and she has been dialyzed. Her medical history is significant for Goodpasture Syndrome which is the cause of her kidney failure, chronic anemia, hypertension. [facility] Medical History (Updated 07/12/23 @ 07:[address] Ray Long DO) Anemia Cardiology follow-up encounter Cirrhosis Dialysis patient Dietary restriction End stage chronic kidney disease Fistula Former smoker Gastric reflux Goodpasture syndrome Heartburn High cholesterol History of echocardiogram History of edema History of heart attack (~2019) History of hiatal hernia History of stress test Hyperlipidemia Hypertension Hypertension Kidney disease Myocardial infarct Renal dialysis device, implant, or graft complication Seizures TIA (transient ischemic attack) (~2019) Wears glasses Home Medications acetaminophen 500 mg tablet 1,000 mg PO DAILY PRN PRN Pain 1-10 Or Fever 08/25/20 [History Last Taken 08/25/20] atorvastatin 10 mg tablet 10 mg PO QHS cholesterol 08/25/20 [History Last Taken 07/10/23] levonorgestrel 21 mcg/24 hours (8 yrs) 52 mg intrauterine device 1 ea IU X1 hormone 08/25/20 [History Last Taken 08/25/20] losartan 50 mg tablet 100 mg PO DAILY bp 08/25/20 [History Last Taken 07/10/23] clonidine HCl 0.2 mg tablet 0.1 mg PO TID blood pressure 01/30/21 [History Last Taken 07/11/23] doxazosin 1 mg tablet (Cardura) 1 mg PO DAILY 06/15/21 [History Last Taken 07/10/23] sevelamer carbonate 800 mg tablet (Renvela) 800 mg PO TID 06/15/21 [History Last Taken 07/10/23] linaclotide 290 mcg capsule (Linzess) 290 mcg PO DAILY #60 caps 12/09/22 [Rx Last Taken 07/11/23] lactulose 10 gram/15 mL (15 mL) oral solution 15 ml PO BID 07/11/23 [History Last Taken 07/11/23] prednisone 20 mg tablet 40 mg PO DAILY 07/11/23 [History Last Taken 07/11/23] Allergy/AdvReac Type Severity Reaction Status Date / Time nickel Allergy Mild Hives Verified 07/11/23 09:07 ciprofloxacin [From Cipro] Allergy Rash Verified 07/11/23 09:07 clarithromycin [From Biaxin] Allergy Rash Verified 07/11/23 09:07 Penicillins Allergy Hives Verified 07/11/23 09:07 cephalexin [From Keflex] AdvReac Diarrhea Verified 07/11/23 09:07 Surgical History History of (~2001) History of microdiscectomy (~2003) History of tubal ligation (~2001) History of wisdom tooth extraction Social History household members: none Smoking Status: Former smoker substance use type: does not use Physical Exam Const alert, oriented x3 and no apparent distress General Appearance: cooperative HEENT normocephalic, head/scalp atraumatic, hearing grossly normal bilaterally, external ears normal and external nose normal Eyes EOMs intact bilaterally General Eye: normal appearance of both eyes Resp Effort and Inspection: able to speak in complete sentences; Negative for respiratory distress, labored, uses accessory muscles or audible wheezes Cardio regular rate and regular rhythm Extremity Extremity Narrative: Right forearm AV graft with no thrill or bruit. No associated swelling, erythema, warmth, tenderness. Skin no rashes or lesions noted Trauma: no lacerations or abrasions Wounds: Negative for wounds noted Neuro oriented x3, CN's II-XII intact bilaterally, moves all extremities, no focal motor deficits and no sensory deficits noted Speech: speech normal Psych mental status grossly normal Appearance: grossly normal Attitude: calm and engaged Activity / Motor Behavior: appropriate eye contact Speech: normal speech Mood & Affect: euthymic mood Judgement: judgement good Lab / Micro Data 07/12/23 06:40 07/12/23 06:40 Labs: Laboratory Results - last 24 hr 07/12/23 06:40: WBC 4.3 L, RBC 1.89 L, Hgb 6.1 L, Hct 19.2 L, MCV 101.6 H, MCH 32.3 H, MCHC 31.8 L, RDW Std Deviation 64.4 H, RDW Coeff of Aleida 17.2 H, Plt Count 142 L, MPV 9.4, Immature Gran % (Auto) 1.900 H, Neut % (Auto) 67.7, Lymph % (Auto) 20.1, [place] % (Auto) 10.3 H, Eos % (Auto) 0.0, Baso % (Auto) 0.0, Absolute Neuts (auto) 2.9, Absolute Lymphs (auto) 0.86, Nucleated RBC % 2.1, Sodium 139, Potassium 3.2 L, Chloride 101, Carbon Dioxide 28.0, Anion Gap 10, BUN 54 H, Creatinine 9.41 H*, Estim Creat Clear Calc 5.70, Est GFR (MDRD) Af Amer 6 L, Est GFR (MDRD) Non-Af 5 L, BUN/Creatinine Ratio 5.7 L, Glucose 112 H, Calcium 10.1 07/12/23 10:15: Serum , Qual NEGATIVE, Blood Type A NEGATIVE, Antibody Screen NEGATIVE, Crossmatch See Detail Charges/Coding Visit Charges Inpatient E&M: 34911 Init Hosp L2
[2023-07-12] MEDS: Enalaprilat 1.25 MG/ML Vial 2.5 MG IV (17:31)
[2023-07-12] MEDS: amLODIPine 10 MG Tablet PO (17:32)
[2023-07-12] MEDS: Atorvastatin Calcium 10 MG Tablet PO (21:50)
[2023-07-13 05:07] VITALS: BP 146/98; PULSE 90; RESP 16; TEMP 36.6; O2SAT 100
[2023-07-13] MEDS: cloNIDine HCl 0.1 MG Tablet PO (05:10)
[2023-07-13] MEDS: DiphenhydrAMINE 25 MG Capsule 50 MG PO ×2 (05:11→18:36)
[2023-07-13] MEDS: Acetaminophen 325 MG Tablet 650 MG PO ×2 (05:11→16:23)
--- NOTE | 2023-07-13 07:20 | PN.HOSP_ITS ---
Reason for Visit Reason for Visit: Diagnoses Anemia in chronic kidney disease (07/11/23) Hypertensive urgency (07/11/23) End stage renal disease (07/11/23) Other specified complication of vascular prosthetic devices, implants and grafts, initial encounter (07/11/23) Dependence on renal dialysis (07/11/23) Subjective Subjective Feels well. No new events. Objective Data Objective Data Vital Signs: Vital Signs Temp Pulse Resp BP Pulse Ox O2 Del Method 36.6 C 90 16 146/98 H 100 Room Air 07/13/23 05:07 07/13/23 05:07 07/13/23 05:07 07/13/23 05:07 07/13/23 05:07 07/13/23 05:07 Oxygen Delivery Method Room Air Weight: 47 kg Body Mass Index (BMI) 17.6 Intake & Output: Intake and Output for Last 24 Hours 07/11/23 07/12/23 07/13/23 23:59 23:59 23:59 Intake Total 800 / 800 30 / 30 Output Total 550 / 550 350 / 350 Balance -550 / -350 450 / 450 30 / 30 Lab / Micro Data 07/13/23 07:35 07/13/23 07:35 Labs: Laboratory Results - last 24 hr 07/12/23 06:40: WBC 4.3 L, RBC 1.89 L, Hgb 6.1 L, Hct 19.2 L, MCV 101.6 H, MCH 32.3 H, MCHC 31.8 L, RDW Std Deviation 64.4 H, RDW Coeff of Aleida 17.2 H, Plt Count 142 L, MPV 9.4, Immature Gran % (Auto) 1.900 H, Neut % (Auto) 67.7, Lymph % (Auto) 20.1, [place] % (Auto) 10.3 H, Eos % (Auto) 0.0, Baso % (Auto) 0.0, Absolute Neuts (auto) 2.9, Absolute Lymphs (auto) 0.86, Nucleated RBC % 2.1, Sodium 139, Potassium 3.2 L, Chloride 101, Carbon Dioxide 28.0, Anion Gap 10, BUN 54 H, Creatinine 9.41 H*, Estim Creat Clear Calc 5.70, Est GFR (MDRD) Af Amer 6 L, Est GFR (MDRD) Non-Af 5 L, BUN/Creatinine Ratio 5.7 L, Glucose 112 H, Calcium 10.1 07/12/23 10:15: Serum , Qual NEGATIVE, Blood Type A NEGATIVE, Antibody Screen NEGATIVE, Crossmatch See Detail Physical Exam Const alert and no apparent distress HEENT head/scalp atraumatic Extremity Extremity Narrative: fistula in LUE w/o erythema. Psych affect normal Assessment & Plan Assessment/Plan (1) AV fistula occlusion: QUALIFIERS: Encounter type: initial encounter Qualified Code(s): T82.898A - Other specified complication of vascular prosthetic devices, implants and grafts, initial encounter PLAN: Consult vascular surgery. Plan for surgery today. (2) Hypertensive urgency: PLAN: Peaked at 221/124 Losartan 100, clonidine 0.1 TID. Has PRN hydralazine. Blood pressure still remained very high, in the 200 systolic, on the seventh. Added amlodipine 10 mg as well as give the patient a one-time dose of enalaprilat. Currently blood pressure is improved. (3) Anemia due to chronic kidney disease, on chronic dialysis: PLAN: Anemia: Hg 6.1. Down from November where it was 11.4. Transfuse 1 unit. And improved to 8.1. Check hemoccult, B12, Folte, TSH, iron studies. PLAN: Plan Chronic stable conditions: * ESRD: nephrology for HD. Temporary HD cath placed in ED. * HLD: continue atorvastatin * GERD: continue PPI. DVT: SQ Heparin Charges/Coding Visit Charges Inpatient E&M: 32517 Subs Hosp L2
[2023-07-13 07:57] LABS: Absolute Lymphocyte Count 0.76 X10^3/uL (0.83-4.51); Absolute Neutrophil Count 5.3 X10^3/uL (2.0-7.7); Hemoglobin 8.1 g/dL (12.0-15.0); Lymphocyte # 0.76 X10^3/ul (0.83-4.51); Lymphocyte % 11.1 % (19-41); Mean Corp Hgb Conc 32.4 g/dL (32-36); Mean Corpuscular Hgb 30.7 pg (27.0-32.0); Mean Corpuscular Volume 94.7 fL (81-99); Mean Platelet Vol. 9.8 fl (6.2-12.0); Monocyte# 0.54 X10^3/uL; Monocyte% 7.9 % (0-10); NRBC Flagged by Analyzer 0.6 % (0-5); Neutrophil # 5.34 X10^3/uL (2.7-7.7); Neutrophil % 77.7 % (47-70); POSITIVE COUNT YES; POSITIVE MORPHOLOGY YES; Platelet Count 98 K/mm3 (150-450); RBC Distribution Width CV 20.4 % (11.6-14.6); RBC Distribution Width SD 69.7 fl (35.1-43.9); Red Blood Count 2.64 M/mm3 (4.2-5.4); White Blood Count 6.9 K/mm3 (4.4-11.0)
[2023-07-13 08:22] LABS: Differential Indicated SCAN CRITERIA MET
[2023-07-13 08:32] VITALS: BP 160/107; PULSE 120; RESP 16; TEMP 37; O2SAT 100
[2023-07-13 08:40] VITALS: O2SAT 100
[2023-07-13] MEDS: predniSONE 20 MG Tablet 40 MG PO (08:41)
[2023-07-13 08:53] LABS: Vitamin B12 474 pg/mL (211-911)
[2023-07-13 08:59] LABS: Anion Gap 15 (5-15); BUN 32 mg/dL (7-18); BUN/Creat Ratio 4.9 RATIO (10-20); Calcium,Total 8.9 mg/dL (8.5-10.1); Chloride 102 mmol/L (98-107); Creatinine, Serum 6.49 mg/dL (0.55-1.02); EST Glomerular Filtration Rate 7 mL/min (>60); Est Glom Filt Rate - Afr Amer 9 mL/min (>60); Estimated Creatinine Clearance 8.21 ml/min; Ferritin 1701 ng/mL (8-252); Glucose 78 mg/dL (74-106); Iron 86 ug/dL (50-170); Iron Binding Capacity,Total 234 ug/dL (250-450); PERCENT IRON SATURATION 36.8 % (15.0-55.0); Potassium 3.3 mmol/L (3.5-5.1); Sodium Level 138 mmol/L (136-145); Thyroid Stim Hormone (TSH) 4.04 uIU/mL (0.358-3.74)
[2023-07-13] MEDS: Doxazosin 1 MG Tablet PO (09:02)
[2023-07-13] MEDS: amLODIPine 10 MG Tablet PO (09:02)
[2023-07-13 09:04] VITALS: BMI 18.7
[2023-07-13 09:11] LABS: Differential Comment SCANNED
[2023-07-13 09:13] LABS: Anisocytosis 2+; Macrocytosis 1+; Microcytosis 1+; Platelet Estimate SLT DEC (ADEQ)
[2023-07-13] MEDS: Losartan Potassium 100 MG Tablet PO (09:53)
--- NOTE | 2023-07-13 11:09 | PCM.PN.REN ---
Subjective Subjective No new complaints Objective Data Objective Data Vital Signs: Vital Signs Temp Pulse Resp BP Pulse Ox O2 Del Method 98.6 F 120 H 16 160/107 H 100 Room Air 07/13/23 08:32 07/13/23 08:32 07/13/23 08:32 07/13/23 08:32 07/13/23 08:40 07/13/23 08:44 Oxygen Delivery Method Room Air Weight: 49.6 kg Body Mass Index (BMI) 18.7 Intake & Output: Intake and Output for Last 24 Hours 07/11/23 07/12/23 07/13/23 23:59 23:59 23:59 Intake Total 800 / 800 30 / 30 Output Total 550 / 550 350 / 350 Balance -550 / -350 450 / 450 30 / 30 Lab / Micro Data 07/13/23 07:35 07/13/23 07:35 Labs: Laboratory Results - last 24 hr 07/12/23 10:15: Serum , Qual NEGATIVE, Blood Type A NEGATIVE, Antibody Screen NEGATIVE, Crossmatch See Detail 07/13/23 07:35: WBC 6.9, RBC 2.64 L, Hgb 8.1 L, Hct 25.0 L, MCV 94.7 D, MCH 30.7, MCHC 32.4, RDW Std Deviation 69.7 H, RDW Coeff of Aleida 20.4 H, Plt Count 98 L, MPV 9.8, Immature Gran % (Auto) 3.300 H, Neut % (Auto) 77.7 H, Lymph % (Auto) 11.1 L, [place] % (Auto) 7.9, Eos % (Auto) 0.0, Baso % (Auto) 0.0, Absolute Neuts (auto) 5.3, Absolute Lymphs (auto) 0.76 L, Nucleated RBC % 0.6, Differential Comment SCANNED, Platelet Estimate SLT DEC, Anisocytosis 2+, Microcytosis 1+, Macrocytosis 1+, Sodium 138, Potassium 3.3 L, Chloride 102, Carbon Dioxide 21.0, Anion Gap 15, BUN 32 H, Creatinine 6.49 H, Estim Creat Clear Calc 8.21, Est GFR (MDRD) Af Amer 9 L, Est GFR (MDRD) Non-Af 7 L, BUN/Creatinine Ratio 4.9 L, Glucose 78, Calcium 8.9, Iron 86, TIBC 234 L, Iron Saturation 36.8, Ferritin 1701 H, Vitamin B12 474, Folate 3.00 L, TSH 4.04 H Physical Exam Narrative Alert awake oriented x 3 no obvious distress no pallor no icterus no JVD s1s2 no murmurs lungs clear abdomen soft no organomegaly no edema no cyanosis Assessment & Plan Assessment/Plan (1) End-stage renal disease on hemodialysis: PLAN: ESRD on hemodialysis. On dialysis Tuesday, Tuesday, Tuesday schedule. She received dialysis yesterday. Clotted AV graft. She is scheduled for declot by vascular surgery. If not salvageable, she might need a tunneled dialysis catheter. Anemia. She did have some blood loss. Usually runs low hemoglobin it appears. S/p PRBC Hypokalemia. Mild. Can monitor for now.
--- NOTE | 2023-07-13 13:32 | PCM.OPRPT ---
Report of Operation Date of Procedure: 07/13/23 Pre-Operative Diagnosis: malfunction/thrombosis of AV graft Post-Operative Diagnosis: same Surgery/Procedure Performed:: fistulagram with mechanical thrombectomy IVUS SVC, left innominate vein, subclavian/axillary vein, basilic vein, graft Description of Surgical Findings:: tortuous inflow artery with kinked segments innominate vein compression, 81% Surgeon: Ray Wright Type of Anesthesia: Local and Sedation,Conscious Estimated Blood Loss (mL): 2 Description of Procedure: HPI: Patient is a 42 old female with a left forearm AV graft which has been in use for approximately 4 years. Recently she had thrombosis which was declotted approximately 1 week prior with a single interval successful use. She presents now with thrombosed graft with repeat efforts to the perform thrombectomy. Given the multiple recent failures a full evaluation of the outflow tract will be performed with intravascular ultrasound. Description of procedure: Upon obtaining informed consent and verification correct patient procedure site patient of [employer] where she was positioned prepped and draped in usual fashion. Time was performed conscious sedation administered with Versed and fentanyl. Skin overlying the graft was anesthetized 1% lidocaine and the graft accessed at the arterial and towards the venous outflow tract with a micropuncture needle wire. This then exchanged for micropuncture sheath through which injection fistulogram was performed which confirmed thrombus throughout to the graft. Micropuncture sheath was then exchanged out for a short 7 [place] sheath through which a penumbra mechanical aspiration thrombectomy device was advanced. This was then engaged across the entire to the graft and multiple passes with successful clot retrieval. Repeat angiography confirmed improvement in lumen with some residual thrombus distally which was again treated with thrombectomy device ultimately with resolution of any of the outflow thrombus. Next using a compression of the wire we accessed the graft in retrograde fashion and exchanged out for micropuncture sheath. Through the micropuncture sheath a 035 glide advantage wire was advanced and the micropuncture sheath exchanged out for a short 6 [place]an sheath. Through the 6 [place]an sheath a [id number] Yanna embolectomy balloon was advanced and inflated while withdrawn to retrieve the arterial plug. There now was brisk arterial inflow into the sheath and palpable thrill in the graft. Repeat imaging confirmed no further thrombus within the graft from arterial anastomosis to the venous anastomosis. Next the 7 [place] sheath was exchanged out for an 8 [place] sheath and the glide advantage wire advanced via the 8 [place] sheath traversing the basilic vein subclavian axillary brachial vein innominate vein and ultimately into the superior vena cava. An 8 [place] intravascular sound probe was then advanced over the wire and recorded pullback performed of the superior vena cava, left innominate vein, left subclavian axillary brachial vein, left basilic vein. This revealed 81% compression of the innominate vein. Given the remote distance from the graft and our access positioning and potential options for treating central venous compression was felt that this compression was not immediate jeopardy to the graft and that this could be addressed at a secondary procedure from alternate access point. Intravascular sound from wire then withdrawn the access sheath withdrawn and a nylon U stitch placed in the skin followed by 2 minutes of manual pressure with satisfactory stasis noted. There was low resistant Doppler signal in the graft at the completion of the case. Patient was taken recovery in anticipated return to the medical floor.
--- NOTE | 2023-07-13 14:03 | AVDS_ITS ---
Reason For Study: Thrombosed fistula s/p fistulagram LEFT Inflow, 144/11.9 cm/sec. Inflow, 315.4 ml/min. Prox anastomosis, Not visualized due to bandage. Prox graft, 151.8/102.6 cm/sec. Prox graft, 592.2 ml/min. Mid graft, 110.7/70.5 cm/sec. Mid graft, 420.3 ml/min. Distal graft, 107/72.3 cm/sec. Distal graft, 594.6 ml/min. Distal anastomosis, 172.5/118.1 cm/sec. Distal anastomosis, 945.6 ml/min. Outflow, 80.3/49.6 cm/sec. Outflow, 539.3 ml/min. Small area of mid graft not visualized due to bandages. VL/AV Fistula/Dialysis Graft Scan Interpretation Summary Patent left forearm arteriovenous graft with no stenosis, adequate flow volume. Ordering Physician: Wanda Mays Referring Physician: Jairon Wise Performed By: Mary Miller RVT
[2023-07-13 15:52] VITALS: BP 115/78; PULSE 108; RESP 16; TEMP 36.7; O2SAT 100
[2023-07-13] MEDS: LINACLOTIDE 290 MCG CAPSULE PO (16:14)
[2023-07-13] MEDS: Lactulose 20 GM/30 ML UDC 10 GM PO ×2 (16:14→21:15)
[2023-07-13] MEDS: SEVELAMER CARBONATE 800 MG TABLET PO (18:36)
[2023-07-13 21:09] VITALS: BP 127/89; PULSE 111; RESP 16; TEMP 36.7; O2SAT 100
[2023-07-13] MEDS: Atorvastatin Calcium 10 MG Tablet PO (21:15)
[2023-07-14] VITALS (14 sets, daily range): BP systolic 124–226; BP diastolic 73–110; PULSE 84–120; RESP 14–20; TEMP 36.8–37.4; O2SAT 96–100; BMI 18.6
[2023-07-14] MEDS: Acetaminophen 325 MG Tablet 650 MG PO ×3 (00:51→13:30)
--- NOTE | 2023-07-14 00:53 | RAD_ITS ---
STUDY: X-RAY - RIGHT ELBOW REASON FOR EXAM: Female, 42 years old. acute pain 06/14- unable to move arm due to pain TECHNIQUE: 2 view(s) of the elbow. COMPARISON: None. FINDINGS: Normal visualized humerus, radius and ulna. Normal radiocapitellar and ulnotrochlear articulations. There is air identified along lateral aspect of the distal arm with diffuse soft tissue swelling. There is diffuse soft tissue swelling of the upper forearm. These findings may indicate soft tissue injury. Air along the lateral upper arm may be due to venous line placement. RAD/Elbow min 3 Views IMPRESSION: Soft tissue swelling as described otherwise no acute fracture or subluxation. Electronically Signed: Hemalatha Davis MD at 2:45 EST ,
--- NOTE | 2023-07-14 00:53 | RAD_ITS ---
STUDY: X-RAY - RIGHT SHOULDER REASON FOR EXAM: Female, 42 years old. acute pain 06/14 TECHNIQUE: 2 view(s) of the shoulder. COMPARISON: None. FINDINGS: Normal glenohumeral articulation. Normal acromioclavicular joint. Normal acromion. Normal humeral head and visualized proximal humerus. There is periarticular soft tissue calcification consistent with a calcific tendinitis. There is no demonstrated fracture. Normal visualized pulmonary apex. RAD/Shoulder min 2 Views IMPRESSION: Mild calcific tendinitis, otherwise unremarkable x-ray examination of the shoulder. Electronically Signed: Hemalatha Davis MD at 2:43 EST ,
[2023-07-14] MEDS: Morphine 2 MG/ML Syringe IV (00:59)
[2023-07-14] MEDS: 0.9% Saline Lock 10 ML Syringe IV ×3 (00:59→17:00)
[2023-07-14] MEDS: cloNIDine HCl 0.1 MG Tablet PO (04:49)
[2023-07-14] MEDS: hydrALAZINE 20 MG/ML Vial 10 MG IV (04:55)
[2023-07-14] MEDS: DiphenhydrAMINE 25 MG Capsule 50 MG PO (05:06)
[2023-07-14] MEDS: predniSONE 20 MG Tablet 40 MG PO (07:52)
[2023-07-14] MEDS: Aspirin 81 MG TAB.CHEW PO (07:52)
--- NOTE | 2023-07-14 08:27 | PCM.DC ---
Discharge Instructions Diet Discharge Diet: 2000 mg Sodium Diet and Renal Diet Activity Discharge Activity: Return to Normal Activity Weight Bearing Status: Weight bearing as tolerated Dressing / Incision Call your doctor if you observe: Fever of 101 or Higher, Coldness, Increased Pain, Numbness or Tingling, Change in Color, Inability to urinate, Inability to have a bowel movement, Using more than 1 pad per hour, Shortness of breath, Dizziness, Fainting spells, Swelling in the ankles, Chest pain, Prolonged hiccupping, Increased palpitations (irregular heartbeat) and Calf discomfort Follow Up Care When: IN 2 WEEKS Test Results: Test results from this visit will be discussed in further detail at your follow-up appointment, if applicable. Discharge Plan Admission Admit Date/Time: 07/11/23 13:20 Primary Reason for Your Visit: Occluded left AV fistula. Attending Provider: Clinton Villar Primary Care Provider: Jairon Wise Consulting Providers: Ray Wright; Frank Berg; Irvin Valladares; Ray Long Discharge Orders/Prescriptions Prescriptions: New amlodipine 10 mg Tablet 10 mg PO DAILY Qty: 30 2RF Rx Instructions: Hold for SBP less than 130 mmHg aspirin 81 mg Tablet,Chewable 81 mg PO BREAKFAST Qty: 30 1RF Rx Instructions: Discontinue if platelet count drops less than 50,000 or hemoglobin less than 8 g% Continued doxazosin [Cardura] 1 mg tablet 1 mg PO DAILY sevelamer carbonate [Renvela] 800 mg tablet 800 mg PO TID Rx Instructions: must administer with a meal/food Linzess 290 mcg capsule 290 mcg PO DAILY Qty: 60 11RF Rx Instructions: take 30 minutes prior to first intake of the day levonorgestrel 1 EACH intrauterine device 1 ea IU X1 atorvastatin 10 MG tablet 10 mg PO QHS losartan 50 MG tablet 100 mg PO DAILY acetaminophen 500 MG tablet 1,000 mg PO DAILY PRN PRN (Reason: Pain 1-10 Or Fever) clonidine HCl 0.2 mg tablet 0.1 mg PO TID lactulose 10 gram/15 mL (15 mL) solution 15 ml PO BID Discontinued prednisone 20 mg tablet 40 mg PO DAILY Patient Comments: TAKE 2 TABLETS BY MOUTH EVERY DAY FOR 7 DAYS Referrals / Follow Up: Jairon Wise DO [Primary Care Provider] - Ray Wright MD [Med Staff - Active Staff] - Within 1 Month Frank Berg MD [[facility] [place] Staff - Consulting] - Within 1 Month Disposition Disposition (needs filled in before D/C Order can be placed): Home, Self Care
--- NOTE | 2023-07-14 08:28 | PCM.DC.SUM ---
Providers Date of Admission: 07/11/23 Date of Discharge: 07/14/23 Primary Care Physician: Dr. Jairon Wise, Consultations 07/11/23 17:49 Consult: Nephrology Routine Consulting Provider: Frank Berg Reason for Consult: dialysis EMERGENT Consult: No Notified: Yes Date Notified: 07/11/23 Time Notified: 18:41 Method of Notification: Answering Service Consult: Vascular Surgery Routine Consulting Provider: Ray Wright Reason for Consult: thrombosed LUE fistula EMERGENT Consult: No Notified: Yes Date Notified: 07/11/23 Time Notified: 13:22 Method of Notification: ED Physician Initiated Reason For Visit: THROMBOSSED FISTULA Diagnosis Discharge Diagnosis (1) AV fistula occlusion: Status: Acute Code(s): T82.898A - Other specified complication of vascular prosthetic devices, implants and grafts, initial encounter Qualifiers: Encounter type: initial encounter Qualified Code(s): T82.898A - Other specified complication of vascular prosthetic devices, implants and grafts, initial encounter Plan: Vascular surgery was consulted. Patient had angiogram with thrombectomy of the AV fistula. Flow established. Patient had successful dialysis today and plan for discharge today. Vascular surgery started on baby aspirin therefore prescription given. (2) Hypertensive urgency: Status: Acute Code(s): I16.0 - Hypertensive urgency Plan: Blood pressure is controlled. Amlodipine 10 mg added on top of for other home medications. Prescription for amlodipine given. (3) Anemia due to chronic kidney disease, on chronic dialysis: Status: Acute Code(s): N18.6 - End stage renal disease; D63.1 - Anemia in chronic kidney disease; Z99.2 - Dependence on renal dialysis Plan: Severe anemia Hg 6.1. Down from March where it was 11.4. Patient required 1 unit of PRBC transfusion and improved to 8.1. Patient on PPI once daily therefore changed to twice daily and prescription given. B12 474. Folic acid 3.0 low. Ferritin high 1701. TIBC low, serum iron normal overall/D of anemia of chronic disease/end-stage renal disease.Stool for occult blood positive. Patient advised to follow-up with GI. Prescription for folic acid and B12 given. Chronic stable conditions: ESRD: nephrology for HD. Temporary HD cath placed in ED. HLD: continue atorvastatin Discharge medication reconciliation done. Discharge follow-up instructions completed. Discharge process discussed with the patient and all questions were answered to patient's satisfaction. Follow with PCP in 1 to 2 weeks Total time spent, exact 35 minutes on discharge meds reconciliation, examination, coordination of care with nurses and ancillary staff, review of imaging and blood test and discussion with the patient on follow-up instructions. Medications at Discharge Home Medications acetaminophen 500 mg tablet 1,000 mg PO DAILY PRN PRN Pain 1-10 Or Fever 08/25/20 atorvastatin 10 mg tablet 10 mg PO QHS cholesterol 08/25/20 levonorgestrel 21 mcg/24 hours (8 yrs) 52 mg intrauterine device 1 ea IU X1 hormone 08/25/20 losartan 50 mg tablet 100 mg PO DAILY bp 08/25/20 clonidine HCl 0.2 mg tablet 0.1 mg PO TID blood pressure 01/30/21 doxazosin 1 mg tablet (Cardura) 1 mg PO DAILY 06/15/21 sevelamer carbonate 800 mg tablet (Renvela) 800 mg PO TID 06/15/21 linaclotide 290 mcg capsule (Linzess) 290 mcg PO DAILY #60 caps 12/09/22 lactulose 10 gram/15 mL (15 mL) oral solution 15 ml PO BID 07/11/23 amlodipine 10 mg tablet 10 mg PO DAILY #30 tabs 07/14/23 aspirin 81 mg tablet,delayed release 81 mg PO QODAY #30 tabs 07/14/23 cyanocobalamin (vitamin B-12) 1,000 mcg tablet 1,000 mcg PO DAILY #30 tabs 07/14/23 folic acid 1 mg tablet 1 mg PO DAILY #30 tabs 07/14/23 pantoprazole 40 mg tablet,delayed release (Protonix) 40 mg PO BID #60 tabs 07/14/23 Physical Exam Narrative Seen and examined. General: Alert, Oriented x3, Cooperative, No apparent distress HEENT: Atraumatic, PERRLA, EOMI, Normocephalic Oral: Moist Mucosa Neck: Supple, No JVD Chest Wall/lungs: Mild staining around dialysis catheter. Temporary dialysis catheter on right upper chest, subclavian. Clear to auscultation, air entry bilaterally,, No rhonchi, No wheeze, No rales Cardiovascular: Regular rate, Regular Rhythm, Normal S1, Normal S2, No murmurs Abdomen: Soft, Non Tender, Non-Distended, No Hepato-splenomegaly : Anuria for many years. On hemodialysis. Extremities: No edema, Capillary Refill Less than 3 Seconds, left upper extremity fistula without a thrill Skin: Scaly rash under her right arm near back Musculoskeletal: No Tenderness to Palpation of Joints or Extremities ROM full. Neurological: Cranial nerves II-XII grossly intact, Motor Exam 5/5 strength throughout Psychiatric: Flat affect. Weight / BMI Weight Weight: 109 lb 5.588 oz Body Mass Index (BMI) 18.7 ABG / Lab / Microbiology Data 07/13/23 07:35 07/13/23 07:35 Laboratory: Laboratory Results - last 24 hr 07/13/23 07:35: Differential Comment SCANNED, Platelet Estimate SLT DEC, Anisocytosis 2+, Microcytosis 1+, Macrocytosis 1+, Sodium 138, Potassium 3.3 L, Chloride 102, Carbon Dioxide 21.0, Anion Gap 15, BUN 32 H, Creatinine 6.49 H, Estim Creat Clear Calc 8.21, Est GFR (MDRD) Af Amer 9 L, Est GFR (MDRD) Non-Af 7 L, BUN/Creatinine Ratio 4.9 L, Glucose 78, Calcium 8.9, Iron 86, TIBC 234 L, Iron Saturation 36.8, Ferritin 1701 H, Vitamin B12 474, Folate 3.00 L, TSH 4.04 H Radiography Diagnostic Testing: Radiology Impression A/V Fistula Ultrasound 07/13/23 14:03 Interpretation Summary Patent left forearm arteriovenous graft with no stenosis, adequate flow volume. Ordering Physician: Wanda Mays Referring Physician: Jairon Wise Performed By: Mary Miller RVT Elbow X-Ray 07/14/23 00:53 IMPRESSION: Soft tissue swelling as described otherwise no acute fracture or subluxation. Electronically Signed: Hemalatha Davis MD at 2:45 EST , Shoulder X-Ray 07/14/23 00:53 IMPRESSION: Mild calcific tendinitis, otherwise unremarkable x-ray examination of the shoulder. Electronically Signed: Hemalatha Davis MD at 2:43 EST Reading Location ID and State: [facility] / [place] , Service support , Meaningful Use Info Meaningful Use Diagnoses (Choose all that apply): None applicable Discharge Plan Admission Admit Date/Time: 07/11/23 13:20 Primary Reason for Your Visit: Occluded left AV fistula. Attending Provider: Clinton Villar Primary Care Provider: Jairon Wise Consulting Providers: Ray Wright; Frank Berg; Irvin Valladares; Ray Long Discharge Orders/Prescriptions Prescriptions: New amlodipine 10 mg Tablet 10 mg PO DAILY Qty: 30 2RF Rx Instructions: Hold for SBP less than 130 mmHg pantoprazole [Protonix] 40 mg tablet,delayed release (DR/EC) 40 mg PO BID Qty: 60 1RF Rx Instructions: 40 mg twice daily for 2 weeks then once daily. aspirin 81 mg tablet,delayed release (DR/EC) 81 mg PO QODAY Qty: 30 0RF Rx Instructions: Discontinue if platelet count drops less than 50,000 or hemoglobin less than 8 g% cyanocobalamin (vitamin B-12) 1,000 mcg tablet 1,000 mcg PO DAILY Qty: 30 2RF folic acid 1 mg tablet 1 mg PO DAILY Qty: 30 2RF Continued doxazosin [Cardura] 1 mg tablet 1 mg PO DAILY sevelamer carbonate [Renvela] 800 mg tablet 800 mg PO TID Rx Instructions: must administer with a meal/food Linzess 290 mcg capsule 290 mcg PO DAILY Qty: 60 11RF Rx Instructions: take 30 minutes prior to first intake of the day levonorgestrel 1 EACH intrauterine device 1 ea IU X1 atorvastatin 10 MG tablet 10 mg PO QHS losartan 50 MG tablet 100 mg PO DAILY acetaminophen 500 MG tablet 1,000 mg PO DAILY PRN PRN (Reason: Pain 1-10 Or Fever) clonidine HCl 0.2 mg tablet 0.1 mg PO TID lactulose 10 gram/15 mL (15 mL) solution 15 ml PO BID Discontinued prednisone 20 mg tablet 40 mg PO DAILY Patient Comments: TAKE 2 TABLETS BY MOUTH EVERY DAY FOR 7 DAYS Referrals / Follow Up: Jairon Wise DO [Primary Care Provider] - Ray Wright MD [Med Staff - Active Staff] - Within 1 Month Frank Berg MD [Med Staff - Consulting] - Within 1 Month Johnson Piña DO [Med Staff - Active Staff] - Within 2 Weeks (For severe anemia, GI bleed. Stool for occult blood positive) Disposition Disposition (needs filled in before D/C Order can be placed): Home, Self Care Charges/Coding Visit Charges Inpatient E&M: 13456 Disch Hosp >30min
[2023-07-14] MEDS: oxyCODONE 5 MG Tablet PO ×2 (08:58→13:30)
[2023-07-14] MEDS: SEVELAMER CARBONATE 800 MG TABLET PO ×2 (09:01→17:03)
[2023-07-14] MEDS: LINACLOTIDE 290 MCG CAPSULE PO (09:01)
[2023-07-14] MEDS: Losartan Potassium 100 MG Tablet PO (09:32)
[2023-07-14] MEDS: amLODIPine 10 MG Tablet PO (09:32)
[2023-07-14] MEDS: Lactulose 20 GM/30 ML UDC 10 GM PO (09:33)
[2023-07-14] MEDS: Doxazosin 1 MG Tablet PO (09:34)
--- NOTE | 2023-07-14 10:35 | NURSING ---
Received HD orders from insurance verification rep to use AVG which was declotted on 07/13/23. If AVG is patent & adequate, ok to pull temp dialysis catheter per insurance verification rep
[2023-07-14] MEDS: 0.9% Normal Saline 1,000 ML IV.SOLN. 1000 ML OPERA.SITE (12:19)
[2023-07-14] MEDS: PureFlow B 3K Dialysis Soln 1 BAG 6 BAG PF (12:19)
--- NOTE | 2023-07-14 12:44 | NURSING ---
Received notification that ok to decrease treatment time to 2 hours today. pt will receive regular outpatient dialysis tomorrow. AVG is patent and working well for hemodialysis
--- NOTE | 2023-07-14 12:54 | PCM.PN.REN ---
Subjective Subjective No new complaints today Objective Data Objective Data Vital Signs: Vital Signs Temp Pulse Resp BP Pulse Ox O2 Del Method 98.4 F 90 14 141/85 H 100 Room Air 07/14/23 08:31 07/14/23 12:34 07/14/23 12:34 07/14/23 12:04 07/14/23 12:04 07/14/23 12:34 Oxygen Delivery Method Room Air Weight: 49.6 kg Body Mass Index (BMI) 18.6 Intake & Output: Intake and Output for Last 24 Hours 07/12/23 07/13/23 07/14/23 23:59 23:59 23:59 Intake Total 800 / 800 280 / 480 600 / 600 Output Total 350 / 350 Balance 450 / 450 280 / 480 600 / 600 Lab / Micro Data 07/13/23 07:35 07/13/23 07:35 Radiography Diagnostic Testing: Radiology Impression A/V Fistula Ultrasound 07/13/23 14:03 Interpretation Summary Patent left forearm arteriovenous graft with no stenosis, adequate flow volume. Ordering Physician: Wanda Mays Referring Physician: Jairon Wise Performed By: Mary Miller RVT Elbow X-Ray 07/14/23 00:53 IMPRESSION: Soft tissue swelling as described otherwise no acute fracture or subluxation. Electronically Signed: Hemalatha Davis MD at 2:45 EST , Shoulder X-Ray 07/14/23 00:53 IMPRESSION: Mild calcific tendinitis, otherwise unremarkable x-ray examination of the shoulder. Electronically Signed: Hemalatha Davis MD at 2:43 EST , Physical Exam Narrative Alert awake oriented x 3 no obvious distress no pallor no icterus no JVD s1s2 no murmurs lungs clear abdomen soft no organomegaly no edema no cyanosis Assessment & Plan Assessment/Plan (1) End-stage renal disease on hemodialysis: PLAN: ESRD on hemodialysis. On dialysis Tuesday, Tuesday, Tuesday schedule. We will plan for dialysis today and access the graft Clotted AV graft. S/p declot Anemia. She did have some blood loss. Usually runs low hemoglobin it appears. S/p PRBC Hypokalemia. Mild. We will arrange for dialysis today. If she does well, possible discharge home. Temporary catheter will be removed after dialysis.
--- NOTE | 2023-07-14 15:00 | CASEMGMT ---
Pt. has order in for discharge. RN CM in to pt. room to discuss needs at discharge. Pt. denies having needs at this time. Pt. denies having any additional questions/concerns at this time.
[2023-07-14] MEDS: Metoprolol Tartrate 5 MG/5 ML Vial 2.5 MG IV (16:56)
== END 2023-07-14 18:59 | disposition home or self-care (01) ==
LOC: ED 13:16 → MS3 13:38
PROVIDERS: Surgery Trauma Surgery; Admitting Provider Family Medicine; Emergency Provider Emergency Medicine; PCP Family Medicine; Visit Provider Internal Medicine
DX: T82.868A Thrombosis due to vascular prosthetic devices, implants and grafts, initial encounter (principal); T82.53 Leakage of other cardiac and vascular devices and implants; Z99.2 Dependence on renal dialysis; M31.0 Hypersensitivity angiitis; I12.0 Hypertensive chronic kidney disease with stage 5 chronic kidney disease or end stage renal disease; N18.6 End stage renal disease; E87.6 Hypokalemia; K75.81 Nonalcoholic steatohepatitis (NASH); K59.00 Constipation, unspecified; E78.00 Pure hypercholesterolemia, unspecified; Z87.891 Personal history of nicotine dependence; D63.1 Anemia in chronic kidney disease; Y82.8 Other medical devices associated with adverse incidents; Z23 Encounter for immunization; K21.9 Gastro-esophageal reflux disease without esophagitis; I25.2 Old myocardial infarction; Z79.899 Other long term (current) drug therapy; I16.0 Hypertensive urgency
CPT/HCPCS: 90686; C1752; C1757; C1894 ×2; 36415; 36430; 36904; 37252; 37253; 71045; 73030; 73080; 76937; 80048; 82607; 82728; 82746; 83540; 83550; 84443; 84703; 85025; 85027; 86850; 86900; 86901; 86920; 86922; 90937; 93990; 96374; 96375; 96376; 99152; 99153; 99221; 99284; C1753; C1769; J7030; J7040; P9016; Q9967; A4216; G0257; G0378